=== PATIENT | female | born 1945 | race Caucasian/White ===

== ENCOUNTER 2017-07-30 17:11 | Inpatient (IN) | payer MEDICARE ==
[~2017-07-30 17:11] MED LIST: ISOVUE-370 76%-LOCM 1 ML ONE
[2017-07-30] MEDS ORDERED: Albuterol Sulfate 2.5 mg/3 ml Neb ONE (17:30)
[2017-07-30] MEDS ORDERED: Albuterol Sulfate 2.5 mg/0.5 ml Neb ONE ×5 (17:30→18:11)
[2017-07-30] MEDS ORDERED: methylPREDNISolone Sod Succ/PF 125 MG/2 ML VIAL ONE (17:44)
--- NOTE | 2017-07-30 18:05 | RAD ---
PORTABLE CHEST: 07/30/17 HISTORY: Dyspnea. COMPARISON: Comparison made to exam of 03/06/17. There is confluent infiltrate in the peripheral right mid lung and there is diffuse confluent infiltr ate in the peripheral left lung involving the left mid and lower lung. Findings are consistent with b ilateral consolidation. Heart and mediastinum unremarkable. IMPRESSION: Bilateral areas of lung consolidation consistent with bilateral pneumonia. Close followup recommended . POS: [facility]
[2017-07-30 18:16] LABS: Hemoglobin 13.5 g/dL (12.0-16.0); Mean Corpuscular HGB CONC 31.9 g/dL (32.0-36.0); Mean Corpuscular Hemoglobin 30.3 pg (27.0-31.0); Mean Platelet Volume 8.2 fL (7.4-10.4); Platelet Count 279 thou/uL (130-400); RBC Distribution Width 13.9 % (11.5-14.5); Red Blood Cell (RBC) Count 4.46 mill/uL (4.20-5.40); White Blood Cell (WBC) Count 34.8 thou/uL (4.8-10.8)
[2017-07-30 18:20] LABS: Band 31 % (5-11); Lymphocytes 3 % (21-51); MDiff Complete? YES; Metamyelocyte 8 % (0-0); Monocytes 3 % (0-10); Neutrophil 52 % (42-75); PLT Morphology Comment Appears Adequate; RBC Morphology Normal; Reactive Lymphocytes 2 % (0-10); Vacuoles SLIGHT
[2017-07-30 18:21] LABS: ALT (SGPT) 17 U/L (8-55); AST (SGOT) 19 U/L (5-34); Albumin 4.2 g/dL (3.4-4.8); Alkaline Phosphatase 88 U/L (40-150); Anion Gap 16 mmol/L (10-20); BUN (Urea Nitrogen) 24 mg/dL (9.8-20.1); Bilirubin, Total 1.1 mg/dL (0.2-1.2); Calc. Creatinine Clearance 0 mL/min (70-130); Calcium 9.7 mg/dL (7.8-10.44); Carbon Dioxide 31 mmol/L (23-31); Chloride 90 mmol/L (98-107); Estimated GFR-MDRD 48; Globulin 3.4 g/dL (2.4-3.5); Glucose 135 mg/dL (80-115); Potassium 3.1 mmol/L (3.5-5.1); Protein, Total 7.6 g/dL (6.0-8.3); Sodium 134 mmol/L (136-145)
[2017-07-30 18:24] LABS: Troponin I 0.034 ng/mL (< 0.028)
[2017-07-30 18:33] LABS: Lactic Acid 1.8 mmol/L (0.5-2.2)
[2017-07-30 19:34] LABS: Base Excess-Venous 4.5 mmol/L (-30.0-30.0); Bicarbonate (HCO3v) 34.3 mmol/L (1.0-85.0); CO2 Tension (PvCO2) 71.8 mmHg (41.0-51.0); Calcium, Ionized 1.06 mmol/L (1.12-1.32); Hemoglobin - Calc 16.7 g/dL (12.0-18.0); O2 Tension (PvO2) 64.3 mmHg (35.0-45.0); Potassium 2.7 mmol/L (3.4-4.7); T. Carbon Dioxide 36.5 mmol/L (1.0-85.0); pH (Venous) 7.287 (7.35-7.45); vO2 Saturation-calc 88.3 % (0.0-100.0)
--- NOTE | 2017-07-30 20:37 | CT ---
CT CHEST WITH IV CONTRAST 07/30/17 Multiple axial tomograms obtained through the chest with IV enhancement. HISTORY: Cough. Chest x-ray showed bilateral consolidation. CT confirms dense consolidation involving the right upper lobe peripherally extending to the pleural surface. There is also dense consolidation in the left mid lung extending from the hilum to the pleur al surface. There are air bronchograms bilaterally. The lungs show some hazy infiltrative changes in the posterior left lower lobe as well. There is mediastinal adenopathy. There is a carinal lymph node measuring up to 1.8 cm with numerous o ther paratracheal and carinal lymph nodes identified. No definite hilar mass lesion seen. Images thro ugh the upper abdomen unremarkable. IMPRESSION: There are focal areas of dense consolidation involving both mid lung arvizu extending from the amanda t o the peripheral pleural surface bilaterally. There is associated mediastinal adenopathy. POS: [facility]
[2017-07-30] MEDS ORDERED: Ondansetron ODT 4 MG TAB SL PRN (22:03)
[2017-07-30] MEDS ORDERED: Ondansetron HCl/PF 4 MG/2 ML Vial IVP PRN (22:03)
[2017-07-30] MEDS ORDERED: HYDROcodone/Acetaminophen 5/325 mg Tablet PO PRN ×2 (22:03)
[2017-07-30] MEDS ORDERED: Acetaminophen 325 MG TAB PO PRN (22:03)
[2017-07-30 22:53] VITALS: BMI 35.9
[2017-07-30] MEDS ORDERED: Cefepime 2 GM in Sodium Chloride 0.9% 100 ML IVPB SCH (23:15)
[2017-07-30] MEDS ORDERED: Magnesium Sulfate 2 GM in Sodium Chloride 0.9% 100 ML IVPB PRN (23:16)
[2017-07-30] MEDS ORDERED: Melatonin 3 MG TAB PO PRN (23:17)
[2017-07-30 23:19] LABS: Magnesium 1.5 mg/dL (1.6-2.6); Phosphorus 5.1 mg/dL (2.3-4.7)
[2017-07-30] MEDS ORDERED: Potassium Chloride 40 MEQ in Sodium Chloride 0.9% 500 ML IVPB SCH (23:30)
[2017-07-30] MEDS ORDERED: Potassium Chloride 20 MEQ TAB PO SCH (23:30)
[2017-07-30] MEDS ORDERED: Magnesium 2 GM/NS 0.9% 100 ML 2 GM in Premix Bag 1 BAG IVPB SCH (23:45)
[2017-07-31] MEDS: Cefepime 2 GM, Syringe 2.5 ML in Sterile Water 10 ML SLOW IVP SCH ×2 (00:21→13:18)
[2017-07-31] MEDS ORDERED: Dextrose 50% Abboject 50 ML SYRINGE SLOW IVP PRN (02:07)
[2017-07-31] MEDS ORDERED: Insulin Regular 300 UNITS/3 ML VIAL SC PRN (02:07)
[2017-07-31] MEDS ORDERED: Dextrose 5% in Water 1,000 ML IV PRN (02:07)
[2017-07-31] MEDS ORDERED: Calcium Carbonate 500 MG ChewTAB PO PRN (02:10)
[2017-07-31] MEDS ORDERED: Ondansetron HCl/PF 4 MG/2 ML Vial IVP PRN (02:10)
[2017-07-31] MEDS ORDERED: Ondansetron ODT 4 MG TAB PO PRN (02:10)
[2017-07-31] MEDS ORDERED: Senokot 8.6 MG TAB PO PRN (02:10)
[2017-07-31] MEDS ORDERED: Acetaminophen 325 MG TAB PO PRN (02:10)
[2017-07-31] MEDS ORDERED: Mag-Al 1200 mg/1200 mg/30 ML UDCUP PO PRN (02:10)
[2017-07-31] MEDS ORDERED: Nitroglycerin 0.4 MG TAB (25 Tab Bottle) PO PRN (02:10)
[2017-07-31] MEDS ORDERED: Eucerin (Mineral Oil/Petrolatum,White) 30 gm Jar TOP PRN (02:13)
[2017-07-31] MEDS ORDERED: hydrALAZINE 20 MG/ML VIAL SLOW IVP PRN (02:13)
--- NOTE | 2017-07-31 02:46 | HP ---
DATE OF ADMISSION: 07/30/2017 PRIMARY CARE PHYSICIAN: Dr. Marge Jackson. PRIMARY WARP BLEACHING VAT TENDER: Dr. Cordero. CHIEF COMPLAINT: Shortness of breath. HISTORY OF PRESENT ILLNESS: Patient is a 72-year-old female with COPD, chronic respiratory failure o n 2 liters home oxygen, coronary artery disease, hypertension, and dyslipidemia, presented to the [facility] room from Dr. Jackson's office with shortness of breath. Her O2 saturation at Dr. Jackson's o ffice was 86% on 2 liters. Influenza testing was negative at Dr. Jackson's office. Over the last two days, the patient developed gradual worsening shortness of breath along with chest tightness and wheezing. She also had cough that was productive of thick whitish phlegm. No fevers, chills, or sick contacts reported. Weather changes usually precipitates her COPD exacerbation. She denies any orthopnea, paroxysmal nocturnal dyspnea, leg swelling, chest pain, lightheadedness, or syn cope. In the emergency room, her initial vital signs showed temperature 99.2, respirations 28, pulse rate o f 106, blood pressure of 120/65 with O2 saturation 86% on 4 liter nasal cannula. EKG showed sinus ta chycardia. CT scan of the chest in the emergency room was consistent with bilateral pneumonia. She received ceftriaxone, Levaquin, steroids with nebulizer treatment and aspirin in the emergency room. PAST MEDICAL HISTORY: 1. Chronic respiratory failure on home oxygen. 2. COPD. 3. Hypertension. 4. Hyperlipidemia. 5. Diabetes mellitus type 2. 6. Gastroesophageal reflux disease. 7. Anxiety and depression. 8. Chronic insomnia. PAST SURGICAL HISTORY: 1. . 2. Bilateral cataract surgery. ALLERGIES: Patient denies any drug allergies. CURRENT HOME MEDICATIONS: Patient does not remember any of her home medications. Family to get accu rate list of medications. SOCIAL HISTORY: Patient is a former smoker, quit in 2006. Drinks alcohol socially. She is . She lives at home with her family. She is FULL CODE. She makes her own decisions with the help o f her family. FAMILY HISTORY: Father with heart disease. REVIEW OF SYSTEMS: The following complete review of systems was negative, unless otherwise mentioned in the HPI or below: Constitutional: Weight loss or gain, ability to conduct usual activities. Skin: Rash, itching. Eyes: Double vision, pain. ENT/Mouth: Nose bleeding, neck stiffness, pain, tenderness. Cardiovascular: Palpitations, dyspnea on exertion, orthopnea. Respiratory: Shortness of breath, wheezing, cough, hemoptysis, fever or night sweats. Gastrointestinal: Poor appetite, abdominal pain, heartburn, nausea, vomiting, constipation, or diarr hea. Genitourinary: Urgency, frequency, dysuria, nocturia. Musculoskeletal: Pain, swelling. Neurologic/Psychiatric: Anxiety, depression. Allergy/Immunologic: Skin rash, bleeding tendency. PHYSICAL EXAMINATION: VITAL SIGNS: As discussed above. GENERAL: A 72-year-old female in mild to moderate respiratory distress. Able to complete short phra ses. HEENT: Atraumatic, normocephalic. Sclerae are anicteric. Moist mucous membranes. No oral lesion. NECK: Supple, no JVD, no stridor. LUNGS: Show diffuse expiratory wheezing with scattered rhonchi and rales. There was mild accessory muscle use. HEART: S1, S2 present, regular, 2/6 systolic murmur over the mitral area. ABDOMEN: Soft, nontender, bowel sounds present. EXTREMITIES: No edema or calf tenderness. NEUROLOGIC: Grossly nonfocal, moves all four extremities. PSYCHIATRY: Alert, awake, oriented x3. SKIN: Warm and dry. LYMPH NODES: No palpable lymph nodes in the neck. PERIPHERAL VASCULAR: Radial pulses palpable bilaterally. MUSCULOSKELETAL: No joint swelling or tenderness. LABORATORY FINDINGS: WBC count was 34.8 with 31% bandemia. VBGs showed pH of 7.28 with pCO2 of 71.8 , pO2 of 64.3. Chemistries showed sodium 134, potassium 2.7, magnesium 1.5, troponin of 0.034. EKG and CT scan of the chest by my review as discussed above. IMPRESSION: 1. Acute on chronic hypoxic respiratory failure secondary to chronic obstructive pulmonary disease/b ilateral pneumonia, suspected pneumococcus. 2. Electrolyte abnormalities. Patient has hyponatremia, hypokalemia, and hypomagnesemia. 3. Elevated troponins, probably secondary to demand ischemia. 4. Chronic kidney disease stage 3. 5. Hypertension. 6. Coronary artery disease. 7. Dyslipidemia. 8. Diabetes mellitus type 2. 9. Obesity with a BMI 35.9. 10. Anxiety and depression. 11. Gastroesophageal reflux disease. 12. Sepsis with acute organ dysfunction secondary to pneumonia. 13. Leukocytosis of 34.8 with 31% bandemia. PLAN: Patient will be monitored in the intermediate care unit. Consult Pulmonary. Continue Levaqui n. We will add cefepime. IV steroids. Replace potassium and magnesium. Recheck labs in a.m. [facility] treatment every 4 hourly. Resume home medications once confirmed. Plan of care was discussed with the patient in detail. She stated understanding. Patient will require 3 to 4 days for stabilization. Patient was seen and examined on 07/30/2017.
[2017-07-31 04:46] LABS: Legionella Urinary Ag Negative (Negative); Strep pneumo Urine Ag NEGATIVE (NEGATIVE)
[2017-07-31 06:07] LABS: Hemoglobin 10.6 g/dL (12.0-16.0); Mean Corpuscular HGB CONC 31.5 g/dL (32.0-36.0); Mean Corpuscular Hemoglobin 30.4 pg (27.0-31.0); Mean Corpuscular Volume 96.5 fl (81.0-99.0); Mean Platelet Volume 8.4 fL (7.4-10.4); Platelet Count 205 thou/uL (130-400); RBC Distribution Width 13.6 % (11.5-14.5); White Blood Cell (WBC) Count 24.4 thou/uL (4.8-10.8)
[2017-07-31] MEDS: Insulin Regular 300 UNITS/3 ML VIAL SC PRN ×2 (06:07→13:25)
[2017-07-31 06:08] LABS: Band 41 % (5-11); Lymphocytes 4 % (21-51); MDiff Complete? YES; Monocytes 2 % (0-10); Neutrophil 53 % (42-75); PLT Morphology Comment Appears Adequate
[2017-07-31 06:09] LABS: Albumin 3.2 g/dL (3.4-4.8); Anion Gap 12 mmol/L (10-20); BUN (Urea Nitrogen) 25 mg/dL (9.8-20.1); BUN/Creatinine Ratio 24.04; Calc. Creatinine Clearance 71 mL/min (70-130); Calcium 8.1 mg/dL (7.8-10.44); Carbon Dioxide 26 mmol/L (23-31); Chloride 105 mmol/L (98-107); Estimated GFR-MDRD 52; Glucose 155 mg/dL (80-115); Phosphorus 2.7 mg/dL (2.3-4.7); Potassium 3.9 mmol/L (3.5-5.1); Sodium 139 mmol/L (136-145)
[2017-07-31] MEDS: Mometasone/Formoterol 120 PUFF INHALER INH SCH ×2 (07:13→18:46)
[2017-07-31] MEDS: Folic Acid 1 MG TAB PO SCH (08:44)
[2017-07-31] MEDS: Docusate 100 MG CAP PO SCH ×2 (08:45→20:52)
[2017-07-31] MEDS: Famotidine 20 MG TAB PO SCH ×2 (08:45→20:52)
[2017-07-31] MEDS: guaiFENesin ER 600 MG TAB PO SCH ×2 (08:45→20:52)
[2017-07-31] MEDS: Saccharomyces boulardii 250 MG CAP PO SCH (08:45)
[2017-07-31] MEDS: Lisinopril 10 MG TAB PO SCH ×2 (08:45→20:52)
[2017-07-31] MEDS: Carvedilol 25 MG TAB PO SCH ×2 (08:46→20:53)
[2017-07-31] MEDS: Potassium Chloride 20 MEQ TAB PO SCH (08:46)
[2017-07-31] MEDS: Calcium Carbonate + Vit D 1 TAB PO SCH ×2 (08:46→17:30)
[2017-07-31] MEDS: FLUoxetine HCl 20 MG CAP PO SCH (08:46)
[2017-07-31] MEDS ORDERED: Non-Formulary Item 1 EACH (Budesonide-Formoterol [Symbicort 160-4.5] 1 PUFF) INH SCH (09:00)
--- NOTE | 2017-07-31 12:19 | PDOC.PN ---
- Subjective Encounter Start Date: 07/31/17 Encounter Start Time: 10:30 -: old records requested/rev Pt seen and examined, chart reviewed in its entirety. This is my first visit with this patient breathing markedly callie,r no F/C, cough, but no phlegm, no n/V/D/c, no CP, + YUAN 10 point ROS performed and neg for all systems except as per HPI - Objective Resuscitation Status: Resuscitation Status FULL:Full Resuscitation MAR Reviewed: Yes Vital Signs & Weight: Vital Signs (12 hours) Temp Pulse Resp BP BP Pulse Ox 07/31/17 11:26 97.4 F L 89 18 108/49 L 98 07/31/17 11:19 82 22 H 99 07/31/17 08:45 119/56 L 07/31/17 07:53 97.2 F L 86 19 114/52 L 97 07/31/17 07:38 97.6 F 84 20 97 07/31/17 07:15 99 07/31/17 07:11 84 20 99 07/31/17 04:00 97.6 F 86 18 100/54 L 97 07/31/17 02:22 84 16 100 Weight Weight 196 lb 8 oz I&O: 07/30/17 07/31/17 08/01/17 06:59 06:59 06:59 Intake Total 1000 Balance 1000 Result Diagrams: 07/31/17 05:12 07/31/17 05:12 Additional Labs: Accuchecks 07/31/17 07/31/17 10:33 06:00 POC Glucose 178 H 238 H Radiology Reviewed by me: Yes EKG Reviewed by me: Yes Phys Exam - Physical Examination Constitutional: NAD HEENT: PERRLA, moist MMs, sclera anicteric, oral pharynx no lesions Neck: no nodes, no JVD, supple, full ROM prolonged expiration, low pitch exp wheezes. Cardiovascular: RRR, no significant murmur, no rub Gastrointestinal: soft, non-tender, no distention, positive bowel sounds Musculoskeletal: pulses present, edema present trace pedal Neurological: non-focal, normal sensation, moves all 4 limbs Lymphatic: no nodes Psychiatric: normal affect, A&O x 3 Skin: no rash, normal turgor, cap refill <2 seconds Dx/Plan (1) CAP (community acquired pneumonia) Code(s): J18.9 - PNEUMONIA, UNSPECIFIED ORGANISM Status: Acute Qualifiers: Lung location: middle lobe of lung Comment: CAP, bilateral middle lobes (2) COPD with exacerbation Code(s): J44.1 - CHRONIC OBSTRUCTIVE PULMONARY DISEASE W (ACUTE) EXACERBATION Status: Acute Comment: steroids, nebs, abx (3) CAD (coronary artery disease) Code(s): I25.10 - ATHSCL HEART DISEASE OF [place] CORONARY ARTERY W/O ANG PCTRS Status: Chronic Qualifiers: Coronary Disease-Associated Artery/Lesion type: [place] artery [place] vs. transplanted heart: [place] heart Associated angina: without angina Qualified Code(s): I25.10 - Atherosclerotic heart disease of [place] coronary artery without angina pectoris (4) CKD (chronic kidney disease) stage 2, GFR 60-89 ml/min Code(s): N18.2 - CHRONIC KIDNEY DISEASE, STAGE 2 (MILD) Status: Chronic (5) HLD (hyperlipidemia) Code(s): E78.5 - HYPERLIPIDEMIA, UNSPECIFIED Status: Chronic Qualifiers: Hyperlipidemia type: unspecified Qualified Code(s): E78.5 - Hyperlipidemia , unspecified (6) HTN (hypertension) Code(s): I10 - ESSENTIAL (PRIMARY) HYPERTENSION Status: Chronic Qualifiers: Hypertension type: essential hypertension Qualified Code(s): I10 - Essential (primary) hypertension (7) Obesity (BMI 30.0-34.9) Code(s): E66.9 - OBESITY, UNSPECIFIED Status: Chronic (8) Acute respiratory failure with hypoxemia Code(s): J96.01 - ACUTE RESPIRATORY FAILURE WITH HYPOXIA Status: Acute Comment: acute on chronic. on 2L at home, back to 2L now - Plan cont current plan of care, continue antibiotics, respiratory therapy, out of bed /ambulate, DVT proph w/lovenox * .
[2017-07-31] MEDS: Atorvastatin Calcium 20 MG TAB PO SCH (20:52)
[2017-08-01] MEDS: Cefepime 2 GM, Syringe 2.5 ML in Sterile Water 10 ML SLOW IVP SCH ×2 (00:37→12:22)
[2017-08-01 04:55] LABS: Troponin I Less than 0.010 ng/mL (< 0.028)
[2017-08-01 04:56] LABS: Albumin 3.1 g/dL (3.4-4.8); Anion Gap 12 mmol/L (10-20); BUN (Urea Nitrogen) 26 mg/dL (9.8-20.1); BUN/Creatinine Ratio 29.89; Calc. Creatinine Clearance 85 mL/min (70-130); Calcium 8.4 mg/dL (7.8-10.44); Carbon Dioxide 28 mmol/L (23-31); Chloride 103 mmol/L (98-107); Estimated GFR-MDRD 64; Glucose 142 mg/dL (80-115); Magnesium 2.4 mg/dL (1.6-2.6); Phosphorus 2.4 mg/dL (2.3-4.7); Potassium 4.2 mmol/L (3.5-5.1); Sodium 139 mmol/L (136-145)
[2017-08-01 05:05] LABS: Band 11 % (5-11); Hemoglobin 10.5 g/dL (12.0-16.0); Lymphocytes 2 % (21-51); MDiff Complete? YES; Mean Corpuscular HGB CONC 31.3 g/dL (32.0-36.0); Mean Corpuscular Hemoglobin 30.2 pg (27.0-31.0); Mean Corpuscular Volume 96.4 fl (81.0-99.0); Mean Platelet Volume 8.5 fL (7.4-10.4); Monocytes 5 % (0-10); Neutrophil 82 % (42-75); PLT Morphology Comment Appears Adequate; Platelet Count 214 thou/uL (130-400); RBC Distribution Width 13.4 % (11.5-14.5); RBC Morphology Normal; Red Blood Cell (RBC) Count 3.46 mill/uL (4.20-5.40); White Blood Cell (WBC) Count 19.3 thou/uL (4.8-10.8)
[2017-08-01] MEDS: Mometasone/Formoterol 120 PUFF INHALER INH SCH ×2 (08:23→18:21)
[2017-08-01] MEDS: Lisinopril 10 MG TAB PO SCH ×2 (08:56→20:23)
[2017-08-01] MEDS: Docusate 100 MG CAP PO SCH ×2 (08:56→20:23)
[2017-08-01] MEDS: Famotidine 20 MG TAB PO SCH ×2 (08:56→20:23)
[2017-08-01] MEDS: Saccharomyces boulardii 250 MG CAP PO SCH (08:56)
[2017-08-01] MEDS: Potassium Chloride 20 MEQ TAB PO SCH (08:58)
[2017-08-01] MEDS: Carvedilol 25 MG TAB PO SCH ×2 (08:58→20:23)
[2017-08-01] MEDS: FLUoxetine HCl 20 MG CAP PO SCH (08:58)
[2017-08-01] MEDS: Calcium Carbonate + Vit D 1 TAB PO SCH ×2 (08:58→17:02)
[2017-08-01] MEDS: Folic Acid 1 MG TAB PO SCH (08:58)
[2017-08-01] MEDS: guaiFENesin ER 600 MG TAB PO SCH ×2 (08:58→20:23)
[2017-08-01] MEDS: Insulin Regular 300 UNITS/3 ML VIAL SC PRN (12:23)
--- NOTE | 2017-08-01 14:13 | PDOC.PN ---
- Subjective Encounter Start Date: 08/01/17 Encounter Start Time: 09:[address] Cordero, he had seen her ealier this morning Pt feels and looks much better. minimal cough, small amount of dark blood in sputum last night, none today. No f/c, no n/V/d/c. walking in her room, some YUAN. Back to home O2 levels 10 point ROS performed adn neg for all systems except as per HPI - Objective Resuscitation Status: Resuscitation Status FULL:Full Resuscitation MAR Reviewed: Yes Vital Signs & Weight: Vital Signs (12 hours) Temp Pulse Resp BP BP BP Pulse Ox 08/01/17 11:28 98.0 F 84 21 H 141/81 H 93 L 08/01/17 10:36 83 20 08/01/17 08:56 119/56 L 08/01/17 08:25 97 08/01/17 08:23 95 20 97 08/01/17 07:49 97.0 F L 82 20 120/61 98 08/01/17 07:33 97.6 F 86 20 98 08/01/17 04:16 97.6 F 86 20 118/60 100 Weight Weight 196 lb 8 oz I&O: 07/31/17 08/01/17 08/02/17 06:59 06:59 06:59 Intake Total 1000 1470 Balance 1000 1470 Result Diagrams: 08/01/17 03:49 08/01/17 03:49 Additional Labs: Accuchecks 08/01/17 08/01/17 07/31/17 10:19 05:46 21:28 POC Glucose 197 H 153 H 179 H 07/31/17 16:28 POC Glucose 135 H Radiology Reviewed by me: Yes EKG Reviewed by me: Yes Phys Exam - Physical Examination Constitutional: NAD HEENT: PERRLA, moist MMs, sclera anicteric, oral pharynx no lesions Neck: no nodes, no JVD, supple, full ROM expiratory left sided wheezes, inspiration = expiration, mid-rales Cardiovascular: RRR, no significant murmur, no rub Gastrointestinal: soft, non-tender, no distention, positive bowel sounds Musculoskeletal: no edema, pulses present Neurological: non-focal, normal sensation, moves all 4 limbs Lymphatic: no nodes Psychiatric: normal affect, A&O x 3 Skin: no rash, normal turgor, cap refill <2 seconds Dx/Plan (1) CAP (community acquired pneumonia) Code(s): J18.9 - PNEUMONIA, UNSPECIFIED ORGANISM Status: Acute Qualifiers: Lung location: middle lobe of lung Comment: CAP, bilateral middle lobes. 100% on home 2L NC, WBC down, afebrile. CCM, stop Cefepime, levofoox alone (2) COPD with exacerbation Code(s): J44.1 - CHRONIC OBSTRUCTIVE PULMONARY DISEASE W (ACUTE) EXACERBATION Status: Acute Comment: steroids, nebs, abx. much better today (3) CAD (coronary artery disease) Code(s): I25.10 - ATHSCL HEART DISEASE OF [place] CORONARY ARTERY W/O ANG PCTRS Status: Chronic Qualifiers: Coronary Disease-Associated Artery/Lesion type: [place] artery [place] vs. transplanted heart: [place] heart Associated angina: without angina Qualified Code(s): I25.10 - Atherosclerotic heart disease of [place] coronary artery without angina pectoris (4) CKD (chronic kidney disease) stage 2, GFR 60-89 ml/min Code(s): N18.2 - CHRONIC KIDNEY DISEASE, STAGE 2 (MILD) Status: Chronic (5) HLD (hyperlipidemia) Code(s): E78.5 - HYPERLIPIDEMIA, UNSPECIFIED Status: Chronic Qualifiers: Hyperlipidemia type: unspecified Qualified Code(s): E78.5 - Hyperlipidemia , unspecified (6) HTN (hypertension) Code(s): I10 - ESSENTIAL (PRIMARY) HYPERTENSION Status: Chronic Qualifiers: Hypertension type: essential hypertension Qualified Code(s): I10 - Essential (primary) hypertension (7) Obesity (BMI 30.0-34.9) Code(s): E66.9 - OBESITY, UNSPECIFIED Status: Chronic (8) Acute respiratory failure with hypoxemia Code(s): J96.01 - ACUTE RESPIRATORY FAILURE WITH HYPOXIA Status: Acute Comment: acute on chronic. on 2L at home, back to 2L now - Plan * .
--- NOTE | 2017-08-01 14:28 | CON ---
DATE OF SERVICE: 08/01/2017 HISTORY OF PRESENT ILLNESS: Ms. Jensen is a very pleasant 72-year-old female. She apparently presented yesterday for admission. I discovered her on my rounding visit today, jovon maki received no call notifying me of her admission. I follow her for obstructive lung disease. She is chronically on oxygen. Chest radiograph and chest CT showed bilateral dense alveolar infiltrates. She subsequently has been admitted. I reviewed the CT and chest radiograph. PAST MEDICAL HISTORY: Remarkable for, 1. Chronic respiratory failure, on home oxygen. 2. COPD. 3. Hypertension. 4. Lipid disorder. 5. Diabetes. 6. Reflux disease. 7. Insomnia, anxiety and depression. 8. History of a . 9. History of cataract surgery. SOCIAL HISTORY: She is a nonsmoker, nondrinker. She has not smoked in over 10 years. MEDICATIONS: Medications have been reviewed. FAMILY HISTORY: Negative for lung disease at an early age. There is history of vascular disease. REVIEW OF SYSTEMS: 10-point review of systems otherwise negative. She says she feels much better than she felt on presentation. PHYSICAL EXAMINATION: VITAL SIGNS: She is afebrile, heart rate is 84, respiratory rate 21, oximetry is 93 on 2 liters, blo od pressure 141/81. HEENT: Pupils are equal, sclerae is anicteric. NECK: Supple. LUNGS: Remarkable for mild rhonchi, worse on the left. Anteriorly, her lungs are clear. HEART: Regular rhythm, no S3. ABDOMEN: Soft and nontender with no masses. EXTREMITIES: No asymmetry. LABORATORY: Chest radiograph and chest CT have both been reviewed by me, consistent with patchy alve olar infiltrates suggestive of bacterial pneumonia. White count 19.3, hemoglobin 10.5, platelets 214 ,000. Sodium 139, potassium 4.2, chloride 103, bicarb 28, BUN 26, creatinine 0.7. IMPRESSION: 1. Pneumonia. 2. Chronic respiratory failure. 3. Acute decompensation with chronic obstructive pulmonary disease exacerbation with her pneumonia. PLAN: Continue steroids, antimicrobial therapy, radiograph as an outpatient will be followed t o a point of complete clearing. She does have some mediastinal lymph nodes, but all are less than 2 cm. It is hard to interpret mediastinal lymph node enlargement in an acute setting. I doubt she mcmanus s bilateral endobronchial lesions leading to her radiographic findings. She can be taken out of the Intermediate Care Unit and transferred to a medical bed in my opinion. ADDENDUM: This is a 50 minute consult and greater than 50% of the time was spent coordinating care o n the unit.
[2017-08-01] MEDS: Atorvastatin Calcium 20 MG TAB PO SCH (20:23)
[2017-08-02 04:50] LABS: Anion Gap 12 mmol/L (10-20); BUN (Urea Nitrogen) 22 mg/dL (9.8-20.1); Calc. Creatinine Clearance 94 mL/min (70-130); Calcium 8.7 mg/dL (7.8-10.44); Carbon Dioxide 28 mmol/L (23-31); Chloride 103 mmol/L (98-107); Estimated GFR-MDRD 73; Glucose 145 mg/dL (80-115); Magnesium 2.4 mg/dL (1.6-2.6); Sodium 139 mmol/L (136-145)
[2017-08-02 05:11] LABS: Band 29 % (5-11); Hemoglobin 10.7 g/dL (12.0-16.0); Lymphocytes 6 % (21-51); MDiff Complete? YES; Mean Corpuscular HGB CONC 32.2 g/dL (32.0-36.0); Mean Corpuscular Hemoglobin 30.9 pg (27.0-31.0); Mean Platelet Volume 8.7 fL (7.4-10.4); Monocytes 4 % (0-10); Neutrophil 61 % (42-75); PLT Morphology Comment Appears Adequate; Platelet Count 231 thou/uL (130-400); RBC Distribution Width 13.4 % (11.5-14.5); RBC Morphology Normal; Red Blood Cell (RBC) Count 3.46 mill/uL (4.20-5.40); White Blood Cell (WBC) Count 15.8 thou/uL (4.8-10.8)
[2017-08-02] MEDS: Mometasone/Formoterol 120 PUFF INHALER INH SCH ×2 (07:06→18:26)
[2017-08-02] MEDS: Docusate 100 MG CAP PO SCH ×3 (09:06→20:46)
[2017-08-02] MEDS: Carvedilol 25 MG TAB PO SCH ×2 (09:07→20:44)
[2017-08-02] MEDS: Famotidine 20 MG TAB PO SCH ×2 (09:07→20:44)
[2017-08-02] MEDS: Saccharomyces boulardii 250 MG CAP PO SCH (09:07)
[2017-08-02] MEDS: Folic Acid 1 MG TAB PO SCH (09:07)
[2017-08-02] MEDS: Potassium Chloride 20 MEQ TAB PO SCH (09:07)
[2017-08-02] MEDS: Calcium Carbonate + Vit D 1 TAB PO SCH ×2 (09:07→17:36)
[2017-08-02] MEDS: Lisinopril 10 MG TAB PO SCH ×2 (09:08→20:44)
[2017-08-02] MEDS: guaiFENesin ER 600 MG TAB PO SCH ×2 (09:08→20:44)
[2017-08-02] MEDS: FLUoxetine HCl 20 MG CAP PO SCH (09:08)
--- NOTE | 2017-08-02 13:21 | PRG ---
DATE OF SERVICE: 08/02/2017 SUBJECTIVE: She is better. She is still short of breath and coughing. PHYSICAL EXAMINATION: VITAL SIGNS: Sats 100% on 2 liters, temperature is 97, blood pressure 157/79, respirations 18. CHEST: Decreased breath sounds, no wheezing. CARDIAC: Normal S1, S2. ABDOMEN: Soft. No masses. LABORATORY DATA: White count 15,000, hemoglobin and hematocrit 10 and 33, platelet count 231 with 29 segs. Creatinine is normal. IMPRESSION: Bilateral bronchopneumonia. PLAN: I am concerned about extensive pneumonia on the left shift. X-ray is being ordered. If it lo oks much improved, maybe she can be discharged in the next 24 to 48 hours. Switch to oral antibiotic s.
--- NOTE | 2017-08-02 15:13 | PDOC.PN ---
- Subjective Encounter Start Date: 08/02/17 Encounter Start Time: 08:55 Pt breathing about back to baseline. pulm note reviewed, follow up CXR ordered. No F/c, no n/V/d/c, walking n room without problems 10 point ROs performed and neg for all systems except as per HPI - Objective Resuscitation Status: Resuscitation Status FULL:Full Resuscitation Vital Signs & Weight: Vital Signs (12 hours) Temp Pulse Pulse Pulse Resp BP BP 08/02/17 14:34 80 16 08/02/17 11:15 70 106 H 149/79 H 0180/95 H 08/02/17 11:12 97.2 F L 67 17 08/02/17 10:47 85 16 08/02/17 08:00 97.9 F 84 21 H 08/02/17 07:19 97.9 F 84 21 H 08/02/17 07:03 83 16 08/02/17 04:00 98.0 F 91 20 BP BP Pulse Ox Pulse Ox Pulse Ox 08/02/17 14:34 98 08/02/17 11:15 95 88 L 08/02/17 11:12 149/79 H 08/02/17 10:47 99 08/02/17 08:00 100 08/02/17 07:19 155/79 H 100 08/02/17 07:03 100 08/02/17 04:00 143/74 H 97 Weight Weight 196 lb 8 oz I&O: 08/01/17 08/02/17 08/03/17 06:59 06:59 06:59 Intake Total 1470 1260 360 Output Total 350 Balance 1470 910 360 Result Diagrams: 08/02/17 03:38 08/02/17 03:38 Additional Labs: Accuchecks 08/02/17 08/02/17 08/01/17 10:44 06:03 20:41 POC Glucose 147 H 147 H 176 H 08/01/17 16:25 POC Glucose 147 H Radiology Reviewed by me: Yes EKG Reviewed by me: Yes Phys Exam - Physical Examination Constitutional: NAD HEENT: PERRLA, moist MMs, sclera anicteric, oral pharynx no lesions Neck: no nodes, no JVD, supple, full ROM Respiratory: no wheezing, no rhonchi, clear to auscultation bilateral rales stable Cardiovascular: RRR, no significant murmur, no rub Gastrointestinal: soft, non-tender, no distention, positive bowel sounds Musculoskeletal: no edema, pulses present Neurological: non-focal, normal sensation, moves all 4 limbs Lymphatic: no nodes Psychiatric: normal affect, A&O x 3 Skin: no rash, normal turgor, cap refill <2 seconds Dx/Plan (1) CAP (community acquired pneumonia) Code(s): J18.9 - PNEUMONIA, UNSPECIFIED ORGANISM Status: Acute Qualifiers: Lung location: middle lobe of lung Comment: CAP, bilateral middle lobes. 100% on home 2L NC, WBC down, afebrile. CCM, stop Cefepime, levoflox alone. to po 08/02 (2) COPD with exacerbation Code(s): J44.1 - CHRONIC OBSTRUCTIVE PULMONARY DISEASE W (ACUTE) EXACERBATION Status: Acute Comment: steroids, nebs, abx. much better today (3) CAD (coronary artery disease) Code(s): I25.10 - ATHSCL HEART DISEASE OF [place] CORONARY ARTERY W/O ANG PCTRS Status: Chronic Qualifiers: Coronary Disease-Associated Artery/Lesion type: [place] artery [place] vs. transplanted heart: [place] heart Associated angina: without angina Qualified Code(s): I25.10 - Atherosclerotic heart disease of [place] coronary artery without angina pectoris (4) CKD (chronic kidney disease) stage 2, GFR 60-89 ml/min Code(s): N18.2 - CHRONIC KIDNEY DISEASE, STAGE 2 (MILD) Status: Chronic (5) HLD (hyperlipidemia) Code(s): E78.5 - HYPERLIPIDEMIA, UNSPECIFIED Status: Chronic Qualifiers: Hyperlipidemia type: unspecified Qualified Code(s): E78.5 - Hyperlipidemia , unspecified (6) HTN (hypertension) Code(s): I10 - ESSENTIAL (PRIMARY) HYPERTENSION Status: Chronic Qualifiers: Hypertension type: essential hypertension Qualified Code(s): I10 - Essential (primary) hypertension (7) Obesity (BMI 30.0-34.9) Code(s): E66.9 - OBESITY, UNSPECIFIED Status: Chronic (8) Acute respiratory failure with hypoxemia Code(s): J96.01 - ACUTE RESPIRATORY FAILURE WITH HYPOXIA Status: Acute Comment: acute on chronic. on 2L at home, back to 2L now - Plan * .
[2017-08-02] MEDS: Atorvastatin Calcium 20 MG TAB PO SCH (20:44)
[2017-08-03 05:13] LABS: Anion Gap 10 mmol/L (10-20); BUN (Urea Nitrogen) 23 mg/dL (9.8-20.1); Calc. Creatinine Clearance 100 mL/min (70-130); Carbon Dioxide 32 mmol/L (23-31); Chloride 102 mmol/L (98-107); Estimated GFR-MDRD 78; Glucose 107 mg/dL (80-115); Magnesium 2.3 mg/dL (1.6-2.6); Potassium 4.3 mmol/L (3.5-5.1); Sodium 140 mmol/L (136-145)
[2017-08-03 05:52] LABS: Band 9 % (5-11); Eosinophils 1 % (0-10); Hemoglobin 11.3 g/dL (12.0-16.0); Hypochromia SLIGHT = 6-15 cells (100X) (0-5/hpf); Lymphocytes 12 % (21-51); MDiff Complete? YES; Mean Corpuscular HGB CONC 31.5 g/dL (32.0-36.0); Mean Corpuscular Hemoglobin 30.1 pg (27.0-31.0); Mean Corpuscular Volume 95.7 fl (81.0-99.0); Mean Platelet Volume 8.2 fL (7.4-10.4); Metamyelocyte 2 % (0-0); Monocytes 4 % (0-10); Neutrophil 72 % (42-75); Nucleated RBC 1 % (0); PLT Morphology Comment Appears Adequate; Platelet Count 232 thou/uL (130-400); RBC Distribution Width 13.5 % (11.5-14.5); Red Blood Cell (RBC) Count 3.75 mill/uL (4.20-5.40); White Blood Cell (WBC) Count 20.2 thou/uL (4.8-10.8)
[2017-08-03] MEDS: Mometasone/Formoterol 120 PUFF INHALER INH SCH ×2 (06:16→22:49)
[2017-08-03] MEDS: Carvedilol 25 MG TAB PO SCH ×2 (08:00→20:11)
[2017-08-03] MEDS: predniSONE 20 MG TAB PO SCH (08:00)
[2017-08-03] MEDS: Calcium Carbonate + Vit D 1 TAB PO SCH ×2 (08:00→16:12)
[2017-08-03] MEDS: Potassium Chloride 20 MEQ TAB PO SCH (08:00)
[2017-08-03] MEDS: Folic Acid 1 MG TAB PO SCH (08:01)
[2017-08-03] MEDS: guaiFENesin ER 600 MG TAB PO SCH ×2 (08:01→20:11)
[2017-08-03] MEDS: Docusate 100 MG CAP PO SCH ×2 (08:01→20:11)
[2017-08-03] MEDS: FLUoxetine HCl 20 MG CAP PO SCH (08:01)
[2017-08-03] MEDS: Saccharomyces boulardii 250 MG CAP PO SCH (08:01)
[2017-08-03] MEDS: Lisinopril 10 MG TAB PO SCH ×2 (08:02→20:10)
[2017-08-03] MEDS: Famotidine 20 MG TAB PO SCH ×2 (08:02→20:11)
--- NOTE | 2017-08-03 09:54 | RAD ---
2 VIEWS CHEST: Date: 08/03/17 HISTORY: Pneumonia. COMPARISON: 07/30/17. FINDINGS: The dense opacity within the left mid lung zone has improved, but does persist. The parenchymal opaci ty in the posterior aspect of the right upper lobe does persist, but may also be slightly improved fr om the prior exam. Cardiac silhouette and pulmonary vasculature are within normal limits. There is bl unting of the posterior costophrenic angle suggesting small pleural effusion. No other interval ruiz e. IMPRESSION: Mild improvement in bilateral pneumonia. Continued follow-up to complete resolution is recommended. POS: [facility]
--- NOTE | 2017-08-03 14:02 | PRG ---
DATE OF SERVICE: 08/03/2017 SUBJECTIVE: Backhus this morning awake and responsive. X-ray shows rather impressive bilateral pneu monia, left greater than right. OBJECTIVE: VITAL SIGNS: Sats are 95% on 2 liters, respirations 16, temperature 97, blood pressure 145/72. CHEST: Decreased breath sounds, bilateral wheezing. CARDIAC: Normal S1 and S2. IMPRESSION: Bilateral bronchopneumonia, chronic obstructive pulmonary disease exacerbation, bronchit is. PLAN: Continue prednisone, continue neb treatments and supportive care. Ambulate. Incidentally white count is 20,000, H&H 11 and 35 that is normal. So far cultures are negative. We will continue observation in the ICU. On broad spectrum antibiotic.
[2017-08-03] MEDS: Atorvastatin Calcium 20 MG TAB PO SCH (20:11)
--- NOTE | 2017-08-03 22:20 | PDOC.PN ---
- Subjective Encounter Start Date: 08/03/17 Encounter Start Time: 15:00 Patient seen and examined. Dry cough. SOB on exertion +. No overnight events - Objective Resuscitation Status: Resuscitation Status FULL:Full Resuscitation MAR Reviewed: Yes Vital Signs & Weight: Vital Signs (12 hours) Temp Pulse Resp BP BP Pulse Ox 08/03/17 20:00 98.3 F 84 18 169/86 H 97 08/03/17 16:00 164/86 H 08/03/17 15:45 97.9 F 79 16 94 L 08/03/17 15:15 97.9 F 79 16 181/100 H 94 L 08/03/17 11:18 97.8 F 71 18 155/70 H 96 Weight Weight 199 lb 9 oz I&O: 08/02/17 08/03/17 08/04/17 06:59 06:59 06:59 Intake Total 1260 1200 840 Output Total 350 Balance 910 1200 840 Result Diagrams: 08/03/17 04:42 08/03/17 04:42 Additional Labs: Accuchecks 08/03/17 08/03/17 08/03/17 20:10 16:45 10:56 POC Glucose 184 H 137 H 115 H 08/03/17 05:48 POC Glucose 100 Phys Exam - Physical Examination Constitutional: NAD Respiratory: no rhonchi Scat wheezing and rales at bases Cardiovascular: RRR, no rub Gastrointestinal: soft, non-tender, positive bowel sounds Musculoskeletal: no edema Neurological: moves all 4 limbs Dx/Plan - Plan DVT proph w/SCDs IMPRESSION: 1. Acute on chronic hypoxic respiratory failure secondary to chronic obstructive pulmonary disease/bilateral pneumonia, suspected pneumococcus. 2. Electrolyte abnormalities( hyponatremia, hypokalemia, and hypomagnesemia) 3. Elevated troponins, probably secondary to demand ischemia. 4. Chronic kidney disease stage 3. 5. Hypertension. 6. Coronary artery disease. 7. Dyslipidemia. 8. Diabetes mellitus type 2. on sliding scale 9. Obesity with a BMI 35.9. 10. Anxiety and depression. 11. Gastroesophageal reflux disease. 12. Sepsis with acute organ dysfunction secondary to pneumonia. 13. Leukocytosis of 34.8 with 31% bandemia. PLAN: * Pulm following * Cont Atbx/Steroids * Cont current meds as below * DC planning * Cont nebs Review of Systems - Review of Systems Cardiovascular: negative: chest pain, palpitations, orthopnea, paroxysmal nocturnal dyspnea, edema, light headedness Gastrointestinal: negative: Nausea, Vomiting, Abdominal Pain, Diarrhea, Constipation, Melena, Hematochezia - Medications/Allergies Allergies/Adverse Reactions: Allergies Allergy/AdvReac Type Severity Reaction Status Date / Time No Known Allergies Allergy Verified 10/27/16 22:38 Medications: Current Medications Acetaminophen (Tylenol) 650 mg PO Q4H PRN PRN Reason: Headache/Fever or Pain Al Hydroxide/Mg Hydroxide (Maalox) 30 ml PO Q6H PRN PRN Reason: Heartburn or Indigestion Albuterol/Ipratropium (Duoneb) 3 ml NEB [id number] [facility] Last Admin: 08/03/17 14:33 Dose: 3 ml Albuterol/Ipratropium (Duoneb) 3 ml NEB [id number] PRN PRN Reason: SOB &/or Wheezing Atorvastatin Calcium (Lipitor) 20 mg PO HS [facility] Last Admin: 08/03/17 20:11 Dose: 20 mg Calcium Carbonate (Tums) 1,000 mg PO Q4H PRN PRN Reason: Heartburn or Indigestion Calcium/Vitamin D (Caltrate 600 + Vit D) 1 tab PO BID-[facility] Last Admin: 08/03/17 16:12 Dose: 1 tab Carvedilol (Coreg) 25 mg PO BID [facility] Last Admin: 08/03/17 20:11 Dose: 25 mg Dextrose/Water (Dextrose 50%) 25 gm SLOW IVP PRN PRN PRN Reason: Hypoglycemia Docusate Sodium (Colace) 100 mg PO BID [facility] Last Admin: 08/03/17 20:11 Dose: Not Given Famotidine (Pepcid) 20 mg PO BID [facility] Last Admin: 08/03/17 20:11 Dose: 20 mg Fluoxetine HCl (Prozac) 20 mg PO DAILY [facility] Last Admin: 08/03/17 08:01 Dose: 20 mg Folic Acid (Folvite) 0.5 mg PO DAILY [facility] Last Admin: 08/03/17 08:01 Dose: 0.5 mg Glucagon (Glucagon) 1 mg IM PRN PRN PRN Reason: Hypoglycemia Guaifenesin (Mucinex) 600 mg PO Q12HR [facility] Last Admin: 08/03/17 20:11 Dose: 600 mg Hydralazine HCl (Apresoline) 10 mg SLOW IVP Q4H PRN PRN Reason: SBP Greater Than 180 Dextrose/Water (D5w) 1,000 mls @ 0 mls/hr IV .Q0M PRN; As Directed PRN Reason: Hypoglycemia Insulin Human Regular (Humulin R) 0 units SC .MILD SLIDING SCALE PRN PRN Reason: Mild Correctional Scale Last Admin: 08/01/17 12:23 Dose: 2 unit Insulin Human Regular (Humulin R) 0 units SC .BEDTIME SLIDING SC PRN PRN Reason: Bedtime Correctional Scale Levofloxacin (Levaquin) 750 mg PO 0600 [facility] Last Admin: 08/03/17 05:47 Dose: 750 mg Lisinopril (Zestril) 10 mg PO BID [facility] Last Admin: 08/03/17 20:10 Dose: 10 mg Mineral Oil/White Petrolatum (Eucerin Cream) 0 gm TOP BIDPRN PRN PRN Reason: Dry Skin Miscellaneous Medication (Pharmacy To Dose) 1 each IVPB PRN PRN PRN Reason: RENAL Pharmacy to dose Mometasone Furoate/Formoterol Fumar (Dulera 200 Mcg/5 Mcg Inhaler) 1 puff INH BID-RT [facility] Last Admin: 08/03/17 06:16 Dose: 1 puff Nitroglycerin (Nitrostat) 0.4 mg PO Q5MIN PRN PRN Reason: Chest Pain Ondansetron HCl (Zofran Odt) 4 mg PO Q6H PRN PRN Reason: Nausea/Vomiting Ondansetron HCl (Zofran) 4 mg IVP Q6H PRN PRN Reason: Nausea/Vomiting Potassium Chloride (K-Dur) 20 meq PO QAM-WM [facility] Last Admin: 08/03/17 08:00 Dose: 20 meq Prednisone (Prednisone) 40 mg PO QAM-WM [facility] Last Admin: 08/03/17 08:00 Dose: 40 mg Saccharomyces Boulardii (Florastor) 250 mg PO DAILY [facility] Last Admin: 08/03/17 08:01 Dose: 250 mg Senna (Senokot) 2 tab PO HSPRN PRN PRN Reason: Constipation Sodium Chloride (Flush - Normal Saline) 10 ml IVF Q12HR [facility] Last Admin: 08/03/17 20:12 Dose: 10 ml Sodium Chloride (Flush - Normal Saline) 10 ml IVF PRN PRN PRN Reason: Saline Flush
[2017-08-04] MEDS: Mometasone/Formoterol 120 PUFF INHALER INH SCH ×3 (08:17→19:45)
[2017-08-04] MEDS: predniSONE 20 MG TAB PO SCH (08:38)
[2017-08-04] MEDS: Saccharomyces boulardii 250 MG CAP PO SCH (08:38)
[2017-08-04] MEDS: Folic Acid 1 MG TAB PO SCH (08:38)
[2017-08-04] MEDS: Calcium Carbonate + Vit D 1 TAB PO SCH ×2 (08:38→17:43)
[2017-08-04] MEDS: Potassium Chloride 20 MEQ TAB PO SCH (08:39)
[2017-08-04] MEDS: guaiFENesin ER 600 MG TAB PO SCH ×2 (08:39→19:59)
[2017-08-04] MEDS: Famotidine 20 MG TAB PO SCH ×2 (08:39→19:59)
[2017-08-04] MEDS: FLUoxetine HCl 20 MG CAP PO SCH (08:39)
[2017-08-04] MEDS: Docusate 100 MG CAP PO SCH ×2 (08:40→19:59)
[2017-08-04] MEDS: Lisinopril 10 MG TAB PO SCH ×2 (08:40→19:59)
[2017-08-04] MEDS: Carvedilol 25 MG TAB PO SCH ×2 (08:40→19:59)
[2017-08-04] MEDS: Atorvastatin Calcium 20 MG TAB PO SCH (19:59)
--- NOTE | 2017-08-04 21:04 | PRG ---
DATE OF SERVICE: 08/04/2017 Zelda Jesnen has no complaints, says she is feeling better. OBJECTIVE: VITAL SIGNS: She is afebrile, heart rate 67, respiratory rate is 20, oximetry is 94 on 3 liters. Bl ood pressure 149/80. LUNGS: Clear. CARDIOVASCULAR: Regular rhythm. ABDOMEN: Soft. IMPRESSION: 1. Pneumonia. 2. Chronic obstructive pulmonary disease exacerbation. 3. Acute on chronic respiratory failure with chronic hypoxemia at home. PLAN: Hopefully discharge in the morning. If she is stable overnight, decrease frequency of her neb ulizer treatments. If she has a good night, she can go home.
--- NOTE | 2017-08-04 22:22 | PDOC.PN ---
- Subjective Encounter Start Date: 08/04/17 Encounter Start Time: 14:30 Patient seen and examined. No new complaints. No overnight events. Sitting on chair. Still has some SOB on exertion. Dry cough + - Objective Resuscitation Status: Resuscitation Status FULL:Full Resuscitation MAR Reviewed: Yes Vital Signs & Weight: Vital Signs (12 hours) Temp Pulse Resp BP Pulse Ox 08/04/17 20:38 97.9 F 82 18 98 08/04/17 20:00 97.9 F 82 18 154/76 H 98 08/04/17 19:25 67 16 95 08/04/17 16:00 98.3 F 67 20 149/80 H 94 L 08/04/17 15:31 85 16 96 08/04/17 12:00 97.9 F 67 20 156/83 H 94 L 08/04/17 10:36 92 16 93 L Weight Weight 199 lb 9 oz I&O: 08/03/17 08/04/17 08/05/17 06:59 06:59 06:59 Intake Total 1200 1580 425 Balance 1200 1580 425 Result Diagrams: 08/03/17 04:42 08/03/17 04:42 Additional Labs: Accuchecks 08/04/17 08/04/17 08/04/17 19:48 17:00 11:35 POC Glucose 236 H 149 H 116 H 08/04/17 05:19 POC Glucose 86 Phys Exam - Physical Examination Constitutional: NAD Respiratory: no wheezing Scat rales/rhonchi at bases Cardiovascular: RRR, no rub Gastrointestinal: soft, non-tender, positive bowel sounds Musculoskeletal: no edema Neurological: moves all 4 limbs Psychiatric: A&O x 3 Dx/Plan - Plan DVT proph w/SCDs IMPRESSION: 1. Acute on chronic hypoxic respiratory failure secondary to chronic obstructive pulmonary disease/bilateral pneumonia, suspected pneumococcus. Pulm following 2. Electrolyte abnormalities( hyponatremia, hypokalemia, and hypomagnesemia) 3. Elevated troponins, probably secondary to demand ischemia. 4. Chronic kidney disease stage 3. 5. Hypertension. 6. Coronary artery disease. 7. Dyslipidemia. 8. Diabetes mellitus type 2. on sliding scale 9. Obesity with a BMI 35.9. 10. Anxiety and depression. 11. Gastroesophageal reflux disease. 12. Sepsis with acute organ dysfunction secondary to pneumonia. 13. Leukocytosis of 34.8 with 31% bandemia. PLAN: * Cont Atbx/Steroids * Cont current meds as below * DC planning in AM if ok with Pulmonary * Cont nebs * Cont to monitor * Increase activity Review of Systems - Review of Systems Cardiovascular: negative: chest pain, palpitations, orthopnea, paroxysmal nocturnal dyspnea, edema, light headedness Gastrointestinal: negative: Nausea, Vomiting, Abdominal Pain, Diarrhea, Constipation, Melena, Hematochezia - Medications/Allergies Allergies/Adverse Reactions: Allergies Allergy/AdvReac Type Severity Reaction Status Date / Time No Known Allergies Allergy Verified 10/27/16 22:38 Medications: Current Medications Acetaminophen (Tylenol) 650 mg PO Q4H PRN PRN Reason: Headache/Fever or Pain Al Hydroxide/Mg Hydroxide (Maalox) 30 ml PO Q6H PRN PRN Reason: Heartburn or Indigestion Albuterol/Ipratropium (Duoneb) 3 ml NEB [id number] PRN PRN Reason: SOB &/or Wheezing Albuterol/Ipratropium (Duoneb) 3 ml NEB [id number] Last Admin: 08/04/17 19:25 Dose: 3 ml Atorvastatin Calcium (Lipitor) 20 mg PO HS [facility] Last Admin: 08/04/17 19:59 Dose: 20 mg Calcium Carbonate (Tums) 1,000 mg PO Q4H PRN PRN Reason: Heartburn or Indigestion Calcium/Vitamin D (Caltrate 600 + Vit D) 1 tab PO BID-[facility] Last Admin: 08/04/17 17:43 Dose: 1 tab Carvedilol (Coreg) 25 mg PO BID [facility] Last Admin: 08/04/17 19:59 Dose: 25 mg Dextrose/Water (Dextrose 50%) 25 gm SLOW IVP PRN PRN PRN Reason: Hypoglycemia Docusate Sodium (Colace) 100 mg PO BID [facility] Last Admin: 08/04/17 19:59 Dose: Not Given Famotidine (Pepcid) 20 mg PO BID [facility] Last Admin: 08/04/17 19:59 Dose: 20 mg Fluoxetine HCl (Prozac) 20 mg PO DAILY [facility] Last Admin: 08/04/17 08:39 Dose: 20 mg Folic Acid (Folvite) 0.5 mg PO DAILY [facility] Last Admin: 08/04/17 08:38 Dose: 0.5 mg Glucagon (Glucagon) 1 mg IM PRN PRN PRN Reason: Hypoglycemia Guaifenesin (Mucinex) 600 mg PO Q12HR [facility] Last Admin: 08/04/17 19:59 Dose: 600 mg Hydralazine HCl (Apresoline) 10 mg SLOW IVP Q4H PRN PRN Reason: SBP Greater Than 180 Dextrose/Water (D5w) 1,000 mls @ 0 mls/hr IV .Q0M PRN; As Directed PRN Reason: Hypoglycemia Insulin Human Regular (Humulin R) 0 units SC .MILD SLIDING SCALE PRN PRN Reason: Mild Correctional Scale Last Admin: 08/01/17 12:23 Dose: 2 unit Insulin Human Regular (Humulin R) 0 units SC .BEDTIME SLIDING SC PRN PRN Reason: Bedtime Correctional Scale Levofloxacin (Levaquin) 750 mg PO 0600 [facility] Last Admin: 08/04/17 05:19 Dose: 750 mg Lisinopril (Zestril) 10 mg PO BID [facility] Last Admin: 08/04/17 19:59 Dose: 10 mg Mineral Oil/White Petrolatum (Eucerin Cream) 0 gm TOP BIDPRN PRN PRN Reason: Dry Skin Miscellaneous Medication (Pharmacy To Dose) 1 each IVPB PRN PRN PRN Reason: RENAL Pharmacy to dose Mometasone Furoate/Formoterol Fumar (Dulera 200 Mcg/5 Mcg Inhaler) 1 puff INH BID-RT [facility] Last Admin: 08/04/17 19:45 Dose: 1 puff Nitroglycerin (Nitrostat) 0.4 mg PO Q5MIN PRN PRN Reason: Chest Pain Ondansetron HCl (Zofran Odt) 4 mg PO Q6H PRN PRN Reason: Nausea/Vomiting Ondansetron HCl (Zofran) 4 mg IVP Q6H PRN PRN Reason: Nausea/Vomiting Potassium Chloride (K-Dur) 20 meq PO QAM-[facility] Last Admin: 08/04/17 08:39 Dose: 20 meq Prednisone (Prednisone) 40 mg PO QAM-WM [facility] Last Admin: 08/04/17 08:38 Dose: 40 mg Saccharomyces Boulardii (Florastor) 250 mg PO DAILY [facility] Last Admin: 08/04/17 08:38 Dose: 250 mg Senna (Senokot) 2 tab PO HSPRN PRN PRN Reason: Constipation Sodium Chloride (Flush - Normal Saline) 10 ml IVF Q12HR [facility] Last Admin: 08/04/17 19:59 Dose: 10 ml Sodium Chloride (Flush - Normal Saline) 10 ml IVF PRN PRN PRN Reason: Saline Flush
[2017-08-05] MEDS: Saccharomyces boulardii 250 MG CAP PO SCH (07:18)
[2017-08-05] MEDS: Calcium Carbonate + Vit D 1 TAB PO SCH ×2 (07:19→16:26)
[2017-08-05] MEDS: guaiFENesin ER 600 MG TAB PO SCH (07:19)
[2017-08-05] MEDS: Docusate 100 MG CAP PO SCH (07:19)
[2017-08-05] MEDS: Potassium Chloride 20 MEQ TAB PO SCH (07:19)
[2017-08-05] MEDS: Folic Acid 1 MG TAB PO SCH (07:19)
[2017-08-05] MEDS: FLUoxetine HCl 20 MG CAP PO SCH (07:19)
[2017-08-05] MEDS: predniSONE 20 MG TAB PO SCH (07:19)
[2017-08-05] MEDS: Famotidine 20 MG TAB PO SCH (07:19)
[2017-08-05] MEDS: Lisinopril 10 MG TAB PO SCH (07:20)
[2017-08-05] MEDS: Carvedilol 25 MG TAB PO SCH (07:20)
[2017-08-05] MEDS: Mometasone/Formoterol 120 PUFF INHALER INH SCH (08:05)
[2017-08-05 16:21] VITALS: BP 155/80; TEMP 98.3
--- NOTE | 2017-08-05 19:19 | PRG ---
DATE OF SERVICE: 08/05/2017 SUBJECTIVE: Zelda Jensen is doing well overnight. She has no wheezes today. OBJECTIVE: HEART: Regular rhythm. ABDOMEN: Soft. ASSESSMENT AND PLAN: She is tentatively scheduled for discharge today. She will complete her course of antibiotics. She is also on steroid taper so using a nebulizer 4 times a day. She will have oxy gen at home. She will follow up with me in 2 to 3 weeks with a chest radiograph.
--- NOTE | 2017-08-05 19:23 | DIS ---
DATE OF ADMISSION: 07/30/2017 DATE OF DISCHARGE: 08/05/2017 DISCHARGE DISPOSITION: Home. FOLLOWUP: Follow up with primary care physician Dr. Jackson in 1 week. Follow up with Pulmonary Dr. Cordero as scheduled. ALLERGIES: No known drug allergies. DISCHARGE MEDICATIONS: Levaquin 750 mg daily for another 4 days, prednisone taper. Other home medic ations were resumed. The patient was seen and examined on the day of discharge. Denies any new complaints. The shortness of breath and wheezing have significantly improved. BRIEF HOSPITAL COURSE: The patient is a 72-year-old female with COPD, chronic respiratory failure on 2 liters home oxygen, coronary artery disease, hypertension, and dyslipidemia, who presented to the emergency room from Dr. Jackson's office for shortness of breath. Her O2 saturation at Dr. Jackson's office was 86% on 2 liters nasal cannula. Influenza testing was negative at Dr. Jackson's office. Please refer to the history and physical dated 07/30/2017 for further details. The patient was admitted to the hospital with the diagnosis of acute on chronic hypoxic respiratory f ailure secondary to COPD exacerbation along with bilateral pneumonia, suspected pneumococcus. She wa s placed on broad spectrum antibiotics along with nebulizer treatment and steroids. The WBC count on admission was 34.8. WBC count has improved to 20.2. She was seen by Pulmonary Dr. Cordero during thi s hospital stay. Her blood cultures have been negative. She will be discharged home with outpatient followup. FINAL DIAGNOSES: 1. Acute on chronic hypoxic respiratory failure secondary to chronic obstructive pulmonary disease e xacerbation/bilateral pneumonia, suspected pneumococcus. 2. Electrolyte abnormalities. The patient had hyponatremia, hypokalemia, and hypomagnesemia. 3. Elevated troponins probably secondary to demand ischemia. 4. Chronic kidney disease stage 3. 5. Hypertension. 6. Coronary artery disease. 7. Dyslipidemia. 8. Diabetes mellitus type 2. 9. Obesity with a BMI of 35.9. 10. Anxiety/depression. 11. Gout. 12. Sepsis with acute organ dysfunction secondary to pneumonia. 13. Leukocytosis of 34.8 with 31% bandemia on admission.
--- NOTE | 2017-08-30 19:27 | EKG ---
Test Reason : Blood Pressure : / mmHG Vent. Rate : 102 BPM Atrial Rate : 102 BPM P-R Int : 176 ms QRS Dur : 090 ms QT Int : 354 ms P-R-T Axes : 047 -48 066 degrees QTc Int : 461 ms Sinus tachycardia Left anterior fascicular block Septal infarct , age undetermined T wave abnormality, consider lateral ischemia Abnormal ECG Artifact Confirmed by BELEM SORIANO ([id number]), editorial specialist TANO SAPP ([id number] on 08/30/2017 7:27:01 PM Referred By: Confirmed By:BELEM SORIANO
== END 2017-08-05 16:30 | disposition home or self-care (01) | DRG 871 ==
LOC: ERS 17:11 → IMCU/EMU 18:25 → T4-B 08-03 15:36
PROVIDERS: ADMIT Internal Medicine; ATTEND Internal Medicine
DX: A40.3 Sepsis due to Streptococcus pneumoniae (principal); J96.21 Acute and chronic respiratory failure with hypoxia; R65.20 Severe sepsis without septic shock; J13 Pneumonia due to Streptococcus pneumoniae; I24.8 Other forms of acute ischemic heart disease; E11.22 Type 2 diabetes mellitus with diabetic chronic kidney disease; E83.42 Hypomagnesemia; N18.3 Chronic kidney disease, stage 3 (moderate); E87.1 Hypo-osmolality and hyponatremia; J44.0 Chronic obstructive pulmonary disease with (acute) lower respiratory infection; J44.1 Chronic obstructive pulmonary disease with (acute) exacerbation; Z99.81 Dependence on supplemental oxygen; I25.10 Atherosclerotic heart disease of native coronary artery without angina pectoris; E78.5 Hyperlipidemia, unspecified; K21.9 Gastro-esophageal reflux disease without esophagitis; F41.9 Anxiety disorder, unspecified; F32.9 Major depressive disorder, single episode, unspecified; G47.00 Insomnia, unspecified; Z87.891 Personal history of nicotine dependence; E87.6 Hypokalemia; I12.9 Hypertensive chronic kidney disease with stage 1 through stage 4 chronic kidney disease, or unspecified chronic kidney disease; E66.9 Obesity, unspecified; Z68.35 Body mass index [BMI] 35.0-35.9, adult; M10.9 Gout, unspecified
CPT/HCPCS: 36415; 36416; 71045; 71046; 71260; 80048; 80053; 80069; 82330; 82553; 82803; 83605; 83735; 84100; 84484; 85025; 87040; 87804; 87899; 93005; 94640; 94644; 94760; 96361; 96365; 96374; 96375; A4216; G8978-GP-CI; G8979-GP-CI; G8980-GP-CI; G8987-GO-CH; G8988-GO-CH; G8989-GO-CH; J0360; J0692; J0696; J1956; J2930; J3480; J7050; J7506; J7611; J7620

== ENCOUNTER 2017-10-08 09:31 | Outpatient (CLI) | payer MEDICARE ==
--- NOTE | 2017-10-08 11:42 | RAD ---
CHEST TWO VIEWS: History: Dyspnea. Comparison: 08-31-17 FINDINGS: Cardiac silhouette is unremarkable. Pulmonary vasculature remains upper limits of normal. Mediastinum is midline. Infiltrate within the right upper lobe on the previous study is no longer visible. No pl eural fluid or pneumothorax. IMPRESSION: Interval resolution of parenchymal infiltrate. No new abnormalities are demonstrated. POS: [facility]
== END 2017-10-08 09:32 | disposition home or self-care (01) ==
LOC: RAD 09:31
PROVIDERS: ATTEND Internal Medicine Critical Care Medicine
DX: R06.00 Dyspnea, unspecified (principal)
CPT/HCPCS: 71046

== ENCOUNTER 2017-12-03 12:38 | Outpatient (CLI) | payer MEDICARE ==
--- NOTE | 2017-12-03 16:23 | MMO ---
BILATERAL DIGITAL SCREENING MAMMOGRAMS WITH CAD: 12/03/17 HISTORY: Baseline exam. There are scattered fibroglandular densities with occasional midline calcifications. There is a well circumscribed nodule in the left lower inner breast with course calcifications consistent with fibroa denoma. Intramammary lymph nodes are present. No suspicious masses or calcifications are identified. IMPRESSION: BI-RADS 2: Benign Finding(s) Routine annual screening mammography (for women over age 40). POS: [facility]
== END 2017-12-03 12:39 | disposition home or self-care (01) ==
LOC: SCSMAMMO 12:38
PROVIDERS: ATTEND Family Medicine
DX: Z12.31 Encounter for screening mammogram for malignant neoplasm of breast (principal)
CPT/HCPCS: 77067

== ENCOUNTER 2018-01-02 06:01 | Day surgery (SDC) | payer MEDICARE ==
[2018-01-01 09:43] VITALS: BMI 34.2
--- NOTE | 2018-01-02 10:02 | OP ---
DATE OF PROCEDURE: 01/02/2018 SURGEON: Evaristo Bhatia M.D. PROCEDURES: Colonoscopy with polypectomy. PREPROCEDURE DIAGNOSIS: Screening. POSTOPERATIVE DIAGNOSES: Eighteen polyps found scattered throughout the colon, 2 in the cecum, 6 in the ascending, 7 in the transverse, 7 descending, 3 small in the rectum, 1 large in the rectum. The se were all removed by hot snare polypectomy and submitted to Pathology. RECOMMENDATIONS: 1. Await histopathology. 2. Followup in office in 2 weeks to review pathology. If these are adenomatous she will need repeat colonoscopy in 1 year and will offer testing for genetic polyposis syndromes. Also, recommend first degree relatives begin colorectal cancer screening at age 50. ANESTHESIA: TIVA. PROCEDURE IN DETAIL: After the patient was informed of the risks, benefits, possible complications o f endoscopy including perforation, bleeding, reactions to medication and aspiration, informed consent was obtained. The patient brought to endoscopy suite where she was sedated in gradual fashion. Onc e she was comfortable, a rectal exam was performed which was normal. Endoscope was advanced through the anal canal through the colon to the cecum which was identified by ileocecal valve and appendiceal orifice. Two flat polyps were seen in the cecum which were removed by snare polypectomy and submitt ed to Pathology, they were 3-7 mm in size. Then there were 6 polyps in the ascending colon. They we re all flat, removed by snare polypectomy, ranging in size from 3-10 mm. There were 7 transverse tiara yps about the same size, all removed and then there were 7 descending colon polyps ranging in size fr om 3-10 mm all flat and removed. There was 1 pedunculated polyp in the rectum, 1 cm in size, removed by snare polypectomy and there were 3 small diminutive rectal polyps removed by snare polypectomy. Retroflexed views were normal. The scope was removed. The patient tolerated the procedure well with no complications.
[2018-01-02] MEDS ORDERED: Lidocaine 1% PF 5 ML VIAL ONE (13:36)
[2018-01-02] MEDS ORDERED: PROPOFOL 200 MG/20 ML VIAL ONE (13:36)
== END 2018-01-02 10:07 | disposition home or self-care (01) ==
LOC: SDC 06:01
PROVIDERS: ATTEND Internal Medicine Gastroenterology
PROC: 0DBK8ZX Excision of Ascending Colon, Via Natural or Artificial Opening Endoscopic, Diagnostic (ICD-10-PCS; principal; 2018-01-02)
PROC: 0DBL8ZX Excision of Transverse Colon, Via Natural or Artificial Opening Endoscopic, Diagnostic (ICD-10-PCS; 2018-01-02)
PROC: 0DBP8ZX Excision of Rectum, Via Natural or Artificial Opening Endoscopic, Diagnostic (ICD-10-PCS; 2018-01-02)
PROC: 0DBM8ZX Excision of Descending Colon, Via Natural or Artificial Opening Endoscopic, Diagnostic (ICD-10-PCS; 2018-01-02)
PROC: 0DBH8ZX Excision of Cecum, Via Natural or Artificial Opening Endoscopic, Diagnostic (ICD-10-PCS; 2018-01-02)
DX: Z12.11 Encounter for screening for malignant neoplasm of colon (principal); D12.0 Benign neoplasm of cecum; D12.4 Benign neoplasm of descending colon; D12.3 Benign neoplasm of transverse colon; D12.8 Benign neoplasm of rectum; K63.5 Polyp of colon; I10 Essential (primary) hypertension; J44.9 Chronic obstructive pulmonary disease, unspecified; E11.9 Type 2 diabetes mellitus without complications; Z79.84 Long term (current) use of oral hypoglycemic drugs; Z79.899 Other long term (current) drug therapy
CPT/HCPCS: 88305; J2001; J2704

== ENCOUNTER 2018-02-01 14:21 | Inpatient (IN) | payer MEDICARE ==
[2018-02-01 15:49] LABS: Mean Corpuscular Hemoglobin 31.6 pg (27.0-31.0); Mean Corpuscular Volume 95.7 fL (78.0-98.0); Mean Platelet Volume 6.9 fL (7.4-10.4); Platelet Count 338 thou/uL (130-400); RBC Distribution Width 12.6 % (11.5-14.5); Red Blood Cell (RBC) Count 4.13 mill/uL (4.20-5.40); White Blood Cell (WBC) Count 16.6 thou/uL (4.8-10.8)
--- NOTE | 2018-02-01 15:49 | RAD ---
PORTABLE CHEST 1 VIEW: DATE: 06/11/18. TIME: 2:00 p.m. HISTORY: Respiratory distress, dyspnea. FINDINGS: Comparison is made with the exam of 10/08/17. The heart size is mildly enlarged. There are patchy infiltrates in the left mid and lower lung zones . The right lung is unremarkable. No pneumothoraces or large effusions are seen. POS: [facility]
[2018-02-01 15:55] LABS: INR-International Normal Ratio 1.1; PTT 29.7 SEC (22.9-36.1); Prothrombin Time 13.8 SEC (12.0-14.7)
[2018-02-01 16:04] LABS: Band 23 % (5-11); Lymphocytes 5 % (21-51); MDiff Complete? YES; Monocytes 7 % (0-10); Neutrophil 65 % (42-75); PLT Morphology Comment Appears Adequate; Polychromasia SLIGHT = 2-3 cells (100X) (0-2/hpf)
[2018-02-01 16:08] LABS: ALT (SGPT) 24 U/L (8-55); AST (SGOT) 20 U/L (5-34); Albumin 4.2 g/dL (3.4-4.8); Alkaline Phosphatase 129 U/L (40-150); BUN (Urea Nitrogen) 24 mg/dL (9.8-20.1); Bilirubin, Total 0.5 mg/dL (0.2-1.2); Calc. Creatinine Clearance 0 mL/min (70-130); Estimated GFR-MDRD 59; Globulin 3.6 g/dL (2.4-3.5); Glucose 134 mg/dL (83-110); Protein, Total 7.8 g/dL (6.0-8.3)
[2018-02-01 16:13] LABS: CKMB 4.9 ng/mL (0-6.6); Troponin I 0.043 ng/mL (< 0.028)
[2018-02-01 16:17] LABS: Anion Gap 20 mmol/L (10-20); Carbon Dioxide 35 mmol/L (23-31); Chloride 87 mmol/L (98-107); Potassium 3.9 mmol/L (3.5-5.1); Sodium 138 mmol/L (136-145)
--- NOTE | 2018-02-01 17:01 | PDOC.FPRHP ---
- History of Present Illness Chief Complaint: cough, low O2 History of Present Illness: 73 yo F with comes to ED by EMS for 70% O2 on CPAP. History of COPD and on home O2 @2L. For past week and a half has had increasingly worsening productive cough despite taking home meds. Endorses SOB. Denies fever, chills, loss of appetite, chest pain. ED Course: ED they placed her on BiPAP and achieved saturation of 98%. - Allergies/Adverse Reactions Allergies Allergy/AdvReac Type Severity Reaction Status Date / Time No Known Allergies Allergy Verified 01/01/18 09:43 - Home Medications Medication Instructions Recorded Confirmed Type Atorvastatin Calcium [Lipitor] 20 mg PO HS 04/01/15 01/01/18 History Budesonide-Formoterol [Symbicort 1 puff INH DAILY 04/01/15 01/01/18 History 160-4.5] Carvedilol [Coreg] 25 mg PO BID 04/01/15 01/01/18 History FLUoxetine HCl [Prozac] 20 mg PO DAILY 04/01/15 01/01/18 History Folic Acid 800 mcg PO DAILY 04/01/15 01/01/18 History Omeprazole 20 mg PO QAM 04/01/15 01/01/18 History Potassium Chloride [K-Dur] 10 meq PO DAILY 04/01/15 01/01/18 History metFORMIN HCl 500 mg PO HS 04/01/15 01/01/18 History Furosemide [Lasix] 40 mg PO DAILY 10/27/16 01/01/18 History Lisinopril/Hydrochlorothiazide 1 tablet PO BID 10/27/16 01/01/18 History [Lisinopril-Hctz 20-25 mg Tab] Magnesium Oxide 400 mg PO DAILY 10/27/16 01/01/18 History guaiFENesin/Dextromethorphan 1 tablet PO DAILY 10/27/16 01/01/18 History [Mucinex DM] Med Instructions Per 01/01/18 History Multivitamin [Multivitamins] 02/01/18 History Vitamin B Complex Vit C No.4 02/01/18 History [Super B Complex] diphenhydrAMINE [Benadryl] 02/01/18 History - History PMHx: PSHx: FHx: Social: - Review of Systems General: denies: fever/chills, weight/appetite/sleep changes Eyes: denies: eye pain, vision changes ENT: reports: nasal congestion Respiratory: reports: cough, shortness of breath Cardiovascular: denies: chest pain, palpitation, edema Gastrointestinal: denies: vomiting, diarrhea, constipation Genitourinary: denies: dysuria Skin: denies: rashes, lesions Musculoskeletal: denies: pain, tenderness Neurological: denies: numbness, syncope - Vital signs BP: 146/127 HR: 82 RR: 19 Tmax: 97 Pox: 96% on bipap Wt: [] - Physical Exam Constitutional: NAD, awake, alert and oriented HEENT: normocephalic and atraumatic, PERRLA, EOMI, conjunctiva clear, no scleral icterus Neck: supple Chest: no-tender to palpation Heart: RRR, normal S1/S2 -Lungs: diffuse right lung and left lower lobe expiratory wheezes, RLL rhonchi Abdomen: soft Musculoskeletal: normal structure Neurological: CN II-XII intact Skin: good turgor FMR H&P: Results - Labs Result Diagrams: 02/01/18 15:35 02/01/18 15:35 Lab results: WBC 16.6 thou/uL (4.8-10.8) H 02/01/18 15:35 Hgb 13.0 g/dL (12.0-16.0) 02/01/18 15:35 Hct 39.5 % (36.0-47.0) 02/01/18 15:35 MCV 95.7 fL (78.0-98.0) 02/01/18 15:35 Plt Count 338 thou/uL (130-400) 02/01/18 15:35 Band Neuts % (Manual) 23 % (5-11) H 02/01/18 15:35 Sodium 138 mmol/L (136-145) 02/01/18 15:35 Potassium 3.9 mmol/L (3.5-5.1) 02/01/18 15:35 Chloride 87 mmol/L (98-107) L 02/01/18 15:35 Carbon Dioxide 35 mmol/L (23-31) H 02/01/18 15:35 BUN 24 mg/dL (9.8-20.1) H 02/01/18 15:35 Creatinine 0.94 mg/dL (0.6-1.1) 02/01/18 15:35 Glucose 134 mg/dL (83-110) H 02/01/18 15:35 Calcium 10.0 mg/dL (7.8-10.44) 02/01/18 15:35 Total Bilirubin 0.5 mg/dL (0.2-1.2) 02/01/18 15:35 AST 20 U/L (5-34) 02/01/18 15:35 ALT 24 U/L (8-55) 02/01/18 15:35 Alkaline Phosphatase 129 U/L (40-150) 02/01/18 15:35 CK-MB (CK-2) 4.9 ng/mL (0-6.6) 02/01/18 15:35 B-Natriuretic Peptide 243.5 pg/mL (0-100) H 02/01/18 15:35 Serum Total Protein 7.8 g/dL (6.0-8.3) 02/01/18 15:35 Albumin 4.2 g/dL (3.4-4.8) 02/01/18 15:35 - Radiology Interpretation Chest x-ray Status: image reviewed by me, report reviewed by me Additional comment: left mid and lower lobe infiltrate FMR H&P: A/P - Problem List (1) Sepsis Current Visit: Yes Status: Acute Code(s): A41.9 - SEPSIS, UNSPECIFIED ORGANISM (2) CAP (community acquired pneumonia) Current Visit: No Status: Acute Code(s): J18.9 - PNEUMONIA, UNSPECIFIED ORGANISM Qualifiers: Lung location: middle lobe of lung Comment: CAP, bilateral middle lobes. 100% on home 2L NC, WBC down, afebrile. CCM, stop Cefepime, levoflox alone. to po 08/02 (3) COPD with exacerbation Current Visit: No Status: Acute Code(s): J44.1 - CHRONIC OBSTRUCTIVE PULMONARY DISEASE W (ACUTE) EXACERBATION Comment: steroids, nebs, abx. much better today (4) CAD (coronary artery disease) Current Visit: No Status: Chronic Code(s): I25.10 - ATHSCL HEART DISEASE OF [place] CORONARY ARTERY W/O ANG PCTRS Qualifiers: Coronary Disease-Associated Artery/Lesion type: [place] artery [place] vs. transplanted heart: [place] heart Associated angina: without angina Qualified Code(s): I25.10 - Atherosclerotic heart disease of [place] coronary artery without angina pectoris (5) CKD (chronic kidney disease) stage 2, GFR 60-89 ml/min Current Visit: No Status: Chronic Code(s): N18.2 - CHRONIC KIDNEY DISEASE, STAGE 2 (MILD) (6) HLD (hyperlipidemia) Current Visit: No Status: Chronic Code(s): E78.5 - HYPERLIPIDEMIA, UNSPECIFIED Qualifiers: Hyperlipidemia type: unspecified Qualified Code(s): E78.5 - Hyperlipidemia , unspecified (7) HTN (hypertension) Current Visit: No Status: Chronic Code(s): I10 - ESSENTIAL (PRIMARY) HYPERTENSION Qualifiers: Hypertension type: essential hypertension Qualified Code(s): I10 - Essential (primary) hypertension (8) Obesity (BMI 30.0-34.9) Current Visit: No Status: Chronic Code(s): E66.9 - OBESITY, UNSPECIFIED - Plan 73 yo F with acute respiratory failure secondary to COPD exacerbation and CAP pneumonia 1. Sepsis secondary to CAP pneumonia -Increased sputum production, mild leukocytosis and tachypnea -Start on levaquin -Follow blood cultures -AM labs 2. Acute on chronic COPD exacerbation -Tried to wean when transferred from ED to IMCU, but desatted to 70s. Continue BiPAP. Normally on home O2 at 2LPM -Levaquin -Po prednisone x 4 days -Duonebs h1qhrey, mucinex -ERRT RT -Continue home meds -Continue to monitor -Dr. Hamilton has been notified, since patient is vitally stable he said to consult Dr. Carolina in the morning 3. HTN -Continue home meds 4. Depression -Continue home meds 5. HLD -Continue home meds 6. DM -mild SS -Continue home meds Diet: Regular diet (once off bipap) DVT ppx: Lovenox, SCDs Discussed with Dr. Coronel FMR H&P: Upper Level - Pertinent history 73 yr old who presented with SOB and satting 70% with EMS. Started on BIPAP in ER. Reports 1.5 wks of worsening sputum production. no fever. Wears 2 lts O2 chronically at home. - Pertinent findings Gen: NAD heart: RRR Lungs: Diffuse wheezing worse in RLL, some RLL rhonchi EXT: No LE edema CXR- LLL infiltrates WBC- 16 - Plan Date/Time: 02/01/18 2817 I, [Pennie Riggs], have evaluated this patient and agree with findings/plan as outlined by research program intern resident. Pertinent changes/additions are listed here. 73 yr old female with PMH of COPD, CHF, DM 1. sepsis 2/2 PNA -on bipap, check for weaning off as tolerated -start levaquin -start prednisone for 5 days -duonebs 2. COPD exacerbation -prednisone x 5 days -levaquin -duonebs -mucinex -symbicort 3. DM -cont metformin -SSI -CC Diet 4. CHF - do not expect exacerbation -cont home meds PCP: Dr. Jackson DVT ppx: lovenox GI ppx: omeprazole Diet: CC Code: Full, as discussed with patient and family at bedside. Attending Addendum - Attending Addendum Date/Time: 02/01/18 0346 I personally evaluated the patient and discussed the management with Dr. Hayden and Oneil. I agree with and repeated the History, Examination, Assessment and Plan documented above with any addition or exceptions noted below. At the time of my evaluation satting in the 70's on 2 L NC and able to speak in a few word replies. States she had relatively quick onset shortness of breath, with purulent sputum and pronounced cough and chills, but no chest pain, PND. Was afraid to lay down last night because she was short of breath. Other systems reviewed and noncontributory. She is hungry. In distress, on side of bed. Diffuse wheezes. Inspiratory crackles and decreased BS LLL. +rtx and increased wob. Tachy, regular, no murmurs. No JVD , no edema. BS+, NTTP. No bruits. Labs reviewed Sepsis 2/2 CAP in setting of COPD exac -steroids, FQ, repeat labs in AM -continue Bipap Anticipate mild TnI 2/2 demand. No chest pain currently. Monitor. Elevated BNP raises possibility of CHF, but feel exam more c/w above. -would consider additional evaluation and tx pending overnight course Other comorbidities as listed. DVT/GI ppx.
[2018-02-01 17:08] LABS: Base Excess-Venous 13.6 mmol/L (0 (+/- 2.5)); CO2 Tension (PvCO2) 75.5 mmHg (41.0-51.0); Calcium, Ionized 0.98 mmol/L (1.12-1.32); Hemoglobin - Calc 14.8 g/dL (12.0-18.0); O2 Tension (PvO2) 74.5 mmHg (35.0-45.0); Potassium 3.8 mmol/L (3.4-4.7); T. Carbon Dioxide 45.3 mmol/L (1.0-85.0); pH (Venous) 7.363 (7.35-7.45); vO2 Saturation-calc 93.2 % (94-98)
[2018-02-01] MEDS ORDERED: Ondansetron HCl/PF 4 MG/2 ML Vial IVP PRN (18:37)
[2018-02-01] MEDS ORDERED: Acetaminophen 325 MG TAB PO PRN ×2 (18:37→18:53)
[2018-02-01] MEDS ORDERED: Ondansetron ODT 4 MG TAB SL PRN (18:37)
[2018-02-01] MEDS ORDERED: Ondansetron ODT 4 MG TAB PO PRN (18:53)
[2018-02-01] MEDS ORDERED: predniSONE 20 MG TAB PO SCH (19:15)
[2018-02-01] MEDS ORDERED: Dextrose 5% in Water 1,000 ML IV PRN (19:33)
[2018-02-01] MEDS ORDERED: Dextrose 50% Abboject 50 ML SYRINGE SLOW IVP PRN (19:33)
[2018-02-01] MEDS ORDERED: HumaLOG 300 UNITS/3 ML VIAL SC PRN (19:33)
[2018-02-01 20:39] VITALS: BMI 34.7
[2018-02-01] MEDS: Atorvastatin Calcium 20 MG TAB PO SCH (20:40)
[2018-02-01] MEDS: metFORMIN 500 MG TAB PO SCH (20:40)
[2018-02-01] MEDS: Lisinopril/Hydrochlorothiazide 20/25 mg Tablet PO SCH (20:41)
[2018-02-01] MEDS: Carvedilol 25 MG TAB PO SCH (20:41)
[2018-02-01] MEDS: guaiFENesin ER 600 MG TAB PO SCH (20:41)
--- NOTE | 2018-02-01 20:59 | PDOC.EVN ---
Event Note - Event Note Event Note: Residents examined patient at bedside @ approximately 20:45. Vitals: HR- 94-102, O2 sat 92% on 4L nasal canula, BP 147/100 Patient was sitting comfortably in bed satting between 92-94% on 4L nasal canula. Lung exam significant for rhonchi in JANAE and crackles in B/L bases. No significant wheezing appreciated. Started on Abx tonight as ED called to inform us that the patient never received any while down in the ED. Will continue Duonebs ITA Q4H & PRN. Will continue to monitor vitals and respiratory status throughout the night.
[2018-02-02 04:26] LABS: Band 48 % (5-11); Hemoglobin 11.4 g/dL (12.0-16.0); MDiff Complete? YES; Mean Corpuscular Hemoglobin 31.5 pg (27.0-31.0); Mean Corpuscular Volume 95.6 fL (78.0-98.0); Mean Platelet Volume 6.9 fL (7.4-10.4); Monocytes 2 % (0-10); Neutrophil 50 % (42-75); PLT Morphology Comment Appears Adequate; Platelet Count 316 thou/uL (130-400); RBC Distribution Width 12.5 % (11.5-14.5); White Blood Cell (WBC) Count 14.6 thou/uL (4.8-10.8)
[2018-02-02 04:35] LABS: ALT (SGPT) 22 U/L (8-55); AST (SGOT) 15 U/L (5-34); Albumin 3.7 g/dL (3.4-4.8); Alkaline Phosphatase 112 U/L (40-150); BUN (Urea Nitrogen) 29 mg/dL (9.8-20.1); Bilirubin, Total 0.4 mg/dL (0.2-1.2); Calc. Creatinine Clearance 83 mL/min (70-130); Calcium 9.8 mg/dL (7.8-10.44); Estimated GFR-MDRD 64; Globulin 3.1 g/dL (2.4-3.5); Glucose 150 mg/dL (83-110); Protein, Total 6.8 g/dL (6.0-8.3)
[2018-02-02 04:49] LABS: Anion Gap 18 mmol/L (10-20); Carbon Dioxide 40 mmol/L (23-31); Chloride 87 mmol/L (98-107); Potassium 3.6 mmol/L (3.5-5.1); Sodium 141 mmol/L (136-145)
[2018-02-02] MEDS: Mometasone/Formoterol 120 PUFF INHALER INH SCH ×2 (06:57→19:14)
[2018-02-02 07:41] LABS: Troponin I 0.036 ng/mL (< 0.028)
--- NOTE | 2018-02-02 08:28 | PDOC.PULCN ---
<LeesaKj mishra - Last Filed: 02/02/18 11:10> Pulmonology Consult: HPI - Date of Consult Date: 02/02/18 Time: 08:26 - Consult Details Reason for Consult: IMCU admit for sepsis secondary to CAP Requesting Physician: Toby Coronel MD - History of Present Illness HPI: DHEERAJ MAYBERRY is a 73 year-old F Who has been admitted for sepsis secondary to CAP. She complains of progressively worsening SOB for the past week with productive cough. She denies other symptoms to include fever/chills or chest pain. In the ED a CXR was concerning for LLL PNA. Additionally, she was hypoxic in the ER and required BiPAP. At home she typically requires 2L secondary to COPD. Over the course of the night she was able to be weaned from BiPAP and at the time of exam was satting in the mid 90s on 4L Pulmonology Consult: ROS - Review of Systems All systems: reviewed and no additional remarkable complaints except as stated Constitutional: negative: fever, chills Cardiovascular: negative: chest pain, palpitations, edema Respiratory: cough, short of breath, wheezing. negative: bloody sputum, congestion Pulmonology Consult: PMH Source: patient Past Medical History: COPD, HTN, CAD, anxiety, DM2 - Family History Family history: reviewed and not pertinent - Social History Smoking Status: Former smoker Pack Years: 30 Alcohol Use: occasional Drug Use History: none Living Situation: independent Pulmonology Consult: Meds - Medications MAR Reviewed: Yes Medications: Current Medications Acetaminophen (Tylenol) 650 mg PO Q4H PRN PRN Reason: Headache/Fever or Pain Albuterol/Ipratropium (Duoneb) 3 ml NEB [id number] [facility] Last Admin: 02/02/18 06:55 Dose: 3 ml Albuterol/Ipratropium (Duoneb) 3 ml NEB [id number] PRN PRN Reason: SOB &/or Wheezing Atorvastatin Calcium (Lipitor) 20 mg PO HS [facility] Last Admin: 02/01/18 20:40 Dose: 20 mg Carvedilol (Coreg) 25 mg PO BID [facility] Last Admin: 02/01/18 20:41 Dose: 25 mg Dextrose/Water (Dextrose 50%) 25 gm SLOW IVP PRN PRN PRN Reason: Hypoglycemia Enoxaparin Sodium (Lovenox) 40 mg SC 0900 [facility] Fluoxetine HCl (Prozac) 20 mg PO DAILY [facility] Folic Acid (Folvite) 1 mg PO DAILY [facility] Furosemide (Lasix) 40 mg PO DAILY [facility] Glucagon (Glucagon) 1 mg IM PRN PRN PRN Reason: Hypoglycemia Guaifenesin (Mucinex) 1,200 mg PO Q12HR [facility] Last Admin: 02/01/18 20:41 Dose: 1,200 mg Lisinopril/HCTZ (Prinizide 20-25) 1 tab PO BID [facility] Last Admin: 02/01/18 20:41 Dose: 1 tab Dextrose/Water (D5w) 1,000 mls @ 0 mls/hr IV .Q0M PRN PRN Reason: Hypoglycemia Insulin Human Lispro (Humalog) 0 units SC .MILD SLIDING SCALE PRN PRN Reason: Mild Correctional Scale Levofloxacin (Levaquin) 750 mg PO 1999 [facility] Last Admin: 02/01/18 20:41 Dose: 750 mg Magnesium Oxide (Magnesium Oxide) 400 mg PO DAILY [facility] Metformin HCl (Glucophage) 500 mg PO HS [facility] Last Admin: 02/01/18 20:40 Dose: 500 mg Mometasone Furoate/Formoterol Fumar (Dulera 200 Mcg/5 Mcg Inhaler) 2 puff INH BID-RT [facility] Last Admin: 02/02/18 06:57 Dose: 2 puff Multivitamins (Theragran) 1 tab PO DAILY [facility] Multivitamins/Zinc (Stress 600 With Zinc) 1 tab PO DAILY [facility] Ondansetron HCl (Zofran Odt) 4 mg PO Q6H PRN PRN Reason: Nausea/Vomiting Pantoprazole Sodium (Protonix) 40 mg PO QAM [facility] Pneumococcal 13-Valent Conj Vacc (Prevnar) 0.5 ml IM .ONCE ONE Stop: 02/02/18 09:01 Potassium Chloride (Klor-Con 10) 10 meq PO DAILY [facility] Prednisone (Prednisone) 40 mg PO QAM-[facility] Stop: 02/05/18 10:00 - Allergies Allergies/Adverse Reactions: Allergies Allergy/AdvReac Type Severity Reaction Status Date / Time No Known Allergies Allergy Verified 01/01/18 09:43 Pulmonology Consult: PE - Physical Exam Constitutional: NAD HEENT: PERRLA, moist MMs, sclera anicteric Neck: no JVD Cardiovascular: RRR, no significant murmur Respiratory: rales (L lower and middle), wheezes (upper and lower lobes, L > R) Gastrointestinal: soft, non-tender Musculoskeletal: no edema Neurological: non-focal Psychiatric: normal affect, A&O x 3 Skin: no rash Pulmonology Consult: Results - Labs Result Diagrams: 02/02/18 03:43 02/02/18 03:43 - ABG Interpretation ABG Results: POC Bicarbonate Calc 43.0 mmol/L (1.0-85.0) 02/01/18 17:04 - Radiology Interpretation Chest x-ray Status: image reviewed by me, report reviewed by me (Left lower and middle consolidation) Pulmonology Consult: A/P - Problem (1) CAP (community acquired pneumonia) Current Visit: No Code(s): J18.9 - PNEUMONIA, UNSPECIFIED ORGANISM Status: Acute Qualifiers: Lung location: middle lobe of lung Assessment and Plan: Pt currently on appropriate abx. Continue for 5-7 day course (2) Acute respiratory failure with hypoxemia Current Visit: No Code(s): J96.01 - ACUTE RESPIRATORY FAILURE WITH HYPOXIA Status: Resolved Assessment and Plan: Pt has been weaned off of BiPAP, however has continued increased O2. Continue to monitor O2 status and attempt to wean to home level of 2L today (3) COPD with exacerbation Current Visit: No Code(s): J44.1 - CHRONIC OBSTRUCTIVE PULMONARY DISEASE W ( ACUTE) EXACERBATION Status: Acute Assessment and Plan: Likely a result of PNA and contributing to increased O2 need. Continue PO steroids. Duenebs prn (4) Metabolic alkalosis Current Visit: No Code(s): E87.3 - [place] Status: Acute Assessment and Plan: Likely secondary to increased respiratory rate, continue to monitor with am labs (5) CAD (coronary artery disease) Current Visit: No Code(s): I25.10 - ATHSCL HEART DISEASE OF [place] CORONARY ARTERY W/O ANG PCTRS Status: Chronic Qualifiers: Coronary Disease-Associated Artery/Lesion type: [place] artery [place] vs. transplanted heart: [place] heart Associated angina: without angina Qualified Code(s): I25.10 - Atherosclerotic heart disease of [place] coronary artery without angina pectoris Assessment and Plan: Trops are down trending, though elevated. EKG is reassuring. Elevation likely dt demand, low concern for ACS (6) CKD (chronic kidney disease) stage 2, GFR 60-89 ml/min Current Visit: No Code(s): N18.2 - CHRONIC KIDNEY DISEASE, STAGE 2 (MILD) Status: Chronic (7) HTN (hypertension) Current Visit: No Code(s): I10 - ESSENTIAL (PRIMARY) HYPERTENSION Status: Chronic Qualifiers: Hypertension type: essential hypertension Qualified Code(s): I10 - Essential (primary) hypertension Assessment and Plan: Controlled, continue home meds - Time Time: 50% of the time was spent in coordination of care (as documented) at patient's floor/unit and/or counseling patient. Time with Patient: greater than 50 minutes <Italo Carolina - Last Filed: 02/02/18 12:25> Pulmonology Consult: HPI - History of Present Illness HPI: DONALDDHEERAJ Lucio is a 73 year-old F Pulmonology Consult: Meds - Medications Medications: Current Medications Acetaminophen (Tylenol) 650 mg PO Q4H PRN PRN Reason: Headache/Fever or Pain Albuterol/Ipratropium (Duoneb) 3 ml NEB [id number] PRN PRN Reason: SOB &/or Wheezing Albuterol/Ipratropium (Duoneb) 3 ml NEB [id number] [facility] Last Admin: 02/02/18 10:14 Dose: 3 ml Atorvastatin Calcium (Lipitor) 20 mg PO HS [facility] Last Admin: 02/01/18 20:40 Dose: 20 mg Carvedilol (Coreg) 25 mg PO BID [facility] Last Admin: 02/02/18 09:30 Dose: Not Given Dextrose/Water (Dextrose 50%) 25 gm SLOW IVP PRN PRN PRN Reason: Hypoglycemia Enoxaparin Sodium (Lovenox) 40 mg SC 0900 [facility] Last Admin: 02/02/18 09:31 Dose: 40 mg Fluoxetine HCl (Prozac) 20 mg PO DAILY [facility] Last Admin: 02/02/18 09:31 Dose: 20 mg Folic Acid (Folvite) 1 mg PO DAILY [facility] Last Admin: 02/02/18 09:31 Dose: 1 mg Furosemide (Lasix) 40 mg PO DAILY [facility] Last Admin: 02/02/18 09:31 Dose: 40 mg Glucagon (Glucagon) 1 mg IM PRN PRN PRN Reason: Hypoglycemia Guaifenesin/Dextromethorphan (Mucinex Dm) 1 tab PO DAILY [facility] Lisinopril/HCTZ (Prinizide 20-25) 1 tab PO BID [facility] Last Admin: 02/02/18 09:33 Dose: Not Given Dextrose/Water (D5w) 1,000 mls @ 0 mls/hr IV .Q0M PRN PRN Reason: Hypoglycemia Insulin Human Lispro (Humalog) 0 units SC .MILD SLIDING SCALE PRN PRN Reason: Mild [place]al Scale Levofloxacin (Levaquin) 750 mg PO 1999 [facility] Last Admin: 02/01/18 20:41 Dose: 750 mg Magnesium Oxide (Magnesium Oxide) 400 mg PO DAILY [facility] Last Admin: 02/02/18 09:31 Dose: 400 mg Metformin HCl (Glucophage) 500 mg PO HS [facility] Last Admin: 02/01/18 20:40 Dose: 500 mg Mometasone Furoate/Formoterol Fumar (Dulera 200 Mcg/5 Mcg Inhaler) 2 puff INH BID-RT [facility] Last Admin: 02/02/18 06:57 Dose: 2 puff Multivitamins (Theragran) 1 tab PO DAILY [facility] Last Admin: 02/02/18 09:31 Dose: 1 tab Multivitamins/Zinc (Stress 600 With Zinc) 1 tab PO DAILY [facility] Last Admin: 02/02/18 09:32 Dose: 1 tab Ondansetron HCl (Zofran Odt) 4 mg PO Q6H PRN PRN Reason: Nausea/Vomiting Pantoprazole Sodium (Protonix) 40 mg PO QAM [facility] Last Admin: 02/02/18 09:31 Dose: 40 mg Potassium Chloride (Klor-Con 10) 10 meq PO DAILY [facility] Last Admin: 02/02/18 09:31 Dose: 10 meq Prednisone (Prednisone) 40 mg PO QAM-WM [facility] Stop: 02/05/18 10:00 Last Admin: 02/02/18 09:30 Dose: 40 mg Pulmonology Consult: Results - Labs Result Diagrams: 02/02/18 03:43 02/02/18 03:43 - ABG Interpretation ABG Results: POC Bicarbonate Calc 43.0 mmol/L (1.0-85.0) 02/01/18 17:04 Pulmonology Consult: A/P - Time Time: 50% of the time was spent in coordination of care (as documented) at patient's floor/unit and/or counseling patient. Attending Addendum - Attending Addendum Date/Time: 02/02/18 9264 I personally evaluated the patient and discussed the management with Dr. Aly I agree with the History, Examination, Assessment and Plan documented above with any addition or exceptions noted below. 70 minutes have been devoted to this patient in various activities. I personally reviewed all imaging studies and laboratory data noted within this document. For fifty percent of this time, I was interacting with the patient at the bedside or coordinating care with the care team. For the remainder of the time I was immediately available to the patient in the hospital unit.
[2018-02-02] MEDS ORDERED: Furosemide 40 MG TAB PO SCH (09:00)
[2018-02-02] MEDS ORDERED: Prevnar 13-Val Conj/PF 0.5 ML SYRINGE IM ONE (09:00)
[2018-02-02] MEDS: guaiFENesin ER 600 MG TAB PO SCH (09:29)
[2018-02-02] MEDS: Carvedilol 25 MG TAB PO SCH ×3 (09:30→20:54)
[2018-02-02] MEDS: predniSONE 20 MG TAB PO SCH (09:30)
[2018-02-02] MEDS: FLUoxetine HCl 20 MG CAP PO SCH (09:31)
[2018-02-02] MEDS: Folic Acid 1 MG TAB PO SCH (09:31)
[2018-02-02] MEDS: Enoxaparin Sodium 40 MG/0.4 ML SYRINGE SC SCH (09:31)
[2018-02-02] MEDS: Multivit, Therapeutic 1 TAB PO SCH (09:31)
[2018-02-02] MEDS: Potassium Chloride 10 MEQ TAB PO SCH (09:31)
[2018-02-02] MEDS: Magnesium Oxide 400 MG TAB PO SCH (09:31)
[2018-02-02] MEDS: Stress 600 With Zinc 1 TAB PO SCH (09:32)
[2018-02-02] MEDS: Lisinopril/Hydrochlorothiazide 20/25 mg Tablet PO SCH ×3 (09:33→20:53)
[2018-02-02 09:45] LABS: Troponin I 0.027 ng/mL (< 0.028)
--- NOTE | 2018-02-02 11:34 | PDOC.FM ---
- Subjective Subjective: Denies shortness of breath this morning. States she feels better. No complaints - Objective MAR Reviewed: Yes Vital Signs & Weight: Vital Signs (12 hours) Temp Pulse Resp BP BP Pulse Ox 02/02/18 10:14 79 22 H 97 02/02/18 09:33 85 02/02/18 08:19 98.2 F 85 15 140/81 98 02/02/18 08:16 98.2 F 84 20 96 02/02/18 06:55 84 20 98 02/02/18 03:49 98 02/02/18 03:48 98 02/02/18 03:42 98.7 F 83 18 141/61 H 94 L 02/02/18 00:00 98.4 F 73 20 145/66 H 98 Weight Weight 88.949 kg I&O: 02/01/18 02/02/18 02/03/18 06:59 06:59 06:59 Intake Total 360 Output Total 650 Balance -290 Result Diagrams: 02/02/18 03:43 02/02/18 03:43 <Debi Marshall - Last Filed: 02/02/18 11:48> - Objective Vital Signs & Weight: Vital Signs (12 hours) Temp Pulse Resp BP BP Pulse Ox 02/02/18 14:05 92 24 H 96 02/02/18 11:53 97.0 F L 84 19 142/72 H 94 L 02/02/18 10:14 79 22 H 97 02/02/18 09:33 85 02/02/18 08:19 98.2 F 85 15 140/81 98 02/02/18 08:16 98.2 F 84 20 96 02/02/18 06:55 84 20 98 02/02/18 03:49 98 02/02/18 03:48 98 02/02/18 03:42 98.7 F 83 18 141/61 H 94 L Weight Weight 88.949 kg I&O: 02/01/18 02/02/18 02/03/18 06:59 06:59 06:59 Intake Total 360 Output Total 650 Balance -290 Result Diagrams: 02/02/18 03:43 02/02/18 03:43 <Davidson Duran - Last Filed: 02/02/18 14:15> Phys Exam - Physical Examination Constitutional: NAD HEENT: PERRLA, moist MMs Neck: no nodes, no JVD Respiratory: wheezing present decreased breath sounds bilaterally Cardiovascular: RRR, no significant murmur Gastrointestinal: soft, non-tender, no distention Musculoskeletal: no edema, pulses present Psychiatric: normal affect Skin: no rash <Debi Marshall - Last Filed: 02/02/18 11:48> Dx/Plan (1) Acute on chronic respiratory failure with hypoxia and hypercapnia Code(s): J96.21 - ACUTE AND CHRONIC RESPIRATORY FAILURE WITH HYPOXIA; J96.22 - ACUTE AND CHRONIC RESPIRATORY FAILURE WITH HYPERCAPNIA Status: Acute (2) Sepsis Code(s): A41.9 - SEPSIS, UNSPECIFIED ORGANISM Status: Acute (3) CAP (community acquired pneumonia) Code(s): J18.9 - PNEUMONIA, UNSPECIFIED ORGANISM Status: Acute Qualifiers: Lung location: middle lobe of lung (4) COPD with exacerbation Code(s): J44.1 - CHRONIC OBSTRUCTIVE PULMONARY DISEASE W (ACUTE) EXACERBATION Status: Acute (5) CKD (chronic kidney disease) stage 2, GFR 60-89 ml/min Code(s): N18.2 - CHRONIC KIDNEY DISEASE, STAGE 2 (MILD) Status: Chronic (6) HLD (hyperlipidemia) Code(s): E78.5 - HYPERLIPIDEMIA, UNSPECIFIED Status: Chronic Qualifiers: Hyperlipidemia type: unspecified Qualified Code(s): E78.5 - Hyperlipidemia , unspecified (7) HTN (hypertension) Code(s): I10 - ESSENTIAL (PRIMARY) HYPERTENSION Status: Chronic Qualifiers: Hypertension type: essential hypertension Qualified Code(s): I10 - Essential (primary) hypertension (8) Diabetes mellitus type 2 in obese Code(s): E11.69 - TYPE 2 DIABETES MELLITUS WITH OTHER SPECIFIED COMPLICATION; E66.9 - OBESITY, UNSPECIFIED Status: Acute (9) Obesity (BMI 30.0-34.9) Code(s): E66.9 - OBESITY, UNSPECIFIED Status: Chronic - Plan Plan: 73 yo F with shortness of breath, admitted for acute on chronic hypoxic hypercapneic respiratory failure and sepsis 2/2 COPD exacerbation with pneumonia. Acute on chronic hypoxic hypercapnic respiratory failure -2/2 COPD exacerbation with pneumonia -Requiring 3-4L O2 which is an increase from her baseline, will attempt to wean as tolerated today and transfer out of IMCU -Continue Levaquin -Continue prednisone for 5 days -Duonebs [id number] scheduled, mucinex prn -Dulera daily (we do not have symbicort) Sepsis 2/2 CAP and COPD exacerbation- -repeat cbc in am -If worsens will order abg -Continue Levaquin -Continue duonebs q4h casper and albuterol q2h prn HTN -Lisinopril/HCTZ -Carvedilol HLD -Continue atorvastatin DM -mild SS -Continue metformen CKD, stage 2 -monitor with cmp Diet: Regular diet (once off bipap) DVT ppx: Lovenox, SCDs Dispo: transfer to inpatient medical <Debi Marshall - Last Filed: 02/02/18 11:48> Attending Addendum - Attending Addendum Date/Time: 02/02/18 8648 I personally evaluated the patient and discussed the management with Dr. Teixeira. I agree with the History, Examination, Assessment and Plan documented above with any addition or exceptions noted below. <Davidson Duran - Last Filed: 02/02/18 14:15>
[2018-02-02] MEDS ORDERED: Albuterol Sulfate 2.5 mg/3 ml Neb NEB PRN (12:29)
[2018-02-02 15:34] LABS: Legionella Urinary Ag Negative (Negative)
[2018-02-02 15:35] LABS: Strep pneumo Urine Ag NEGATIVE (NEGATIVE)
[2018-02-02 17:37] LABS: Mean Corpuscular HGB CONC 33.2 g/dL (32.0-36.0); Mean Corpuscular Hemoglobin 31.4 pg (27.0-31.0); Mean Corpuscular Volume 94.7 fL (78.0-98.0); Mean Platelet Volume 6.6 fL (7.4-10.4); Platelet Count 357 thou/uL (130-400); RBC Distribution Width 12.5 % (11.5-14.5); Red Blood Cell (RBC) Count 3.82 mill/uL (4.20-5.40); White Blood Cell (WBC) Count 15.7 thou/uL (4.8-10.8)
[2018-02-02 17:57] LABS: Band 16 % (5-11); Eosinophils 1 % (0-10); Lymphocytes 5 % (21-51); MDiff Complete? YES; Monocytes 4 % (0-10); Neutrophil 74 % (42-75); PLT Morphology Comment Appears Adequate; RBC Morphology Normal; Vacuoles SLIGHT
[2018-02-02 18:07] LABS: ALT (SGPT) 23 U/L (8-55); AST (SGOT) 18 U/L (5-34); Albumin 3.9 g/dL (3.4-4.8); Alkaline Phosphatase 115 U/L (40-150); BUN (Urea Nitrogen) 34 mg/dL (9.8-20.1); Bilirubin, Total 0.4 mg/dL (0.2-1.2); Calc. Creatinine Clearance 69 mL/min (70-130); Calcium 9.7 mg/dL (7.8-10.44); Estimated GFR-MDRD 52; Globulin 3.2 g/dL (2.4-3.5); Protein, Total 7.1 g/dL (6.0-8.3)
[2018-02-02 18:16] LABS: Anion Gap 21 mmol/L (10-20); Carbon Dioxide 34 mmol/L (23-31); Chloride 86 mmol/L (98-107); Glucose 145 mg/dL (83-110); Potassium 3.3 mmol/L (3.5-5.1); Sodium 138 mmol/L (136-145)
[2018-02-02] MEDS: metFORMIN 500 MG TAB PO SCH ×2 (20:44→20:55)
[2018-02-02] MEDS: Atorvastatin Calcium 20 MG TAB PO SCH ×2 (20:44→20:55)
[2018-02-03 00:13] LABS: pH (venous) 7.439 (7.32-7.43)
[2018-02-03 00:14] LABS: Actual Bicarbonate (HCO3v) 38 mEq/L (22-28); Base Excess 11.7 mEq/L (-2.0 to +3.0); Hemoglobin (Hb) 13.2 g/dL (11.7-16.1)
[2018-02-03 00:15] LABS: Calcium, Ionized 1.07 mmol/L (1.16-1.32); Chloride (ABG LAB) 86 mmol/L (98-106); Potassium - ABG Lab 3.3 mmol/L (3.70-5.30); Sodium 136.3 mmol/L (133-146)
[2018-02-03] MEDS ORDERED: Haloperidol Lactate 5 MG/ML VIAL SLOW IVP SCH (03:45)
[2018-02-03 05:41] LABS: Actual Bicarbonate (HCO3a) 42.8 mEq/L (22-28); Base Excess (BEa) 16.3 mEq/L (-2.0 to +3.0); CO2 Tension 58.7 mmHg (35.0-45.0); Hemoglobin (Hb) 14.1 g/dL (12.0-16.0); O2 Tension (PaO2) 70.7 mmHg (> 70.0); pH, Arterial 7.48 (7.35-7.45)
[2018-02-03 05:42] LABS: Calcium, Ionized 1.1 mmol/L (1.12-1.30); Puncture Site LRA
[2018-02-03 05:43] LABS: ALV-art Gradient 112.605 (0-20)
[2018-02-03] MEDS ORDERED: Sterile Water 10 ML VIAL FS PRN (06:03)
[2018-02-03] MEDS: Ziprasidone 20 MG VIAL IM PRN (06:14)
--- NOTE | 2018-02-03 06:17 | PDOC.FM ---
- Subjective Subjective: 73 yo f with pmhx of COPD admitted for acute hypoxic hypercapnic respiratory failure 2/2 a copd exacerbation and pna. Hosp Day 2. O/n she became delirious. She wouldn't get into bed and was speaking sentences that did not make sense. This morning a&ox3. Couldn't remember what she had for breakfast this morning. Sitting in bed comfortably, not agitated. Received haldol 5mg X1 and geodon 10mg X1 this am @ 0614. - Objective MAR Reviewed: Yes Vital Signs & Weight: Vital Signs (12 hours) Temp Pulse Resp BP Pulse Ox 02/03/18 04:00 97.0 F L 84 18 189/74 H 90 L 02/03/18 00:40 79 20 96 02/03/18 00:00 97.4 F L 84 20 173/99 H 95 02/02/18 20:53 84 02/02/18 20:00 97.6 F 84 18 149/84 H 100 02/02/18 19:50 97.6 F 84 18 84 L 02/02/18 19:14 84 18 97 Weight Weight 88.949 kg I&O: 02/01/18 02/02/18 02/03/18 06:59 06:59 06:59 Intake Total 360 970 Output Total 650 550 Balance -290 420 Result Diagrams: 02/03/18 07:43 02/02/18 17:26 <Debi Marshall - Last Filed: 02/03/18 08:38> - Objective Vital Signs & Weight: Vital Signs (12 hours) Temp Pulse Resp BP BP BP Pulse Ox 02/03/18 11:36 97.8 F 89 21 H 141/79 H 98 02/03/18 10:08 156/63 H 02/03/18 08:00 97.1 F L 93 17 100 02/03/18 07:51 97.1 F L 93 17 169/95 H 100 02/03/18 07:15 74 24 H 95 02/03/18 04:00 97.0 F L 84 18 189/74 H 90 L 02/03/18 00:40 79 20 96 Weight Weight 88.949 kg I&O: 02/02/18 02/03/18 02/04/18 06:59 06:59 06:59 Intake Total 360 1280 Output Total 650 550 200 Balance -290 730 -200 Result Diagrams: 02/03/18 07:43 02/03/18 07:43 <Davidson Duran - Last Filed: 02/03/18 12:11> Phys Exam - Physical Examination Constitutional: NAD HEENT: PERRLA, moist MMs Neck: no JVD Respiratory: no wheezing crackles at the bases Cardiovascular: RRR, no significant murmur Gastrointestinal: soft, non-tender Musculoskeletal: no edema Neurological: non-focal Psychiatric: A&O x 3 Deviation from normal: could not remembe what she ate for breakfast, not agitated, comfortable Skin: no rash, normal turgor <Debi Marshall - Last Filed: 02/03/18 08:38> Dx/Plan (1) Acute on chronic respiratory failure with hypoxia and hypercapnia Code(s): J96.21 - ACUTE AND CHRONIC RESPIRATORY FAILURE WITH HYPOXIA; J96.22 - ACUTE AND CHRONIC RESPIRATORY FAILURE WITH HYPERCAPNIA Status: Acute (2) Sepsis Code(s): A41.9 - SEPSIS, UNSPECIFIED ORGANISM Status: Acute (3) CAP (community acquired pneumonia) Code(s): J18.9 - PNEUMONIA, UNSPECIFIED ORGANISM Status: Acute Qualifiers: Lung location: middle lobe of lung (4) COPD with exacerbation Code(s): J44.1 - CHRONIC OBSTRUCTIVE PULMONARY DISEASE W (ACUTE) EXACERBATION Status: Acute (5) CKD (chronic kidney disease) stage 2, GFR 60-89 ml/min Code(s): N18.2 - CHRONIC KIDNEY DISEASE, STAGE 2 (MILD) Status: Chronic (6) HLD (hyperlipidemia) Code(s): E78.5 - HYPERLIPIDEMIA, UNSPECIFIED Status: Chronic Qualifiers: Hyperlipidemia type: unspecified Qualified Code(s): E78.5 - Hyperlipidemia , unspecified (7) HTN (hypertension) Code(s): I10 - ESSENTIAL (PRIMARY) HYPERTENSION Status: Chronic Qualifiers: Hypertension type: essential hypertension Qualified Code(s): I10 - Essential (primary) hypertension (8) Diabetes mellitus type 2 in obese Code(s): E11.69 - TYPE 2 DIABETES MELLITUS WITH OTHER SPECIFIED COMPLICATION; E66.9 - OBESITY, UNSPECIFIED Status: Acute (9) Obesity (BMI 30.0-34.9) Code(s): E66.9 - OBESITY, UNSPECIFIED Status: Chronic (10) Metabolic alkalosis Code(s): E87.3 - ALKALOSIS Status: Acute (11) Delirium Code(s): R41.0 - DISORIENTATION, UNSPECIFIED Status: Acute (12) Hypokalemia Code(s): E87.6 - HYPOKALEMIA Status: Acute - Plan Plan: 73 yo f with pmhx of COPD admitted for acute hypoxic hypercapnic respiratory failure 2/2 a copd exacerbation and pna. Hosp Day 2. Delerium- -onset last night -Will continue to orient patient -did require Haldol 5mg X1 and Geodon 10mg X1 this am -a&ox3 this am; improving -abg showed metabolic alkalosis; held loop/hctz, although thinking this is metabolic compensation for chronic respiratory hypercapnia from pt's COPD. Acute on chronic hypoxic hypercapnic respiratory failure -2/2 COPD exacerbation with pneumonia -became acutely delirious last night -ABG, CBC, CMP--> Metabolic Alkalosis, leukocytosis, and hypokalemia -Replaced potassium -Requiring 3-4L O2 which is an increase from her baseline, will attempt to wean as tolerated today -Continue Levaquin -Continue prednisone for 5 days -Duonebs [id number] scheduled, mucinex prn -Dulera daily (we do not have symbicort) Sepsis 2/2 CAP and COPD exacerbation- -repeat cbc in am -repeat CXR since persistent crackles, increasing leukocytosis. -ABG showed metabolic alkalosis -Continue Levaquin -Continue duonebs q4h casper and albuterol q2h prn Hypokalemia- -3.3; gave 40 potassium chloride PO X1 -CMP pending this am HTN -Continue Lisinopril -Held HCTZ and loop -ContinueCarvedilol HLD -Continue atorvastatin DM -mild SS -Continue metformen CKD, stage 2 -monitor with cmp Diet: Regular diet (once off bipap) DVT ppx: Lovenox, SCDs <Debi Marshall - Last Filed: 02/03/18 08:38> Attending Addendum - Attending Addendum Date/Time: 02/03/18 1208 I personally evaluated the patient and discussed the management with Dr. Teixeira. I agree with the History, Examination, Assessment and Plan documented above with any addition or exceptions noted below. Possible causes of delirium are dementia, hypoxia, infection, and prednisone. She is not agitated, but remains confused today. Family is present. We are appropriately treating pneumonia, and COPD and cautiously giving therapeutic oxygen. History suggests the possibility of dementia but this has no been diagnosed before. We appreciate Dr. Carolina's care as well. <Davidson Duran - Last Filed: 02/03/18 12:11>
[2018-02-03] MEDS ORDERED: Potassium Chloride 20 MEQ TAB PO SCH (06:30)
[2018-02-03] MEDS ORDERED: hydrALAZINE 20 MG/ML VIAL SLOW IVP PRN (06:40)
[2018-02-03] MEDS: Mometasone/Formoterol 120 PUFF INHALER INH SCH ×2 (07:16→18:26)
[2018-02-03 08:14] LABS: Hemoglobin 13.6 g/dL (12.0-16.0); Mean Corpuscular HGB CONC 33.1 g/dL (32.0-36.0); Mean Corpuscular Hemoglobin 31.4 pg (27.0-31.0); Mean Corpuscular Volume 94.7 fL (78.0-98.0); Mean Platelet Volume 6.7 fL (7.4-10.4); Platelet Count 396 thou/uL (130-400); RBC Distribution Width 12.7 % (11.5-14.5); Red Blood Cell (RBC) Count 4.35 mill/uL (4.20-5.40); White Blood Cell (WBC) Count 19.9 thou/uL (4.8-10.8)
[2018-02-03 08:40] LABS: ALT (SGPT) 25 U/L (8-55); AST (SGOT) 22 U/L (5-34); Albumin 4.1 g/dL (3.4-4.8); Alkaline Phosphatase 124 U/L (40-150); BUN (Urea Nitrogen) 35 mg/dL (9.8-20.1); Bilirubin, Total 0.5 mg/dL (0.2-1.2); Calc. Creatinine Clearance 69 mL/min (70-130); Calcium 10.3 mg/dL (7.8-10.44); Estimated GFR-MDRD 52; Globulin 3.5 g/dL (2.4-3.5); Glucose 145 mg/dL (83-110); Protein, Total 7.6 g/dL (6.0-8.3)
[2018-02-03 08:43] LABS: Band 21 % (5-11); Eosinophils 1 % (0-10); Lymphocytes 6 % (21-51); MDiff Complete? YES; Monocytes 9 % (0-10); Neutrophil 63 % (42-75); PLT Morphology Comment Appears Adequate; Vacuoles SLIGHT
[2018-02-03 08:49] LABS: Anion Gap 17 mmol/L (10-20); Chloride 85 mmol/L (98-107); Potassium 3.1 mmol/L (3.5-5.1); Sodium 140 mmol/L (136-145)
[2018-02-03] MEDS ORDERED: DEXTROMETHORPHAN PO SCH (09:00)
[2018-02-03] MEDS ORDERED: Lisinopril 20 MG TAB PO SCH (09:00)
[2018-02-03] MEDS ORDERED: GUAIFENESIN PO SCH (09:00)
[2018-02-03] MEDS ORDERED: Hydrochlorothiazide 25 MG TAB PO SCH ×2 (09:00)
[2018-02-03 09:07] LABS: Carbon Dioxide 41 mmol/L (23-31)
[2018-02-03] MEDS: Folic Acid 1 MG TAB PO SCH (10:07)
[2018-02-03] MEDS: Lisinopril 20 MG TAB PO SCH ×2 (10:08→20:54)
[2018-02-03] MEDS: Magnesium Oxide 400 MG TAB PO SCH (10:08)
[2018-02-03] MEDS: Carvedilol 25 MG TAB PO SCH ×2 (10:09→20:54)
[2018-02-03] MEDS: Stress 600 With Zinc 1 TAB PO SCH (10:09)
[2018-02-03] MEDS: Potassium Chloride 10 MEQ TAB PO SCH (10:09)
[2018-02-03] MEDS: Multivit, Therapeutic 1 TAB PO SCH (10:09)
[2018-02-03] MEDS: guaiFENesin/DM ER PO SCH (10:09)
[2018-02-03] MEDS: FLUoxetine HCl 20 MG CAP PO SCH (10:09)
[2018-02-03] MEDS: Enoxaparin Sodium 40 MG/0.4 ML SYRINGE SC SCH (10:10)
[2018-02-03] MEDS: predniSONE 20 MG TAB PO SCH (10:14)
--- NOTE | 2018-02-03 10:44 | RAD ---
CHEST TWO VIEWS: History: Crackles lung bases. Dyspnea. Comparison: 02-01-18 FINDINGS: Cardiac silhouette is magnified by projection. Pulmonary vasculature upper limits of normal. Patchy i nfiltrate at the left lung base involves the lateral and inferior basilar segments of the left lower lobe. Less pronounced than on the prior study. No pleural fluid or pneumothorax. Mediastinum is midli ne. [employer] nutritional monitor leads overlie the chest. IMPRESSION: Slight interval improvement of left basilar infiltrate. No new abnormalities are demonstrated. POS: BRIAN
--- NOTE | 2018-02-03 13:53 | PRG ---
DATE OF SERVICE: 02/03/2018 SERVICE: Pulmonary Medicine. INTERVAL HISTORY: The patient is doing fine from a respiratory standpoint. She continues to cough u p a little bit of sputum, but it seems to be clearing out a little bit. Overnight, she got agitated and confused. This morning, she is not really quite certain what the situation is. She does not hav e any specific complaints of shortness of breath, fevers, chills, nausea or vomiting. That being sathish d, she is speaking and behaving like somebody who has an acute delirium. Otherwise, there have been no events overnight. PHYSICAL EXAMINATION: VITAL SIGNS: Afebrile, pulse 89, blood pressure 141/79, respirations 20, saturation 98% on 4 liters nasal cannula. GENERAL: Patient is awake, alert, no apparent distress. LUNGS: Excellent air entry. There is rhonchi present. There is a prolonged expiratory phase, but n o wheezing or crackles are appreciated. HEART: Normal rate, regular. ABDOMEN: Soft, nontender, nondistended. Bowel sounds are positive. MUSCULOSKELETAL: No cyanosis or clubbing. There is no pitting in the bilateral lower extremities. NEUROLOGIC: Grossly nonfocal. LABORATORY DATA AND IMAGING DATA: WBC 19.9 and up trending, hemoglobin 13.6, platelets 396,000. Steffen trophil count is 63%, band count is 21%, but the lymphocyte and monocytes are starting to pick back u p. INR 1.1. PH 7.48, pCO2 58, pO2 70. This corresponds with saturation of 94%. Bicarb is increasi ng to 34, chloride 85, potassium 3.1. Liver function studies are essentially unremarkable. Her prev ious ionized calcium was 1.07. Creatinine 1.05 and gently trending upward. Strep and legionella uri ne antigens are unremarkable. Blood cultures x2 remain negative. Chest x-ray demonstrates an interv al improvement in the left lower lobe infiltrate. ASSESSMENT: 1. Acute on chronic respiratory failure. 2. Chronic hypercapnic respiratory failure. 3. Chronic obstructive pulmonary disease with acute exacerbation. 4. Community-acquired pneumonia. 5. Delirium. DISCUSSION AND PLAN: I will replace potassium. I will give small dose of Haldol at night to see if that we can decrease her nocturnal agitation. We will try to get her out of the ICU to the telemetry unit. We will mobilize her and have her work with physical therapy. She has a very severe contract ion alkalosis and may have. At least part of that may be chronic. That being said, she also appears to be slightly volume down. I am going to discontinue the Lasix and introduce a small dose of intra venous fluids at 50 mL per hour which we will continue on for the next 24 hours. She can be transiti oned to the medical unit as I would like to minimize interventions in lines that are attached to her moving forward.
[2018-02-03] MEDS: 1/2 NS w/KCL 20 mEq 1,000 ML IV SCH (14:19)
[2018-02-03] MEDS: Haloperidol 1 MG TAB PO SCH (20:54)
[2018-02-03] MEDS: Hydrochlorothiazide 25 MG TAB PO SCH (20:54)
[2018-02-03] MEDS: Atorvastatin Calcium 20 MG TAB PO SCH (20:54)
[2018-02-03] MEDS: metFORMIN 500 MG TAB PO SCH (20:54)
[2018-02-04] MEDS: Ziprasidone 20 MG VIAL IM PRN (01:42)
[2018-02-04 05:56] LABS: ALT (SGPT) 24 U/L (8-55); AST (SGOT) 22 U/L (5-34); Albumin 3.6 g/dL (3.4-4.8); Alkaline Phosphatase 104 U/L (40-150); BUN (Urea Nitrogen) 26 mg/dL (9.8-20.1); Bilirubin, Total 0.4 mg/dL (0.2-1.2); Calc. Creatinine Clearance 86 mL/min (70-130); Calcium 9.5 mg/dL (7.8-10.44); Estimated GFR-MDRD 67; Globulin 2.8 g/dL (2.4-3.5); Glucose 103 mg/dL (83-110); Protein, Total 6.4 g/dL (6.0-8.3)
[2018-02-04 06:05] LABS: Anion Gap 16 mmol/L (10-20); Carbon Dioxide 36 mmol/L (23-31); Chloride 93 mmol/L (98-107); Potassium 3.5 mmol/L (3.5-5.1); Sodium 141 mmol/L (136-145)
--- NOTE | 2018-02-04 06:15 | PDOC.FM ---
- Subjective Subjective: No acute complaints this morning. Still agitated overnight. A&Ox2 this am. Requiring 3L O2. Daughter would like to talk with CM about possible SNF vs rehab for short-term setting. Pt recommends rehab placement. - Objective MAR Reviewed: Yes Vital Signs & Weight: Vital Signs (12 hours) Temp Pulse Resp BP BP Pulse Ox 02/04/18 04:00 98.2 F 78 20 153/82 H 92 L 02/04/18 00:11 75 16 97 02/03/18 22:30 98.1 F 77 20 96 02/03/18 22:20 98.1 F 77 20 151/53 H 96 02/03/18 21:05 97 02/03/18 19:37 97.0 F L 81 19 165/96 H 91 L 02/03/18 19:35 97.0 F L 81 19 97 02/03/18 18:21 76 16 99 Weight Weight 88.949 kg I&O: 02/02/18 02/03/18 02/04/18 06:59 06:59 06:59 Intake Total 360 1280 840 Output Total 573 201 1468 Balance -290 730 -585 Result Diagrams: 02/04/18 04:46 02/04/18 04:46 <Debi Marshall - Last Filed: 02/04/18 17:25> - Objective Vital Signs & Weight: Weight Admit Weight 88.949 kg Weight 88.949 kg I&O: 02/05/18 02/06/18 02/07/18 06:59 06:59 06:59 Intake Total 950 360 Balance 950 360 Result Diagrams: 02/05/18 03:54 02/05/18 03:54 <Davidson Duran - Last Filed: 02/06/18 10:11> Phys Exam - Physical Examination Constitutional: NAD HEENT: PERRLA, moist MMs wheezing b/l lung arvizu Cardiovascular: RRR, no significant murmur Gastrointestinal: soft, non-tender Musculoskeletal: no edema, pulses present Psychiatric: normal affect Deviation from normal: a&ox2 <Debi Marshall - Last Filed: 02/04/18 17:25> Dx/Plan (1) Delirium Code(s): R41.0 - DISORIENTATION, UNSPECIFIED Status: Acute (2) Acute on chronic respiratory failure with hypoxia and hypercapnia Code(s): J96.21 - ACUTE AND CHRONIC RESPIRATORY FAILURE WITH HYPOXIA; J96.22 - ACUTE AND CHRONIC RESPIRATORY FAILURE WITH HYPERCAPNIA Status: Acute (3) Sepsis Code(s): A41.9 - SEPSIS, UNSPECIFIED ORGANISM Status: Acute (4) CAP (community acquired pneumonia) Code(s): J18.9 - PNEUMONIA, UNSPECIFIED ORGANISM Status: Acute Qualifiers: Lung location: middle lobe of lung (5) COPD with exacerbation Code(s): J44.1 - CHRONIC OBSTRUCTIVE PULMONARY DISEASE W (ACUTE) EXACERBATION Status: Acute (6) CKD (chronic kidney disease) stage 2, GFR 60-89 ml/min Code(s): N18.2 - CHRONIC KIDNEY DISEASE, STAGE 2 (MILD) Status: Chronic (7) HLD (hyperlipidemia) Code(s): E78.5 - HYPERLIPIDEMIA, UNSPECIFIED Status: Chronic Qualifiers: Hyperlipidemia type: unspecified Qualified Code(s): E78.5 - Hyperlipidemia , unspecified (8) HTN (hypertension) Code(s): I10 - ESSENTIAL (PRIMARY) HYPERTENSION Status: Chronic Qualifiers: Hypertension type: essential hypertension Qualified Code(s): I10 - Essential (primary) hypertension (9) Diabetes mellitus type 2 in obese Code(s): E11.69 - TYPE 2 DIABETES MELLITUS WITH OTHER SPECIFIED COMPLICATION; E66.9 - OBESITY, UNSPECIFIED Status: Acute (10) Obesity (BMI 30.0-34.9) Code(s): E66.9 - OBESITY, UNSPECIFIED Status: Chronic (11) Metabolic alkalosis Code(s): E87.3 - ALKALOSIS Status: Acute (12) Hypokalemia Code(s): E87.6 - HYPOKALEMIA Status: Acute - Plan Plan: 73 yo f with pmhx of COPD admitted for acute hypoxic hypercapnic respiratory failure 2/2 a copd exacerbation and pna. Hosp Day 2. Delerium- -onset last night -Will continue to orient patient -did require Haldol 5mg X1 and Geodon 10mg X1 this am -a&ox3 this am; improving -abg showed metabolic alkalosis; held loop/hctz, although thinking this is metabolic compensation for chronic respiratory hypercapnia from pt's COPD. Acute on chronic hypoxic hypercapnic respiratory failure -2/2 COPD exacerbation with pneumonia -acutely delerious, improved; required geodon o/n -Metabolic Alkalosis, leukocytosis, and hypokalemia -Replaced potassium -Requiring 3-4L O2 which is an increase from her baseline, will attempt to wean as tolerated today -Continue Levaquin -Continue prednisone for 5 days -Duonebs [id number] scheduled, mucinex prn -Dulera daily (we do not have symbicort) -will consult CM and rehab for placemnt (PT recommends and daughter would like to discuss options with CM) -Pul[facility] consulted, appreciate recommendations Sepsis 2/2 CAP and COPD exacerbation- -repeat cbc in am -ABG showed metabolic alkalosis -Continue Levaquin -Continue duonebs q4h casper and albuterol q2h prn Hypokalemia- -3.3; gave 40 potassium chloride PO X1 -CMP pending this am HTN -Continue Lisinopril -Held HCTZ and loop -ContinueCarvedilol HLD -Continue atorvastatin DM -mild SS -Continue metformen CKD, stage 2 -monitor with cmp Diet: Regular diet (once off bipap) DVT ppx: Lovenox, SCDs <Debi Marshall - Last Filed: 02/04/18 17:25> Attending Addendum - Attending Addendum Date/Time: 02/06/18 1011 I personally evaluated the patient and discussed the management with Dr. Dr. Keita on 02/04/2018. I agree with the History, Examination, Assessment and Plan documented above with any addition or exceptions noted below. <Davidson Duran - Last Filed: 02/06/18 10:11>
[2018-02-04 06:33] LABS: Band 10 % (5-11); Hemoglobin 12.7 g/dL (12.0-16.0); Lymphocytes 9 % (21-51); MDiff Complete? YES; Mean Corpuscular HGB CONC 32.5 g/dL (32.0-36.0); Mean Corpuscular Hemoglobin 31.1 pg (27.0-31.0); Mean Corpuscular Volume 95.7 fL (78.0-98.0); Mean Platelet Volume 6.7 fL (7.4-10.4); Metamyelocyte 1 % (0-0); Monocytes 7 % (0-10); Neutrophil 73 % (42-75); PLT Morphology Comment Appears Adequate; Platelet Count 329 thou/uL (130-400); RBC Distribution Width 12.8 % (11.5-14.5); Red Blood Cell (RBC) Count 4.09 mill/uL (4.20-5.40)
[2018-02-04] MEDS: Mometasone/Formoterol 120 PUFF INHALER INH SCH ×2 (06:34→18:39)
[2018-02-04] MEDS: Hydrochlorothiazide 25 MG TAB PO SCH ×2 (09:20→20:04)
[2018-02-04] MEDS: Magnesium Oxide 400 MG TAB PO SCH (09:21)
[2018-02-04] MEDS: guaiFENesin/DM ER PO SCH (09:21)
[2018-02-04] MEDS: Potassium Chloride 10 MEQ TAB PO SCH (09:21)
[2018-02-04] MEDS: Stress 600 With Zinc 1 TAB PO SCH (09:21)
[2018-02-04] MEDS: FLUoxetine HCl 20 MG CAP PO SCH (09:21)
[2018-02-04] MEDS: Folic Acid 1 MG TAB PO SCH (09:21)
[2018-02-04] MEDS: Enoxaparin Sodium 40 MG/0.4 ML SYRINGE SC SCH (09:21)
[2018-02-04] MEDS: Lisinopril 20 MG TAB PO SCH ×2 (09:21→20:04)
[2018-02-04] MEDS: predniSONE 20 MG TAB PO SCH (09:21)
[2018-02-04] MEDS: Carvedilol 25 MG TAB PO SCH ×2 (09:21→20:04)
[2018-02-04] MEDS: Multivit, Therapeutic 1 TAB PO SCH (09:21)
[2018-02-04] MEDS: 1/2 NS w/KCL 20 mEq 1,000 ML IV SCH (12:00)
[2018-02-04] MEDS ORDERED: Potassium Chloride 20 MEQ TAB PO SCH (16:30)
--- NOTE | 2018-02-04 16:38 | PRG ---
DATE OF SERVICE: 02/04/2018 SERVICE: Pulmonary Medicine. INTERVAL HISTORY: The patient is doing fine from a breathing standpoint. Mentation baltazar, things are better. She got a little agitated overnight and got a p.r.n. dose of antipsychotic. Since then, antonio warner has actually been doing fairly well. She got much improved sleep yesterday evening. PHYSICAL EXAMINATION: VITAL SIGNS: Afebrile, pulse 75, blood pressure 117/74, respirations 20, saturation 97% on 3 liters nasal cannula. GENERAL: The patient is awake and alert, in no apparent distress. LUNGS: Decent air entry. There is some prolonged expiratory phase with a little bit of wheezing. I do not hear any crackles or rhonchi today. HEART: Normal rate and regular. ABDOMEN: Soft, nontender, nondistended. Bowel sounds are positive. MUSCULOSKELETAL: No cyanosis or clubbing. There is no pitting in the bilateral lower extremities. NEUROLOGIC: Grossly nonfocal. LABORATORY DATA: WBC down trending to 16.0 and the band count is also improving at 10%. Hemoglobin is stable and platelets are 329,000. Creatinine 0.84 and down trending once again, sodium [address] able, potassium 3.5. Bicarbonate has improved to 36. Chloride 93. Blood cultures x2 remain unremar kable. ASSESSMENT: 1. Acute on chronic hypoxic respiratory failure. 2. Chronic hypercapnic respiratory failure. 3. Chronic obstructive pulmonary disease with acute exacerbation. 4. Community-acquired pneumonia. 5. Delirium. DISCUSSION AND PLAN: I will give another dose of potassium. The patient will continue her at [facility] for now. From my perspective, she is stable for transition out of the hospital today or [facility]. Her IV fluids can be interrupted tomorrow morning. I once again replaced the potassium. Leesa vasquez will continue to follow. She will require repeat chest x-ray in the outpatient setting in 4-6 weeks to verify resolution of the infiltrate. We will have her follow up with Dr. Cordero at that [facility]
[2018-02-04] MEDS: Atorvastatin Calcium 20 MG TAB PO SCH (20:04)
[2018-02-04] MEDS: Haloperidol 1 MG TAB PO SCH (20:05)
[2018-02-04] MEDS: metFORMIN 500 MG TAB PO SCH (20:05)
[2018-02-05] MEDS: 1/2 NS w/KCL 20 mEq 1,000 ML IV SCH (05:02)
[2018-02-05 05:32] LABS: BUN (Urea Nitrogen) 25 mg/dL (9.8-20.1); Calc. Creatinine Clearance 91 mL/min (70-130); Calcium 9.1 mg/dL (7.8-10.44); Estimated GFR-MDRD 71; Glucose 97 mg/dL (83-110)
[2018-02-05 05:42] LABS: Anion Gap 14 mmol/L (10-20); Carbon Dioxide 37 mmol/L (23-31); Chloride 93 mmol/L (98-107); Potassium 4.2 mmol/L (3.5-5.1); Sodium 140 mmol/L (136-145)
[2018-02-05 06:08] LABS: Band 17 % (5-11); Hemoglobin 11.1 g/dL (12.0-16.0); Lymphocytes 7 % (21-51); MDiff Complete? YES; Mean Corpuscular HGB CONC 32.3 g/dL (32.0-36.0); Mean Corpuscular Hemoglobin 31.1 pg (27.0-31.0); Mean Corpuscular Volume 96.2 fL (78.0-98.0); Mean Platelet Volume 6.5 fL (7.4-10.4); Monocytes 10 % (0-10); Myelocyte 4 % (0-0); Neutrophil 62 % (42-75); Platelet Count 317 thou/uL (130-400); RBC Distribution Width 12.7 % (11.5-14.5); Red Blood Cell (RBC) Count 3.56 mill/uL (4.20-5.40); White Blood Cell (WBC) Count 13.6 thou/uL (4.8-10.8)
[2018-02-05] MEDS: Mometasone/Formoterol 120 PUFF INHALER INH SCH (07:17)
--- NOTE | 2018-02-05 08:16 | PDOC.FM ---
- Subjective Subjective: A&0 x3 but confused when having a conversation. She will formulate sentences that are out of context to conversation. Spoke with daughter who really would like for her Mom to find placement at inpatient rehab vs SNF. Pt was living alone. - Objective MAR Reviewed: Yes Vital Signs & Weight: Vital Signs (12 hours) Pulse Resp Pulse Ox 02/05/18 07:11 78 16 95 02/05/18 01:02 74 16 95 Weight Admit Weight 88.949 kg Weight 88.949 kg I&O: 02/04/18 02/05/18 02/06/18 06:59 06:59 06:59 Intake Total 1440 950 Output Total 1425 Balance 15 950 Result Diagrams: 02/05/18 03:54 02/05/18 03:54 <Debi Marshall - Last Filed: 02/05/18 13:09> - Objective Vital Signs & Weight: Weight Admit Weight 88.949 kg Weight 88.949 kg I&O: 02/05/18 02/06/18 02/07/18 06:59 06:59 06:59 Intake Total 950 360 Balance 950 360 Result Diagrams: 02/05/18 03:54 02/05/18 03:54 <Davidson Duran - Last Filed: 02/06/18 10:36> Phys Exam - Physical Examination Constitutional: NAD HEENT: PERRLA, moist MMs Respiratory: no rhonchi rales bilateral bases Cardiovascular: RRR, no significant murmur Gastrointestinal: soft, non-tender Musculoskeletal: no edema, pulses present Neurological: non-focal Psychiatric: normal affect, A&O x 3 <Debi Marshall - Last Filed: 02/05/18 13:09> Dx/Plan (1) Delirium Code(s): R41.0 - DISORIENTATION, UNSPECIFIED Status: Acute (2) Acute on chronic respiratory failure with hypoxia and hypercapnia Code(s): J96.21 - ACUTE AND CHRONIC RESPIRATORY FAILURE WITH HYPOXIA; J96.22 - ACUTE AND CHRONIC RESPIRATORY FAILURE WITH HYPERCAPNIA Status: Acute (3) Sepsis Code(s): A41.9 - SEPSIS, UNSPECIFIED ORGANISM Status: Acute (4) CAP (community acquired pneumonia) Code(s): J18.9 - PNEUMONIA, UNSPECIFIED ORGANISM Status: Acute Qualifiers: Lung location: middle lobe of lung (5) COPD with exacerbation Code(s): J44.1 - CHRONIC OBSTRUCTIVE PULMONARY DISEASE W (ACUTE) EXACERBATION Status: Acute (6) CKD (chronic kidney disease) stage 2, GFR 60-89 ml/min Code(s): N18.2 - CHRONIC KIDNEY DISEASE, STAGE 2 (MILD) Status: Chronic (7) HLD (hyperlipidemia) Code(s): E78.5 - HYPERLIPIDEMIA, UNSPECIFIED Status: Chronic Qualifiers: Hyperlipidemia type: unspecified Qualified Code(s): E78.5 - Hyperlipidemia , unspecified (8) HTN (hypertension) Code(s): I10 - ESSENTIAL (PRIMARY) HYPERTENSION Status: Chronic Qualifiers: Hypertension type: essential hypertension Qualified Code(s): I10 - Essential (primary) hypertension (9) Diabetes mellitus type 2 in obese Code(s): E11.69 - TYPE 2 DIABETES MELLITUS WITH OTHER SPECIFIED COMPLICATION; E66.9 - OBESITY, UNSPECIFIED Status: Acute (10) Obesity (BMI 30.0-34.9) Code(s): E66.9 - OBESITY, UNSPECIFIED Status: Chronic (11) Metabolic alkalosis Code(s): E87.3 - ALKALOSIS Status: Acute (12) Hypokalemia Code(s): E87.6 - HYPOKALEMIA Status: Acute - Plan Plan: 73 yo f with pmhx of COPD admitted for acute hypoxic hypercapnic respiratory failure 2/2 a copd exacerbation and pna. Delerium- -Geodon 10mg X1 this am and haldol 5mg X1 last night -a&ox3 this am but continued waxing and waning of sx -pt lives alone and daughter is MPOA -pt does not seem to have capacity to make decisions on her own and daughter is requesting placement at inpatient rehab or SNF Acute on chronic hypoxic hypercapnic respiratory failure -2/2 COPD exacerbation with pneumonia -acutely delerious, improved; required geodon o/n -Requiring 3 L 02 -Continue Levaquin x 5 days -Continue prednisone for 5 days -Duonebs p7evsec scheduled, mucinex prn -Dulera daily (we do not have symbicort) -pending rehab consult for placement (PT recommends and daughter would like to discuss options with CM) -Pulm CC consulted, appreciate recommendations Sepsis 2/2 CAP and COPD exacerbation- -repeat cbc in am -Continue Levaquin x 5 days -Continue duonebs q6h casper -Continue duonebs q4h casper and albuterol q2h prn Hypokalemia- -resolved HTN -Continue Lisinopril -Continue HCTZ and Lasix -Continue Carvedilol HLD -Continue atorvastatin DM -mild SS -Continue metformen CKD, stage 2 -monitor with cmp Diet: Regular diet (once off bipap) DVT ppx: Lovenox, SCDs <Debi Marshall - Last Filed: 02/05/18 13:09> Attending Addendum - Attending Addendum Date/Time: 02/06/18 1036 I personally evaluated the patient and discussed the management with Dr. Keita on 02/05/18. I agree with the History, Examination, Assessment and Plan documented above with any addition or exceptions noted below. <Davidson Duran - Last Filed: 02/06/18 10:36>
[2018-02-05] MEDS: Magnesium Oxide 400 MG TAB PO SCH (08:23)
[2018-02-05] MEDS: Lisinopril 20 MG TAB PO SCH ×2 (08:24→08:46)
[2018-02-05] MEDS: Folic Acid 1 MG TAB PO SCH (08:24)
[2018-02-05] MEDS: Hydrochlorothiazide 25 MG TAB PO SCH (08:24)
[2018-02-05] MEDS: Potassium Chloride 10 MEQ TAB PO SCH (08:24)
[2018-02-05] MEDS: predniSONE 20 MG TAB PO SCH (08:24)
[2018-02-05] MEDS: Carvedilol 25 MG TAB PO SCH (08:24)
[2018-02-05] MEDS: guaiFENesin/DM ER PO SCH (08:24)
[2018-02-05] MEDS: FLUoxetine HCl 20 MG CAP PO SCH (08:24)
[2018-02-05] MEDS: Multivit, Therapeutic 1 TAB PO SCH (08:24)
[2018-02-05] MEDS: Enoxaparin Sodium 40 MG/0.4 ML SYRINGE SC SCH (08:25)
[2018-02-05] MEDS: Stress 600 With Zinc 1 TAB PO SCH (08:31)
--- NOTE | 2018-02-05 13:54 | PRG ---
DATE OF SERVICE: 02/05/2018 SERVICE: Pulmonary Medicine INTERVAL HISTORY: The patient is doing fine from a respiratory standpoint. She denies any chest yomaira n, nausea, vomiting, fevers or chills. Mentation baltazar, she continues to wax and wane. There has bee n no interval change to her condition, however. PHYSICAL EXAMINATION: VITAL SIGNS: Afebrile, pulse 73, blood pressure 119/77, respirations 16, saturation 91% on 3 liters nasal cannula. GENERAL: The patient is awake, alert, in no apparent distress. LUNGS: There is decreased air entry throughout bilateral lung arvizu. There is a prolonged expirato ry phase, but today I do not appreciate any wheezing, rhonchi, or crackles. HEART: Normal rate, regular. ABDOMEN: Soft, nontender, nondistended. Bowel sounds are positive. MUSCULOSKELETAL: No cyanosis or clubbing. No pitting in the bilateral lower extremities. NEUROLOGIC: Grossly nonfocal. LABORATORY DATA: WBC 13.6, hemoglobin 11.1, platelets 317,000. Band count is 17%. INR 1.1. Basic metabolic profile is essentially unremarkable. Bicarbonate is at her baseline. Strep and legionella urinary antigens are unremarkable. Blood cultures x2 are negative. ASSESSMENT: 1. Acute on chronic hypoxic respiratory failure. 2. Chronic hypercapnic respiratory failure. 3. Chronic obstructive pulmonary disease with acute exacerbation. 4. Community-acquired pneumonia. 5. Delirium. DISCUSSION AND PLAN: I will interrupt her laboratories for the time being. From my perspective, she is stable for transition out of the hospital. IV fluids will be discontinued. She will need a repe at chest x-ray in 4-6 weeks with follow up with Dr. Cordero in clinic at that time. I will continue to follow while she remains in the hospital.
[2018-02-05 18:12] VITALS: BP 152/73; TEMP 97.9
--- NOTE | 2018-02-07 13:23 | EKG ---
Test Reason : Blood Pressure : / mmHG Vent. Rate : 087 BPM Atrial Rate : 087 BPM P-R Int : 154 ms QRS Dur : 086 ms QT Int : 390 ms P-R-T Axes : 047 -36 049 degrees QTc Int : 469 ms Normal sinus rhythm Left axis deviation Abnormal ECG Confirmed by MACIE DUARTE M.D. ([id number]), manager editorial LYNN WILLS ([id number]) on 02/07/2018 1:23:27 PM Referred By: Confirmed By:MACIE DUARTE M.D.
== END 2018-02-05 18:57 | DRG 871 ==
LOC: ERS 14:21 → IMCU/EMU 15:24 → T4-B 02-03 22:46 → T4-A 02-04 04:59
PROVIDERS: ADMIT Family Medicine; ATTEND Family Medicine
DX: A41.9 Sepsis, unspecified organism (principal); J96.21 Acute and chronic respiratory failure with hypoxia; J18.9 Pneumonia, unspecified organism; J96.22 Acute and chronic respiratory failure with hypercapnia; J44.0 Chronic obstructive pulmonary disease with (acute) lower respiratory infection; J44.1 Chronic obstructive pulmonary disease with (acute) exacerbation; E87.3 Alkalosis; I13.10 Hypertensive heart and chronic kidney disease without heart failure, with stage 1 through stage 4 chronic kidney disease, or unspecified chronic kidney disease; Z99.81 Dependence on supplemental oxygen; N18.2 Chronic kidney disease, stage 2 (mild); E66.9 Obesity, unspecified; Z68.30 Body mass index [BMI] 30.0-30.9, adult; E78.5 Hyperlipidemia, unspecified; E11.22 Type 2 diabetes mellitus with diabetic chronic kidney disease; I25.10 Atherosclerotic heart disease of native coronary artery without angina pectoris; R41.0 Disorientation, unspecified; E87.6 Hypokalemia
CPT/HCPCS: 36415; 36416; 71045; 71046; 80048; 80053; 82330; 82553; 82803; 82805; 83880; 84484; 85025; 85610; 85730; 87040; 87899; 93005; 94640; 94660; A4216; G8978-GP-CL; G8979-GP-CJ; G8987-GO-CK; G8988-GO-CI; J1630; J1650; J3486; J7506; J7620

== ENCOUNTER 2018-02-16 12:08 | Inpatient (IN) | payer MEDICARE ==
[2018-02-16] MEDS ORDERED: Prevnar 13-Val Conj/PF 0.5 ML SYRINGE IM ONE (13:00)
[2018-02-16] MEDS ORDERED: Ondansetron ODT 4 MG TAB PO PRN (14:10)
[2018-02-16 14:57] LABS: #Eosinphils 0.1 thou/uL (0.0-0.7); #Lymphocytes 1.5 thou/uL (1.20-3.40); #Monocytes 1.1 thou/uL (0.11-0.59); %Basophils 0.2 % (0.0-1.0); %Eosinophils 0.4 % (0.0-10.0); %Lymphocytes 8.9 % (21.0-51.0); %Monocytes 6.4 % (0.0-10.0); %Neutrophils 84.1 % (42.0-75.0); Hemoglobin 13.6 g/dL (12.0-16.0); Mean Corpuscular HGB CONC 32.2 g/dL (32.0-36.0); Mean Corpuscular Hemoglobin 30.9 pg (27.0-31.0); Mean Platelet Volume 7.3 fL (7.4-10.4); Platelet Count 283 thou/uL (130-400); RBC Distribution Width 13.5 % (11.5-14.5); White Blood Cell (WBC) Count 16.6 thou/uL (4.8-10.8)
[2018-02-16 15:20] LABS: ALT (SGPT) 18 U/L (8-55); AST (SGOT) 15 U/L (5-34); Albumin 3.8 g/dL (3.4-4.8); Alkaline Phosphatase 63 U/L (40-150); Anion Gap 19 mmol/L (10-20); BUN (Urea Nitrogen) 73 mg/dL (9.8-20.1); Bilirubin, Total 1.1 mg/dL (0.2-1.2); Calc. Creatinine Clearance 0 mL/min (70-130); Calcium 9.6 mg/dL (7.8-10.44); Carbon Dioxide 34 mmol/L (23-31); Chloride 108 mmol/L (98-107); Estimated GFR-MDRD 24; Globulin 2.9 g/dL (2.4-3.5); Glucose 116 mg/dL (83-110); Protein, Total 6.7 g/dL (6.0-8.3); Sodium 158 mmol/L (136-145)
[2018-02-16] MEDS ORDERED: Sodium Chloride 0.9% 1,000 ML IV SCH (15:30)
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
[2018-02-16] MEDS: Ziprasidone 20 MG VIAL IM PRN ×2 (16:24→19:49)
[2018-02-16 16:28] LABS: CO2 Tension 54.7 mmHg (35.0-45.0); pH, Arterial 7.49 (7.35-7.45)
[2018-02-16 16:29] LABS: Actual Bicarbonate (HCO3a) 40.3 mEq/L (22-28); Base Excess (BEa) 14.4 mEq/L (-2.0 to +3.0); Hemoglobin (Hb) 13.7 g/dL (12.0-16.0); O2 Tension (PaO2) 52.3 mmHg (> 70.0)
[2018-02-16 16:30] LABS: Calcium, Ionized 1.2 mmol/L (1.12-1.30); Puncture Site LB
[2018-02-16] MEDS ORDERED: Dextrose 50% Abboject 50 ML SYRINGE SLOW IVP PRN (16:32)
[2018-02-16] MEDS ORDERED: HumaLOG 300 UNITS/3 ML VIAL SC PRN ×2 (16:32)
[2018-02-16] MEDS ORDERED: Dextrose 5% in Water 1,000 ML IV PRN (16:32)
[2018-02-16] MEDS ORDERED: Albuterol Sulfate 2.5 mg/3 ml Neb NEB PRN (16:33)
[2018-02-16] MEDS ORDERED: hydrALAZINE 20 MG/ML VIAL SLOW IVP PRN (16:40)
[2018-02-16] MEDS ORDERED: Labetalol HCl 100 MG/20 ML VIAL SLOW IVP PRN (16:43)
[2018-02-16 16:55] LABS: CKMB 0.8 ng/mL (0-6.6); Troponin I 0.042 ng/mL (< 0.028)
[2018-02-16] MEDS ORDERED: Dextrose 5% w/ 20 mEq KCl 1,000 ML IV SCH ×2 (17:00→17:24)
[2018-02-16] MEDS ORDERED: Vancomycin HCl 1.25 GM in Sodium Chloride 0.9% 250 ML 250 ML IVPB SCH (17:15)
[2018-02-16 17:36] LABS: Bilirubin Negative (Negative); Blood, Urine Negative (Negative); Clarity CLEAR (Clear); Glucose, Urine (Dipstick) Negative (Negative); Leukocyte Negative (Negative); Nitrite Negative (Negative); Protein, Urine (Dipstick) Negative (Neg-Trace); Specific Gravity, Urine 1.015 (1.002-1.036); Urobilinogen 0.2 mg/dL (0.2-1.0)
--- NOTE | 2018-02-16 17:37 | RAD ---
CHEST ONE VIEW: HISTORY: Altered mental status. COMPARISON: 02/03/2018 FINDINGS: The cardiac silhouette is magnified by projection. The pulmonary vasculature is at the upper limits of normal. The lungs remain hyperinflated. Very mild patchy bibasilar infiltrates are now apparent. The mediastinum is midline. No lobar consolidation or evidence of pneumothorax. IMPRESSION: Mild bibasilar symmetric infiltrates, possibly related to borderline pulmonary vascular congestion. Clinical correlation regarding other signs and symptoms of superimposed bibasilar pneumonitis is requ ired. No lobar consolidation is apparent. POS: [facility]
[2018-02-16 17:38] LABS: Bacteria/HPF None Seen HPF (None Seen); Hyaline Casts/LPF 0-3 HYALINE CAST LPF (0-3 Hyaline); Pathc Cast-AUWi Flag 0.14 (0-2.49); RBC/HPF 0-3 HPF (0-3); Squamous Epithelial 0-3 HPF (0-3); WBC/HPF 0-3 HPF (0-3)
[2018-02-16 17:46] LABS: Amphetamine Not Detected (NotDetected); Barbiturates Screen Not Detected (NotDetected); Benzodiazepine Screen Not Detected (NotDetected); Cocaine Metabolite Screen Not Detected (NotDetected); Medtox Control Line Valid? VALID (VALID); Medtox Reader # READER 4; Methadone Not Detected (NotDetected); Methamphetamine Not Detected (NotDetected); Opiate Screen Not Detected (NotDetected); Oxycodone Screen Not Detected (NotDetected); Phencyclidine (PCP) Not Detected (NotDetected); THC/Cannabinoid Screen Not Detected (NotDetected); Tricyclic Screen Not Detected (NotDetected)
[2018-02-16 18:21] VITALS: BMI 32.8
[2018-02-16] MEDS: Sterile Water 10 ML VIAL FS PRN (20:06)
[2018-02-16] MEDS: Piperacillin/Tazobactam 2.25 GM in Sodium Chloride 0.9% 100 ML IVPB SCH (20:06)
[2018-02-16 20:08] LABS: BUN (Urea Nitrogen) 73 mg/dL (9.8-20.1); Calc. Creatinine Clearance 31 mL/min (70-130); Calcium 9.6 mg/dL (7.8-10.44); Estimated GFR-MDRD 23; Glucose 100 mg/dL (83-110)
[2018-02-16 20:14] LABS: Troponin I 0.033 ng/mL (< 0.028)
[2018-02-16 20:18] LABS: Anion Gap 17 mmol/L (10-20); Carbon Dioxide 36 mmol/L (23-31); Chloride 109 mmol/L (98-107); Sodium 159 mmol/L (136-145)
[2018-02-16 20:24] LABS: Potassium 2.7 mmol/L (3.5-5.1)
[2018-02-16 21:33] LABS: Anion Gap 14 mmol/L (10-20); BUN (Urea Nitrogen) 72 mg/dL (9.8-20.1); Calc. Creatinine Clearance 33 mL/min (70-130); Calcium 9.2 mg/dL (7.8-10.44); Carbon Dioxide 37 mmol/L (23-31); Chloride 111 mmol/L (98-107); Estimated GFR-MDRD 24; Glucose 110 mg/dL (83-110); Sodium 159 mmol/L (136-145)
[2018-02-16 21:40] LABS: Potassium 2.7 mmol/L (3.5-5.1)
[2018-02-16] MEDS ORDERED: Potassium Chloride 40 MEQ in Sodium Chloride 0.9% 250 ML 250 ML IVPB SCH (22:00)
[2018-02-16 23:49] LABS: BUN (Urea Nitrogen) 71 mg/dL (9.8-20.1); Calc. Creatinine Clearance 32 mL/min (70-130); Calcium 9.3 mg/dL (7.8-10.44); Estimated GFR-MDRD 24; Glucose 104 mg/dL (83-110)
[2018-02-16 23:58] LABS: Anion Gap 17 mmol/L (10-20); Carbon Dioxide 34 mmol/L (23-31); Chloride 113 mmol/L (98-107)
[2018-02-17 00:02] LABS: Sodium 161 mmol/L (136-145)
[2018-02-17] MEDS: Piperacillin/Tazobactam 2.25 GM in Sodium Chloride 0.9% 100 ML IVPB SCH ×5 (00:33→23:32)
[2018-02-17 00:44] LABS: Anion Gap 18 mmol/L (10-20); BUN (Urea Nitrogen) 71 mg/dL (9.8-20.1); Calc. Creatinine Clearance 33 mL/min (70-130); Calcium 9.2 mg/dL (7.8-10.44); Carbon Dioxide 35 mmol/L (23-31); Chloride 113 mmol/L (98-107); Estimated GFR-MDRD 25; Glucose 104 mg/dL (83-110); Potassium 3.1 mmol/L (3.5-5.1)
[2018-02-17 00:52] LABS: Sodium 163 mmol/L (136-145)
[2018-02-17] MEDS: Dextrose 5% in Water 1,000 ML IV SCH ×5 (02:04→23:37)
[2018-02-17] MEDS ORDERED: Potassium Chloride 40 MEQ in Sodium Chloride 0.9% 250 ML 250 ML IVPB SCH ×4 (03:00→20:00)
[2018-02-17] MEDS: Ziprasidone 20 MG VIAL IM PRN ×2 (05:18→11:09)
[2018-02-17 05:29] LABS: Anion Gap 15 mmol/L (10-20); BUN (Urea Nitrogen) 66 mg/dL (9.8-20.1); Calc. Creatinine Clearance 32 mL/min (70-130); Calcium 9.1 mg/dL (7.8-10.44); Carbon Dioxide 34 mmol/L (23-31); Chloride 113 mmol/L (98-107); Estimated GFR-MDRD 24; Glucose 117 mg/dL (83-110); Sodium 158 mmol/L (136-145)
[2018-02-17] MEDS ORDERED: Mometasone/Formoterol 120 PUFF INHALER INH SCH (06:30)
[2018-02-17] MEDS: Mometasone/Formoterol 120 PUFF INHALER INH SCH (06:43)
[2018-02-17] MEDS ORDERED: Fluticasone/Vilanterol [Breo Ellipta 200-25 Mcg Inh] INH SCH (07:00)
[2018-02-17] MEDS: Pantoprazole 40 MG VIAL IVP SCH (07:56)
--- NOTE | 2018-02-17 08:14 | PDOC.FM ---
- Subjective Subjective: Patient finally sleeping soundly. Family reports that she remained agitated all day yesterday. She got very minimal sleep. At some points she seemed coherent per the family. - Objective MAR Reviewed: Yes Vital Signs & Weight: Vital Signs (12 hours) Temp Pulse Resp BP Pulse Ox 02/17/18 06:43 78 16 91 L 02/17/18 06:40 79 16 91 L 02/17/18 04:00 97.9 F 78 18 110/68 94 L 02/17/18 00:00 97.6 F 74 18 117/67 93 L Weight Weight 81.391 kg I&O: 02/16/18 02/17/18 02/18/18 06:59 06:59 06:59 Intake Total 600 Balance 600 Result Diagrams: 02/17/18 04:35 02/17/18 04:54 EKG Reviewed by me: Yes Radiology Reviewed by me: Yes <Lida Patten - Last Filed: 02/17/18 10:27> - Objective Vital Signs & Weight: Vital Signs (12 hours) Temp Pulse Resp BP Pulse Ox 02/17/18 06:43 78 16 91 L 02/17/18 06:40 79 16 91 L 02/17/18 04:00 97.9 F 78 18 110/68 94 L 02/17/18 00:00 97.6 F 74 18 117/67 93 L Weight Weight 81.391 kg I&O: 02/16/18 02/17/18 02/18/18 06:59 06:59 06:59 Intake Total 600 Balance 600 Result Diagrams: 02/17/18 04:35 02/17/18 10:03 <Paula Lynn - Last Filed: 02/17/18 10:45> Phys Exam - Physical Examination Sleeping on exam HEENT: sclera anicteric Dry MMs Neck: supple Decreased breath sounds throughout Cardiovascular: RRR, no significant murmur Gastrointestinal: soft, no distention, positive bowel sounds Musculoskeletal: no edema, pulses present Neurological: non-focal Psychiatric: A&O x 3 Skin: no rash Deviation from normal: Poor turgor <Lida Patten - Last Filed: 02/17/18 10:27> Dx/Plan (1) Encephalopathy Code(s): G93.40 - ENCEPHALOPATHY, UNSPECIFIED Status: Acute (2) Hypernatremia Code(s): E87.0 - HYPEROSMOLALITY AND HYPERNATREMIA Status: Acute (3) Diabetes mellitus type 2 in obese Code(s): E11.69 - TYPE 2 DIABETES MELLITUS WITH OTHER SPECIFIED COMPLICATION; E66.9 - OBESITY, UNSPECIFIED Status: Acute (4) HTN (hypertension) Code(s): I10 - ESSENTIAL (PRIMARY) HYPERTENSION Status: Chronic Qualifiers: Hypertension type: essential hypertension Qualified Code(s): I10 - Essential (primary) hypertension (5) Obesity (BMI 30.0-34.9) Code(s): E66.9 - OBESITY, UNSPECIFIED Status: Chronic - Plan Plan: 73 year old with PMH COPD, HTN, DM2 that presents with AMS 1. Encephalopathy likely 2/2 infection vs. delerium - WBC uptrended to 16.6; ;epeat CBC this AM pending - LA and procalcitonin wnl - CXR showed mild basilar symmteric infiltrates suggestive of pulmonary vascular congestion vs. pneumonitis. - Duonebs CASPER - Blood cultures and urine cultures pending; NGTD - UA negative - Zosyn and Vanc emperic antibiotics until blood cultures result (02/16) - Will order vanc trough today for 1 hr before 4th dose - Reculture if patient fevers after being started on antibiotics - Considered meningitis in differential. Seems less likely without fever at this time. - Currently using D5W 125 mL/hr due to hypernatremia likely 2/2 poor PO intake - Hypernatremia may be contributing to altered mental status - Encouraged family to help keep patient oriented to assist with delirium - Troponin mildly elevated x1 (0.042), repeat downtrended - TSH wnl - NPO until evaluated by speech therapy - Passed bedside swallow 2. Hypernatremia likely 2/2 poor PO intake - Uncertain if within last 24 hours as patient has not had labs since 02/13; Na normal at that time - D5W at 125 mL/hr with q2h BMP until Na <145, then decrease D5W by 1/2 until < 140 with q4h BMP - Do not decrease by more than 10 meq in 24h - BG q2h, mild SSI - Na 158 --> 163 --> 159; continue to work toward normal sodium level 3. SHIRA - Volume repletion with D5W as pt is currently hypernatremic - Monitor BMP 4. Hypokalemia - Resolved - Replete as needed 5. Leukocytosis - Possibly 2/2 infection vs. leukemoid reaction - CXR shows pulmonary vascular congestion vs. pneumonitis. pt with recent history of CAP and COPD exacerbation on levoquin - Procal and lactic acid wnl - Blood and urine cultures pending; NGTD - UA nml 6. COPD - On 2L of O2 chronically - On 3L currently; continue with goal of 88-90% O2 saturation - ABG showed pH 7.49, CO 54, O2 52 - Continue home COPD medications - Continue duonebs 7. HTN - IV labetolol and hydralazine PRN for SBP >180 - Hold home medications as patient NPO - Patient has not required IV medications 8. HLD - Hold home medication 9. DM type 2 - Mild SSI; patient has not required insulin - q2h accuchecks while on D5W 10. Acute on chronic hypoxic respiratory failure - Consider D-dimer as patient has low Well's score for PE and gradually increasing O2 requirement to maintain sats at 88-90% - Upon going back into room, patient satting 90% on 2.5L and she was resting - Monitor O2 sats - Duonebs casper; does not appear to be 2/2 to COPD exacerbation or PNA currently - Will order VQ scan due to poor kidney function; if patient cannot tolerate will consider b/l LE dopplers 11. Possible adrenal insufficiency - Baseline high BP on several BP medications; not requiring any PRN medications since hospitalization and BP in low 100's SBP - Glucose low (low 100) despite being on D5W; not requiring any SSI and has history of DM DVT PPX: SCDs GI PPX: Pantoprazole Code Status: Full Code Dispo: Stable. Continue current workup and management. Lida Patten, PGY-2 <Lida Patten - Last Filed: 02/17/18 10:27> Attending Addendum - Attending Addendum Date/Time: 02/17/18 1039 I personally evaluated the patient and discussed the management with Dr. Patten I agree with the History, Examination, Assessment and Plan documented above with any addition or exceptions noted below- Patient awakened by lab began singing nursery rhymes and repeating phrases said to her or heard in the room. Afebrile VSS. A/P: 1) Encephalopathy- continue to redirect and monitor. Awaiting CT brain- unable to be done yesterday due to agitation 2) Hypernatremia - improving slowly; continue D5W; continue BMP q4 hours. 3) Elevated D-dimer- Will plan for VQ scan due to patient's SHIRA; if unable to obtain will check b/l lower extremity dopplers. 4) Hypoxia- with increased O2 requirements, continue to monitor and wean O2 as tolerated; consider repeat CXR once patient hydrated. 5) SHIRA- continue IVF <Paula Lynn - Last Filed: 02/17/18 10:45>
[2018-02-17 08:28] LABS: Mean Corpuscular HGB CONC 32.4 g/dL (32.0-36.0); Mean Corpuscular Hemoglobin 31.4 pg (27.0-31.0); Mean Platelet Volume 8.4 fL (7.4-10.4); Platelet Count 256 thou/uL (130-400); RBC Distribution Width 13.4 % (11.5-14.5); Red Blood Cell (RBC) Count 4.13 mill/uL (4.20-5.40)
[2018-02-17] MEDS ORDERED: Furosemide 20 MG/2 ML VIAL SLOW IVP SCH (09:00)
[2018-02-17 09:25] LABS: Band 5 % (5-11); Eosinophils 1 % (0-10); Lymphocytes 17 % (21-51); MDiff Complete? YES; Monocytes 4 % (0-10); Neutrophil 73 % (42-75); RBC Morphology Normal
--- NOTE | 2018-02-17 10:24 | HP ---
I have reviewed the history and physical of Dr. Rupert Gonzalez and agree with his assessment and plan . Briefly, Ms. Jensen is a 73-year-old white female who had been hospitalized a week or two ago with raven roberto and has been in recovery and rehabilitation. Over the last week according to her family, antonio warner has become progressively more agitated, confused, and combative. When I examined her yesterday on 02/16/2018, she was talking nearly nonstop and repeating anything that any speaker said to her. She was obviously very confused and agitated. She had to be restrained. She was noted to have a serum s odium of 158. PHYSICAL EXAMINATION: VITAL SIGNS: Her blood pressure is 110/68. She is afebrile, pulse is 78, respirations 18, O2 sat is 94% on 2-1/2 to 3 liters nasal cannula. She does have a history of COPD. ENT: No obvious signs of infection. Very dry mucous membranes. NECK: Supple. CARDIAC: Heart sounds are distant. No gallop or murmur. LUNGS: Breath sounds are very diminished, but no respiratory distress. No evidence of consolidation wheezing. ABDOMEN: Flat, soft. No guarding, rebound or rigidity. NEUROLOGICAL: Other than the obvious delirium, there are no obvious focal deficits. LABORATORY DATA: CBC: White count is 16,600, hemoglobin 13.6, hematocrit 42.3. Chemistries her ini tial sodium was 158, potassium 3.0, chloride 108, bicarbonate 34, BUN was 73 with a creatinine at 2.0 2, glucose is 116. Troponin was 0.042 and TSH is 0.9792. ABG on 2-3 liters pO2 was 52.3, pCO2 is 54.7, pH 7.49 with a bicarbonate of 40, consistent with chron ic respiratory acidosis, compensated. Toxicology screens were negative. ASSESSMENT: Acute delirium likely related to hypernatremia, but further etiologies need to be consid ered. PLAN: We will begin a slow infusion of D5W, checking her serum sodium every 2 to 4 hours and proceed according to results.
[2018-02-17 10:33] LABS: Anion Gap 14 mmol/L (10-20); BUN (Urea Nitrogen) 61 mg/dL (9.8-20.1); Calc. Creatinine Clearance 34 mL/min (70-130); Calcium 8.9 mg/dL (7.8-10.44); Carbon Dioxide 34 mmol/L (23-31); Chloride 112 mmol/L (98-107); Estimated GFR-MDRD 25; Glucose 165 mg/dL (83-110); Potassium 3.1 mmol/L (3.5-5.1); Sodium 157 mmol/L (136-145)
[2018-02-17] MEDS: Sterile Water 10 ML VIAL FS PRN (11:09)
[2018-02-17 13:32] LABS: Anion Gap 15 mmol/L (10-20); BUN (Urea Nitrogen) 59 mg/dL (9.8-20.1); Calc. Creatinine Clearance 33 mL/min (70-130); Carbon Dioxide 37 mmol/L (23-31); Chloride 110 mmol/L (98-107); Estimated GFR-MDRD 24; Glucose 110 mg/dL (83-110); Sodium 159 mmol/L (136-145)
[2018-02-17] MEDS ORDERED: Haloperidol Lactate 5 MG/ML VIAL IM SCH ×2 (13:45→15:30)
[2018-02-17 13:58] LABS: Potassium 2.9 mmol/L (3.5-5.1)
[2018-02-17] MEDS ORDERED: Potassium Chloride 40 MEQ in Premix Bag 1 BAG IVPB SCH (14:15)
[2018-02-17 15:47] LABS: Anion Gap 15 mmol/L (10-20); BUN (Urea Nitrogen) 57 mg/dL (9.8-20.1); Calc. Creatinine Clearance 33 mL/min (70-130); Carbon Dioxide 34 mmol/L (23-31); Chloride 112 mmol/L (98-107); Estimated GFR-MDRD 25; Glucose 135 mg/dL (83-110); Potassium 3.2 mmol/L (3.5-5.1); Sodium 158 mmol/L (136-145)
[2018-02-17 17:42] LABS: Anion Gap 12 mmol/L (10-20); BUN (Urea Nitrogen) 56 mg/dL (9.8-20.1); Calc. Creatinine Clearance 34 mL/min (70-130); Calcium 8.9 mg/dL (7.8-10.44); Carbon Dioxide 36 mmol/L (23-31); Chloride 112 mmol/L (98-107); Estimated GFR-MDRD 25; Glucose 113 mg/dL (83-110); Osmolality, Serum 340 mOsm/kg (280-295); Potassium 3.2 mmol/L (3.5-5.1); Sodium 157 mmol/L (136-145)
--- NOTE | 2018-02-17 18:17 | ULT ---
VENOUS DUPLEX SONOGRAM BILATERAL LOWER EXTREMITY 02/17/18 HISTORY: Bilateral leg pain and edema. FINDINGS: Each common femoral vein and greater saphenous injunction were evaluated along with each femoral, isaias p femoral, popliteal, and posterior tibial vein. There is good color and spectral doppler flow, compr ession and augmentation. IMPRESSION: No sonographic evidence of DVT within either lower extremity. POS: [facility]
[2018-02-17] MEDS: Vancomycin HCl 1.25 GM in Sodium Chloride 0.9% 250 ML 250 ML IVPB SCH (18:28)
[2018-02-17 19:33] LABS: Anion Gap 13 mmol/L (10-20); BUN (Urea Nitrogen) 54 mg/dL (9.8-20.1); Calc. Creatinine Clearance 35 mL/min (70-130); Calcium 8.9 mg/dL (7.8-10.44); Carbon Dioxide 35 mmol/L (23-31); Chloride 113 mmol/L (98-107); Estimated GFR-MDRD 26; Glucose 101 mg/dL (83-110); Potassium 3.2 mmol/L (3.5-5.1); Sodium 158 mmol/L (136-145)
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
[2018-02-17 22:00] LABS: Anion Gap 15 mmol/L (10-20); BUN (Urea Nitrogen) 53 mg/dL (9.8-20.1); Calc. Creatinine Clearance 34 mL/min (70-130); Calcium 8.9 mg/dL (7.8-10.44); Carbon Dioxide 37 mmol/L (23-31); Chloride 113 mmol/L (98-107); Estimated GFR-MDRD 26; Glucose 123 mg/dL (83-110); Potassium 3.1 mmol/L (3.5-5.1)
[2018-02-17 22:01] LABS: Sodium 162 mmol/L (136-145)
[2018-02-17 23:06] LABS: CO2 Tension 51.4 mmHg (35.0-45.0); O2 Tension (PaO2) 59.2 mmHg (> 70.0); pH, Arterial 7.46 (7.35-7.45)
[2018-02-17 23:07] LABS: Actual Bicarbonate (HCO3a) 35.9 mEq/L (22-28); Base Excess (BEa) 10.5 mEq/L (-2.0 to +3.0); Calcium, Ionized 1.2 mmol/L (1.12-1.30); Carboxyhemoglobin (COHb) 0.7 gm% (0.0-3.0); Hemoglobin (Hb) 12.5 g/dL (12.0-16.0); Potassium - ABG Lab 3.1 mmol/L (3.70-5.30); Puncture Site LRA
[2018-02-17 23:10] LABS: Anion Gap 15 mmol/L (10-20); BUN (Urea Nitrogen) 50 mg/dL (9.8-20.1); Calc. Creatinine Clearance 35 mL/min (70-130); Calcium 8.7 mg/dL (7.8-10.44); Carbon Dioxide 36 mmol/L (23-31); Chloride 113 mmol/L (98-107); Estimated GFR-MDRD 26; Glucose 140 mg/dL (83-110); Potassium 3.2 mmol/L (3.5-5.1)
[2018-02-17 23:18] LABS: Sodium 161 mmol/L (136-145)
--- NOTE | 2018-02-17 23:54 | PDOC.EVN ---
Event Note - Event Note Event Note: Residents called to the bedside for patient agitation and difficulty to re- direct. At time of exam, patient was in soft restraint and speaking in partially comprehensible sentences. She would inconsistently answer yes/no questions and would repeat sentences you would say. She did not appear to be in any respiratory or distress otherwise VSS, SPo2 95% on 5L NC Gen: awake, alert, not oriented HEENT: atraumatic CV: RRR, distant heart sounds RESP: CTAB Abd: soft, nontender, nondistended Ext: trace edema to mid-del valle BL A/P: 73 yo F here with hypernatremia of unknown origin. Appreciate Dr Villafana's assistance. Will continue fluids and monitor for signs/sx fluid overload. For agitation, at this time sitter in room and patient is not thrashing or at risk to herself. In soft restraints as she was pulling at IVs. Will continue to monitor and consider Geodon if indicated. QTc 440ms. Minimal UOP per nursing. Will bladder scan and place infante if not voiding. May be having overflow incontinence.
[2018-02-18] MEDS ORDERED: Potassium Chloride 40 MEQ in Sodium Chloride 0.9% 500 ML IVPB SCH (00:30)
[2018-02-18 01:20] LABS: Anion Gap 11 mmol/L (10-20); BUN (Urea Nitrogen) 48 mg/dL (9.8-20.1); Calc. Creatinine Clearance 38 mL/min (70-130); Calcium 8.4 mg/dL (7.8-10.44); Carbon Dioxide 37 mmol/L (23-31); Chloride 114 mmol/L (98-107); Estimated GFR-MDRD 29; Glucose 123 mg/dL (83-110); Potassium 3.1 mmol/L (3.5-5.1); Sodium 159 mmol/L (136-145)
[2018-02-18] MEDS ORDERED: Ziprasidone 20 MG VIAL IM SCH (01:30)
[2018-02-18] MEDS ORDERED: Sterile Water 10 ML VIAL FS SCH (01:45)
[2018-02-18 02:23] LABS: Anion Gap 11 mmol/L (10-20); BUN (Urea Nitrogen) 49 mg/dL (9.8-20.1); Calc. Creatinine Clearance 37 mL/min (70-130); Calcium 8.5 mg/dL (7.8-10.44); Carbon Dioxide 35 mmol/L (23-31); Chloride 114 mmol/L (98-107); Estimated GFR-MDRD 28; Glucose 150 mg/dL (83-110); Potassium 3.2 mmol/L (3.5-5.1); Sodium 157 mmol/L (136-145)
[2018-02-18] MEDS: Piperacillin/Tazobactam 2.25 GM in Sodium Chloride 0.9% 100 ML IVPB SCH ×4 (05:44→23:57)
[2018-02-18] MEDS: Dextrose 5% in Water 1,000 ML IV SCH ×5 (05:44→20:40)
[2018-02-18 06:06] LABS: Anion Gap 9 mmol/L (10-20); BUN (Urea Nitrogen) 46 mg/dL (9.8-20.1); Calc. Creatinine Clearance 39 mL/min (70-130); Calcium 8.2 mg/dL (7.8-10.44); Carbon Dioxide 36 mmol/L (23-31); Chloride 113 mmol/L (98-107); Estimated GFR-MDRD 30; Glucose 185 mg/dL (83-110); Potassium 3.1 mmol/L (3.5-5.1); Sodium 155 mmol/L (136-145)
[2018-02-18 06:42] LABS: Anion Gap 10 mmol/L (10-20); BUN (Urea Nitrogen) 44 mg/dL (9.8-20.1); Calc. Creatinine Clearance 38 mL/min (70-130); Calcium 8.4 mg/dL (7.8-10.44); Carbon Dioxide 36 mmol/L (23-31); Chloride 111 mmol/L (98-107); Estimated GFR-MDRD 29; Glucose 193 mg/dL (83-110); Potassium 3.2 mmol/L (3.5-5.1); Sodium 154 mmol/L (136-145)
[2018-02-18] MEDS: Mometasone/Formoterol 120 PUFF INHALER INH SCH (07:16)
--- NOTE | 2018-02-18 08:19 | PDOC.FM ---
- Subjective Subjective: Patient doing well this AM. She is currently sleeping. Overnight, she was agitated and did have to be placed in soft restraints. Family said this morning when she woke up she asked what day it was and said hello. She then fell back asleep. They have not attempted to wake her as she has gotten very minimal sleep over the last several days. - Objective MAR Reviewed: Yes Vital Signs & Weight: Vital Signs (12 hours) Temp Pulse Resp BP Pulse Ox 02/18/18 07:20 97.3 F L 69 16 126/62 100 02/18/18 07:16 100 02/18/18 07:12 69 20 100 02/18/18 05:26 97.8 F 62 02/18/18 04:00 97.8 F 62 18 104/66 99 02/18/18 00:56 80 18 94 L 02/18/18 00:00 98.4 F 79 16 94/52 L 97 Weight Admit Weight 81.391 kg Weight 81.391 kg I&O: 02/17/18 02/18/18 02/19/18 06:59 06:59 06:59 Intake Total 600 2400 Output Total 250 Balance 600 2150 Result Diagrams: 02/18/18 09:58 02/18/18 09:58 EKG Reviewed by me: Yes Radiology Reviewed by me: Yes <Lida Patten - Last Filed: 02/18/18 10:39> - Objective Vital Signs & Weight: Vital Signs (12 hours) Temp Pulse Resp BP Pulse Ox 02/18/18 07:20 97.3 F L 69 16 126/62 100 02/18/18 07:16 100 02/18/18 07:12 69 20 100 02/18/18 05:26 97.8 F 62 02/18/18 04:00 97.8 F 62 18 104/66 99 02/18/18 00:56 80 18 94 L 02/18/18 00:00 98.4 F 79 16 94/52 L 97 Weight Admit Weight 81.391 kg Weight 81.391 kg I&O: 02/17/18 02/18/18 02/19/18 06:59 06:59 06:59 Intake Total 600 2400 Output Total 250 Balance 600 2150 Result Diagrams: 02/18/18 09:58 02/18/18 09:58 <Paula Lynn - Last Filed: 02/18/18 11:05> Phys Exam - Physical Examination Constitutional: NAD HEENT: sclera anicteric Neck: supple Respiratory: clear to auscultation bilateral Cardiovascular: RRR Gastrointestinal: soft, no distention Musculoskeletal: no edema, pulses present Neurological: non-focal Skin: no rash, cap refill <2 seconds <Lida Patten - Last Filed: 02/18/18 10:39> Dx/Plan (1) Acute and chronic respiratory failure with hypoxia Code(s): J96.21 - ACUTE AND CHRONIC RESPIRATORY FAILURE WITH HYPOXIA Status: Acute (2) Encephalopathy Code(s): G93.40 - ENCEPHALOPATHY, UNSPECIFIED Status: Acute (3) Hypernatremia Code(s): E87.0 - HYPEROSMOLALITY AND HYPERNATREMIA Status: Acute (4) Diabetes mellitus type 2 in obese Code(s): E11.69 - TYPE 2 DIABETES MELLITUS WITH OTHER SPECIFIED COMPLICATION; E66.9 - OBESITY, UNSPECIFIED Status: Acute (5) HTN (hypertension) Code(s): I10 - ESSENTIAL (PRIMARY) HYPERTENSION Status: Chronic Qualifiers: Hypertension type: essential hypertension Qualified Code(s): I10 - Essential (primary) hypertension (6) Obesity (BMI 30.0-34.9) Code(s): E66.9 - OBESITY, UNSPECIFIED Status: Chronic - Plan Plan: 73 year old with PMH COPD, HTN, DM2 that presents with AMS 1. Metabolic encephalopathy - WBC uptrended to 16.6 --> 18; repeat this AM pending - LA and procalcitonin wnl - CXR showed mild basilar symmteric infiltrates suggestive of pulmonary vascular congestion vs. pneumonitis. - Duonebs CASPER - Blood cultures and urine cultures pending; NGTD - UA negative - Zosyn and Vanc emperic antibiotics until blood cultures result (02/16) - Reculture if patient fevers after being started on antibiotics - Considered meningitis in differential. Seems less likely without fever at this time. - Currently using D5W 200 mL/hr due to hypernatremia likely 2/2 poor PO intake; have needed to increase fluids due to minimal/no drop in Na over last day. - Hypernatremia may be contributing to altered mental status - Encouraged family to help keep patient oriented to assist with delirium - Troponin mildly elevated x1 (0.042), repeat downtrended - TSH wnl - Patient evaluated by speech therapy. NPO due to poor effort in swallowing. They will reevalaute once patient more alert - Attempt CT of brain this AM. Tried last two days and unable to do so due to agitation. Geodon and Haldol did not help. 2. Hypernatremia likely 2/2 poor PO intake - Considered chronic (uncertain if happened in 48 hour period) - D5W at 200 mL/hr with q2h BMP until Na <145, then decrease D5W by 1/2 until < 140 with q4h BMP - Do not decrease by more than 10 meq in 24h - BG q2h, mild SSI - Na 154 this AM; continue to work toward normal sodium level 3. SHIRA - Volume repletion with D5W as pt is currently hypernatremic - Monitor BMP; BUN 44, Cr 1.73 this IA 4. Hypokalemia - Replete as needed 5. Leukocytosis - Possibly 2/2 infection vs. leukemoid reaction - CXR shows pulmonary vascular congestion vs. pneumonitis. pt with recent history of CAP and COPD exacerbation on levoquin - Procal and lactic acid wnl - Blood and urine cultures pending; NGTD - UA nml 6. COPD - On 2L of O2 chronically - Due to low O2 on ABG, will increase O2 and monitor for somnolence; patient has been on 4L overnight with sats in the 100's and O2 is 60 with CO2 of 51. Will repeat ABG this afternoon to ensure patient is not retaining CO2 and becoming hypercapneic. - ABG showed pH 7.49, CO 54, O2 52; repeat last night showed pH 7.46, CO2 51.4, pO2 59.2 - Continue home COPD medications - Continue duonebs 7. HTN - IV labetolol and hydralazine PRN for SBP >180 - Hold home medications as patient NPO - Patient has not required IV medications 8. HLD - Hold home medication 9. DM type 2 - Mild SSI; patient has not required insulin - q2h accuchecks while on D5W - BG this AM 193; advise nurse to give SSI 10. Acute on chronic hypoxic respiratory failure - D-dimer mildly elevated at 2.72; bilateral LE dopplers negative for DVT. Unable to get VQ scan as patient was agitated and not able to be redirected long enough to get scan done - Monitor O2 sats - Duonebs casper; does not appear to be 2/2 to COPD exacerbation or PNA currently - Will order BNP and echo to evaluate further causes 11. Possible adrenal insufficiency - Baseline high BP on several BP medications; not requiring any PRN medications since hospitalization and BP has been in low 100's - Glucose low (low 100) despite being on D5W initially; this AM 193 - Cortisol 13.3 this AM DVT PPX: SCDs GI PPX: Pantoprazole Code Status: Full Code Dispo: Stable. Continue current workup and management. Attempt CT scan of brain again this AM. Lida Patten, PGY-2 <Lida Patten - Last Filed: 02/18/18 10:39> Attending Addendum - Attending Addendum Date/Time: 02/18/18 1008 I personally evaluated the patient and discussed the management with Dr. Patten I agree with the History, Examination, Assessment and Plan documented above with any addition or exceptions noted below- Patient still repeating senteces/ phrases but at times able to speak with family; less agitated than during the night. Afebrile VSS. A/P: 1) Hypernatremia- improving; appreciate nephrology recommendations; continue D5W. 2) AMS- improving slowly; continue to monitor. CT brain negative 3) Hypoxia- uncertain etiology; will check echo to evaluate for pulmonary hypertension. <Paula Lynn - Last Filed: 02/18/18 11:05>
[2018-02-18] MEDS: Pantoprazole 40 MG VIAL IVP SCH (09:06)
--- NOTE | 2018-02-18 09:50 | CT ---
CT OF BRAIN PERFORMED WITHOUT CONTRAST ENHANCEMENT: History: Altered mental status. FINDINGS: The ventricular and cisternal system is within normal limits. There are no signs of intracerebral hem orrhage or extraaxial fluid collections. Mastoid air cells show mucosal change in the left mastoid ai r cells. There is also some minimal maxillary sinus mucosal disease. IMPRESSION: No acute intracranial abnormalities. POS: [facility]
[2018-02-18 10:21] LABS: #Basophils 0.1 thou/uL (0.0-0.2); #Eosinphils 0.5 thou/uL (0.0-0.7); #Lymphocytes 1.3 thou/uL (1.20-3.40); #Monocytes 0.8 thou/uL (0.11-0.59); #Neutrophils 8.5 thou/uL (1.40-6.50); %Basophils 0.6 % (0.0-1.0); %Eosinophils 4.3 % (0.0-10.0); %Lymphocytes 11.4 % (21.0-51.0); %Monocytes 7.2 % (0.0-10.0); %Neutrophils 76.5 % (42.0-75.0); Hemoglobin 11.3 g/dL (12.0-16.0); Mean Corpuscular HGB CONC 31.8 g/dL (32.0-36.0); Mean Corpuscular Hemoglobin 30.8 pg (27.0-31.0); Mean Corpuscular Volume 96.8 fL (78.0-98.0); Mean Platelet Volume 7.6 fL (7.4-10.4); Platelet Count 188 thou/uL (130-400); RBC Distribution Width 13.3 % (11.5-14.5); Red Blood Cell (RBC) Count 3.65 mill/uL (4.20-5.40); White Blood Cell (WBC) Count 11.1 thou/uL (4.8-10.8)
[2018-02-18 10:31] LABS: Anion Gap 12 mmol/L (10-20); BUN (Urea Nitrogen) 40 mg/dL (9.8-20.1); Calc. Creatinine Clearance 42 mL/min (70-130); Calcium 8.3 mg/dL (7.8-10.44); Carbon Dioxide 32 mmol/L (23-31); Chloride 111 mmol/L (98-107); Estimated GFR-MDRD 32; Glucose 167 mg/dL (83-110); Potassium 3.3 mmol/L (3.5-5.1); Sodium 152 mmol/L (136-145)
[2018-02-18] MEDS ORDERED: Enoxaparin Sodium 30 MG/0.3 ML SYRINGE SC SCH (11:15)
--- NOTE | 2018-02-18 14:11 | PRG ---
DATE OF SERVICE: 02/18/2018 SUBJECTIVE: A 73-year-old female being seen for hyponatremia. The patient cannot have any meaningfu l conversation. PHYSICAL EXAMINATION: GENERAL: Patient is awake, alert, and agitated. VITAL SIGNS: Afebrile, pulse 62, breathing 16, blood pressure 104/66. OBJECTIVE: See above. Awake, alert, in no acute distress. GENERAL APPEARANCE AND MENTAL STATUS: Fair. HEAD/NECK: Normocephalic. Atraumatic. EYES: EOMI. No deformity. EARS: Clear. No ulcers. NOSE: Intact. No lesions. MOUTH: Clear. No discharge. THROAT: Clear. No exudate. LUNGS: Clear. No crackles. CARDIAC: S1, S2. No rub. ABDOMEN: Benign. BS+. GENITALIA/RECTUM: Montiel absent. BACK/EXTREMITIES: Edema 0+ Ulcer- NEUROLOGICAL: The patient had altered mentation. SKIN: Rash- Bruise- LYMPHATICS: Edema- Ulcer- LABORATORY: Sodium 154, potassium 3.2, creatinine 1.7. ASSESSMENT AND RECOMMENDATIONS: 1. Hyponatremia, improving. Continue D5 water at current rate. 2. Acute kidney injury, improving. No indication for dialysis. 3. Hypertension, stable. 4. Anemia, stable. 5. Medication based on GFR are appropriate. No indication for dialysis at this time.
[2018-02-18 15:52] LABS: Anion Gap 10 mmol/L (10-20); BUN (Urea Nitrogen) 35 mg/dL (9.8-20.1); Calc. Creatinine Clearance 46 mL/min (70-130); Carbon Dioxide 33 mmol/L (23-31); Chloride 108 mmol/L (98-107); Estimated GFR-MDRD 36; Glucose 166 mg/dL (83-110); Sodium 148 mmol/L (136-145)
[2018-02-18 15:54] LABS: Potassium 2.9 mmol/L (3.5-5.1)
[2018-02-18 16:44] LABS: Vancomycin, Trough 20.9 ug/mL
[2018-02-18 17:50] LABS: Actual Bicarbonate (HCO3a) 34.5 mEq/L (22-28); Base Excess (BEa) 8.7 mEq/L (-2.0 to +3.0); CO2 Tension 53.6 mmHg (35.0-45.0); Hemoglobin (Hb) 11.5 g/dL (12.0-16.0); O2 Tension (PaO2) 68.2 mmHg (> 70.0); pH, Arterial 7.43 (7.35-7.45)
[2018-02-18 17:51] LABS: Calcium, Ionized 1.1 mmol/L (1.12-1.30); Potassium - ABG Lab 2.9 mmol/L (3.70-5.30); Puncture Site LRA
[2018-02-18] MEDS: Vancomycin HCl 1.25 GM in Sodium Chloride 0.9% 250 ML 250 ML IVPB SCH (18:01)
[2018-02-18] MEDS: Potassium Chloride 20 MEQ in Premix Bag 1 BAG IVPB SCH ×2 (18:08→20:39)
[2018-02-18 19:25] LABS: Anion Gap 8 mmol/L (10-20); BUN (Urea Nitrogen) 31 mg/dL (9.8-20.1); Calc. Creatinine Clearance 52 mL/min (70-130); Calcium 8.1 mg/dL (7.8-10.44); Carbon Dioxide 34 mmol/L (23-31); Chloride 108 mmol/L (98-107); Estimated GFR-MDRD 41; Glucose 95 mg/dL (83-110); Potassium 3.2 mmol/L (3.5-5.1); Sodium 147 mmol/L (136-145)
[2018-02-18 23:28] LABS: Anion Gap 8 mmol/L (10-20); BUN (Urea Nitrogen) 27 mg/dL (9.8-20.1); Calc. Creatinine Clearance 53 mL/min (70-130); Carbon Dioxide 34 mmol/L (23-31); Chloride 109 mmol/L (98-107); Estimated GFR-MDRD 43; Glucose 111 mg/dL (83-110); Potassium 3.3 mmol/L (3.5-5.1); Sodium 148 mmol/L (136-145)
[2018-02-19] MEDS: Piperacillin/Tazobactam 2.25 GM in Sodium Chloride 0.9% 100 ML IVPB SCH ×2 (06:07→11:41)
[2018-02-19] MEDS: Dextrose 5% in Water 1,000 ML IV SCH ×3 (06:08→21:06)
[2018-02-19] MEDS: Mometasone/Formoterol 120 PUFF INHALER INH SCH (06:28)
--- NOTE | 2018-02-19 06:58 | PDOC.FM ---
- Subjective Subjective: Patient doing well. No significant overnight events. Patient still altered but able to be somewhat redirected. She is taking minimal amount of PO. Speech goes by each day to evaluate her and she has yet to pass swallow test. - Objective MAR Reviewed: Yes Vital Signs & Weight: Vital Signs (12 hours) Temp Pulse Resp BP Pulse Ox 02/19/18 06:31 95 02/19/18 06:28 71 20 95 02/19/18 00:58 76 18 94 L 02/18/18 20:00 98.2 F 80 24 H 141/65 H 93 L Weight Admit Weight 81.391 kg Weight 81.391 kg I&O: 02/17/18 02/18/18 02/19/18 06:59 06:59 06:59 Intake Total 600 6400 Output Total 600 Balance 600 5800 Result Diagrams: 02/18/18 09:58 02/19/18 08:03 EKG Reviewed by me: Yes Radiology Reviewed by me: Yes <Lida Patten - Last Filed: 02/19/18 11:25> - Objective Vital Signs & Weight: Vital Signs (12 hours) Temp Pulse Resp BP Pulse Ox 02/19/18 21:00 98.1 F 71 17 139/76 97 02/19/18 19:38 96 02/19/18 12:30 71 20 97 Weight Admit Weight 81.391 kg Weight 81.391 kg I&O: 02/18/18 02/19/18 02/20/18 06:59 06:59 06:59 Intake Total 6400 1700 Output Total 600 850 Balance 5800 850 Result Diagrams: 02/18/18 09:58 02/19/18 19:02 <Paula Lynn - Last Filed: 02/19/18 22:58> Phys Exam - Physical Examination Constitutional: NAD Babblilng and repeating words HEENT: moist MMs, sclera anicteric Neck: supple Respiratory: clear to auscultation bilateral Cardiovascular: RRR, no significant murmur Gastrointestinal: soft, non-tender, no distention, positive bowel sounds Musculoskeletal: no edema Neurological: non-focal Cannot adequately assess neuro status due to mentation Deviation from normal: A&Ox0 Skin: no rash, cap refill <2 seconds <Lida Patten - Last Filed: 02/19/18 11:25> Dx/Plan (1) Acute and chronic respiratory failure with hypoxia Code(s): J96.21 - ACUTE AND CHRONIC RESPIRATORY FAILURE WITH HYPOXIA Status: Acute (2) Encephalopathy Code(s): G93.40 - ENCEPHALOPATHY, UNSPECIFIED Status: Acute (3) Hypernatremia Code(s): E87.0 - HYPEROSMOLALITY AND HYPERNATREMIA Status: Acute (4) Diabetes mellitus type 2 in obese Code(s): E11.69 - TYPE 2 DIABETES MELLITUS WITH OTHER SPECIFIED COMPLICATION; E66.9 - OBESITY, UNSPECIFIED Status: Acute (5) HTN (hypertension) Code(s): I10 - ESSENTIAL (PRIMARY) HYPERTENSION Status: Chronic Qualifiers: Hypertension type: essential hypertension Qualified Code(s): I10 - Essential (primary) hypertension (6) Obesity (BMI 30.0-34.9) Code(s): E66.9 - OBESITY, UNSPECIFIED Status: Chronic - Plan Plan: 73 year old with PMH COPD, HTN, DM2 that presents with AMS 1. Metabolic encephalopathy - WBC downtrended - LA and procalcitonin wnl - CXR showed mild basilar symmteric infiltrates suggestive of pulmonary vascular congestion vs. pneumonitis. - Duonebs CASPER - Blood cultures and urine cultures pending; NGTD - UA negative - Zosyn and Vanc emperic antibiotics until blood cultures result (02/16) - Reculture if patient fevers after being started on antibiotics - Currently using D5W 125 mL/hr due to hypernatremia likely 2/2 poor PO intake; Sodium this AM 145 - Encouraged family to help keep patient oriented to assist with delirium - Troponin mildly elevated x1 (0.042), repeat downtrended - TSH wnl - Patient evaluated by speech therapy. NPO due to poor effort in swallowing. They will reevalaute once patient more alert - CT brain negative for acute intracranial abnormalities - Mental status not improving despite normalization of sodium; will consult neurology for further recommendations - Discussed potential for PEG tube should patient continue to tolerate PO feeds 2. Hypernatremia likely 2/2 poor PO intake - Considered chronic (uncertain if happened in 48 hour period) - D5W at 125 mL/hr with q2h BMP until Na <145 - Q6h BMP - BG ACHS, mild SSI - Na 145 this AM, continue to monitor 3. SHIRA - Volume repletion with D5W as pt is currently hypernatremic - Monitor BMP; SHIRA continues to improve 4. Hypokalemia - Replete as needed 5. Leukocytosis - Possibly 2/2 infection vs. leukemoid reaction - CXR shows pulmonary vascular congestion vs. pneumonitis. pt with recent history of CAP and COPD exacerbation on levoquin - Procal and lactic acid wnl - Blood and urine cultures pending; NGTD - UA nml 6. COPD - On 2L of O2 chronically - Due to low O2 on ABG, will increase O2 and monitor for somnolence; patient has been on 4L overnight with sats in the 100's and O2 is 60 with CO2 of 51. Repeat ABG showed improved pO2. - Continue home COPD medications - Continue duonebs - Will try some humidified air 7. HTN - IV labetolol and hydralazine PRN for SBP >180 - Hold home medications as patient NPO - Patient has not required IV medications 8. HLD - Hold home medication 9. DM type 2 - Mild SSI; patient has not required insulin - q2h accuchecks while on D5W 10. Acute on chronic hypoxic respiratory failure - D-dimer mildly elevated at 2.72; bilateral LE dopplers negative for DVT. Unable to get VQ scan as patient was agitated and not able to be redirected long enough to get scan done - Monitor O2 sats - Duonebs casper; does not appear to be 2/2 to COPD exacerbation or PNA currently - BNP wnl; Echo read pending at this time. 11. Possible adrenal insufficiency - Baseline high BP on several BP medications; not requiring any PRN medications since hospitalization and BP has been in low 100's - Glucose low (low 100) despite being on D5W initially; this AM 193 - Cortisol 13.3 in AM - Patient seems to be improving. Likely related to poor PO intake. No need for steroids at this time. DVT PPX: SCDs GI PPX: Pantoprazole Code Status: Full Code Dispo: Stable. Continue current workup and management. Consult neurology for further recommendations. Lida Patten, DO PGY-2 <Lida Patten - Last Filed: 02/19/18 11:25> Attending Addendum - Attending Addendum Date/Time: 02/19/18 9081 I personally evaluated the patient and discussed the management with Dr. Patten I agree with the History, Examination, Assessment and Plan documented above with any addition or exceptions noted below- Pateint less agitated by still babbling with rhymes and reoeating what other people say. Refusing to eat or drink. Afebrile VSS. A/P: 1) AMS - Sodium now within normal but patient not improved with mentation. Will consult neurology for assistance. 2) Hypernatremia - improved. Decrease IVF. 3) Nutrition- pt refusing po intake. Speech able to get her to take couple of ice chips with no apparent aspiration. Will need to assess familys wishes for nutritions if patient does not begin to eat on her own. <Paula Lynn - Last Filed: 02/19/18 22:58>
[2018-02-19] MEDS: Enoxaparin Sodium 40 MG/0.4 ML SYRINGE SC SCH (07:56)
[2018-02-19] MEDS: Pantoprazole 40 MG VIAL IVP SCH (07:56)
[2018-02-19 08:43] LABS: Anion Gap 7 mmol/L (10-20); BUN (Urea Nitrogen) 21 mg/dL (9.8-20.1); Calc. Creatinine Clearance 59 mL/min (70-130); Calcium 7.9 mg/dL (7.8-10.44); Carbon Dioxide 34 mmol/L (23-31); Chloride 107 mmol/L (98-107); Estimated GFR-MDRD 47; Glucose 114 mg/dL (83-110); Potassium 3.3 mmol/L (3.5-5.1); Sodium 145 mmol/L (136-145)
[2018-02-19] MEDS ORDERED: Potassium Chloride 40 MEQ in Premix Bag 1 BAG IVPB SCH (09:45)
[2018-02-19] MEDS: Potassium Chloride 20 MEQ in Premix Bag 1 BAG IVPB SCH ×2 (11:41→13:25)
[2018-02-19 13:31] LABS: Anion Gap 12 mmol/L (10-20); BUN (Urea Nitrogen) 19 mg/dL (9.8-20.1); Calc. Creatinine Clearance 63 mL/min (70-130); Calcium 8.1 mg/dL (7.8-10.44); Carbon Dioxide 29 mmol/L (23-31); Chloride 108 mmol/L (98-107); Estimated GFR-MDRD 51; Glucose 99 mg/dL (83-110); Potassium 3.6 mmol/L (3.5-5.1); Sodium 145 mmol/L (136-145)
[2018-02-19 14:00] LABS: Syphilis Antibody Nonreactive (Nonreactive); Syphilis Antibody Index 0.06 S/CO (<1.00 Non-Reactive)
--- NOTE | 2018-02-19 16:30 | EKG ---
Test Reason : Blood Pressure : / mmHG Vent. Rate : 094 BPM Atrial Rate : 094 BPM P-R Int : 138 ms QRS Dur : 090 ms QT Int : 352 ms P-R-T Axes : 082 -52 074 degrees QTc Int : 440 ms Normal sinus rhythm Left axis deviation Abnormal ECG Confirmed by ILDA VALLADARES ([id number]) on 02/19/2018 4:30:24 PM Referred By: Confirmed By:ILDA VALLADARES
[2018-02-19 19:30] LABS: Anion Gap 9 mmol/L (10-20); BUN (Urea Nitrogen) 16 mg/dL (9.8-20.1); Calc. Creatinine Clearance 63 mL/min (70-130); Calcium 7.9 mg/dL (7.8-10.44); Carbon Dioxide 29 mmol/L (23-31); Chloride 106 mmol/L (98-107); Estimated GFR-MDRD 52; Glucose 110 mg/dL (83-110); Potassium 3.4 mmol/L (3.5-5.1); Sodium 141 mmol/L (136-145)
--- NOTE | 2018-02-19 20:30 | CON ---
DATE OF CONSULTATION: 02/19/2018 CONSULTING PHYSICIAN: [facility]. IMPRESSION: 1. Atypical encephalopathy with incessant babbling and jovial personality. 2. Severe chronic obstructive pulmonary disease with hypoxia and hypercapnia. 3. Hypertension. 4. Diabetes. PLAN: 1. MRI of the brain. 2. Monitor clinical course. HISTORY OF PRESENT ILLNESS: Ms. Jensen is a 73-year-old white female who was recently admitted for pneumonia. After infection was brought into control, she was transferred over to rehabilitation. Un fortunately, her daughters report that she went from having some delirium with hallucinations to a bi zarre cantankerous behavior. She seemed to recognize her daughter immediately and new specific facts about things that had gone on with her as well. She has remained quite alert and observant of what is going on around her. She frequently repeats anything that she hears around her. She had a CT sca n of the brain, which was normal. Her ABG showed a pH of 7.49, pCO2 of 54, and pO2 of 50. Her base met panel was unremarkable. Her tox screen was negative. Urinalysis was clear. Vital signs have be en stable and she is afebrile. PAST MEDICAL HISTORY: As listed above. ALLERGIES: None reported. SOCIAL HISTORY: Unremarkable. FAMILY HISTORY: Not obtainable. REVIEW OF SYSTEMS: Not obtainable. PHYSICAL EXAMINATION: GENERAL: She is a well-nourished elderly lady lying in bed in restraints. VITAL SIGNS: Stable. She is afebrile. HEENT: Pupils are equal and reactive. Conjunctivae clear. Oropharynx clear. NEUROLOGIC: She is alert and conversant. She actually addressed me in a jovial manner when I walked in the room. Her speech was fluent without any evidence of dysarthria. Cranial nerves were symmetr ic as far as I could test her. Motor strength is equal. Sensation is intact. No abnormal movements were seen. Gait was not testable. SUMMARY: Elderly woman with very atypical encephalopathy. I am uncertain as to whether this directl y tied to her hypoxia and hypercapnia, which would appear to be the leading possibility at this point . There is no structural or other metabolic cause. There does not appear to be any toxic issues liza t we can identify at this point. I would suspect things will improve with her respiratory issues as they improve.
[2018-02-19 23:21] LABS: Anion Gap 8 mmol/L (10-20); BUN (Urea Nitrogen) 14 mg/dL (9.8-20.1); Calc. Creatinine Clearance 71 mL/min (70-130); Calcium 7.7 mg/dL (7.8-10.44); Carbon Dioxide 29 mmol/L (23-31); Chloride 107 mmol/L (98-107); Estimated GFR-MDRD 59; Glucose 110 mg/dL (83-110); Potassium 3.2 mmol/L (3.5-5.1); Sodium 141 mmol/L (136-145)
--- NOTE | 2018-02-19 23:53 | PRG ---
DATE OF SERVICE: 02/19/2018 SUBJECTIVE: A 73-year-old female being seen for acute kidney injury. Patient remains nonverbal. PHYSICAL EXAMINATION: GENERAL: On examination, patient is awake, alert. VITAL SIGNS: Pulse respirations 16, blood pressure 136/64. GENERAL APPEARANCE AND MENTAL STATUS: Fair. HEAD/NECK: Normocephalic. Atraumatic. EYES: EOMI. No deformity. EARS: Clear. No ulcers. NOSE: Intact. No lesions. MOUTH: Clear. No discharge. THROAT: Clear. No exudate. LUNGS: Clear. No crackles. CARDIAC: S1, S2. No rub. ABDOMEN: Benign. BS+. GENITALIA/RECTUM: Montiel absent. BACK/EXTREMITIES: Edema 0+ Ulcer- NEUROLOGIC: Patient is confused. SKIN: Rash- Bruise- LYMPHATICS: Edema- Ulcer- LABORATORY DATA: Potassium 3.4, sodium 141, creatinine 1.05. ASSESSMENT AND RECOMMENDATIONS: 1. Acute kidney injury, resolved. 2. Hyponatremia, resolved. 3. Hypokalemic, recommend potassium. consulted.
[2018-02-20 05:27] LABS: Anion Gap 7 mmol/L (10-20); BUN (Urea Nitrogen) 12 mg/dL (9.8-20.1); Calc. Creatinine Clearance 69 mL/min (70-130); Calcium 7.6 mg/dL (7.8-10.44); Carbon Dioxide 31 mmol/L (23-31); Chloride 105 mmol/L (98-107); Estimated GFR-MDRD 57; Glucose 111 mg/dL (83-110); Potassium 3.1 mmol/L (3.5-5.1); Sodium 140 mmol/L (136-145)
[2018-02-20] MEDS: Mometasone/Formoterol 120 PUFF INHALER INH SCH (05:50)
[2018-02-20] MEDS: Dextrose 5% in Water 1,000 ML IV SCH ×3 (05:58→20:47)
[2018-02-20] MEDS: Pantoprazole 40 MG VIAL IVP SCH (08:53)
[2018-02-20] MEDS: Enoxaparin Sodium 40 MG/0.4 ML SYRINGE SC SCH (08:53)
[2018-02-20 09:18] LABS: Anion Gap 13 mmol/L (10-20); BUN (Urea Nitrogen) 11 mg/dL (9.8-20.1); Calc. Creatinine Clearance 77 mL/min (70-130); Calcium 7.8 mg/dL (7.8-10.44); Carbon Dioxide 24 mmol/L (23-31); Chloride 107 mmol/L (98-107); Estimated GFR-MDRD 65; Glucose 118 mg/dL (83-110); Potassium 4.3 mmol/L (3.5-5.1); Sodium 140 mmol/L (136-145)
--- NOTE | 2018-02-20 09:21 | PDOC.FM ---
- Subjective Subjective: Patient doing well this AM. She is alert and cooperative. Mentation is much improved. She is answering questions appropriately. Still some repetition, but making sense of words and phrases. She recognizes people and her surroundings. - Objective MAR Reviewed: Yes Vital Signs & Weight: Vital Signs (12 hours) Temp Pulse Resp BP Pulse Ox 02/20/18 08:56 97.7 F 60 18 99 02/20/18 07:15 97.7 F 60 18 111/53 L 99 02/20/18 05:50 71 18 97 02/20/18 05:49 71 18 97 02/20/18 05:30 98.5 F 61 19 134/70 99 02/20/18 00:32 96 02/20/18 00:30 19 95 Weight Admit Weight 81.391 kg Weight 81.391 kg I&O: 02/19/18 02/20/18 02/21/18 06:59 06:59 06:59 Intake Total 6400 3100 Output Total 600 2350 Balance 5800 750 Result Diagrams: 02/18/18 09:58 02/20/18 08:44 EKG Reviewed by me: Yes Radiology Reviewed by me: Yes <Lida Patten - Last Filed: 02/20/18 09:28> - Objective Vital Signs & Weight: Vital Signs (12 hours) Temp Pulse Resp BP Pulse Ox 02/20/18 08:56 97.7 F 60 18 99 02/20/18 07:15 97.7 F 60 18 111/53 L 99 02/20/18 05:50 71 18 97 02/20/18 05:49 71 18 97 02/20/18 05:30 98.5 F 61 19 134/70 99 02/20/18 00:32 96 02/20/18 00:30 19 95 Weight Admit Weight 81.391 kg Weight 81.391 kg I&O: 02/19/18 02/20/18 02/21/18 06:59 06:59 06:59 Intake Total 6400 3100 Output Total 600 2350 Balance 5800 750 Result Diagrams: 02/18/18 09:58 02/20/18 08:44 <Paual Lynn - Last Filed: 02/20/18 10:39> Phys Exam - Physical Examination Constitutional: NAD Alert, Awake, and happy this AM. Answering questions and conversing. HEENT: moist MMs Neck: supple Respiratory: no wheezing, clear to auscultation bilateral Cardiovascular: RRR, no significant murmur Gastrointestinal: soft, non-tender, no distention, positive bowel sounds Musculoskeletal: no edema, pulses present Neurological: non-focal Deviation from normal: Alert and oriented x2 Skin: no rash, cap refill <2 seconds <Lida Patten - Last Filed: 02/20/18 09:28> Dx/Plan (1) Acute and chronic respiratory failure with hypoxia Code(s): J96.21 - ACUTE AND CHRONIC RESPIRATORY FAILURE WITH HYPOXIA Status: Acute (2) Encephalopathy Code(s): G93.40 - ENCEPHALOPATHY, UNSPECIFIED Status: Acute (3) Hypernatremia Code(s): E87.0 - HYPEROSMOLALITY AND HYPERNATREMIA Status: Acute (4) Diabetes mellitus type 2 in obese Code(s): E11.69 - TYPE 2 DIABETES MELLITUS WITH OTHER SPECIFIED COMPLICATION; E66.9 - OBESITY, UNSPECIFIED Status: Acute (5) HTN (hypertension) Code(s): I10 - ESSENTIAL (PRIMARY) HYPERTENSION Status: Chronic (6) Obesity (BMI 30.0-34.9) Code(s): E66.9 - OBESITY, UNSPECIFIED Status: Chronic - Plan Plan: 73 year old with PMH COPD, HTN, DM2 that presents with AMS 1. Atypical encephalopathy likely 2/2 metabolic cause or hypoxemia - Mentation much improved this AM; answering questions and conversing - WBC downtrended - LA and procalcitonin wnl - CXR showed mild basilar symmteric infiltrates suggestive of pulmonary vascular congestion vs. pneumonitis. - Duonebs CASPER - Blood cultures and urine cultures pending; NGTD - UA negative - Zosyn and Vanc emperic antibiotics until blood cultures result (02/16) - Reculture if patient fevers after being started on antibiotics - Currently using D5W 100 mL/hr due to hypernatremia likely 2/2 poor PO intake; Sodium this AM 140 - Encouraged family to help keep patient oriented to assist with delirium - Troponin mildly elevated x1 (0.042), repeat downtrended - TSH wnl - Patient evaluated by speech therapy. NPO due to poor effort in swallowing. They will reevalaute once patient more alert. Will request they see patient today. - CT brain negative for acute intracranial abnormalities - MRI brain pending with sedation; may consider d/c'ing if ok with neurology as patient is improved. As of now patient scheduled for MRI with anesthesia at 15: 00 - Suspect mental status is improved with improvement in sodium and hypoxemia. Additionally, suspect large component of delirium. - Neurology consulted; appreciate recs 2. Hypernatremia likely 2/2 poor PO intake - Considered chronic (uncertain if happened in 48 hour period) - D5W at 100 mL/hr - Q6h BMP - BG ACHS, mild SSI - Na 140 this AM, continue to monitor 3. SHIRA - Volume repletion with D5W as pt is currently hypernatremic - Monitor BMP; SHIRA continues to improve 4. Hypokalemia - Replete as needed 5. Leukocytosis - Possibly 2/2 infection vs. leukemoid reaction - CXR shows pulmonary vascular congestion vs. pneumonitis. pt with recent history of CAP and COPD exacerbation on levoquin - Procal and lactic acid wnl - Blood and urine cultures pending; NGTD - UA nml 6. COPD - On 2L of O2 chronically - Due to low O2 on ABG, will increase O2 and monitor for somnolence; patient has been on 4L overnight with sats in the 100's and O2 is 60 with CO2 of 51. Repeat ABG showed improved pO2 >60 - Continue home COPD medications - Continue duonebs - Will try some humidified air 7. HTN - IV labetolol and hydralazine PRN for SBP >180 - Hold home medications as patient NPO - Patient has not required IV medications 8. HLD - Hold home medication 9. DM type 2 - Mild SSI; patient has not required insulin - ACHS accuchecks 10. Acute on chronic hypoxic respiratory failure - D-dimer mildly elevated at 2.72; bilateral LE dopplers negative for DVT. Unable to get VQ scan as patient was agitated and not able to be redirected long enough to get scan done - Monitor O2 sats - Duonebs casper; does not appear to be 2/2 to COPD exacerbation or PNA currently - BNP wnl; Echo read pending at this time. 11. Possible adrenal insufficiency - Baseline high BP on several BP medications; not requiring any PRN medications since hospitalization and BP has been in low 100's - Glucose low (low 100) despite being on D5W initially; this AM 193 - Cortisol 13.3 in AM - Patient seems to be improving. Likely related to poor PO intake. No need for steroids at this time. DVT PPX: Lovenox GI PPX: Pantoprazole Code Status: Full Code Dispo: Stable. Continue current workup and management. Possible MRI today. Lida Patten, PGY-2 <Lida Patten - Last Filed: 02/20/18 09:28> Attending Addendum - Attending Addendum Date/Time: 02/20/18 1036 I personally evaluated the patient and discussed the management with Dr. Patten I agree with the History, Examination, Assessment and Plan documented above with any addition or exceptions noted below- Patient less clear currently; back to repeating phrases but does answer some questions. Has been drinking some water with straw. Afebrile VSS. A/P: 1) Delirium- continuing to wax and wane; plan for MRI today with sedation. Continue to reorient. 2) Hypernatremia- resolved; IVF decreased and may need to change to isotonic fluids later. 3) COPD - stable; continue O2 and nebs. <Paula Lynn - Last Filed: 02/20/18 10:39>
[2018-02-20 16:07] LABS: Anion Gap 12 mmol/L (10-20); BUN (Urea Nitrogen) 10 mg/dL (9.8-20.1); Calc. Creatinine Clearance 76 mL/min (70-130); Calcium 8.3 mg/dL (7.8-10.44); Carbon Dioxide 28 mmol/L (23-31); Chloride 105 mmol/L (98-107); Estimated GFR-MDRD 64; Glucose 93 mg/dL (83-110); Potassium 3.1 mmol/L (3.5-5.1); Sodium 142 mmol/L (136-145)
[2018-02-20 20:04] LABS: Anion Gap 13 mmol/L (10-20); BUN (Urea Nitrogen) 8 mg/dL (9.8-20.1); Calc. Creatinine Clearance 75 mL/min (70-130); Calcium 8.6 mg/dL (7.8-10.44); Carbon Dioxide 27 mmol/L (23-31); Chloride 105 mmol/L (98-107); Estimated GFR-MDRD 63; Glucose 132 mg/dL (83-110); Potassium 3.1 mmol/L (3.5-5.1); Sodium 142 mmol/L (136-145)
[2018-02-21 00:48] LABS: Anion Gap 10 mmol/L (10-20); BUN (Urea Nitrogen) 8 mg/dL (9.8-20.1); Calc. Creatinine Clearance 76 mL/min (70-130); Calcium 8.6 mg/dL (7.8-10.44); Carbon Dioxide 30 mmol/L (23-31); Chloride 107 mmol/L (98-107); Estimated GFR-MDRD 64; Glucose 108 mg/dL (83-110); Sodium 144 mmol/L (136-145)
[2018-02-21 01:05] LABS: Potassium 2.9 mmol/L (3.5-5.1)
[2018-02-21] MEDS ORDERED: Ondansetron HCl/PF 4 MG/2 ML Vial IVP PRN (01:33)
[2018-02-21] MEDS ORDERED: Potassium Chloride 40 MEQ in Premix Bag 1 BAG IVPB SCH (01:45)
[2018-02-21] MEDS: Potassium Chloride 20 MEQ in Premix Bag 1 BAG IVPB SCH ×2 (01:52→04:53)
[2018-02-21] MEDS: Dextrose 5% in Water 1,000 ML IV SCH ×3 (05:26→18:49)
[2018-02-21] MEDS: Mometasone/Formoterol 120 PUFF INHALER INH SCH (06:23)
[2018-02-21] MEDS: Enoxaparin Sodium 40 MG/0.4 ML SYRINGE SC SCH (09:00)
[2018-02-21] MEDS: Pantoprazole 40 MG VIAL IVP SCH (09:00)
--- NOTE | 2018-02-21 10:38 | PDOC.FM ---
- Subjective Subjective: Patient doing well this AM. No significant overnight events. She is completely with it this morning. She is answering all questions appropriately. She is recalling events from just a few days ago. She is drastically improved from just 2 days ago. She is feeling hungry this AM and wanting to eat which is a big change from admission where she was not wanting to take anything PO. - Objective MAR Reviewed: Yes Vital Signs & Weight: Vital Signs (12 hours) Temp Pulse Resp BP BP Pulse Ox 02/21/18 08:00 98.4 F 74 18 96 02/21/18 07:55 98.4 F 74 18 128/93 H 96 02/21/18 06:23 74 16 98 02/21/18 06:21 74 16 98 02/21/18 05:00 97.4 F L 74 16 130/79 98 02/21/18 00:27 92 20 95 02/21/18 00:03 97.4 F L 85 18 179/90 H 92 L Weight Admit Weight 81.391 kg Weight 81.391 kg I&O: 02/20/18 02/21/18 02/22/18 06:59 06:59 06:59 Intake Total 3100 2530 Output Total 2350 3225 Balance 750 -695 Result Diagrams: 02/18/18 09:58 02/21/18 00:12 EKG Reviewed by me: Yes Radiology Reviewed by me: Yes <Lida Patten - Last Filed: 02/21/18 10:35> - Objective Vital Signs & Weight: Vital Signs (12 hours) Temp Pulse Resp BP Pulse Ox 02/21/18 19:00 97.7 F 83 18 124/84 97 02/21/18 18:30 91 16 95 02/21/18 12:26 79 16 97 Weight Admit Weight 81.391 kg Weight 81.391 kg I&O: 02/20/18 02/21/18 02/22/18 06:59 06:59 06:59 Intake Total 3100 2530 Output Total 2350 3225 1000 Balance 750 -695 -1000 Result Diagrams: 02/18/18 09:58 02/21/18 11:37 <June Garcia - Last Filed: 02/21/18 21:40> Phys Exam - Physical Examination Constitutional: NAD HEENT: moist MMs, sclera anicteric Neck: supple Respiratory: no wheezing, clear to auscultation bilateral Cardiovascular: RRR, no significant murmur Gastrointestinal: soft, non-tender, no distention, positive bowel sounds Musculoskeletal: no edema, pulses present Neurological: non-focal Psychiatric: normal affect, A&O x 3 Skin: no rash, cap refill <2 seconds <Alcon Pattenistyn - Last Filed: 02/21/18 10:35> Dx/Plan (1) Acute and chronic respiratory failure with hypoxia Code(s): J96.21 - ACUTE AND CHRONIC RESPIRATORY FAILURE WITH HYPOXIA Status: Acute (2) Encephalopathy Code(s): G93.40 - ENCEPHALOPATHY, UNSPECIFIED Status: Acute (3) Hypernatremia Code(s): E87.0 - HYPEROSMOLALITY AND HYPERNATREMIA Status: Acute (4) Diabetes mellitus type 2 in obese Code(s): E11.69 - TYPE 2 DIABETES MELLITUS WITH OTHER SPECIFIED COMPLICATION; E66.9 - OBESITY, UNSPECIFIED Status: Acute (5) HTN (hypertension) Code(s): I10 - ESSENTIAL (PRIMARY) HYPERTENSION Status: Chronic Qualifiers: Hypertension type: essential hypertension Qualified Code(s): I10 - Essential (primary) hypertension (6) Obesity (BMI 30.0-34.9) Code(s): E66.9 - OBESITY, UNSPECIFIED Status: Chronic - Plan Plan: 73 year old with PMH COPD, HTN, DM2 that presents with AMS 1. Atypical encephalopathy likely 2/2 metabolic cause or hypoxemia - Alert and oriented x3 this AM. Mentation better than it was prior to leaving the hospital at last discharge - WBC downtrended - LA and procalcitonin wnl - CXR showed mild basilar symmteric infiltrates suggestive of pulmonary vascular congestion vs. pneumonitis. - Duonebs CASPER - Blood cultures and urine cultures NGTD; antibiotics d/c'd 2 days ago - UA negative - Reculture if patient fevers after being started on antibiotics - Currently using D5W 125 mL/hr due to hypernatremia likely 2/2 poor PO intake; recommendations of nephrology - Encouraged family to help keep patient oriented to assist with delirium - Troponin mildly elevated x1 (0.042), repeat downtrended - TSH wnl - Patient evaluated by speech therapy. NPO due to poor effort in swallowing. They will reevalaute once patient more alert. Will request they see patient today. - CT brain negative for acute intracranial abnormalities - MRI brain pending with sedation; may consider d/c'ing as patient is improved. - Suspect mental status is improved with improvement in sodium and hypoxemia. Additionally, suspect large component of delirium. - Neurology consulted; appreciate recs - Nephrology consulted; appreciate recs 2. Hypernatremia likely 2/2 poor PO intake - Considered chronic (uncertain if happened in 48 hour period) - D5W at 125 mL/hr; decrease fluids once tolerating PO - Q6h BMP - BG ACHS, mild SSI 3. SHIRA, resolved - Volume repletion with D5W as pt is currently hypernatremic - Monitor BMP; SHIRA improved 4. Hypokalemia - Replete as needed - Add daily potassium 5. Leukocytosis - Possibly 2/2 infection vs. leukemoid reaction - CXR shows pulmonary vascular congestion vs. pneumonitis. pt with recent history of CAP and COPD exacerbation on levoquin - Procal and lactic acid wnl - Blood NGTD; urine cx negative - UA nml 6. COPD - On 2L of O2 chronically - Due to low O2 on ABG, will increase O2 and monitor for somnolence; patient has been on 4L overnight with sats in the 100's and O2 is 60 with CO2 of 51. Repeat ABG showed improved pO2 >60 - Continue home COPD medications - Continue duonebs - Will try some humidified air 7. HTN - IV labetolol and hydralazine PRN for SBP >180 - Hold home medications as patient NPO - Patient has not required IV medications 8. HLD - Hold home medication 9. DM type 2 - Mild SSI; patient has not required insulin - ACHS accuchecks 10. Acute on chronic hypoxic respiratory failure - D-dimer mildly elevated at 2.72; bilateral LE dopplers negative for DVT. Unable to get VQ scan as patient was agitated and not able to be redirected long enough to get scan done - Monitor O2 sats - Duonebs casper; does not appear to be 2/2 to COPD exacerbation or PNA currently - BNP wnl; Echo showed EF 50-55% with grade 1/3 diastolic dysfunction 11. Possible adrenal insufficiency, ruled out - Baseline high BP on several BP medications; not requiring any PRN medications since hospitalization and BP has been in low 100's - Glucose low (low 100) despite being on D5W initially; this AM 193 - Cortisol 13.3 in AM - Patient seems to be improving. Likely related to poor PO intake. No need for steroids at this time. DVT PPX: Lovenox GI PPX: Pantoprazole Code Status: Full Code Dispo: Stable. Initiate diet. Cancel MRI as patient is clinically improved. Continue to monitor and decrease IV fluids once tolerating PO. <Lida Patten - Last Filed: 02/21/18 10:35> Attending Addendum - Attending Addendum Date/Time: 02/21/186 I personally evaluated the patient at 0955 and discussed the management with Dr. Patten I agree with the History, Examination, Assessment and Plan documented above with any addition or exceptions noted below. AMS/Encephalopathy- resolved. back at baseline per family Hypernatremia- resolved. if tolerating po today will d/c ivf hypokalemia- replace. deconditioning- will need SNF on discharge. <June Garcia - Last Filed: 02/21/18 21:40>
[2018-02-21 12:09] LABS: Anion Gap 13 mmol/L (10-20); BUN (Urea Nitrogen) 7 mg/dL (9.8-20.1); Calc. Creatinine Clearance 77 mL/min (70-130); Calcium 8.2 mg/dL (7.8-10.44); Carbon Dioxide 22 mmol/L (23-31); Chloride 114 mmol/L (98-107); Estimated GFR-MDRD 65; Glucose 110 mg/dL (83-110); Potassium 5.1 mmol/L (3.5-5.1); Sodium 144 mmol/L (136-145)
[2018-02-22 05:43] LABS: Anion Gap 10 mmol/L (10-20); BUN (Urea Nitrogen) 7 mg/dL (9.8-20.1); Calc. Creatinine Clearance 72 mL/min (70-130); Calcium 8.1 mg/dL (7.8-10.44); Carbon Dioxide 29 mmol/L (23-31); Chloride 106 mmol/L (98-107); Estimated GFR-MDRD 60; Glucose 116 mg/dL (83-110); Potassium 3.4 mmol/L (3.5-5.1); Sodium 142 mmol/L (136-145)
[2018-02-22] MEDS: Mometasone/Formoterol 120 PUFF INHALER INH SCH (06:25)
[2018-02-22] MEDS: Dextrose 5% in Water 1,000 ML IV SCH ×3 (06:30→21:22)
--- NOTE | 2018-02-22 07:20 | PDOC.FM ---
- Subjective Subjective: Patient alert this AM, however she is only oriented to place and person. She was not oriented to time. She is able to be redirected, but is repetitive and tangential in her speech. She was trying to pull off oxygen. She appears to wax and wane and had a really good day yesterday. She was lucid and did not have any difficulty communicating yesterday. - Objective MAR Reviewed: Yes Vital Signs & Weight: Vital Signs (12 hours) Temp Pulse Resp Pulse Ox 02/22/18 06:25 81 16 96 02/22/18 06:23 81 16 96 02/21/18 23:39 86 16 96 02/21/18 20:00 97.7 F 83 18 97 Weight Admit Weight 81.391 kg Weight 81.391 kg I&O: 02/21/18 02/22/18 02/23/18 06:59 06:59 06:59 Intake Total 2530 1360 Output Total 3225 2200 Balance -695 840 Result Diagrams: 02/18/18 09:58 02/22/18 04:40 EKG Reviewed by me: Yes Radiology Reviewed by me: Yes <Lida Patten - Last Filed: 02/22/18 11:57> - Objective Vital Signs & Weight: Vital Signs (12 hours) Temp Pulse Resp BP BP Pulse Ox 02/22/18 12:00 101 H 20 96 02/22/18 11:35 97.3 F L 66 16 142/84 H 92 L 02/22/18 08:00 97.6 F 84 18 99 02/22/18 07:25 97.6 F 84 18 157/91 H 99 02/22/18 06:25 81 16 96 02/22/18 06:23 81 16 96 Weight Admit Weight 81.391 kg Weight 81.391 kg I&O: 02/21/18 02/22/18 02/23/18 06:59 06:59 06:59 Intake Total 2530 1360 Output Total 3225 2200 Balance -695 840 Result Diagrams: 02/18/18 09:58 02/22/18 04:40 <June Garcia - Last Filed: 02/22/18 12:20> Phys Exam - Physical Examination Constitutional: NAD HEENT: moist MMs, sclera anicteric Neck: supple Expiratory wheeze on right. Rhonchi anteriorly throughout on right Right basilar crackle Cardiovascular: RRR, no significant murmur Gastrointestinal: soft, non-tender, no distention, positive bowel sounds Musculoskeletal: no edema, pulses present Neurological: non-focal, moves all 4 limbs Deviation from normal: A&O x2 Skin: no rash, cap refill <2 seconds <Lida Patten - Last Filed: 02/22/18 11:57> Dx/Plan (1) Acute and chronic respiratory failure with hypoxia Code(s): J96.21 - ACUTE AND CHRONIC RESPIRATORY FAILURE WITH HYPOXIA Status: Acute (2) Encephalopathy Code(s): G93.40 - ENCEPHALOPATHY, UNSPECIFIED Status: Acute (3) Hypernatremia Code(s): E87.0 - HYPEROSMOLALITY AND HYPERNATREMIA Status: Acute (4) Diabetes mellitus type 2 in obese Code(s): E11.69 - TYPE 2 DIABETES MELLITUS WITH OTHER SPECIFIED COMPLICATION; E66.9 - OBESITY, UNSPECIFIED Status: Acute (5) HTN (hypertension) Code(s): I10 - ESSENTIAL (PRIMARY) HYPERTENSION Status: Chronic Qualifiers: Hypertension type: essential hypertension Qualified Code(s): I10 - Essential (primary) hypertension (6) Obesity (BMI 30.0-34.9) Code(s): E66.9 - OBESITY, UNSPECIFIED Status: Chronic - Plan Plan: 73 year old with PMH COPD, HTN, DM2 that presents with AMS 1. Atypical encephalopathy likely 2/2 metabolic cause or hypoxemia - Alert and oriented x1 this AM. Likely component of delirium. - Blood cultures and urine cultures negative. Does not appear to be infectious cause based on labs and studies - Currently using D5W 100 mL/hr due to hypernatremia likely 2/2 poor PO intake; recommendations of nephrology - Encouraged family to help keep patient oriented to assist with delirium - TSH wnl - Patient evaluated by speech therapy. Recommended puree diet due to concerns for dysphagia. - CT brain negative for acute intracranial abnormalities - MRI brain cancelled as pt was initially going to require sedation and she was A&O x3 yesterday. Will reconsider if necessary. - Neurology consulted; appreciate recs - Nephrology consulted; appreciate recs - Remove infante catheter 2. Hypernatremia likely 2/2 poor PO intake - Considered chronic (uncertain if happened in 48 hour period) - D5W at 100 mL/hr; decrease fluids once tolerating PO - Na this AM 142; QAM BMP - BG ACHS, mild SSI 3. SHIRA, resolved - Volume repletion with D5W - Monitor BMP; SHIRA resolved 4. Hypokalemia - Replete as needed 5. Leukocytosis - Possibly 2/2 infection vs. leukemoid reaction - CXR shows pulmonary vascular congestion vs. pneumonitis. pt with recent history of CAP and COPD exacerbation on levoquin - Procal and lactic acid wnl - Blood negative; urine cx negative - UA nml 6. COPD - On 2L O2 chronically - pO2 improved with increase in O2; patient now requiring 3L to maintain sats in upper 90's. No retaining too much CO2 despite COPD. This may be patient's new baseline. - Continue home COPD medications - Continue duonebs 7. HTN - IV labetolol and hydralazine PRN for SBP >180; not requiring - Restart home medications - Patient has not required IV medications 8. HLD - Hold home medication 9. DM type 2 - Mild SSI; patient has not required insulin - ACHS accuchecks 10. Acute on chronic hypoxic respiratory failure - D-dimer mildly elevated at 2.72; bilateral LE dopplers negative for DVT. Unable to get VQ scan as patient was agitated and not able to be redirected long enough to get scan done - Monitor O2 sats; maintaining sats in upper 90's on 3L O2 - Duonebs [place]; does not appear to be 2/2 to COPD exacerbation or PNA currently - BNP wnl; Echo showed EF 50-55% with grade 1/3 diastolic dysfunction - CXR this AM pending 11. Possible adrenal insufficiency, ruled out - Baseline high BP on several BP medications; not requiring any PRN medications since hospitalization - Glucose low (low 100) despite being on D5W initially; this AM 116 - Cortisol 13.3 in AM - Patient seems to be improving. Likely related to poor PO intake. No need for steroids at this time. DVT PPX: Lovenox GI PPX: Pantoprazole Code Status: Full Code Dispo: Stable. Appears to still wax and wane in regards to mental status. Continue to re-orient. Will re-evaluate this afternoon. <Lida Patten - Last Filed: 02/22/18 11:57> Attending Addendum - Attending Addendum Date/Time: 02/22/18 1219 I personally evaluated the patient at 0930 am and discussed the management with Dr. Patten I agree with the History, Examination, Assessment and Plan documented above with any addition or exceptions noted below. Encephalopathy vs delirium- yesterday was completely appropriate and now this am waxing and waning with many repetative thoughts with lucid intervals. Labs stable and no obvious source at this time. Family encouraged to frequently reorient. Consider johan jarquin. CXR repeated to ensure no PNA and read as normal. Will encourage IS. <June Garcia - Last Filed: 02/22/18 12:20>
[2018-02-22] MEDS: Enoxaparin Sodium 40 MG/0.4 ML SYRINGE SC SCH (07:59)
[2018-02-22] MEDS: Pantoprazole 40 MG VIAL IVP SCH (07:59)
--- NOTE | 2018-02-22 11:39 | RAD ---
PORTABLE CHEST: Date: 02/22/18 HISTORY: Shortness of breath. FINDINGS: Heart size is upper limits of normal. Mediastinal structures are unremarkable. Lungs are clear of inf iltrates. IMPRESSION: No active intrathoracic disease. POS: [facility]
[2018-02-22] MEDS ORDERED: Melatonin 3 MG TAB PO PRN (15:24)
[2018-02-22 15:52] LABS: Actual Bicarbonate (HCO3a) 28.7 mEq/L (22-28); Base Excess (BEa) 4.3 mEq/L (-2.0 to +3.0); CO2 Tension 42.4 mmHg (35.0-45.0); O2 Tension (PaO2) 76.6 mmHg (> 70.0); pH, Arterial 7.45 (7.35-7.45)
[2018-02-22 15:53] LABS: Carboxyhemoglobin (COHb) 0.2 gm% (0.0-3.0); Hemoglobin (Hb) 11.4 g/dL (12.0-16.0)
[2018-02-22 15:54] LABS: Potassium - ABG Lab 3.2 mmol/L (3.70-5.30); Puncture Site RRA
[2018-02-22] MEDS: Melatonin 3 MG TAB PO PRN (21:35)
[2018-02-23 05:02] LABS: #Eosinphils 0.4 thou/uL (0.0-0.7); #Monocytes 0.6 thou/uL (0.11-0.59); #Neutrophils 5.1 thou/uL (1.40-6.50); %Basophils 0.4 % (0.0-1.0); %Eosinophils 5.8 % (0.0-10.0); %Lymphocytes 14.4 % (21.0-51.0); %Monocytes 8.6 % (0.0-10.0); %Neutrophils 70.8 % (42.0-75.0); Hemoglobin 10.4 g/dL (12.0-16.0); Mean Corpuscular HGB CONC 33.9 g/dL (32.0-36.0); Mean Corpuscular Hemoglobin 31.4 pg (27.0-31.0); Mean Corpuscular Volume 92.6 fL (78.0-98.0); Mean Platelet Volume 8.2 fL (7.4-10.4); Platelet Count 141 thou/uL (130-400); RBC Distribution Width 13.2 % (11.5-14.5); Red Blood Cell (RBC) Count 3.32 mill/uL (4.20-5.40); White Blood Cell (WBC) Count 7.2 thou/uL (4.8-10.8)
[2018-02-23 05:21] LABS: Anion Gap 7 mmol/L (10-20); BUN (Urea Nitrogen) Less than 4 mg/dL (9.8-20.1); Calc. Creatinine Clearance 82 mL/min (70-130); Calcium 8.4 mg/dL (7.8-10.44); Carbon Dioxide 32 mmol/L (23-31); Chloride 107 mmol/L (98-107); Estimated GFR-MDRD 70; Glucose 102 mg/dL (83-110); Potassium 3.3 mmol/L (3.5-5.1); Sodium 143 mmol/L (136-145)
[2018-02-23] MEDS: Dextrose 5% in Water 1,000 ML IV SCH (05:31)
[2018-02-23] MEDS: Mometasone/Formoterol 120 PUFF INHALER INH SCH (06:37)
--- NOTE | 2018-02-23 09:12 | PDOC.FM ---
- Subjective Subjective: Patient doing well this AM. No significant overnight events. She got melatonin last night and slept well. Daughter in room this morning conversating with her mother. She is carrying on full conversations and making sense of words. She is oriented to person and place. Patient denies any shortness of breath or chest pain. She ate most of her breakfast this AM. - Objective MAR Reviewed: Yes Vital Signs & Weight: Vital Signs (12 hours) Temp Pulse Resp BP BP Pulse Ox 02/23/18 07:56 98.6 F 83 16 142/73 H 98 02/23/18 06:41 88 18 90 L 02/23/18 06:37 84 18 90 L 02/23/18 00:20 92 16 96 02/22/18 21:36 98.8 F 96 156/70 H 93 L Weight Admit Weight 81.391 kg Weight 81.391 kg I&O: 02/22/18 02/23/18 02/24/18 06:59 06:59 06:59 Intake Total 1360 1080 Output Total 2200 1100 Balance -840 -20 Result Diagrams: 02/23/18 04:25 02/23/18 04:25 EKG Reviewed by me: Yes Radiology Reviewed by me: Yes <Lida Patten - Last Filed: 02/23/18 12:26> - Objective Vital Signs & Weight: Vital Signs (12 hours) Temp Pulse Resp BP Pulse Ox 02/23/18 08:00 98.6 F 83 16 98 02/23/18 07:56 98.6 F 83 16 142/73 H 98 02/23/18 06:41 88 18 90 L 02/23/18 06:37 84 18 90 L Weight Admit Weight 81.391 kg Weight 81.391 kg I&O: 02/22/18 02/23/18 02/24/18 06:59 06:59 06:59 Intake Total 1360 1080 Output Total 2200 1100 Balance -840 -20 Result Diagrams: 02/23/18 04:25 02/23/18 04:25 <Toby Coronel - Last Filed: 02/23/18 12:33> Phys Exam - Physical Examination Constitutional: NAD HEENT: moist MMs Neck: supple Rhonchi L>R with some wheezing Cardiovascular: RRR, no significant murmur Gastrointestinal: soft, non-tender, no distention, positive bowel sounds Musculoskeletal: no edema, pulses present Neurological: non-focal Psychiatric: normal affect Deviation from normal: A&Ox2 Skin: no rash, cap refill <2 seconds <Lida Patten - Last Filed: 02/23/18 12:26> Dx/Plan (1) Acute and chronic respiratory failure with hypoxia Code(s): J96.21 - ACUTE AND CHRONIC RESPIRATORY FAILURE WITH HYPOXIA Status: Acute (2) Encephalopathy Code(s): G93.40 - ENCEPHALOPATHY, UNSPECIFIED Status: Acute (3) Hypernatremia Code(s): E87.0 - HYPEROSMOLALITY AND HYPERNATREMIA Status: Acute (4) Diabetes mellitus type 2 in obese Code(s): E11.69 - TYPE 2 DIABETES MELLITUS WITH OTHER SPECIFIED COMPLICATION; E66.9 - OBESITY, UNSPECIFIED Status: Acute (5) HTN (hypertension) Code(s): I10 - ESSENTIAL (PRIMARY) HYPERTENSION Status: Chronic Qualifiers: Hypertension type: essential hypertension Qualified Code(s): I10 - Essential (primary) hypertension (6) Obesity (BMI 30.0-34.9) Code(s): E66.9 - OBESITY, UNSPECIFIED Status: Chronic - Plan Plan: 73 year old with PMH COPD, HTN, DM2 that presents with AMS 1. Atypical encephalopathy likely 2/2 metabolic cause or hypoxemia - Alert and oriented x2 this AM. Likely patient is waxing and waning d/t delirium. She is able to carry on full conversations without difficulty. She slept well last night. - Blood cultures and urine cultures negative. Does not appear to be infectious cause based on labs and studies - D/c fluids today - Encouraged family to help keep patient oriented to assist with delirium - TSH wnl - Patient evaluated by speech therapy. Recommended puree diet due to concerns for dysphagia. - CT brain negative for acute intracranial abnormalities - MRI brain cancelled as pt was initially going to require sedation. She was unable to get it done. Will re-try today. - Neurology consulted; appreciate recs - Nephrology consulted; appreciate recs - Removed infante catheter yesterday - Will check folic acid, B12, and B1 2. Hypernatremia likely 2/2 poor PO intake - Considered chronic (uncertain if happened in 48 hour period) - d/c fluids today - Na this AM 143; QAM BMP - BG ACHS, mild SSI ; not requiring insulin 3. SHIRA, resolved - Monitor BMP; SHIRA resolved 4. Hypokalemia - Replete as needed - Mg level slightly elevated 5. Leukocytosis - Possibly 2/2 infection vs. leukemoid reaction - CXR shows pulmonary vascular congestion vs. pneumonitis. pt with recent history of CAP and COPD exacerbation on levoquin; repeat cxr did not show any acute findings - Procal and lactic acid wnl - Blood negative; urine cx negative - UA nml 6. COPD - On 2L O2 chronically - pO2 improved with increase in O2; patient now requiring 3L to maintain sats in upper 90's. No retaining too much CO2 despite COPD. This may be patient's new baseline. - Continue home COPD medications - Continue duonebs - Recent ABG pH 7.45, pCO2 42.4, pO2 76.6 7. HTN - IV labetolol and hydralazine PRN for SBP >180; not requiring - Restart home medications once able to tolerate PO and if BP tolerates - Patient has not required IV medications 8. HLD - Hold home medication 9. DM type 2 - Mild SSI; patient has not required insulin - ACHS accuchecks 10. Acute on chronic hypoxic respiratory failure - D-dimer mildly elevated at 2.72; bilateral LE dopplers negative for DVT. Unable to get VQ scan as patient was agitated and not able to be redirected long enough to get scan done - Monitor O2 sats; maintaining sats in upper 90's on 3L O2 - Duonebs [place]; does not appear to be 2/2 to COPD exacerbation or PNA currently - BNP wnl; Echo showed EF 50-55% with grade 1/3 diastolic dysfunction - CXR did not show any infiltrates 11. Possible adrenal insufficiency, ruled out - Baseline high BP on several BP medications; not requiring any PRN medications since hospitalization - Glucose low (low 100) despite being on D5W initially; this AM 116 - Cortisol 13.3 in AM - Patient seems to be improving. Likely related to poor PO intake. No need for steroids at this time. DVT PPX: Lovenox GI PPX: Pantoprazole Code Status: Full Code Dispo: Stable. Appears to still wax and wane in regards to mental status, but is able to carry on conversation today and appears lucid. Continue to re- orient. Will re-evaluate this afternoon. Begin process for rehab. Attempt MRI today per neurology as patient now able to tolerate MRI. Fluids d/c'd. Patient tolerating PO. Will monitor Na in AM <Lida Patten - Last Filed: 02/23/18 12:26> Attending Addendum - Attending Addendum Date/Time: 02/23/18 1231 I personally evaluated the patient and discussed the management with Dr. Patten. I agree with and repeated the History, Examination, Assessment and Plan documented above with any addition or exceptions noted below. Pt doing well this AM. Very conversant and jovial. AOx3. Nonfocal exam. For her encephalopathy I feel this is almost certainly delirium that is no resolved but I would expect recrudescence to be the rule. Low suspicion for Wernicke's, but will check vitamin levels. Attempt MRI now that she is lucid and cooperative. Anticipate discharge in 1-2 days <Toby Coronel - Last Filed: 02/23/18 12:33>
[2018-02-23] MEDS: Enoxaparin Sodium 40 MG/0.4 ML SYRINGE SC SCH (09:26)
[2018-02-23] MEDS: Pantoprazole 40 MG VIAL IVP SCH (09:26)
--- NOTE | 2018-02-23 17:49 | MRI ---
MRI BRAIN NONCONTRAST: DATE: 02/23/2018 HISTORY: A 73-year-old female with encephalopathy. COMPARISON: No prior MRIs. FINDINGS: All the images are significantly degraded by patient motion, with the relative exception of the diffu marianna weighted images. There is no restricted diffusion to indicate any acute infarction. The T2 kwadwo ghted and FLAIR images are almost nondiagnostic because of the severe motion. The interpretation is based primarily on the echo planar images. There is a broad region of T2 prolongation throughout the sy. There are numerous patchy small focal regions of T2 prolongation in the bilateral mathis radi sarah and centrum semiovale. The ventricles are normal in size and configuration. No mass effect, mid line shift, acute intraaxial hemorrhage, or extraaxial fluid collection. IMPRESSION: 1. Large region of signal abnormality throughout the sy. 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 Recommend clinical correlation . 2. No mass effect and no hemorrhage. 3. At least moderate chronic ischemic white matter changes. CODE Dwight Funes POS: [facility]
--- NOTE | 2018-02-23 18:59 | RAD ---
RADIOGRAPH RIGHT FEMUR TWO VIEWS: HISTORY: A 73-year-old female with right thigh pain. FINDINGS: There is no evidence of fracture, periostitis, or destructive osseous lesion. No soft tissue calcifi cations. IMPRESSION: Negative. POS: [facility]
[2018-02-24] MEDS: Melatonin 3 MG TAB PO PRN (00:20)
[2018-02-24] MEDS: Mometasone/Formoterol 120 PUFF INHALER INH SCH (06:50)
[2018-02-24] MEDS: Enoxaparin Sodium 40 MG/0.4 ML SYRINGE SC SCH (07:48)
[2018-02-24] MEDS: Pantoprazole 40 MG VIAL IVP SCH (07:48)
--- NOTE | 2018-02-24 09:36 | PDOC.FM ---
- Subjective Subjective: Patient appeared to be doing well this AM. She was alert and oriented x3 when I initially went in to evaluate. She was drinking water without difficulty. However, upon re-evaluation an hour or two later with the Medicine team, patient appeared to be pleasantly delirious. No family was in the room at that time. She followed commands, but was easily distracted and was not oriented to person or time. She was able to tell us she was at a hospital in [place]. - Objective MAR Reviewed: Yes Vital Signs & Weight: Vital Signs (12 hours) Pulse Resp Pulse Ox 02/24/18 06:57 96 02/24/18 06:50 81 20 96 02/24/18 00:09 100 20 96 Weight Admit Weight 81.391 kg Weight 81.391 kg I&O: 02/23/18 02/24/18 02/25/18 06:59 06:59 06:59 Intake Total 1080 720 Output Total 1100 Balance -20 720 Result Diagrams: 02/23/18 04:25 02/23/18 04:25 EKG Reviewed by me: Yes Radiology Reviewed by me: Yes <Lida Patten - Last Filed: 02/24/18 10:47> - Objective Vital Signs & Weight: Vital Signs (12 hours) Temp Pulse Resp BP Pulse Ox 02/24/18 11:00 98.4 F 96 18 117/78 97 02/24/18 08:00 97.8 F 92 18 118/70 97 02/24/18 06:57 96 02/24/18 06:50 81 20 96 02/24/18 00:09 100 20 96 Weight Admit Weight 81.391 kg Weight 81.391 kg I&O: 02/23/18 02/24/18 02/25/18 06:59 06:59 06:59 Intake Total 1080 720 Output Total 1100 Balance -20 720 Result Diagrams: 02/23/18 04:25 02/23/18 04:25 <Toby Coronel - Last Filed: 02/24/18 11:35> Phys Exam - Physical Examination pleasantly delirious HEENT: moist MMs, sclera anicteric Neck: supple Respiratory: wheezing present Cardiovascular: RRR, no significant murmur Gastrointestinal: soft, no distention, positive bowel sounds Musculoskeletal: no edema, pulses present Neurological: non-focal Able to do heel to [place] with no difficulty Deviation from normal: Alert and oriented x1 Skin: no rash, cap refill <2 seconds <Lida Patten - Last Filed: 02/24/18 10:47> Dx/Plan (1) Acute and chronic respiratory failure with hypoxia Code(s): J96.21 - ACUTE AND CHRONIC RESPIRATORY FAILURE WITH HYPOXIA Status: Acute (2) Encephalopathy Code(s): G93.40 - ENCEPHALOPATHY, UNSPECIFIED Status: Acute (3) Hypernatremia Code(s): E87.0 - HYPEROSMOLALITY AND HYPERNATREMIA Status: Acute (4) Diabetes mellitus type 2 in obese Code(s): E11.69 - TYPE 2 DIABETES MELLITUS WITH OTHER SPECIFIED COMPLICATION; E66.9 - OBESITY, UNSPECIFIED Status: Acute (5) HTN (hypertension) Code(s): I10 - ESSENTIAL (PRIMARY) HYPERTENSION Status: Chronic Qualifiers: Hypertension type: essential hypertension Qualified Code(s): I10 - Essential (primary) hypertension (6) Obesity (BMI 30.0-34.9) Code(s): E66.9 - OBESITY, UNSPECIFIED Status: Chronic - Plan Plan: 73 year old with PMH COPD, HTN, DM2 that presents with AMS 1. Atypical encephalopathy likely 2/2 metabolic cause or hypoxemia - Alert and oriented x3 this AM. Likely patient is waxing and waning d/t delirium. She was able to conversate and make sense of her words today. - Blood cultures and urine cultures negative. Does not appear to be infectious cause based on labs and studies - BMP this AM pending - Encouraged family to help keep patient oriented to assist with delirium - TSH wnl - Patient evaluated by speech therapy. Recommended puree diet due to concerns for dysphagia. - CT brain negative for acute intracranial abnormalities - MRI brain suggested possible central pontine myelinolysis, but this does not correlate with patient's clinical picture - Neurology consulted; appreciate recs - Nephrology consulted; appreciate recs - Removed infante catheter yesterday - Folic acid and B1 pending - Vit B12 high 2. Hypernatremia likely 2/2 poor PO intake - Considered chronic (uncertain if happened in 48 hour period) - Na this AM pending - BG ACHS, mild SSI ; not requiring insulin 3. SHIRA, resolved - Monitor BMP; SHIRA resolved 4. Hypokalemia - Replete as needed - Mg level slightly elevated 5. Leukocytosis - Possibly 2/2 infection vs. leukemoid reaction - CXR shows pulmonary vascular congestion vs. pneumonitis. pt with recent history of CAP and COPD exacerbation on levoquin; repeat cxr did not show any acute findings - Procal and lactic acid wnl - Blood negative; urine cx negative - UA nml 6. COPD - On 2L O2 chronically - pO2 improved with increase in O2; patient now requiring 3L to maintain sats in upper 90's. No retaining too much CO2 despite COPD. This may be patient's new baseline. - Continue home COPD medications - Continue duonebs - Recent ABG pH 7.45, pCO2 42.4, pO2 76.6 - Lungs appear much improved this AM 7. HTN - IV labetolol and hydralazine PRN for SBP >180; not requiring - Restart home medications once able to tolerate PO and if BP tolerates - Patient has not required IV medications 8. HLD - Hold home medication 9. DM type 2 - Mild SSI; patient has not required insulin - ACHS accuchecks 10. Acute on chronic hypoxic respiratory failure - D-dimer mildly elevated at 2.72; bilateral LE dopplers negative for DVT. Unable to get VQ scan as patient was agitated and not able to be redirected long enough to get scan done - Monitor O2 sats; maintaining sats in upper 90's on 3L O2 - Duonebs [place]; does not appear to be 2/2 to COPD exacerbation or PNA currently - BNP wnl; Echo showed EF 50-55% with grade 1/3 diastolic dysfunction - CXR did not show any infiltrates 11. Possible adrenal insufficiency, ruled out - Baseline high BP on several BP medications; not requiring any PRN medications since hospitalization - Glucose low (low 100) despite being on D5W initially; this AM 116 - Cortisol 13.3 in AM - Patient seems to be improving. Likely related to poor PO intake. No need for steroids at this time. 12. Right upper leg pain - Doppler negative - xray negative DVT PPX: Lovenox GI PPX: Pantoprazole Code Status: Full Code Dispo: Stable. Appears to still wax and wane in regards to mental status, but is able to carry on conversation today and appears lucid. Continue to re- orient. Will re-evaluate this afternoon. Process for rehab started. Will touch base with neurology regarding results of MRI. <Lida Patten - Last Filed: 02/24/18 10:47> Attending Addendum - Attending Addendum Date/Time: 02/24/18 5626 I personally evaluated the patient and discussed the management with Dr. Patten. I agree with and repeated the History, Examination, Assessment and Plan documented above with any addition or exceptions noted below. Pt AOx1 this AM, is pleasant but inappropriate and asking to touch all of the residents in the room. Motor 5/5, heel to [place]/FTN reassuring and normal. SILT throughout. Her exam and clinical course are not consistent with osmotic demyelination. She has no history of overly corrected hypoNa and her picture fits more with delirium in light of its waxing and waning nature. Will discuss with neurology. <Toby Coronel - Last Filed: 02/24/18 11:35>
[2018-02-24 11:55] LABS: Anion Gap 12 mmol/L (10-20); BUN (Urea Nitrogen) 5 mg/dL (9.8-20.1); Calc. Creatinine Clearance 82 mL/min (70-130); Calcium 8.7 mg/dL (7.8-10.44); Carbon Dioxide 28 mmol/L (23-31); Chloride 104 mmol/L (98-107); Estimated GFR-MDRD 70; Glucose 101 mg/dL (83-110); Potassium 3.6 mmol/L (3.5-5.1); Sodium 140 mmol/L (136-145)
[2018-02-24 15:21] LABS: Folate,Hemolysate >620.0 ng/mL (Not Estab.); Hematocrit 30.1 % (34.0-46.6); RBC Folate Test Component Greater than 2060 ng/mL (>498)
[2018-02-25 05:10] LABS: Anion Gap 10 mmol/L (10-20); BUN (Urea Nitrogen) 5 mg/dL (9.8-20.1); Calc. Creatinine Clearance 83 mL/min (70-130); Calcium 8.6 mg/dL (7.8-10.44); Carbon Dioxide 32 mmol/L (23-31); Chloride 104 mmol/L (98-107); Estimated GFR-MDRD 71; Glucose 96 mg/dL (83-110); Potassium 3.3 mmol/L (3.5-5.1); Sodium 143 mmol/L (136-145)
[2018-02-25] MEDS: Mometasone/Formoterol 120 PUFF INHALER INH SCH (06:08)
--- NOTE | 2018-02-25 08:37 | PDOC.FM ---
- Subjective Subjective: Patient doing fairly well this AM. No significant overnight events. Patient alert this AM. She was answering questions appropriately but still repeating fairly often. She was oriented to place and time. She drank a whole bottle of water this AM without taking a breath. Son was in the room and states she is not as good as she has been previously, but better than some days. He understands that her mentation will wax and wane. - Objective MAR Reviewed: Yes Vital Signs & Weight: Vital Signs (12 hours) Temp Pulse Resp BP Pulse Ox 02/25/18 07:23 98.3 F 98 20 123/84 97 02/25/18 06:08 91 16 93 L 02/25/18 06:06 91 16 93 L 02/25/18 00:20 92 16 96 Weight Admit Weight 81.391 kg Weight 81.391 kg I&O: 02/24/18 02/25/18 02/26/18 06:59 06:59 06:59 Intake Total 720 880 Balance 720 880 Result Diagrams: 02/23/18 04:25 02/25/18 04:15 EKG Reviewed by me: Yes Radiology Reviewed by me: Yes <Lida Patten - Last Filed: 02/25/18 08:43> - Objective Vital Signs & Weight: Vital Signs (12 hours) Temp Pulse Resp BP Pulse Ox 02/25/18 11:30 98 18 97 02/25/18 08:00 98.3 F 98 20 97 02/25/18 07:23 98.3 F 98 20 123/84 97 02/25/18 06:08 91 16 93 L 02/25/18 06:06 91 16 93 L 02/25/18 00:20 92 16 96 Weight Admit Weight 81.391 kg Weight 81.391 kg I&O: 02/24/18 02/25/18 02/26/18 06:59 06:59 06:59 Intake Total 720 880 Balance 720 880 Result Diagrams: 02/23/18 04:25 02/25/18 04:15 <Toby Coronel - Last Filed: 02/25/18 12:17> Phys Exam - Physical Examination Constitutional: NAD HEENT: moist MMs, sclera anicteric Neck: supple Respiratory: no wheezing, clear to auscultation bilateral Cardiovascular: RRR, no significant murmur Gastrointestinal: soft, no distention, positive bowel sounds Musculoskeletal: no edema, pulses present Neurological: non-focal Deviation from normal: Repetitive. Oriented to time and place Skin: no rash, cap refill <2 seconds <Lida Patten - Last Filed: 02/25/18 08:43> Dx/Plan (1) Acute and chronic respiratory failure with hypoxia Code(s): J96.21 - ACUTE AND CHRONIC RESPIRATORY FAILURE WITH HYPOXIA Status: Acute (2) Encephalopathy Code(s): G93.40 - ENCEPHALOPATHY, UNSPECIFIED Status: Acute (3) Hypernatremia Code(s): E87.0 - HYPEROSMOLALITY AND HYPERNATREMIA Status: Acute (4) Diabetes mellitus type 2 in obese Code(s): E11.69 - TYPE 2 DIABETES MELLITUS WITH OTHER SPECIFIED COMPLICATION; E66.9 - OBESITY, UNSPECIFIED Status: Acute (5) HTN (hypertension) Code(s): I10 - ESSENTIAL (PRIMARY) HYPERTENSION Status: Chronic Qualifiers: Hypertension type: essential hypertension Qualified Code(s): I10 - Essential (primary) hypertension (6) Obesity (BMI 30.0-34.9) Code(s): E66.9 - OBESITY, UNSPECIFIED Status: Chronic - Plan Plan: 73 year old with PMH COPD, HTN, DM2 that presents with AMS 1. Atypical encephalopathy likely 2/2 metabolic cause or hypoxemia - Alert and oriented x2 this AM. Likely patient is waxing and waning d/t delirium. She was able to conversate and make sense of her words today but was still repeating words and phrases as she has done previously - Blood cultures and urine cultures negative. Does not appear to be infectious cause based on labs and studies - Na 143 this AM. Day #2 off of fluids - Encouraged family to help keep patient oriented to assist with delirium - TSH wnl - Patient evaluated by speech therapy. Recommended puree diet due to concerns for dysphagia. - CT brain negative for acute intracranial abnormalities - MRI brain suggested possible central pontine myelinolysis, but this does not correlate with patient's clinical picture; will touch base with neurology - Neurology consulted; appreciate recs - Nephrology consulted; appreciate recs - Folic acid and B1 pending - Vit B12 high 2. Hypernatremia likely 2/2 poor PO intake - Considered chronic (uncertain if happened in 48 hour period) - Na this AM 143 - BG ACHS, mild SSI ; not requiring insulin 3. SHIRA, resolved 4. Hypokalemia - Replete as needed - Mg level slightly elevated 5. Leukocytosis - Possibly 2/2 infection vs. leukemoid reaction - CXR shows pulmonary vascular congestion vs. pneumonitis. pt with recent history of CAP and COPD exacerbation on levoquin; repeat cxr did not show any acute findings - Procal and lactic acid wnl - Blood negative; urine cx negative - UA nml 6. COPD - On 2L O2 chronically - pO2 improved with increase in O2; patient now requiring 3L to maintain sats in upper 90's. No retaining too much CO2 despite COPD. This may be patient's new baseline. - Continue home COPD medications - Continue duonebs - Recent ABG pH 7.45, pCO2 42.4, pO2 76.6 - Lungs appear much improved this AM 7. HTN - IV labetolol and hydralazine PRN for SBP >180; not requiring - Restart home medications once able to tolerate PO and if BP tolerates - Patient has not required IV medications 8. HLD - Hold home medication 9. DM type 2 - Mild SSI; patient has not required insulin - ACHS accuchecks 10. Acute on chronic hypoxic respiratory failure - D-dimer mildly elevated at 2.72; bilateral LE dopplers negative for DVT. Unable to get VQ scan as patient was agitated and not able to be redirected long enough to get scan done - Monitor O2 sats; maintaining sats in upper 90's on 3L O2 - Duonebs casper; does not appear to be 2/2 to COPD exacerbation or PNA currently - BNP wnl; Echo showed EF 50-55% with grade 1/3 diastolic dysfunction - CXR did not show any infiltrates 11. Possible adrenal insufficiency, ruled out - Baseline high BP on several BP medications; not requiring any PRN medications since hospitalization - Glucose low (low 100) despite being on D5W initially; this AM 116 - Cortisol 13.3 in AM - Patient seems to be improving. Likely related to poor PO intake. No need for steroids at this time. 12. Right upper leg pain - Doppler negative - xray negative DVT PPX: Lovenox GI PPX: Pantoprazole Code Status: Full Code Dispo: Stable. Appears to still wax and wane in regards to mental status, but is able to carry on conversation today and appears lucid. Continue to re- orient. Will re-evaluate this afternoon. Process for rehab started. Will touch base with neurology regarding results of MRI as I was unable to do so yesterday. Discuss with family expectations and next steps. Goal of rehab given patient's clinical condition is improving. <Lida Patten - Last Filed: 02/25/18 08:43> Attending Addendum - Attending Addendum Date/Time: 02/25/18 1216 I personally evaluated the patient and discussed the management with Dr. Patten. I agree with and repeated the History, Examination, Assessment and Plan documented above with any addition or exceptions noted below. Essentially unchanged from yesterday. Denies any f/c/n/v/cp/sob. Just had EEG done. Very talkative and pleasant. Poor recall and somewhat [id number] and suggestible. Await EEG results and labs. Hopeful d/c tomorrow. <Toby Coronel - Last Filed: 02/25/18 12:17>
[2018-02-25] MEDS: Melatonin 3 MG TAB PO PRN ×2 (08:49→20:57)
[2018-02-25] MEDS: Enoxaparin Sodium 40 MG/0.4 ML SYRINGE SC SCH (08:50)
--- NOTE | 2018-02-25 14:36 | EEG ---
Referring Physician: Bright ROMAN EEG # [id number] TEST TYPE: ROUTINE PORTABLE INPATIENT REPORT: AN EEG USING THE INTERNATIONAL TEN-TWENTY SYSTEM OF ELECTRODE PLACEMENT WAS PERFORMED. The waking background is a medium amplitude 9 hertz Alpha frequency. The patient appeared a little drowsy during a small portion of the study, but otherwise no sleep was seen Photic stimulation was unremarkable. No epileptiform features were noted. IMPRESSION: THIS IS A NORMAL AWAKE AND DROWSY EEG. Buttonhole Maker Hand: VINCENT Tune Up Mechanic: EEG.SUNITHA MARRUFO
[2018-02-26 04:33] LABS: Anion Gap 10 mmol/L (10-20); BUN (Urea Nitrogen) 6 mg/dL (9.8-20.1); Calc. Creatinine Clearance 78 mL/min (70-130); Calcium 8.6 mg/dL (7.8-10.44); Carbon Dioxide 30 mmol/L (23-31); Chloride 106 mmol/L (98-107); Estimated GFR-MDRD 66; Glucose 99 mg/dL (83-110); Potassium 3.8 mmol/L (3.5-5.1); Sodium 142 mmol/L (136-145)
[2018-02-26] MEDS: Mometasone/Formoterol 120 PUFF INHALER INH SCH (07:58)
[2018-02-26] MEDS: Enoxaparin Sodium 40 MG/0.4 ML SYRINGE SC SCH (08:22)
--- NOTE | 2018-02-26 12:14 | PDOC.FM ---
- Subjective Subjective: Patient doing well this AM. No significant overnight events. Patient is conversating. She still has moments when she is confused, but in general she is doing much better. She is happy and joyful. She jokes around. She denies being short of breath or having chest pain. She does not have any complaint at this time. - Objective MAR Reviewed: Yes Vital Signs & Weight: Vital Signs (12 hours) Temp Pulse Resp BP Pulse Ox 02/26/18 11:00 98.4 F 88 18 115/74 97 02/26/18 08:39 98.3 F 106/69 02/26/18 08:00 98.3 F 88 16 94 L 02/26/18 07:59 96 02/26/18 07:52 88 16 98 02/26/18 00:14 98 02/26/18 00:11 88 16 98 Weight Admit Weight 81.391 kg Weight 81.391 kg I&O: 02/25/18 02/26/18 02/27/18 06:59 06:59 06:59 Intake Total 880 1120 Balance 880 1120 Result Diagrams: 02/23/18 04:25 02/26/18 03:40 EKG Reviewed by me: Yes Radiology Reviewed by me: Yes <Lida Patten - Last Filed: 02/26/18 12:04> - Objective Vital Signs & Weight: Vital Signs (12 hours) Temp Pulse Resp BP Pulse Ox Pulse Ox Pulse Ox 02/26/18 12:47 88 16 97 02/26/18 11:00 98.4 F 88 18 115/74 97 02/26/18 10:05 87 L 94 L 02/26/18 08:39 98.3 F 106/69 02/26/18 08:00 98.3 F 88 16 94 L 02/26/18 07:59 96 02/26/18 07:52 88 16 98 Weight Admit Weight 81.391 kg Weight 81.391 kg I&O: 02/25/18 02/26/18 02/27/18 06:59 06:59 06:59 Intake Total 880 1120 Balance 880 1120 Result Diagrams: 02/23/18 04:25 02/26/18 03:40 <Toby Coronel - Last Filed: 02/26/18 15:46> Phys Exam - Physical Examination Constitutional: NAD HEENT: moist MMs, sclera anicteric Respiratory: no wheezing Cardiovascular: RRR, no significant murmur Gastrointestinal: soft, non-tender, positive bowel sounds Musculoskeletal: no edema, pulses present Neurological: non-focal Psychiatric: normal affect Deviation from normal: Oriented to person and place Skin: normal turgor, cap refill <2 seconds <Lida Patten - Last Filed: 02/26/18 12:04> Dx/Plan (1) Acute and chronic respiratory failure with hypoxia Code(s): J96.21 - ACUTE AND CHRONIC RESPIRATORY FAILURE WITH HYPOXIA Status: Acute (2) Encephalopathy Code(s): G93.40 - ENCEPHALOPATHY, UNSPECIFIED Status: Acute (3) Hypernatremia Code(s): E87.0 - HYPEROSMOLALITY AND HYPERNATREMIA Status: Acute (4) Diabetes mellitus type 2 in obese Code(s): E11.69 - TYPE 2 DIABETES MELLITUS WITH OTHER SPECIFIED COMPLICATION; E66.9 - OBESITY, UNSPECIFIED Status: Acute (5) HTN (hypertension) Code(s): I10 - ESSENTIAL (PRIMARY) HYPERTENSION Status: Chronic Qualifiers: Hypertension type: essential hypertension Qualified Code(s): I10 - Essential (primary) hypertension (6) Obesity (BMI 30.0-34.9) Code(s): E66.9 - OBESITY, UNSPECIFIED Status: Chronic - Plan Plan: 73 year old with PMH COPD, HTN, DM2 that presents with AMS 1. Atypical encephalopathy likely 2/2 metabolic cause or hypoxemia - Alert and oriented x2 this AM. Likely patient is waxing and waning d/t delirium. She was able to conversate and make sense of her words - Blood cultures and urine cultures negative. Does not appear to be infectious cause based on labs and studies - Na stable off of fluids - Encouraged family to help keep patient oriented to assist with delirium - TSH wnl - Patient evaluated by speech therapy. Recommended puree diet due to concerns for dysphagia. - CT brain negative for acute intracranial abnormalities - MRI brain showed some white matter changes; results discussed with neurology - Neurology consulted; appreciate recs - Nephrology consulted; appreciate recs - Folic acid elevated, B1 nml - Vit B12 high - EEG normal 2. Hypernatremia likely 2/2 poor PO intake, resolved - Considered chronic (uncertain if happened in 48 hour period) - BG ACHS, mild SSI ; not requiring insulin - Resolved 3. SHIRA, resolved 4. Hypokalemia, resolved 5. Leukocytosis - Possibly 2/2 leukemoid reaction - CXR shows pulmonary vascular congestion vs. pneumonitis. pt with recent history of CAP and COPD exacerbation on levoquin; repeat cxr did not show any acute findings - Procal and lactic acid wnl - Blood negative; urine cx negative - UA nml 6. COPD - On 2L O2 chronically - pO2 improved with increase in O2; patient now requiring 3L to maintain sats in upper 90's. No retaining too much CO2 despite COPD. This may be patient's new baseline. - Continue home COPD medications - Send out on 3L O2 7. HTN - IV labetolol and hydralazine PRN for SBP >180; not requiring - May not need to go home on medications; was not requiring during hospitalization - Patient has not required IV medications 8. HLD - Restart upon d/c 9. DM type 2 - Mild SSI; patient has not required insulin - ACHS accuchecks 10. Acute on chronic hypoxic respiratory failure - D-dimer mildly elevated at 2.72; bilateral LE dopplers negative for DVT. Unable to get VQ scan as patient was agitated and not able to be redirected long enough to get scan done - Monitor O2 sats; maintaining sats in upper 90's on 3L O2 - BNP wnl; Echo showed EF 50-55% with grade 1/3 diastolic dysfunction - CXR did not show any infiltrates 11. Possible adrenal insufficiency, ruled out - Baseline high BP on several BP medications; not requiring any PRN medications since hospitalization - Glucose low (low 100) despite being on D5W initially - Cortisol 13.3 in AM - Patient seems to be improving. Likely related to poor PO intake. No need for steroids at this time. 12. Right upper leg pain - Doppler negative - xray negative DVT PPX: Lovenox GI PPX: Pantoprazole Code Status: Full Code Dispo: Stable. Plan for d/c to inpatient rehab. <Lida Patten - Last Filed: 02/26/18 12:04> Attending Addendum - Attending Addendum Date/Time: 02/26/18 [id number] I personally evaluated the patient and discussed the management with Dr. Patten. I agree with and repeated the History, Examination, Assessment and Plan documented above with any addition or exceptions noted below. <Toby Coronel - Last Filed: 02/26/18 15:46>
[2018-02-26 16:18] VITALS: BP 107/68; TEMP 98.3
== END 2018-02-26 16:44 | DRG 189 ==
LOC: T4-A 12:08 → OBSVTOIN 14:10
PROVIDERS: ADMIT Family Medicine; ATTEND Family Medicine
DX: J96.21 Acute and chronic respiratory failure with hypoxia (principal); G93.40 Encephalopathy, unspecified; N17.9 Acute kidney failure, unspecified; E87.0 Hyperosmolality and hypernatremia; I13.0 Hypertensive heart and chronic kidney disease with heart failure and stage 1 through stage 4 chronic kidney disease, or unspecified chronic kidney disease; I50.32 Chronic diastolic (congestive) heart failure; R41.0 Disorientation, unspecified; E87.6 Hypokalemia; D64.9 Anemia, unspecified; J44.9 Chronic obstructive pulmonary disease, unspecified; K21.9 Gastro-esophageal reflux disease without esophagitis; E86.0 Dehydration; E66.9 Obesity, unspecified; Z68.32 Body mass index [BMI] 32.0-32.9, adult; D72.829 Elevated white blood cell count, unspecified; E11.22 Type 2 diabetes mellitus with diabetic chronic kidney disease; N18.9 Chronic kidney disease, unspecified
CPT/HCPCS: 36415; 36416; 70450; 70551; 71045; 80048; 80202; 80306; 81001; 82533; 82550; 82553; 82607; 82747; 82805; 83605; 83735; 83880; 83930; 83935; 84145; 84425; 84443; 84484; 85025; 85379; 86780; 87040; 87086; 93005; 93010; 93306; 93970; 94640; 95816; 95819; A4216; C9113; G8978-GP-CK; G8978-GP-CM; G8979-GP-CI; G8979-GP-CM; G8980-GP-CM; G8987-GO-CK; G8987-GO-CN; G8988-GO-CI; G8988-GO-CN; G8989-GO-CN; G8996-GN-CK; G8996-GN-CN; G8997-GN-CJ; J1630; J1650; J1940; J2543; J3370; J3480; J3486; J7050; J7620

== ENCOUNTER 2018-10-20 13:13 | Outpatient (CLI) | payer MEDICARE ==
--- NOTE | 2018-10-20 14:39 | CT ---
CT SCAN OF THE CHEST WITHOUT CONTRAST FOR LUNG CANCER SCREENING: HISTORY: Personal history of tobacco use. Forty-year history of smoking and the patient quit smoking 10-12 ye ars ago. Shortness of breath and COPD. COMPARISON: CT chest dated 07/30/2017. FINDINGS: There has been interval resolution of focal lobe consolidative changes since the last exam. There ar e bibasilar radicular nodular infiltrates, left greater than right also seen on the previous exam. T here is a focal density in the left lung base which was not seen on the previous study. This measure s 2.8 cm in largest dimension (cc). A similar small density is seen in the medial aspect of the left lower lobe. No pleural or pericardial effusions are seen. There are vascular calcifications without evidence of aneurysmal dilatation of the abdominal aorta. There is a 1 mm precarinal lymph node. There are dege nerative changes in the spine. A small hiatal hernia is present. IMPRESSION: Basilar lung changes may either be due to acute or chronic process. Recommend repeating the exam in 3 months after a course of antibiotics. CODE T POS: TPC
== END 2018-10-20 13:14 | disposition home or self-care (01) ==
LOC: CT 13:13
PROVIDERS: ATTEND Family Medicine
DX: Z87.891 Personal history of nicotine dependence (principal)
CPT/HCPCS: G0297

== ENCOUNTER 2020-01-14 12:23 | Outpatient (CLI) | payer MEDICARE ==
--- NOTE | 2020-01-14 13:35 | MRI ---
MRI Lumbar Spine Noncontrast: HISTORY: Lumbar radicular pain. Right hip pain and right leg pain. COMPARISON: None FINDINGS: Tiny less than 4 mm signal hyperintensities are seen in the posterior aspect of midportion of each ki dney which are too small to characterize. There is a larger 8 mm exophytic signal hyperintensity at the inferior pole right kidney statistically likely representing a cyst. Remainder of the retroperito radha structures demonstrate a normal nonenhanced MRI appearance. Conus medullaris is normal in morphology and terminates at the L1-2 level. Mild endplate degenerative changes are seen at the L4-5 and L5-S1 levels. Prominent Schmorl's nodes a re seen in the endplates at the T11-12 level. T12-L1: There is a mild broad-based disc osteophyte complex with a central disc protrusion/extrusion measuring approximately 7 mm AP x14 mm craniocaudal. This results in mass effect on the central aspect of the ventral subarachnoid space with slight effacement of the distal spinal cord. Neural for jimmie are patent at this level. L1-2: No disc bulge or disc herniation. Central spinal canal and neural foramina are patent. Mild fac et degenerative changes are present. L2-3: There is no disc bulge or disc herniation. Central spinal canal and neural foramina are patent. Mild facet degenerative changes are seen. L3-4: Mild loss of intervertebral disc height. Broad-based disc osteophyte complex is present. Facet hypertrophic changes and mild ligamentous thickening are noted. Findings result in mild narrowing of the central spinal canal with mild to moderate bilateral neural foraminal narrowing greater on the left. L4-5: Loss of intervertebral disc height. Broad-based disc osteophyte complex is present. There are f acet hypertrophic changes and ligamentous thickening. There is a right paracentral disc protrusion with AP dimensions of approximately 8 mm. Findings result in moderate central canal narrowing with gr eater mass effect on the right anterolateral aspect of the thecal sac. There is narrowing of the subarticular zones bilaterally at the level of disc protrusion. Severe bilateral neural foraminal mona rowing is present. L5-S1: Loss of intervertebral disc height with broad-based disc osteophyte complex. Facet hypertrophi c changes and ligamentous thickening are present. There is mild mass effect on the right lateral aspect of thecal sac due to ligamentous thickening and facet degenerative changes. However there is n o significant central canal narrowing. Moderate bilateral neural foraminal narrowing is present. IMPRESSION: 1. Multilevel degenerative changes lumbar spine greater in the lower lumbar spine. There is a disc os teophyte complex with central and right paracentral disc protrusion at the L4-5 level resulting in moderate central canal narrowing as well as narrowing of the subarticular zones bilaterally with resu ltant severe bilateral neural foraminal narrowing. 2. Focal disc protrusion/extrusion centrally at the T12-L1 which results in mass effect on the centra l canal. 3.
== END 2020-01-14 12:24 | disposition home or self-care (01) ==
LOC: BICMRI 12:23
PROVIDERS: ATTEND Family Medicine
DX: M51.16 Intervertebral disc disorders with radiculopathy, lumbar region (principal); G89.4 Chronic pain syndrome; M47.26 Other spondylosis with radiculopathy, lumbar region; M25.78 Osteophyte, vertebrae; M48.061 Spinal stenosis, lumbar region without neurogenic claudication; M51.24 Other intervertebral disc displacement, thoracic region; M48.9 Spondylopathy, unspecified
CPT/HCPCS: 72148

== ENCOUNTER 2020-06-13 14:44 | Inpatient (IN) | payer MEDICARE ==
--- NOTE | 2020-06-13 15:34 | RAD ---
EXAM: CHEST ONE VIEW HISTORY: Dyspnea. History of COPD. Difficulty breathing for last several days. COMPARISON: 08/24/2019 FINDINGS: Cardiac silhouette is magnified by projection but does appear mildly enlarged. The pulmonary vasculat ure is within normal limits. Patchy density is seen in the retrocardiac region left lung base which may be related to atelectasis versus pneumonitis. Slight blunting of the right lateral costophrenic a ngle is present which may represent tiny pleural effusion versus minimal pleural parenchymal scarring..Degenerative changes are again seen in the spine. No other interval change. IMPRESSION: Patchy parenchymal density retrocardiac region left lung base. This could be related to atelectasis, but pneumonitis left lung base is a possibility. Follow-up to resolution is recommended.
[2020-06-13 16:01] LABS: #Lymphocytes 0.6 thou/uL (1.20-3.40); #Monocytes 0.3 thou/uL (0.11-0.59); #Neutrophils 12.2 thou/uL (1.40-6.50); %Basophils 0.1 % (0.0-1.0); %Eosinophils 0.2 % (0.0-10.0); %Lymphocytes 4.4 % (21.0-51.0); %Monocytes 2.6 % (0.0-10.0); %Neutrophils 92.7 % (42.0-75.0); Hemoglobin 10.8 g/dL (12.0-16.0); Mean Corpuscular HGB CONC 31.4 g/dL (32.0-36.0); Mean Corpuscular Hemoglobin 29.6 pg (27.0-31.0); Mean Corpuscular Volume 94.4 fL (78.0-98.0); Mean Platelet Volume 6.8 fL (7.4-10.4); Platelet Count 335 thou/uL (130-400); RBC Distribution Width 12.5 % (11.5-14.5); Red Blood Cell (RBC) Count 3.65 mill/uL (4.20-5.40); White Blood Cell (WBC) Count 13.1 thou/uL (4.8-10.8)
[2020-06-13] MEDS ORDERED: Albuterol 200 PUFF (6.7GM INHALER) ONE ×2 (16:13→16:19)
[2020-06-13] MEDS ORDERED: cefTRIAXone\\ROCEPHIN 1 GM VIAL ONE (16:13)
[2020-06-13] MEDS ORDERED: Albuterol Sulfate 2.5 mg/0.5 ml Neb ONE (16:19)
[2020-06-13 16:23] LABS: ALT (SGPT) 18 U/L (8-55); AST (SGOT) 17 U/L (5-34); Albumin 3.8 g/dL (3.4-4.8); Alkaline Phosphatase 87 U/L (40-110); BUN (Urea Nitrogen) 12 mg/dL (9.8-20.1); Bilirubin, Total 0.5 mg/dL (0.2-1.2); Calc. Creatinine Clearance 0 mL/min (70-130); Calcium 8.9 mg/dL (7.8-10.44); Globulin 2.6 g/dL (2.4-3.5); Glucose 131 mg/dL (83-110); Protein, Total 6.4 g/dL (6.0-8.3)
[2020-06-13 16:32] LABS: Anion Gap 21 mmol/L (10-20); Carbon Dioxide 39 mmol/L (23-31); Chloride 85 mmol/L (98-107); Potassium 3.5 mmol/L (3.5-5.1); Sodium 141 mmol/L (136-145)
[2020-06-13] MEDS ORDERED: Magnesium 2 GM/50 ML BAG (IN WATER) ONE (16:35)
[2020-06-13] MEDS ORDERED: Azithromycin 250 MG TAB ONE (16:35)
[2020-06-13 17:04] LABS: SARS-CoV-2 NAA Rapid Test DETECTED (NotDetected)
--- NOTE | 2020-06-13 18:00 | PDOC.FPRHP ---
- History of Present Illness Chief Complaint: SOB History of Present Illness: 75yo F with h/o COPD presents for worsening shortness of breath. States onset about 2-3 days ago. Worsening SOB, productive cough, generalized fatigue. Uses 2-3L NC O2 at home. Denies known sick contacts. No fever/chills. No CP. No n/v. Tolerating PO. Diarrhea, nonbloody, few. Never been intubated for COPD. Patient states she does not know much of her medical history or illness course. ED Course: 2g Mag Proventil 1g Rocephin 500mg Azithro 4L NC - Allergies/Adverse Reactions Allergies Allergy/AdvReac Type Severity Reaction Status Date / Time No Known Allergies Allergy Verified 06/13/20 22:21 - Home Medications Medication Instructions Recorded Confirmed Type Atorvastatin Calcium [Lipitor] 20 mg PO HS 04/01/15 06/14/20 History FLUoxetine HCl [Prozac] 20 mg PO DAILY 04/01/15 06/14/20 History metFORMIN HCl 500 mg PO HS 04/01/15 06/14/20 History Carvedilol 25 mg PO BID 08/24/19 06/14/20 History Lisinopril/Hydrochlorothiazide 1 tablet PO DAILY 08/24/19 06/14/20 History [Lisinopril-Hctz 20-25 mg Tab] Amlodipine [Norvasc] 5 mg PO QPM #30 tab 08/26/19 06/14/20 Rx Ipratropium/Albuterol Sulfate 3 ml NEB [id number] neb 08/26/19 06/14/20 Rx [DuoNeb] Potassium Chloride [Klor-Con 10] 10 meq PO DAILY tab 08/26/19 06/14/20 Rx - History PMHx: COPD, h/o PNA last in August 2019, HTN, DM, HLD, GERD PSHx: Cataract sx, FHx: Unknown Social: Former tobacco user, quit >10 years ago. Drinks socially. Denies Illicit drug use. - Review of Systems General: reports: fatigue. denies: fever/chills, weight/appetite/sleep changes Eyes: denies: vision changes ENT: denies: nasal congestion, rhinorrhea Respiratory: reports: cough, congestion, shortness of breath Cardiovascular: denies: chest pain, palpitation, edema Gastrointestinal: reports: diarrhea. denies: nausea, vomiting, constipation, abdominal pain Genitourinary: denies: incontinence, dysuria, polyuria Skin: denies: rashes Neurological: denies: syncope - Vital signs BP: 145/87 HR: 89 RR: 18 Tmax: 98.4 Pox: 93% on 4L Wt: 72kg - Physical Exam Constitutional: NAD, awake, alert and oriented, well developed HEENT: PERRLA, EOMI, MMM -HEENT: NC in place Neck: supple, trachea midline Heart: RRR, normal S1/S2, no murmurs/rubs/gallops Lungs: other (wheezing inspiratory and expiratory) Abdomen: soft, non-tender, bowel sounds present, no masses/distention Skin: good turgor Psychiatric: normal mood and affect, good judgment and insight, intact recent and remote memory FMR H&P: Results - Labs Result Diagrams: 06/13/20 15:48 06/13/20 15:48 Lab results: WBC 13.1 thou/uL (4.8-10.8) H 06/13/20 15:48 Hgb 10.8 g/dL (12.0-16.0) L 06/13/20 15:48 Hct 34.5 % (36.0-47.0) L 06/13/20 15:48 MCV 94.4 fL (78.0-98.0) 06/13/20 15:48 Plt Count 335 thou/uL (130-400) 06/13/20 15:48 Neutrophils % 92.7 % (42.0-75.0) H 06/13/20 15:48 Sodium 141 mmol/L (136-145) 06/13/20 15:48 Potassium 3.5 mmol/L (3.5-5.1) 06/13/20 15:48 Chloride 85 mmol/L (98-107) L 06/13/20 15:48 Carbon Dioxide 39 mmol/L (23-31) H 06/13/20 15:48 BUN 12 mg/dL (9.8-20.1) 06/13/20 15:48 Creatinine 0.67 mg/dL (0.6-1.1) 06/13/20 15:48 Glucose 131 mg/dL (83-110) H 06/13/20 15:48 Calcium 8.9 mg/dL (7.8-10.44) 06/13/20 15:48 Total Bilirubin 0.5 mg/dL (0.2-1.2) 06/13/20 15:48 AST 17 U/L (5-34) 06/13/20 15:48 ALT 18 U/L (8-55) 06/13/20 15:48 Alkaline Phosphatase 87 U/L (40-110) 06/13/20 15:48 B-Natriuretic Peptide 47.0 pg/mL (0-100) 06/13/20 15:48 Serum Total Protein 6.4 g/dL (6.0-8.3) 06/13/20 15:48 Albumin 3.8 g/dL (3.4-4.8) 06/13/20 15:48 - Radiology Interpretation Chest x-ray Status: report reviewed by me (L left base atlestasis/peumonitis) FMR H&P: A/P - Problem List (1) Pneumonia due to COVID-19 virus Current Visit: Yes Status: Acute Code(s): U07.1 - COVID-19; J12.89 - OTHER VIRAL PNEUMONIA (2) COPD exacerbation Current Visit: Yes Status: Acute Code(s): J44.1 - CHRONIC OBSTRUCTIVE PULMONARY DISEASE W (ACUTE) EXACERBATION - Plan #Acute hypoxic respiratory failure 2/2 COPD exacerbation 2/2 COVID PNA - s/p steroids and antibiotics in ED - COVID positive at admission on 06/13 - Dexadron 6mg daily - Convalescent plasma and Remdesivir ordered - On 4L NC (2L NC at baseline) and satting mid-90s. - COVID inflammatory labs ordered, will trend ##COPD exacerbation -do not believe this to be CAP so will d/c rocephin -will continue azithromycin for pt's COPD exacerbation -treatment as above #HTN - Home meds #Diabetes - Hyperglycemic protocol, home meds, monitor BG #HLD - home meds PCP: Toño VTE: Lovenox CODE: FULL Dispo: Admitted to medical. Will continue to monitor respiratory status. FMR H&P: Upper Level - Plan Date/Time: 06/13/20 0364 ITyrone MD, have evaluated this patient and agree with findings/plan as outlined by campus interviews intern resident. Pertinent changes/additions are listed here. I was present for and assisted in documentation of the forementioned history, physical, ROS, and exam. A/P: 75yo F with h/o COPD presents for worsening shortness of breath. #Acute hypoxic respiratory failure 2/2 COPD exacerbation 2/2 COVID PNA - Onset of sxs ~06/11 - COVID positive at admission on 06/13 - Dexadron 6mg qdaily - Dulera HFA - Convalescent plasma - Remdesivir - On 4L NC (2L NC at baseline) and satting mid-90s. Monitor resp status - COVID inflammatory labs ordered #HTN - Home meds #Diabetes - Hyperglycemic protocol, home meds, monitor BG #HLD - home meds PCP: Toño Code: Full VTE: Lovenox Diet: Diabetic IVF: SL Dispo: Admit to medical for acute hypoxic respiratory failure 2/2 COVID PNA and COPD exacerbation. Covid Labs. Covid treatment. Monitor resp status. Addendum - Attending - Attending Attestation Date/Time: 06/14/20 2375 I personally evaluated the patient and discussed the management with the team. I agree with the History, Examination, Assessment and Plan documented above with any addition or exceptions noted below.
--- NOTE | 2020-06-13 18:15 | PDOC.FPRHP ---
- History of Present Illness Chief Complaint: SOB - Allergies/Adverse Reactions Allergies Allergy/AdvReac Type Severity Reaction Status Date / Time No Known Allergies Allergy Verified 09/10/19 13:50 - Home Medications Medication Instructions Recorded Confirmed Type Atorvastatin Calcium [Lipitor] 20 mg PO HS 04/01/15 08/24/19 History FLUoxetine HCl [Prozac] 20 mg PO DAILY 04/01/15 08/24/19 History metFORMIN HCl 500 mg PO HS 04/01/15 08/24/19 History Carvedilol 25 mg PO BID 08/24/19 08/24/19 History Lisinopril/Hydrochlorothiazide 1 tablet PO DAILY 08/24/19 08/24/19 History [Lisinopril-Hctz 20-25 mg Tab] Melatonin 10 mg PO HS PRN 08/24/19 08/24/19 History Omeprazole 40 mg PO DAILY 08/24/19 08/24/19 History Amlodipine [Norvasc] 5 mg PO QPM #30 tab 08/26/19 Rx Arformoterol [Brovana] 15 mcg NEB BID-RT neb 08/26/19 Rx Ipratropium/Albuterol Sulfate 3 ml NEB [id number] neb 08/26/19 Rx [DuoNeb] Loperamide HCl [Imodium] 2 mg PO PRN PRN cap 08/26/19 Rx Potassium Chloride [Klor-Con 10] 10 meq PO DAILY tab 08/26/19 Rx predniSONE 40 mg PO QAM-WM #7 tab 08/26/19 Rx - History PMHx: PSHx: FHx: Social: - Vital signs BP: [] HR: [] RR: [] Tmax: [] Pox: []% on [] Wt: [] FMR H&P: Results - Labs Result Diagrams: 06/13/20 15:48 06/13/20 15:48 Lab results: WBC 13.1 thou/uL (4.8-10.8) H 06/13/20 15:48 Hgb 10.8 g/dL (12.0-16.0) L 06/13/20 15:48 Hct 34.5 % (36.0-47.0) L 06/13/20 15:48 MCV 94.4 fL (78.0-98.0) 06/13/20 15:48 Plt Count 335 thou/uL (130-400) 06/13/20 15:48 Neutrophils % 92.7 % (42.0-75.0) H 06/13/20 15:48 Sodium 141 mmol/L (136-145) 06/13/20 15:48 Potassium 3.5 mmol/L (3.5-5.1) 06/13/20 15:48 Chloride 85 mmol/L (98-107) L 06/13/20 15:48 Carbon Dioxide 39 mmol/L (23-31) H 06/13/20 15:48 BUN 12 mg/dL (9.8-20.1) 06/13/20 15:48 Creatinine 0.67 mg/dL (0.6-1.1) 06/13/20 15:48 Glucose 131 mg/dL (83-110) H 06/13/20 15:48 Calcium 8.9 mg/dL (7.8-10.44) 06/13/20 15:48 Total Bilirubin 0.5 mg/dL (0.2-1.2) 06/13/20 15:48 AST 17 U/L (5-34) 06/13/20 15:48 ALT 18 U/L (8-55) 06/13/20 15:48 Alkaline Phosphatase 87 U/L (40-110) 06/13/20 15:48 B-Natriuretic Peptide 47.0 pg/mL (0-100) 06/13/20 15:48 Serum Total Protein 6.4 g/dL (6.0-8.3) 06/13/20 15:48 Albumin 3.8 g/dL (3.4-4.8) 06/13/20 15:48 FMR H&P: Upper Level - Plan Date/Time: 06/13/20 8165 I, [], have evaluated this patient and agree with findings/plan as outlined by administration intern resident. Pertinent changes/additions are listed here.
[2020-06-13] MEDS ORDERED: Pharmacy to Dose REMDESIVIR IVPB PRN (18:20)
[2020-06-13] MEDS ORDERED: Dextrose 5% in Water 1,000 ML IV PRN ×2 (18:24→19:00)
[2020-06-13] MEDS ORDERED: Dextrose 50% Abboject 50 ML SYRINGE SLOW IVP PRN (18:24)
[2020-06-13] MEDS ORDERED: Dexamethasone 4 MG TAB PO SCH (18:30)
[2020-06-13] MEDS ORDERED: Dextrose 50% Abboject 50 ML SYRINGE IVP PRN (19:00)
[2020-06-13] MEDS ORDERED: Enoxaparin Sodium 40 MG/0.4 ML SYRINGE SC SCH (21:00)
[2020-06-13] MEDS: Acetaminophen 325 MG TAB PO PRN (22:28)
[2020-06-13] MEDS: Benzonatate 100 MG CAP PO PRN (22:29)
[2020-06-13] MEDS ORDERED: REMDESIVIR (EUA) 200 MG in Sodium Chloride 0.9% 250 ML 210 ML IV SCH (23:59)
[2020-06-14] MEDS: Albuterol 200 PUFF (6.7GM INHALER) INH PRN (03:00)
[2020-06-14] MEDS: Benzonatate 100 MG CAP PO PRN (05:22)
[2020-06-14] MEDS: Mometasone 200 MCG/Formoterol 5 MCG 120 PUFF INHALER INH SCH ×2 (05:35→17:21)
[2020-06-14 06:34] LABS: #Lymphocytes 0.6 thou/uL (1.20-3.40); #Monocytes 0.2 thou/uL (0.11-0.59); #Neutrophils 6.6 thou/uL (1.40-6.50); %Eosinophils 0.2 % (0.0-10.0); %Lymphocytes 7.8 % (21.0-51.0); %Monocytes 2.6 % (0.0-10.0); %Neutrophils 89.4 % (42.0-75.0); Mean Corpuscular HGB CONC 30.8 g/dL (32.0-36.0); Mean Corpuscular Hemoglobin 29.7 pg (27.0-31.0); Mean Corpuscular Volume 96.5 fL (78.0-98.0); Mean Platelet Volume 6.9 fL (7.4-10.4); Platelet Count 306 thou/uL (130-400); RBC Distribution Width 12.4 % (11.5-14.5); Red Blood Cell (RBC) Count 3.35 mill/uL (4.20-5.40); White Blood Cell (WBC) Count 7.4 thou/uL (4.8-10.8)
--- NOTE | 2020-06-14 07:05 | PDOC.FM ---
- Subjective Subjective: Mrs. Jensen is very anxious this morning. She is sitting on EOB and breathing heavily but denies feeling SOB or having CP. She "del angel snot even remember" if she has used her inhalers this morning as "everything has been a blur". She is unable to answer many questions due to being "not even able to think right now". She is concerned about her dx, about being in the hospital alone, and about "doing something I'm not supposed to do". She denies chills, N/V/D. - Objective Vital Signs & Weight: Vital Signs (12 hours) Temp Pulse Resp BP BP BP Pulse Ox 06/14/20 05:05 98.7 F 24 H 119/81 92 L 06/14/20 04:32 98.3 F 99 20 127/79 95 06/14/20 03:20 98.9 F 25 H 120/72 95 06/14/20 03:05 98.3 F 25 H 135/78 97 06/13/20 21:50 98 F 99 30 H 128/76 94 L 06/13/20 21:45 94 L Weight Weight 83.007 kg Most Recent Monitor Data Heart Rate from ECG 98 I&O: 06/12/20 06/13/20 06/14/20 06:59 06:59 06:59 Intake Total 890 Balance 890 Result Diagrams: 06/14/20 06:03 06/14/20 06:02 Phys Exam - Physical Examination Neck: supple, full ROM Expiratory wheezing on L Poor resp effort Cardiovascular: RRR, no significant murmur Musculoskeletal: no edema Neurological: non-focal, moves all 4 limbs Psychiatric: A&O x 3 Deviation from normal: Worried affect Skin: no rash Dx/Plan - Plan Plan: This is a 75F who presented with SOB and was found to have COVID PNA. Acute hypoxic respiratory failure 2/2 COPD exacerbation 2/2 COVID PNA - Sxs started 3 days ago. COVID positive at admission on 06/13. - Precautions ordered. - Decadron 6mg daily, Convalescent plasma, Remdesivir, Azithromycin, Lovenox - On 4L NC (2-3L NC at baseline) and satting mid-90s. * SpO2 goal is to stay between 88-92% - Monitor O2 status and consider ABG if condition deteriorates - Ferritin 134.8, LDH 283, CRP 11.68, D-dimer 1.36 - am CBC, CMP, daily D-dimer - Procal ordered COPD exacerbation -do not believe this to be CAP so d/c rocephin -will continue azithromycin for pt's COPD exacerbation -treatment as above Anxiety - Home Fluoxetine - Hydroxyzine prn HTN - Home meds. Will discuss hold precautions with nurse - Monitor vitals Diabetes - Hypoglycemic protocol - ACHS checks - Home meds HLD - home meds PCP: To[facility] VTE: Lovenox CODE: FULL Dispo: Admitted to medical. Will continue to monitor respiratory status. eLOS >48hrs
[2020-06-14 07:07] LABS: ALT (SGPT) 16 U/L (8-55); AST (SGOT) 15 U/L (5-34); Albumin 3.6 g/dL (3.4-4.8); Alkaline Phosphatase 76 U/L (40-110); BUN (Urea Nitrogen) 10 mg/dL (9.8-20.1); Bilirubin, Total 0.3 mg/dL (0.2-1.2); Calc. Creatinine Clearance 103 mL/min (70-130); Calcium 8.8 mg/dL (7.8-10.44); Globulin 3.2 g/dL (2.4-3.5); Glucose 153 mg/dL (83-110); Protein, Total 6.8 g/dL (6.0-8.3)
[2020-06-14 07:16] LABS: Anion Gap 22 mmol/L (10-20); Carbon Dioxide 38 mmol/L (23-31); Chloride 85 mmol/L (98-107); Potassium 3.5 mmol/L (3.5-5.1); Sodium 141 mmol/L (136-145)
[2020-06-14] MEDS: Azithromycin 250 MG TAB PO SCH (09:42)
[2020-06-14] MEDS: Dexamethasone 4 MG TAB PO SCH (09:42)
[2020-06-14] MEDS: Enoxaparin Sodium 40 MG/0.4 ML SYRINGE SC SCH (09:42)
[2020-06-14] MEDS ORDERED: FLUoxetine HCl 20 MG CAP PO SCH (12:30)
[2020-06-14] MEDS: Albuterol 200 PUFF (6.7GM INHALER) INH SCH ×2 (13:20→21:01)
[2020-06-14] MEDS: hydrOXYzine 25 MG TAB PO PRN (13:43)
[2020-06-14] MEDS ORDERED: cefTRIAXone\\ROCEPHIN 1 GM in Sodium Chloride 0.9% 100 ML IVPB SCH (16:00)
[2020-06-14] MEDS: cefTRIAXone\\ROCEPHIN 1 GM in Sodium Chloride 0.9% 100 ML IVPB SCH (17:22)
[2020-06-14] MEDS: Amlodipine 5 MG TAB PO SCH (21:01)
[2020-06-14] MEDS: Atorvastatin Calcium 20 MG TAB PO SCH (21:02)
[2020-06-14] MEDS: metFORMIN 500 MG TAB PO SCH (21:02)
[2020-06-14] MEDS: Carvedilol 25 MG TAB PO SCH (21:02)
[2020-06-14] MEDS: REMDESIVIR (EUA) 100 MG in Sodium Chloride 0.9% 250 ML 230 ML IV SCH (23:02)
[2020-06-15] MEDS: Albuterol 200 PUFF (6.7GM INHALER) INH SCH ×4 (03:33→18:54)
[2020-06-15] MEDS: Albuterol 200 PUFF (6.7GM INHALER) INH PRN (04:40)
[2020-06-15] MEDS: Mometasone 200 MCG/Formoterol 5 MCG 120 PUFF INHALER INH SCH ×2 (05:26→17:48)
--- NOTE | 2020-06-15 06:24 | PDOC.FM ---
- Subjective Subjective: Mrs. Jensen is feeling well this morning and had a good night. She had one episode where she was moving around in bed and felt like she couldn't breathe so she called her nurse who found her SpO2 to be in the 70s and turned up her O2 to 4L. When I saw her, she was at 100% and I was able to turn her O2 down to 2.5L with her SpO2 at 90%. She is eager to get out of bed and sit in the chair. She is very anxious and states her breathing looks heavy because of that but denies feeling SOB/dyspneic/painful on inspiration or in her chest. She denies N/V/D. - Objective Vital Signs & Weight: Vital Signs (12 hours) Temp Pulse Resp BP Pulse Ox 06/15/20 04:40 88 22 H 146/75 H 96 06/15/20 00:00 84 93 L 06/14/20 20:00 98.5 F 97 20 149/72 H 95 Weight Weight 83.007 kg Most Recent Monitor Data Heart Rate from ECG 98 I&O: 06/13/20 06/14/20 06/15/20 06:59 06:59 06:59 Intake Total 890 250 Output Total 700 Balance 890 -450 Result Diagrams: 06/15/20 06:18 06/15/20 06:18 Phys Exam - Physical Examination Constitutional: NAD Neck: supple Expiratory wheezing b/l. Poor effort Cardiovascular: RRR, no significant murmur Neurological: non-focal, moves all 4 limbs Psychiatric: A&O x 3 Anxious affect Skin: no rash Dx/Plan - Plan Plan: This is a 75F who presented with SOB and was found to have COVID PNA. Acute hypoxic respiratory failure 2/2 COPD exacerbation 2/2 COVID PNA - Sxs started 3 days prior to arrival. COVID positive on admission on 06/13. - Precautions ordered. - Decadron, Convalescent plasma, Remdesivir, Azithromycin, Lovenox - Baseline 2-3L NC. SpO2 goal is to stay between 88-92% * Monitor O2 status and consider ABG if condition deteriorates - Procal 0.04 - Ferritin 134.8, LDH 283, CRP 11.68 - am CBC, CMP, D-dimer * D-dimer 1.36 -> 1.61 -> 1.48 - will call daughter to update today COPD exacerbation -continue home meds -treatment as above Anxiety - Home Fluoxetine - Hydroxyzine prn HTN - Home meds - Monitor vitals Diabetes - Hypoglycemic protocol - ACHS checks - Home meds HLD - home meds PCP: To[facility] VTE: Lovenox CODE: FULL Dispo: Admitted to medical. Will continue to monitor respiratory status. eLOS >48hrs
[2020-06-15 07:10] LABS: ALT (SGPT) 17 U/L (8-55); AST (SGOT) 14 U/L (5-34); Albumin 3.5 g/dL (3.4-4.8); Alkaline Phosphatase 71 U/L (40-110); BUN (Urea Nitrogen) 14 mg/dL (9.8-20.1); Bilirubin, Total 0.3 mg/dL (0.2-1.2); Calc. Creatinine Clearance 108 mL/min (70-130); Calcium 8.7 mg/dL (7.8-10.44); Chloride 87 mmol/L (98-107); Globulin 3.1 g/dL (2.4-3.5); Glucose 133 mg/dL (83-110); Potassium 3.6 mmol/L (3.5-5.1); Protein, Total 6.6 g/dL (6.0-8.3); Sodium 142 mmol/L (136-145)
[2020-06-15 07:26] LABS: Carbon Dioxide 40 mmol/L (23-31)
[2020-06-15 07:27] LABS: #Monocytes 0.8 thou/uL (0.11-0.59); #Neutrophils 12.2 thou/uL (1.40-6.50); %Basophils 0.1 % (0.0-1.0); %Eosinophils 0.2 % (0.0-10.0); %Lymphocytes 6.9 % (21.0-51.0); Hemoglobin 10.6 g/dL (12.0-16.0); Mean Corpuscular Hemoglobin 29.4 pg (27.0-31.0); Mean Platelet Volume 6.6 fL (7.4-10.4); Platelet Count 393 thou/uL (130-400); RBC Distribution Width 12.5 % (11.5-14.5); Red Blood Cell (RBC) Count 3.61 mill/uL (4.20-5.40)
[2020-06-15 08:12] LABS: Anion Gap 19 mmol/L (10-20)
[2020-06-15] MEDS: Benzonatate 100 MG CAP PO PRN (10:47)
[2020-06-15] MEDS: Carvedilol 25 MG TAB PO SCH ×2 (10:48→21:33)
[2020-06-15] MEDS: Potassium Chloride 10 MEQ TAB PO SCH (10:48)
[2020-06-15] MEDS: hydrOXYzine 25 MG TAB PO PRN ×2 (10:48→21:33)
[2020-06-15] MEDS: Dexamethasone 4 MG TAB PO SCH (10:48)
[2020-06-15] MEDS: FLUoxetine HCl 20 MG CAP PO SCH (10:49)
[2020-06-15] MEDS: Azithromycin 250 MG TAB PO SCH (10:49)
[2020-06-15] MEDS: Enoxaparin Sodium 40 MG/0.4 ML SYRINGE SC SCH (10:49)
[2020-06-15] MEDS: Lisinopril/Hydrochlorothiazide 20/25 mg Tablet PO SCH (10:50)
[2020-06-15] MEDS: cefTRIAXone\\ROCEPHIN 1 GM in Sodium Chloride 0.9% 100 ML IVPB SCH (16:38)
[2020-06-15] MEDS: metFORMIN 500 MG TAB PO SCH (21:33)
[2020-06-15] MEDS: Amlodipine 5 MG TAB PO SCH (21:33)
[2020-06-15] MEDS: Atorvastatin Calcium 20 MG TAB PO SCH (21:33)
[2020-06-16] MEDS: REMDESIVIR (EUA) 100 MG in Sodium Chloride 0.9% 250 ML 230 ML IV SCH (00:49)
[2020-06-16] MEDS: Albuterol 200 PUFF (6.7GM INHALER) INH SCH ×4 (01:46→17:58)
[2020-06-16] MEDS: Mometasone 200 MCG/Formoterol 5 MCG 120 PUFF INHALER INH SCH ×2 (05:59→17:58)
[2020-06-16 06:01] LABS: #Lymphocytes 0.9 thou/uL (1.20-3.40); #Monocytes 0.6 thou/uL (0.11-0.59); #Neutrophils 10.1 thou/uL (1.40-6.50); %Basophils 0.1 % (0.0-1.0); %Eosinophils 0.1 % (0.0-10.0); %Lymphocytes 7.9 % (21.0-51.0); %Monocytes 4.8 % (0.0-10.0); %Neutrophils 87.1 % (42.0-75.0); Hemoglobin 10.8 g/dL (12.0-16.0); Mean Corpuscular HGB CONC 30.1 g/dL (32.0-36.0); Mean Corpuscular Hemoglobin 29.1 pg (27.0-31.0); Mean Corpuscular Volume 96.9 fL (78.0-98.0); Mean Platelet Volume 6.7 fL (7.4-10.4); Platelet Count 419 thou/uL (130-400); RBC Distribution Width 12.5 % (11.5-14.5); Red Blood Cell (RBC) Count 3.72 mill/uL (4.20-5.40); White Blood Cell (WBC) Count 11.6 thou/uL (4.8-10.8)
[2020-06-16 06:22] LABS: ALT (SGPT) 16 U/L (8-55); AST (SGOT) 12 U/L (5-34); Albumin 3.3 g/dL (3.4-4.8); Alkaline Phosphatase 71 U/L (40-110); BUN (Urea Nitrogen) 19 mg/dL (9.8-20.1); Bilirubin, Direct 0.2 mg/dL (0.1-0.3); Bilirubin, Total 0.3 mg/dL (0.2-1.2); Calc. Creatinine Clearance 103 mL/min (70-130); Calcium 8.8 mg/dL (7.8-10.44); Globulin 2.9 g/dL (2.4-3.5); Glucose 127 mg/dL (83-110); Protein, Total 6.2 g/dL (6.0-8.3)
--- NOTE | 2020-06-16 06:29 | PDOC.FM ---
- Subjective Subjective: Mrs. Jensen was resting comfortably this morning and feeling well when she woke up. She quickly becomes very anxious and appeared to be having some difficulty breathing but denied dyspnea, SOB, CP, N/V/D. Her daughter says she has a tendency to get very flustered when the physician comes in. She was satting in the low 90s at 1.5L NC at rest which is below her baseline. - Objective Vital Signs & Weight: Vital Signs (12 hours) Temp Pulse Resp BP BP Pulse Ox 06/16/20 03:43 98.7 F 71 22 H 149/84 H 97 06/16/20 00:20 97.9 F 79 18 130/79 95 06/15/20 20:02 97.7 F 84 20 143/83 H 91 L 06/15/20 19:47 97.5 F L 82 20 148/95 H 95 06/15/20 19:44 91 L Weight Weight 83.007 kg Most Recent Monitor Data Heart Rate from ECG 98 I&O: 06/14/20 06/15/20 06/16/20 06:59 06:59 06:59 Intake Total 890 250 750 Output Total 700 1000 Balance 890 -450 -250 Result Diagrams: 06/16/20 05:38 06/16/20 05:38 Phys Exam - Physical Examination Constitutional: NAD Neck: supple Mild wheezing, poor air movement Cardiovascular: RRR, no significant murmur Neurological: non-focal, moves all 4 limbs Psychiatric: A&O x 3 Deviation from normal: Anxious affect Skin: no rash Dx/Plan - Plan Plan: This is a 75F who presented with SOB and was found to have COVID PNA. Acute hypoxic respiratory failure 2/2 COPD exacerbation 2/2 COVID PNA - Sxs started 3 days prior to arrival. COVID positive on admission on 06/13. - Precautions ordered. - Decadron, Convalescent plasma, Remdesivir, Azithromycin, Lovenox - Baseline 2-3L NC. SpO2 goal is to stay between 88-92% * Monitor O2 status and consider ABG if condition deteriorates - am CBC, CMP, D-dimer * D-dimer 1.36 -> 1.61 -> 1.48 -> 1.23 - PT/OT consulted. CM consulted to help pt obtain inhalers after d/c - Very anxious. Will place a spiritual consult. COPD exacerbation -continue home meds -treatment as above Anxiety - Home Fluoxetine - Hydroxyzine prn - Daughter says pt has a tendency to get anxious in the hospital and flustered around physicians HTN - Home meds - Monitor vitals Diabetes - Hypoglycemic protocol - ACHS checks - Home meds HLD - home meds PCP: [facility] VTE: Lovenox CODE: FULL Dispo: Admitted to medical. Will continue to monitor respiratory status. eLOS >48hrs
[2020-06-16 06:34] LABS: Anion Gap 18 mmol/L (10-20); Chloride 85 mmol/L (98-107); Potassium 3.9 mmol/L (3.5-5.1); Sodium 140 mmol/L (136-145)
[2020-06-16 06:36] LABS: Carbon Dioxide 41 mmol/L (23-31)
[2020-06-16] MEDS: Azithromycin 250 MG TAB PO SCH (08:45)
[2020-06-16] MEDS: Carvedilol 25 MG TAB PO SCH ×2 (08:45→21:55)
[2020-06-16] MEDS: Potassium Chloride 10 MEQ TAB PO SCH (08:45)
[2020-06-16] MEDS: Dexamethasone 4 MG TAB PO SCH (08:45)
[2020-06-16] MEDS: FLUoxetine HCl 20 MG CAP PO SCH (08:45)
[2020-06-16] MEDS: AcetaZOLAMIDE 250 MG TAB PO SCH ×3 (08:45→21:55)
[2020-06-16] MEDS: Lisinopril/Hydrochlorothiazide 20/25 mg Tablet PO SCH (08:45)
[2020-06-16] MEDS: hydrOXYzine 25 MG TAB PO PRN ×2 (08:45→21:55)
[2020-06-16] MEDS: Enoxaparin Sodium 40 MG/0.4 ML SYRINGE SC SCH (08:46)
[2020-06-16] MEDS ORDERED: AcetaZOLAMIDE 250 MG TAB PO SCH (09:00)
[2020-06-16] MEDS: Albuterol 200 PUFF (6.7GM INHALER) INH PRN (11:02)
[2020-06-16] MEDS: Acetaminophen 325 MG TAB PO PRN (11:12)
[2020-06-16] MEDS: cefTRIAXone\\ROCEPHIN 1 GM in Sodium Chloride 0.9% 100 ML IVPB SCH (15:13)
[2020-06-16] MEDS: Atorvastatin Calcium 20 MG TAB PO SCH (21:55)
[2020-06-16] MEDS: metFORMIN 500 MG TAB PO SCH (21:55)
[2020-06-16] MEDS: Amlodipine 5 MG TAB PO SCH (21:56)
[2020-06-17] MEDS: REMDESIVIR (EUA) 100 MG in Sodium Chloride 0.9% 250 ML 230 ML IV SCH (00:25)
[2020-06-17] MEDS: Albuterol 200 PUFF (6.7GM INHALER) INH SCH ×5 (01:30→21:38)
--- NOTE | 2020-06-17 05:26 | PDOC.FM ---
- Subjective Subjective: Mrs. Jensen is doing well this morning and appears much less anxious than she has the previous mornings. She continues to deny dyspnea/SOB/CP and appears to be breathing easier. Her SpO2 was 91-93% on 2L NC throughout my visit with her this morning. - Objective Vital Signs & Weight: Vital Signs (12 hours) Temp Pulse Resp BP BP Pulse Ox 06/17/20 01:47 94 L 06/17/20 00:20 97.8 F 78 20 131/83 94 L 06/16/20 20:00 97.9 F 73 18 135/80 94 L 06/16/20 19:44 94 L Weight Weight 83.007 kg Most Recent Monitor Data Heart Rate from ECG 98 I&O: 06/15/20 06/16/20 06/17/20 06:59 06:59 06:59 Intake Total 250 750 Output Total 700 1000 Balance -450 -250 Result Diagrams: 06/17/20 06:05 06/17/20 06:05 Phys Exam - Physical Examination Constitutional: NAD Neck: supple Wheezing and coarse breath sounds b/l Cardiovascular: RRR, no significant murmur Neurological: non-focal, moves all 4 limbs Psychiatric: normal affect Dx/Plan - Plan Plan: This is a 75F who presented with SOB and was found to have COVID PNA. Acute hypoxic respiratory failure 2/2 COPD exacerbation 2/2 COVID PNA - Sxs started approx 06/11; today is day 7 of illness. - COVID positive on admission on 06/13. - Precautions ordered. - Decadron, Remdesivir, Lovenox - Baseline 2-3L NC. SpO2 goal is to stay between 88-92% * Monitor O2 status and consider ABG if condition deteriorates - am CBC, CMP, D-dimer * D-dimer 1.36 >> 1.48 >> 1.06 - Bicarb on CMP: * 06/16: HCO3 41. Acetazolamide was administered * 06/17: HCO3 >74. Acetazolamide will be administered again. Will obtain ABG. Will start NS at 100mL/h for acidifying properties. - PT/OT consulted. * PT recommends rehab. Will call daughter today - CM consulted for d/c planning and to help pt obtain inhalers after d/c - Spiritual consult. SHIRA - 06/17: BUN bumped to 25 and Cr bumped to 0.73 with low intake recorded and in the setting of home Lisinopril/HCTZ, is concerning for dehydration. - Will start NS, as described above, and monitor with am CMPs COPD exacerbation -continue home meds -Azithromycin -treatment as above Anxiety - Home Fluoxetine - Hydroxyzine prn - Daughter says pt has a tendency to get anxious in the hospital and flustered around physicians HTN - Home meds - Monitor vitals Diabetes - Hypoglycemic protocol - ACHS checks - Home meds HLD - home meds PCP: To[facility] VTE: Lovenox CODE: FULL Dispo: Admitted to medical. Will continue to monitor respiratory status and keep until day 8-10 of illness to ensure she doesn't decompensate. Addendum - Attending - Attending Attestation Date/Time: 06/17/20 3395 I personally evaluated the patient and discussed the management with Dr. Abraham Knight. I agree with the History, Examination, Assessment and Plan documented above with any addition or exceptions noted below. The patient's respiratory status is stable this morning. bicarb elevated, giving acetazolamide and checking abg. Continue supportive medications.
[2020-06-17] MEDS: Mometasone 200 MCG/Formoterol 5 MCG 120 PUFF INHALER INH SCH ×2 (06:00→17:38)
[2020-06-17 07:34] LABS: ALT (SGPT) 19 U/L (8-55); AST (SGOT) 14 U/L (5-34); Albumin 3.7 g/dL (3.4-4.8); Alkaline Phosphatase 74 U/L (40-110); BUN (Urea Nitrogen) 25 mg/dL (9.8-20.1); Bilirubin, Total 0.4 mg/dL (0.2-1.2); Calc. Creatinine Clearance 90 mL/min (70-130); Calcium 9.3 mg/dL (7.8-10.44); Globulin 3.2 g/dL (2.4-3.5); Glucose 110 mg/dL (83-110); Protein, Total 6.9 g/dL (6.0-8.3)
[2020-06-17 07:48] LABS: Chloride 90 mmol/L (98-107); Potassium 3.8 mmol/L (3.5-5.1); Sodium 140 mmol/L (136-145)
[2020-06-17 07:54] LABS: Carbon Dioxide Greater than 74 mmol/L (23-31)
[2020-06-17 08:08] LABS: White Blood Cell (WBC) Count 14.2 thou/uL (4.8-10.8)
[2020-06-17] MEDS ORDERED: Lactated Ringer's 1,000 ML IV SCH (08:30)
[2020-06-17] MEDS ORDERED: acetaZOLAMIDE Sodium 500 mg Vial IVP SCH (09:00)
[2020-06-17 09:31] LABS: Actual Bicarbonate (HCO3a) 40.8 mEq/L (22-28); Base Excess (BEa) 11.6 mEq/L (-2.0 to +3.0); Calcium, Ionized (arterial) 1.22 mmol/L (1.12-1.30); Carboxyhemoglobin (COHb) 1.5 gm% (0.0-3.0); Hemoglobin (Hb) 12.9 g/dL (12.0-16.0); O2 Tension (PaO2), arterial 64.1 mmHg (> 70.0); Potassium - ABG Lab 3.43 mmol/L (3.70-5.30); pH, Arterial 7.33 (7.35-7.45)
[2020-06-17 09:33] LABS: CO2 Tension 78.9 mmHg (35.0-45.0)
[2020-06-17 09:34] LABS: ALV-art Gradient 36.915 mmHg (0-20); Puncture Site RRA
[2020-06-17] MEDS: Azithromycin 250 MG TAB PO SCH (09:47)
[2020-06-17] MEDS: Lisinopril/Hydrochlorothiazide 20/25 mg Tablet PO SCH (09:47)
[2020-06-17] MEDS: Potassium Chloride 10 MEQ TAB PO SCH (09:47)
[2020-06-17] MEDS: Carvedilol 25 MG TAB PO SCH ×3 (09:47→22:42)
[2020-06-17] MEDS: FLUoxetine HCl 20 MG CAP PO SCH (09:47)
[2020-06-17] MEDS: Dexamethasone 4 MG TAB PO SCH (09:47)
[2020-06-17] MEDS: Enoxaparin Sodium 40 MG/0.4 ML SYRINGE SC SCH (09:47)
[2020-06-17] MEDS: Sodium Chloride 0.9% 1,000 ML IV SCH ×2 (09:51→17:34)
[2020-06-17 10:09] LABS: #Lymphocytes 1.3 thou/uL (1.20-3.40); #Monocytes 0.9 thou/uL (0.11-0.59); %Basophils 0.1 % (0.0-1.0); %Eosinophils 0.1 % (0.0-10.0); %Lymphocytes 9.4 % (21.0-51.0); %Neutrophils 84.4 % (42.0-75.0); Hemoglobin 12.2 g/dL (12.0-16.0); Hypochromia SLIGHT = 6-15 cells (100X) (0-5/hpf); MDiff Complete? YES; Mean Corpuscular HGB CONC 29.7 g/dL (32.0-36.0); Mean Corpuscular Hemoglobin 28.4 pg (27.0-31.0); Mean Corpuscular Volume 95.4 fL (78.0-98.0); Mean Platelet Volume 7.3 fL (7.4-10.4); Platelet Count 470 thou/uL (130-400); Platelet Morphology Comment Appears Increased; Polychromasia SLIGHT = 2-3 cells (100X) (0-2/hpf); RBC Distribution Width 12.6 % (11.5-14.5); Target Cells SLIGHT = 2-5 cells (100X) (0-1/hpf)
[2020-06-17] MEDS ORDERED: AcetaZOLAMIDE 250 MG TAB PO SCH (10:30)
[2020-06-17] MEDS: AcetaZOLAMIDE 250 MG TAB PO SCH ×2 (15:15→21:37)
[2020-06-17] MEDS: cefTRIAXone\\ROCEPHIN 1 GM in Sodium Chloride 0.9% 100 ML IVPB SCH (15:16)
[2020-06-17] MEDS: Atorvastatin Calcium 20 MG TAB PO SCH (21:36)
[2020-06-17] MEDS: metFORMIN 500 MG TAB PO SCH (21:37)
[2020-06-17] MEDS: Amlodipine 5 MG TAB PO SCH (21:37)
[2020-06-18] MEDS: REMDESIVIR (EUA) 100 MG in Sodium Chloride 0.9% 250 ML 230 ML IV SCH (00:24)
[2020-06-18] MEDS: Albuterol 200 PUFF (6.7GM INHALER) INH SCH ×6 (03:01→23:09)
[2020-06-18] MEDS: Sodium Chloride 0.9% 1,000 ML IV SCH ×3 (04:59→21:24)
[2020-06-18 05:51] LABS: #Lymphocytes 0.7 thou/uL (1.20-3.40); #Monocytes 0.6 thou/uL (0.11-0.59); #Neutrophils 10.9 thou/uL (1.40-6.50); %Eosinophils 0.2 % (0.0-10.0); %Lymphocytes 5.4 % (21.0-51.0); %Monocytes 5.1 % (0.0-10.0); %Neutrophils 89.4 % (42.0-75.0); Hemoglobin 12.6 g/dL (12.0-16.0); Mean Corpuscular HGB CONC 30.9 g/dL (32.0-36.0); Mean Corpuscular Hemoglobin 29.9 pg (27.0-31.0); Mean Corpuscular Volume 96.8 fL (78.0-98.0); Mean Platelet Volume 6.8 fL (7.4-10.4); Platelet Count 439 thou/uL (130-400); RBC Distribution Width 12.6 % (11.5-14.5); Red Blood Cell (RBC) Count 4.22 mill/uL (4.20-5.40); White Blood Cell (WBC) Count 12.2 thou/uL (4.8-10.8)
[2020-06-18 06:06] LABS: ALT (SGPT) 16 U/L (8-55); AST (SGOT) 12 U/L (5-34); Albumin 3.4 g/dL (3.4-4.8); Alkaline Phosphatase 69 U/L (40-110); Anion Gap 13 mmol/L (10-20); BUN (Urea Nitrogen) 26 mg/dL (9.8-20.1); Bilirubin, Total 0.3 mg/dL (0.2-1.2); Calc. Creatinine Clearance 89 mL/min (70-130); Calcium 8.3 mg/dL (7.8-10.44); Carbon Dioxide 33 mmol/L (23-31); Chloride 95 mmol/L (98-107); Globulin 2.9 g/dL (2.4-3.5); Glucose 119 mg/dL (83-110); Potassium 3.8 mmol/L (3.5-5.1); Protein, Total 6.3 g/dL (6.0-8.3); Sodium 137 mmol/L (136-145)
[2020-06-18] MEDS: Mometasone 200 MCG/Formoterol 5 MCG 120 PUFF INHALER INH SCH ×2 (06:09→18:36)
--- NOTE | 2020-06-18 06:29 | PDOC.FM ---
- Subjective Subjective: Mrs. Jensen is doing well this morning. She is sitting in the chair by her bed although she does not remember how she got there. Her daughter says she began having some altered mentation on a previous hospital stay. She denies SOB, dyspnea, CP, and appears to be breathing comfortably on 2L NC. - Objective Vital Signs & Weight: Vital Signs (12 hours) Temp Pulse Resp BP Pulse Ox 06/18/20 00:00 97.9 F 80 20 116/75 92 L 06/17/20 21:37 74 06/17/20 20:00 97.8 F 72 22 H 111/76 90 L Weight Weight 83.007 kg Most Recent Monitor Data Heart Rate from ECG 98 I&O: 06/16/20 06/17/20 06/18/20 06:59 06:59 06:59 Intake Total 452 234 1454 Output Total 1000 1200 800 Balance -250 -470 890 Result Diagrams: 06/18/20 05:40 06/18/20 05:40 Phys Exam - Physical Examination Constitutional: NAD Neck: supple Mild wheezing Neurological: non-focal, moves all 4 limbs Psychiatric: normal affect Skin: no rash Dx/Plan - Plan Plan: This is a 75F who presented with SOB and was found to have COVID PNA. Acute hypoxic respiratory failure 2/2 COPD exacerbation 2/2 COVID PNA - Sxs started approx 06/11; today is day 8 of illness. - COVID positive on admission on 06/13. - Precautions ordered. Decadron, Lovenox, Rocephin. - Remdesivir tx completed. - Has been at baseline 2-3L NC. SpO2 goal is to stay between 88-92% * Monitor O2 status and consider ABG if condition deteriorates - am CBC to monitor WBC, mildly elevated likely 2/2 steroid - Bicarb on CMP: * 06/16: HCO3 41. Acetazolamide administered * 06/17: HCO3 >74. Acetazolamide administered again. NS at 100mL/h for acidifying properties. * 06/18: HCO3 33. Asx, chronic COPD. Will monitor - ABG on 06/18: pH 7.33, pCO2 78.9, pO2 65 indicating compensated respiratory acidosis - PT/OT consulted. * PT recommends rehab. - CM consulted for d/c planning and to help pt obtain inhalers after d/c * Given Covid +, no rehab. Referral to [facility] - Spiritual consult SHIRA - BUN bumped to 25 and Cr bumped to 0.73 with low intake recorded and in the setting of home Lisinopril/HCTZ, is concerning for dehydration. - NS, as above, and monitor with am BMPs COPD exacerbation -continue home meds -Azithromycin tx completed -treatment as above Anxiety - Home Fluoxetine - Hydroxyzine prn - Daughter says pt has a tendency to get anxious in the hospital and flustered around physicians HTN - Home meds - Monitor vitals Diabetes - Hypoglycemic protocol - ACHS checks - Home meds HLD - home meds PCP: To[facility] VTE: Lovenox CODE: FULL Dispo: Admitted to medical. Will continue to monitor respiratory status and keep until day 8-10 of illness to ensure she doesn't decompensate. Placement to SNF pending. Addendum - Attending - Attending Attestation Date/Time: 06/18/20 3769 I personally evaluated the patient and discussed the management with Dr. Abraham Knight. I agree with the History, Examination, Assessment and Plan documented above with any addition or exceptions noted below. The patient was sleeping this morning and would open her eyes when I called her name, answer a question and then fell back asleep. She is stable. Will wean O2 as able. Try to improve strength. If she continues to do well, anticipate discharge in next 1-2 days to [facility] if approved.
[2020-06-18] MEDS: Lisinopril/Hydrochlorothiazide 20/25 mg Tablet PO SCH (10:00)
[2020-06-18] MEDS: Enoxaparin Sodium 40 MG/0.4 ML SYRINGE SC SCH (10:00)
[2020-06-18] MEDS: Carvedilol 25 MG TAB PO SCH ×2 (10:00→20:54)
[2020-06-18] MEDS: FLUoxetine HCl 20 MG CAP PO SCH (10:00)
[2020-06-18] MEDS: Potassium Chloride 10 MEQ TAB PO SCH (10:00)
[2020-06-18] MEDS: Dexamethasone 4 MG TAB PO SCH (10:01)
[2020-06-18] MEDS: cefTRIAXone\\ROCEPHIN 1 GM in Sodium Chloride 0.9% 100 ML IVPB SCH (15:40)
[2020-06-18] MEDS: Amlodipine 5 MG TAB PO SCH ×2 (20:54→21:25)
[2020-06-18] MEDS: Atorvastatin Calcium 20 MG TAB PO SCH (20:54)
[2020-06-18] MEDS: metFORMIN 500 MG TAB PO SCH (20:54)
[2020-06-19] MEDS: Sodium Chloride 0.9% 1,000 ML IV SCH ×4 (00:30→18:07)
[2020-06-19] MEDS: Albuterol 200 PUFF (6.7GM INHALER) INH SCH ×6 (03:00→21:57)
[2020-06-19] MEDS: Mometasone 200 MCG/Formoterol 5 MCG 120 PUFF INHALER INH SCH ×2 (06:17→18:06)
--- NOTE | 2020-06-19 06:17 | PDOC.FM ---
- Subjective Subjective: Mrs. Jensen is very sedated this morning. She is sleeping comfortably and arouses briefly but goes right back to sleep. This is similar to what was described by my attending yesterday morning although when I saw her later in the morning she was awake and alert. Her SpO2 this am was 98% so my suspicion is that she became hypercapnic overnight. I turned down her O2 until she was satting in the low 90s. I will check in on her later this morning to see if her status has improved. If not, we will get an ABG. - Objective Vital Signs & Weight: Vital Signs (12 hours) Temp Pulse Resp BP Pulse Ox 06/19/20 04:35 98/64 06/19/20 04:20 98.9 F 68 18 80/50 L 95 06/18/20 21:25 72 06/18/20 20:00 97.6 F 72 16 106/62 92 L Weight Weight 83.007 kg Most Recent Monitor Data Heart Rate from ECG 98 I&O: 06/17/20 06/18/20 06/19/20 06:59 06:59 06:59 Intake Total 730 3250 1800 Output Total 1200 1400 Balance -470 1850 1800 Result Diagrams: 06/19/20 06:37 06/19/20 06:37 Phys Exam - Physical Examination Constitutional: NAD Neck: supple Respiratory: clear to auscultation bilateral Cardiovascular: RRR, no significant murmur Sedated, could not assess Dx/Plan - Plan Plan: This is a 75F who presented with SOB and was found to have COVID PNA. Acute hypoxic respiratory failure 2/2 COPD exacerbation 2/2 COVID PNA - Sxs started approx 06/11; today is day 9 of illness. - COVID positive on admission on 06/13. - Precautions ordered. Decadron, Lovenox, Rocephin. - Has been requiring less than baseline 2-3L NC. SpO2 goal is to stay between 88-92% * Monitor O2 status and consider ABG if condition deteriorates - am CBC to monitor WBC, mildly elevated likely 2/2 steroid - Has required Acetazolamide for asx elevated bicarb during stay. am BMP to monitor * ABG 06/17 indicated compensated respiratory acidosis likely 2/2 chronic COPD - PT/OT consulted. Both recommend rehab. - CM consulted for d/c planning and to help pt obtain inhalers after d/c * Given Covid +, no rehab. Referral to [facility] - Spiritual consult - Delirium precautions d/t extended hospital stay and hx of altered mentation in previous admissions - Sedated this morning likely 2/2 hypercapnia. Will order ABG if does not improve with decreased O2 and SpO2 SHIRA - BUN and Cr have continued to rise despite mIVF - NS at 100mL/h - Monitor with am BMPs COPD exacerbation - treatment as above Anxiety - Home Fluoxetine - Hydroxyzine prn - Daughter says pt has a tendency to get anxious in the hospital and flustered around physicians HTN - Home meds - Monitor vitals Diabetes - Hypoglycemic protocol - ACHS checks - Home meds HLD - home meds PCP: Toño VTE: Lovenox CODE: FULL Dispo: Admitted to medical. Will continue to monitor respiratory status and level of sedation. Placement to SNF pending. Addendum - Attending - Attending Attestation Date/Time: 06/19/20 1235 I personally evaluated the patient and discussed the management with Dr. Abraham Knight. I agree with the History, Examination, Assessment and Plan documented above with any addition or exceptions noted below.
[2020-06-19 07:12] LABS: Anion Gap 12 mmol/L (10-20); BUN (Urea Nitrogen) 42 mg/dL (9.8-20.1); Calc. Creatinine Clearance 80 mL/min (70-130); Carbon Dioxide 32 mmol/L (23-31); Chloride 97 mmol/L (98-107); Glucose 126 mg/dL (83-110); Hemoglobin 11.2 g/dL (12.0-16.0); Mean Corpuscular HGB CONC 30.2 g/dL (32.0-36.0); Mean Corpuscular Hemoglobin 29.4 pg (27.0-31.0); Mean Corpuscular Volume 97.2 fL (78.0-98.0); Mean Platelet Volume 7.1 fL (7.4-10.4); Platelet Count 397 thou/uL (130-400); Potassium 4.1 mmol/L (3.5-5.1); RBC Distribution Width 12.8 % (11.5-14.5); Red Blood Cell (RBC) Count 3.81 mill/uL (4.20-5.40); Sodium 137 mmol/L (136-145); White Blood Cell (WBC) Count 12.8 thou/uL (4.8-10.8)
[2020-06-19] MEDS: Potassium Chloride 10 MEQ TAB PO SCH (08:01)
[2020-06-19] MEDS: FLUoxetine HCl 20 MG CAP PO SCH (08:02)
[2020-06-19] MEDS: Lisinopril/Hydrochlorothiazide 20/25 mg Tablet PO SCH (08:02)
[2020-06-19] MEDS: Carvedilol 25 MG TAB PO SCH ×2 (08:02→21:17)
[2020-06-19] MEDS: Enoxaparin Sodium 40 MG/0.4 ML SYRINGE SC SCH (08:02)
[2020-06-19 08:28] LABS: Band 8 % (5-11); Lymphocytes 6 % (21-51); MDiff Complete? YES; Monocytes 2 % (0-10); Myelocyte 1 % (0-0); Neutrophil 82 % (42-75); Platelet Morphology Comment Appears Adequate; Polychromasia SLIGHT = 2-3 cells (100X) (0-2/hpf); Reactive Lymphocytes 1 % (0-10)
[2020-06-19] MEDS: Dexamethasone 4 MG TAB PO SCH (09:47)
[2020-06-19] MEDS ORDERED: guaiFENesin ER 600 MG TAB PO PRN (15:52)
[2020-06-19 16:30] LABS: Actual Bicarbonate (HCO3a) 34.5 mEq/L (22-28); Calcium, Ionized (arterial) 1.18 mmol/L (1.12-1.30); Carboxyhemoglobin (COHb) 1.1 gm% (0.0-3.0); Potassium - ABG Lab 3.94 mmol/L (3.70-5.30)
[2020-06-19 16:33] LABS: CO2 Tension 89.2 mmHg (35.0-45.0); O2 Tension (PaO2), arterial 58.1 mmHg (> 70.0); Puncture Site RRA; pH, Arterial 7.21 (7.35-7.45)
[2020-06-19] MEDS: Atorvastatin Calcium 20 MG TAB PO SCH (21:17)
[2020-06-19] MEDS: metFORMIN 500 MG TAB PO SCH (21:17)
[2020-06-19] MEDS: Amlodipine 5 MG TAB PO SCH (21:17)
[2020-06-19] MEDS: Lactated Ringer's 1,000 ML IV SCH (21:40)
[2020-06-20] MEDS: Albuterol 200 PUFF (6.7GM INHALER) INH SCH ×5 (02:52→22:15)
[2020-06-20 04:13] LABS: #Eosinphils 0.1 thou/uL (0.0-0.7); #Lymphocytes 0.9 thou/uL (1.20-3.40); #Monocytes 0.9 thou/uL (0.11-0.59); #Neutrophils 13.2 thou/uL (1.40-6.50); %Basophils 0.2 % (0.0-1.0); %Eosinophils 0.4 % (0.0-10.0); %Lymphocytes 5.8 % (21.0-51.0); %Monocytes 5.9 % (0.0-10.0); %Neutrophils 87.7 % (42.0-75.0); Hemoglobin 11.2 g/dL (12.0-16.0); Mean Corpuscular HGB CONC 31.2 g/dL (32.0-36.0); Mean Corpuscular Hemoglobin 30.1 pg (27.0-31.0); Mean Corpuscular Volume 96.4 fL (78.0-98.0); Mean Platelet Volume 7.3 fL (7.4-10.4); Platelet Count 370 thou/uL (130-400); RBC Distribution Width 13.1 % (11.5-14.5); Red Blood Cell (RBC) Count 3.71 mill/uL (4.20-5.40); White Blood Cell (WBC) Count 15.1 thou/uL (4.8-10.8)
[2020-06-20 04:28] LABS: Anion Gap 12 mmol/L (10-20); BUN (Urea Nitrogen) 45 mg/dL (9.8-20.1); Calc. Creatinine Clearance 88 mL/min (70-130); Calcium 8.2 mg/dL (7.8-10.44); Carbon Dioxide 34 mmol/L (23-31); Chloride 100 mmol/L (98-107); Glucose 99 mg/dL (83-110); Potassium 4.6 mmol/L (3.5-5.1); Sodium 141 mmol/L (136-145)
[2020-06-20] MEDS: Lactated Ringer's 1,000 ML IV SCH ×3 (05:51→20:11)
--- NOTE | 2020-06-20 06:24 | PDOC.FM ---
- Subjective Subjective: Transferred to [facility] yesterday afternoon due to need for BiPAP for hypercapnea with decreased alertness. This morning, she remains confused but is much more alert, asking when she is going to go to the hospital. She reports feeling cold. Otherwise without new complaint this morning. - Objective Vital Signs & Weight: Vital Signs (12 hours) Temp Pulse Resp Pulse Ox 06/20/20 02:53 69 20 92 L 06/20/20 00:00 98.9 F 06/19/20 21:58 72 18 95 06/19/20 21:17 85 06/19/20 19:14 85 18 100 Weight Weight 83.007 kg Most Recent Monitor Data Heart Rate from ECG 73 NIBP 112/69 NIBP BP-Mean 83 Respiration from ECG 16 SpO2 88 I&O: 06/18/20 06/19/20 06/20/20 06:59 06:59 06:59 Intake Total 3250 1800 160 Output Total 1400 Balance 1850 1800 160 Result Diagrams: 06/20/20 03:45 06/20/20 03:45 Phys Exam - Physical Examination Constitutional: NAD HEENT: moist MMs Respiratory: no wheezing coarse breath sounds bilaterally Cardiovascular: RRR, no significant murmur Gastrointestinal: soft, non-tender Musculoskeletal: no edema, pulses present Neurological: moves all 4 limbs Deviation from normal: oriented to self, not oriented to location Skin: no rash, normal turgor Dx/Plan - Plan Plan: This is a 75F who presented with SOB and was found to have COVID PNA. Acute hypoxic respiratory failure 2/2 COPD exacerbation 2/2 COVID PNA Initial sx 06/11, positive COVID screen 06/13 on admission. Initially admitted to medical, transferred to [facility] on 06/19 to receive BiPAP for decreased alertness and ABG with pH 7.2, pO2 58, pCO2 89. - continue decadron, lovenox - monitor respiratory status closely. Goal SpO2 88-92% in setting of COPD. - will repeat ABG this AM to assess continued need for BiPAP vs alternative O2 therapy - monitor AM BMP, has required acetazolamide this admission for asx elevated bicarb - PT/OT consulted - recommend rehab placement upon discharge - CM consulted - approved for [facility] prior to transfer to [facility] - Spiritual care consulted - Delirium precautions given extended hospital stay SHIRA - Cr improving - NS at 100mL/h - Monitor with am BMPs COPD exacerbation - treatment as above Anxiety - Home Fluoxetine - Hydroxyzine prn - Daughter says pt has a tendency to get anxious in the hospital and flustered around physicians HTN - Home meds - Monitor vitals Diabetes - Hypoglycemic protocol - ACHS checks - Home meds HLD - home meds PCP: Toño VTE: Lovenox CODE: FULL Dispo: Transferred to [facility] for BiPAP. Will continue to monitor respiratory status and level of sedation. Will eventually need SNF placement. Addendum - Attending - Attending Attestation Date/Time: 06/20/20 2718 I personally evaluated the patient and discussed the management with Dr. Shearer. I agree with the History, Examination, Assessment and Plan documented above with any addition or exceptions noted below. Patient's waxing mentation discovered yesterday 2/2 hypercapnia. She has been on Bipap overnight, somewhat improved but continues to be confused. Continue usual COVID care, Pulm on board. Redirect as tolerated to eliminate delirium. Swing bed once stable for discharge.
[2020-06-20] MEDS: Sodium Chloride 0.9% 1,000 ML IV SCH (07:22)
[2020-06-20] MEDS ORDERED: Dexamethasone 4 mg/ml Vial SLOW IVP SCH (09:30)
[2020-06-20] MEDS: Enoxaparin Sodium 40 MG/0.4 ML SYRINGE SC SCH (10:09)
[2020-06-20] MEDS: Carvedilol 25 MG TAB PO SCH ×2 (10:22→20:11)
[2020-06-20] MEDS: FLUoxetine HCl 20 MG CAP PO SCH (10:23)
[2020-06-20] MEDS: Lisinopril/Hydrochlorothiazide 20/25 mg Tablet PO SCH (10:23)
[2020-06-20] MEDS: Potassium Chloride 10 MEQ TAB PO SCH (10:23)
[2020-06-20] MEDS: Dexamethasone 4 MG TAB PO SCH (10:34)
[2020-06-20 10:59] LABS: Actual Bicarbonate (HCO3a) 34.6 mEq/L (22-28); Base Excess (BEa) 7.3 mEq/L (-2.0 to +3.0); Calcium, Ionized (arterial) 1.17 mmol/L (1.12-1.30); Hemoglobin (Hb) 11.5 g/dL (12.0-16.0); Potassium - ABG Lab 3.32 mmol/L (3.70-5.30); pH, Arterial 7.35 (7.35-7.45)
[2020-06-20 11:13] LABS: CO2 Tension 63.9 mmHg (35.0-45.0); O2 Tension (PaO2), arterial 59.1 mmHg (> 70.0); Puncture Site RBA
[2020-06-20 11:14] LABS: ALV-art Gradient 288.825 mmHg (0-20)
[2020-06-20] MEDS: Mometasone 200 MCG/Formoterol 5 MCG 120 PUFF INHALER INH SCH ×2 (13:48→19:08)
--- NOTE | 2020-06-20 17:48 | CON ---
DATE OF CONSULTATION: 06/20/2020 HISTORY OF PRESENT ILLNESS: Ms. Jensen is a 75-year-old female who was admitted on the . She has chronic obstructive pulmonary disease. She has had several days of shortness of breath prior to admission. She tested positive for COVID on 06/13. She was transferred to intensive care unit for BiPAP. Blood gas yesterday showed a CO2 of 89. Today, her CO2 is down to 63, her pH is up to 7.35, which is probably closer to her baseline. PAST MEDICAL HISTORY: Remarkable for: 1. COPD. 2. History of cardiomyopathy. 3. History of chronic hypoxemic respiratory failure, on oxygen at home. 4. History of depression. FAMILY HISTORY: Negative for lung disease in early age. REVIEW OF SYSTEMS: Ten-point is otherwise negative. PHYSICAL EXAMINATION: VITAL SIGNS: She is on BiPAP when I saw her, FiO2 is at 50%, heart rate is 80, blood pressure 139/80, respiratory rate is in the 20s. LUNGS: Breath sounds are distant. HEART: Regular rhythm. ABDOMEN: Soft. EXTREMITIES: Without asymmetry. LABORATORY DATA: White count 15.1, hemoglobin 11.2, and platelets 370. Electrolytes are unremarkable. BUN 45 and creatinine 0.7. IMPRESSION: COVID positive with minimal chest x-ray findings on presentation. Chest x-ray had been repeated, so I will repeat an x-ray in the morning. Certainly, chronic obstructive pulmonary disease could be the majority of her respiratory problems. Follow the other physicians caring for. TIME SPENT: 70-minute consult, 50% of the time was spent on the unit coordinating care. Job ID: [id number] MTDD
[2020-06-20] MEDS: Atorvastatin Calcium 20 MG TAB PO SCH (20:11)
[2020-06-20] MEDS: metFORMIN 500 MG TAB PO SCH (20:11)
[2020-06-20] MEDS: Amlodipine 5 MG TAB PO SCH (20:11)
[2020-06-21] MEDS: hydrOXYzine 25 MG TAB PO PRN (01:15)
[2020-06-21] MEDS: Albuterol 200 PUFF (6.7GM INHALER) INH SCH ×4 (02:00→16:10)
[2020-06-21 05:16] LABS: #Lymphocytes 0.8 thou/uL (1.20-3.40); #Monocytes 0.7 thou/uL (0.11-0.59); #Neutrophils 10.8 thou/uL (1.40-6.50); %Basophils 0.2 % (0.0-1.0); %Eosinophils 0.2 % (0.0-10.0); %Lymphocytes 6.2 % (21.0-51.0); %Monocytes 5.8 % (0.0-10.0); %Neutrophils 87.7 % (42.0-75.0); Hemoglobin 10.7 g/dL (12.0-16.0); Mean Corpuscular HGB CONC 30.9 g/dL (32.0-36.0); Mean Corpuscular Hemoglobin 28.8 pg (27.0-31.0); Mean Corpuscular Volume 93.4 fL (78.0-98.0); Mean Platelet Volume 7.7 fL (7.4-10.4); Platelet Count 382 thou/uL (130-400); RBC Distribution Width 13.3 % (11.5-14.5); Red Blood Cell (RBC) Count 3.71 mill/uL (4.20-5.40); White Blood Cell (WBC) Count 12.4 thou/uL (4.8-10.8)
[2020-06-21 05:24] LABS: Anion Gap 11 mmol/L (10-20); BUN (Urea Nitrogen) 28 mg/dL (9.8-20.1); Calc. Creatinine Clearance 103 mL/min (70-130); Calcium 8.1 mg/dL (7.8-10.44); Carbon Dioxide 35 mmol/L (23-31); Chloride 100 mmol/L (98-107); Glucose 128 mg/dL (83-110); Potassium 3.4 mmol/L (3.5-5.1); Sodium 143 mmol/L (136-145)
[2020-06-21] MEDS: Lactated Ringer's 1,000 ML IV SCH (06:02)
[2020-06-21] MEDS: Mometasone 200 MCG/Formoterol 5 MCG 120 PUFF INHALER INH SCH ×2 (06:20→18:31)
--- NOTE | 2020-06-21 06:26 | PDOC.FM ---
- Subjective Subjective: Routine chest XR performed overnight, team paged due to obvious L lung opacification. Vitals have remained stable including O2 saturation. She was transitioned from BiPAP to HFNC yesterday afternoon after improvement in her ABG yesterday. This morning, she is feeling SOB with exertion, and generally weak. She has a difficult time sitting up in the bed on her own, and is winded after rolling over to one side. Per nursing, she has been quite delirious overnight, asking whose house she is in. Has not slept overnight, awake since around 0100 per night nurse. - Objective Vital Signs & Weight: Vital Signs (12 hours) Temp Pulse Pulse Ox 06/21/20 03:59 97.4 F L 06/21/20 00:01 97.7 F 06/20/20 20:15 92 L 06/20/20 20:12 97.0 F L 06/20/20 20:11 69 Weight Weight 83.007 kg Most Recent Monitor Data Heart Rate from ECG 90 NIBP 154/70 NIBP BP-Mean 98 Respiration from ECG 17 SpO2 93 I&O: 06/19/20 06/20/20 06/21/20 06:59 06:59 06:59 Intake Total 1800 1317 Output Total 900 550 Balance 1800 417 -550 Result Diagrams: 06/21/20 04:39 06/21/20 04:39 Phys Exam - Physical Examination Constitutional: NAD Neck: supple bilaterally decreased breath sounds Cardiovascular: RRR, no significant murmur Musculoskeletal: no edema, pulses present Neurological: moves all 4 limbs BLE/BUE strength equal, CN 2-12 grossly intact, R pupil > L, poorly reactiv Deviation from normal: not oriented to location, situation Skin: normal turgor Dx/Plan - Plan Plan: This is a 75F who presented with SOB and was found to have COVID PNA. Acute hypoxic respiratory failure 2/2 COPD exacerbation 2/2 COVID PNA Initial sx 06/11, positive COVID screen 06/13 on admission. Initially admitted to medical, transferred to [facility] on 06/19 to receive BiPAP for decreased alertness and ABG with pH 7.2, pO2 58, pCO2 89. Now with improved alertness, transitioned to HFNC. - continue decadron, lovenox - monitor respiratory status closely. Goal SpO2 88-92% in setting of COPD. - PT/OT consulted - recommend rehab placement upon discharge - CM consulted - approved for [facility] prior to transfer to [facility] - Spiritual care consulted - Pulm consulted 06/20, appreciate recommendations L lung collapse, suspected CXR 06/21 with complete opacification of the L lung and tracheal deviation towards opacification. Possibly due to mucus plugging. Vital signs remain stable on HFNC. Official CXR read pending. - reviewed nursing notes, Dr. Cordero has been contacted, appreciate pulm recommendations. Delirium Waxing and waning orientation, altered sleep/wake cycle. Likely due to prolonged hospitalization, infection. Monitor for changes in respiratory status as mental status changes may also be related to hypercapnea in setting of COPD. - reorientation measures SHIRA - Cr improving - Monitor with am BMPs - Discontinued IVF due to likely pleural effusion COPD exacerbation - treatment as above Anxiety - Home Fluoxetine - Hydroxyzine prn - Daughter says pt has a tendency to get anxious in the hospital and flustered around physicians HTN - Home meds - Monitor vitals Diabetes - Hypoglycemic protocol - ACHS checks - Home meds HLD - home meds PCP: Toño VTE: Lovenox CODE: FULL Dispo: Remains in IMCU, transitioned from BiPAP to HFNC. Will continue to tadeo tor respiratory status and level of sedation. Will eventually need SNF placement. Addendum - Attending - Attending Attestation Date/Time: 06/21/20 9759 I personally evaluated the patient and discussed the management with Dr. Shearer. I agree with the History, Examination, Assessment and Plan documented above with any addition or exceptions noted below.
[2020-06-21] MEDS: Lisinopril/Hydrochlorothiazide 20/25 mg Tablet PO SCH (08:30)
[2020-06-21] MEDS: FLUoxetine HCl 20 MG CAP PO SCH (08:30)
[2020-06-21] MEDS: Carvedilol 25 MG TAB PO SCH ×2 (08:30→20:11)
[2020-06-21] MEDS: Potassium Chloride 10 MEQ TAB PO SCH (08:30)
[2020-06-21] MEDS: Enoxaparin Sodium 40 MG/0.4 ML SYRINGE SC SCH (08:31)
[2020-06-21] MEDS ORDERED: Dexamethasone 4 mg/ml Vial SLOW IVP SCH (09:00)
--- NOTE | 2020-06-21 09:57 | RAD ---
PORTABLE CHEST: HISTORY: COVID pneumonia. CCU followup. COMPARISON: 06/13/2020. FINDINGS: There is now complete opacification of the left hemithorax. Deviation of the trachea to the left sug gests diffuse volume loss in the left lung. The right lung is expanded and shows no focal consolidation, although there is mild interstitial prom inence which appears stable. IMPRESSION: Now new complete opacification of the left lung since the prior exam with shift of the mediastinum to the left indicating complete volume loss in the left lung which has occurred since the prior exam. Findings were related to MIKEY Bennett, at [facility] at time of dictation. He will notify Dr. Cordero of these f indings. CODE CR POS: PATRICK
--- NOTE | 2020-06-21 14:52 | PRG ---
DATE OF SERVICE: 06/21/2020 SUBJECTIVE: Zelda Jensen continues to be encephalopathic. OBJECTIVE: VITAL SIGNS: Have been stable. She is on high-flow alternating with BiPAP. Sats are in the low to mid 90s. A goal set is 88 to 92, no higher. order for another blood gas for today, to see where she is. LUNGS: Otherwise unchanged. HEART: Otherwise unchanged. ABDOMEN: Otherwise unchanged. Chest radiograph shows finding suggestive of a mucus plug in her left mainstem bronchus. We will add albuterol nebulizer treatments with Mucomyst. Hopefully, this lead to improvement. This can be done while she is on BiPAP. I have discussed this with Respiratory Therapy. We will continue to follow. Job ID: [id number]
[2020-06-21 15:46] LABS: Actual Bicarbonate (HCO3a) 37.2 mEq/L (22-28); Base Excess (BEa) 9.8 mEq/L (-2.0 to +3.0); Carboxyhemoglobin (COHb) 1.1 gm% (0.0-3.0); Hemoglobin (Hb) 12.3 g/dL (12.0-16.0); Potassium - ABG Lab 3.46 mmol/L (3.70-5.30); pH, Arterial 7.37 (7.35-7.45)
[2020-06-21 15:51] LABS: CO2 Tension 65.3 mmHg (35.0-45.0); Puncture Site LRA
[2020-06-21 15:52] LABS: ALV-art Gradient 192.225 mmHg (0-20)
[2020-06-21] MEDS: Albuterol Sulfate 2.5 mg/3 ml Neb IPPB SCH ×3 (16:23→23:01)
[2020-06-21] MEDS ORDERED: Lactated Ringer's 1,000 ML IV SCH (18:15)
[2020-06-21] MEDS: Amlodipine 5 MG TAB PO SCH (20:11)
[2020-06-21] MEDS: metFORMIN 500 MG TAB PO SCH (20:11)
[2020-06-21] MEDS: Atorvastatin Calcium 20 MG TAB PO SCH (20:11)
[2020-06-21] MEDS: Acetylcysteine 10% 100 MG/ML 30 ml Vial NEB SCH ×2 (20:43→23:02)
[2020-06-21] MEDS: Melatonin 3 MG TAB PO PRN (22:47)
[2020-06-22] MEDS: Albuterol Sulfate 2.5 mg/3 ml Neb IPPB SCH ×5 (02:59→20:42)
[2020-06-22] MEDS: Acetylcysteine 10% 100 MG/ML 30 ml Vial NEB SCH ×5 (03:48→20:43)
[2020-06-22 06:08] LABS: #Lymphocytes 0.7 thou/uL (1.20-3.40); #Monocytes 0.8 thou/uL (0.11-0.59); #Neutrophils 8.5 thou/uL (1.40-6.50); %Basophils 0.5 % (0.0-1.0); %Eosinophils 0.1 % (0.0-10.0); %Lymphocytes 7.1 % (21.0-51.0); %Neutrophils 84.4 % (42.0-75.0); Hemoglobin 10.4 g/dL (12.0-16.0); Mean Corpuscular HGB CONC 31.1 g/dL (32.0-36.0); Mean Corpuscular Hemoglobin 29.3 pg (27.0-31.0); Mean Corpuscular Volume 94.1 fL (78.0-98.0); Mean Platelet Volume 7.7 fL (7.4-10.4); Platelet Count 317 thou/uL (130-400); RBC Distribution Width 13.1 % (11.5-14.5); Red Blood Cell (RBC) Count 3.55 mill/uL (4.20-5.40)
[2020-06-22 06:30] LABS: Anion Gap 13 mmol/L (10-20); BUN (Urea Nitrogen) 21 mg/dL (9.8-20.1); Calc. Creatinine Clearance 109 mL/min (70-130); Calcium 8.1 mg/dL (7.8-10.44); Carbon Dioxide 36 mmol/L (23-31); Chloride 96 mmol/L (98-107); Glucose 118 mg/dL (83-110); Potassium 3.4 mmol/L (3.5-5.1); Sodium 142 mmol/L (136-145)
--- NOTE | 2020-06-22 08:04 | PDOC.FM ---
- Subjective Subjective: No acute overnight events. Requested melatonin which helped her to sleep better. She appears alert & oriented x 4, answering all questions appropriately. This morning, she is comfortable breathing on the bipap, feeling thirsty. She c/o low back pain due to her positioning in the bed which improved with repositioning. She has been getting breaks from bipap for PO intake and has had appropriate intake. - Objective Vital Signs & Weight: Vital Signs (12 hours) Temp Pulse Resp Pulse Ox 06/22/20 03:31 98.4 F 06/22/20 03:00 20 94 L 06/22/20 02:59 94 L 06/22/20 00:00 98.4 F 06/21/20 23:45 92 L 06/21/20 23:01 91 L 06/21/20 20:48 97 06/21/20 20:42 96 06/21/20 20:11 69 06/21/20 20:00 95 06/21/20 19:36 97.7 F Weight Weight 83.007 kg Most Recent Monitor Data Heart Rate from ECG 69 NIBP 128/59 NIBP BP-Mean 82 Respiration from ECG 20 SpO2 96 I&O: 06/20/20 06/21/20 06/22/20 06:59 06:59 06:59 Intake Total 1317 1271 Output Total 900 1075 1450 Balance 417 196 -1450 Result Diagrams: 06/22/20 06:00 06/22/20 06:00 Phys Exam - Physical Examination Constitutional: NAD appears mildly uncomfortable due to pain HEENT: sclera anicteric mildly dry mucous membranes Neck: supple Respiratory: no wheezing, no rales decreased breath sounds bilaterally worse on L Cardiovascular: RRR, no significant murmur Gastrointestinal: soft Musculoskeletal: no edema, pulses present Neurological: moves all 4 limbs Psychiatric: A&O x 3 Deviation from normal: mildly anxious affect Skin: normal turgor Dx/Plan - Plan Plan: This is a 75F who presented with SOB and was found to have COVID PNA. Acute hypoxic respiratory failure 2/2 COPD exacerbation 2/2 COVID PNA Initial sx 06/11, positive COVID screen 06/13 on admission. Initially admitted to medical where she was improving and preparing for discharge before being transferred to [facility] on 06/19 to receive BiPAP for decreased alertness and ABG with pH 7.2, pO2 58, pCO2 89. On 06/21 CXR with L sided opacification of entire lung with mediastinal deviation - suspected mucus plug. - bipap with albuterol, mucomyst for mucus plugging causing lung collapse - continue decadron, lovenox - monitor respiratory status closely. Goal SpO2 88-92% in setting of COPD. - Pulm consulted 06/20, appreciate recommendations Delirium Waxing and waning orientation, altered sleep/wake cycle. Likely due to prolonged hospitalization, infection. Monitor for changes in respiratory status as mental status changes may also be related to hypercapnea in setting of COPD. - reorientation measures SHIRA, resolved - monitor Cr COPD exacerbation - treatment as above Anxiety - Home Fluoxetine - Hydroxyzine prn HTN - Home meds - Monitor vitals Diabetes - Hypoglycemic protocol - ACHS checks - Home meds HLD - home meds PCP: Toño VTE: Lovenox CODE: FULL PT/OT, CM, Spiritual care consulted Dispo: Remains in IMCU Will continue to monitor respiratory status and level of sedation. Will eventually need SNF placement. Addendum - Attending - Attending Attestation Date/Time: 06/22/20 9098 I personally evaluated the patient and discussed the management with Dr. Shearer. I agree with the History, Examination, Assessment and Plan documented above with any addition or exceptions noted below. Patient overall stable from respiratory status despite her continued L lung volume loss. This has not responded to mucolytic therapy. Pulm on board and awaiting their recs. The patient is significantly more comfortable today.
[2020-06-22] MEDS: Lisinopril/Hydrochlorothiazide 20/25 mg Tablet PO SCH (08:42)
[2020-06-22] MEDS: Dexamethasone 4 MG TAB PO SCH (08:42)
[2020-06-22] MEDS: Mometasone 200 MCG/Formoterol 5 MCG 120 PUFF INHALER INH SCH ×2 (08:43→18:05)
[2020-06-22] MEDS: Enoxaparin Sodium 40 MG/0.4 ML SYRINGE SC SCH (08:43)
[2020-06-22] MEDS: Carvedilol 25 MG TAB PO SCH ×2 (08:43→20:25)
[2020-06-22] MEDS: FLUoxetine HCl 20 MG CAP PO SCH (08:43)
[2020-06-22] MEDS: Potassium Chloride 10 MEQ TAB PO SCH (08:43)
[2020-06-22] MEDS ORDERED: Potassium Chloride 20 MEQ TAB PO SCH (09:30)
--- NOTE | 2020-06-22 09:54 | RAD ---
PORTABLE CHEST: COMPARISON: Prior day's exam. HISTORY: Followup of left lung opacification. FINDINGS: Complete opacification of left chest with a suggestion there may be some associated volume loss. Antonina nge is again demonstrated. It is a stable finding as compared to the prior exam. IMPRESSION: Completely opacified left lung. The rapidity of this in the absence of any evidence of a pleural eff usion on older exams would suggest that this may just represent markedly atelectatic lung. POS: AH
[2020-06-22] MEDS ORDERED: Pepto Bismol Chew TAB PO PRN (10:23)
--- NOTE | 2020-06-22 17:27 | PRG ---
DATE OF SERVICE: 06/22/2020 SUBJECTIVE: Zelda Jensen is clinically unchanged. She is on high-flow oxygen. OBJECTIVE: VITAL SIGNS: Heart rates in the 60s, respiratory rates in the teens, oximetry is in the 90 plus percent range, blood pressure 153/82. LUNGS: Unchanged. HEART: Unchanged. ABDOMEN: Unchanged. DIAGNOSTIC STUDIES: Chest radiograph still shows finding suggesting a mucus plug in the left mainstem bronchus. IMPRESSION: Atelectasis secondary to retained secretions. She is on nebulized albuterol, Mucomyst now. Hopefully, this will lead to eventual improvement. We will not perform bronchoscopy at this time. We will continue supportive care. Job ID: [id number]
[2020-06-22] MEDS: Melatonin 3 MG TAB PO PRN (20:25)
[2020-06-22] MEDS: metFORMIN 500 MG TAB PO SCH (20:25)
[2020-06-22] MEDS: Acetaminophen 325 MG TAB PO PRN (20:25)
[2020-06-22] MEDS: Atorvastatin Calcium 20 MG TAB PO SCH (20:25)
[2020-06-22] MEDS: Amlodipine 5 MG TAB PO SCH (20:25)
[2020-06-23] MEDS: Albuterol Sulfate 2.5 mg/3 ml Neb IPPB SCH ×7 (00:09→22:05)
[2020-06-23] MEDS: Acetylcysteine 10% 100 MG/ML 30 ml Vial NEB SCH ×7 (00:10→22:05)
[2020-06-23 04:16] LABS: #Lymphocytes 0.8 thou/uL (1.20-3.40); #Monocytes 0.9 thou/uL (0.11-0.59); #Neutrophils 9.9 thou/uL (1.40-6.50); %Eosinophils 0.4 % (0.0-10.0); %Lymphocytes 7.1 % (21.0-51.0); %Monocytes 7.5 % (0.0-10.0); Hemoglobin 11.9 g/dL (12.0-16.0); Mean Corpuscular HGB CONC 31.4 g/dL (32.0-36.0); Mean Corpuscular Hemoglobin 29.5 pg (27.0-31.0); Mean Corpuscular Volume 93.8 fL (78.0-98.0); Mean Platelet Volume 7.9 fL (7.4-10.4); Platelet Count 327 thou/uL (130-400); RBC Distribution Width 13.1 % (11.5-14.5); Red Blood Cell (RBC) Count 4.05 mill/uL (4.20-5.40); White Blood Cell (WBC) Count 11.6 thou/uL (4.8-10.8)
--- NOTE | 2020-06-23 06:29 | PDOC.FM ---
- Subjective Subjective: Overnight had an episode of desaturation to mid 70s while getting up to the commode while on HFNC, took quite some time to recover per nursing, was placed back on bipap which helped her to recover. She became frustrated with wearing the bipap overnight and removed it. Per report from nursing, she has not been struggling with delirium overnight, only frustration with wearing the bipap. This morning, she reports she is feeling similar to yesterday. She gets winded when she tries to move around in the bed or get up to use the commode. She feels somewhat better when she is sitting up. Has been tolerating PO intake well. Had episode of nausea/indigestion yesterday improved with pepto bismol and abdominal discomfort last night resolved after having a BM. - Objective Vital Signs & Weight: Vital Signs (12 hours) Temp Pulse Resp Pulse Ox 06/23/20 03:18 96.4 F L 06/23/20 03:00 71 21 H 96 06/23/20 02:54 72 21 H 96 06/23/20 00:30 96.9 F L 06/22/20 20:45 81 23 H 93 L 06/22/20 20:42 83 18 94 L 06/22/20 20:25 65 06/22/20 20:00 96.7 F L 94 L Weight Admit Weight 83.007 kg Weight 83.007 kg Most Recent Monitor Data Heart Rate from ECG 63 NIBP 131/62 NIBP BP-Mean 85 Respiration from ECG 17 SpO2 94 I&O: 06/21/20 06/22/20 06/23/20 06:59 06:59 06:59 Intake Total 1271 492 Output Total 1075 1450 1325 Balance 196 -1450 -833 Result Diagrams: 06/23/20 03:43 06/22/20 06:00 Phys Exam - Physical Examination Constitutional: NAD HEENT: moist MMs Neck: supple decreased breath sounds bilaterally, worse on L Cardiovascular: RRR, no significant murmur Gastrointestinal: soft, non-tender, no distention, positive bowel sounds Musculoskeletal: no edema, pulses present Neurological: moves all 4 limbs Psychiatric: A&O x 3 Skin: no rash Dx/Plan - Plan Plan: This is a 75F who presented with SOB and was found to have COVID PNA. Acute hypoxic respiratory failure 2/2 COPD exacerbation 2/2 COVID PNA Initial sx 06/11, positive COVID screen 06/13 on admission. Initially admitted to medical where she was improving and preparing for discharge before being transferred to IMCU on 06/19 to receive BiPAP for decreased alertness and ABG with pH 7.2, pO2 58, pCO2 89. On 06/21 CXR with L sided opacification of entire lung with mediastinal deviation - suspected mucus plug. Follow up CXR on 06/22, 06/23 have been relatively unchanged. - bipap with albuterol, mucomyst for mucus plugging causing lung collapse, alternating with HFNC - continue decadron, lovenox - monitor respiratory status closely. Goal SpO2 88-92% in setting of COPD. - Pulm consulted 06/20, appreciate recommendations - continuing albut brandie/mucomyst at this time, no plan for bronchoscopy Delirium, improving Waxing and waning orientation, altered sleep/wake cycle. Likely due to prolonged hospitalization, infection. Monitor for changes in respiratory status as mental status changes may also be related to hypercapnea in setting of COPD. - reorientation measures SHIRA, resolved - monitor Cr COPD exacerbation - treatment as above Anxiety - Home Fluoxetine - Hydroxyzine prn HTN - Home meds - Monitor vitals Diabetes - Hypoglycemic protocol - ACHS checks - Home meds HLD - home meds PCP: Toño VTE: Lovenox CODE: FULL PT/OT, CM, Spiritual care consulted Dispo: Remains in IMCU Will continue to monitor respiratory status and level of sedation. Will eventually need SNF placement. Addendum - Attending - Attending Attestation Date/Time: 06/23/20 1127 I personally evaluated the patient and discussed the management with Dr. Shearer. I agree with the History, Examination, Assessment and Plan documented above with any addition or exceptions noted below. Patient stable. No improvement in L lung aeration. Continues on HFNC. Pulm on board.
[2020-06-23] MEDS ORDERED: Polyethylene Glycol 3350 17 GM Packet PO PRN (08:31)
[2020-06-23] MEDS: FLUoxetine HCl 20 MG CAP PO SCH (08:51)
[2020-06-23] MEDS: Potassium Chloride 10 MEQ TAB PO SCH (08:51)
[2020-06-23] MEDS: Lisinopril/Hydrochlorothiazide 20/25 mg Tablet PO SCH (08:51)
[2020-06-23] MEDS: Enoxaparin Sodium 40 MG/0.4 ML SYRINGE SC SCH (08:51)
[2020-06-23] MEDS: Carvedilol 25 MG TAB PO SCH ×2 (08:51→21:16)
[2020-06-23] MEDS: Dexamethasone 4 MG TAB PO SCH ×2 (08:52→21:16)
[2020-06-23] MEDS: Mometasone 200 MCG/Formoterol 5 MCG 120 PUFF INHALER INH SCH ×2 (08:52→18:51)
--- NOTE | 2020-06-23 09:08 | RAD ---
EXAM: Chest one view: HISTORY: Atelectasis COMPARISON: 06/22/2020 FINDINGS: Heart size: Difficult to assess. Lungs: Stable complete opacification left hemithorax with some volume loss Stable right lung. IMPRESSION: Stable total opacification left hemithorax with what appears to be some volume loss. No significant n ew process.
--- NOTE | 2020-06-23 13:12 | PRG ---
DATE OF SERVICE: 06/23/2020 SUBJECTIVE: Zelda Jensen remains in the MICU. OBJECTIVE: VITAL SIGNS: Pulse 71, temperature 98, on BiPAP, sats are 99%, blood pressure 140/89. CHEST: Decreased breath sounds in left lung. CARDIAC: Normal S1 and S2. No gallops. ABDOMEN: No masses. LABORATORY DATA: White count 11,000. Renal function normal. ASSESSMENT AND PLAN: [place] positive pneumonia, left lung atelectasis. Continue Decadron. Continue Mucinex. Started on Mucomyst. Hopefully, it should improve the atelectatic changes. Job ID: [id number]
[2020-06-23 15:20] LABS: BUN (Urea Nitrogen) 21 mg/dL (9.8-20.1); Calc. Creatinine Clearance 103 mL/min (70-130); Calcium 8.3 mg/dL (7.8-10.44); Glucose 141 mg/dL (83-110)
[2020-06-23 15:29] LABS: Anion Gap 14 mmol/L (10-20); Chloride 91 mmol/L (98-107); Potassium 3.5 mmol/L (3.5-5.1); Sodium 142 mmol/L (136-145)
[2020-06-23] MEDS: guaiFENesin ER 600 MG TAB PO SCH (15:40)
[2020-06-23 15:41] LABS: Carbon Dioxide 41 mmol/L (23-31)
[2020-06-23] MEDS: Atorvastatin Calcium 20 MG TAB PO SCH (21:16)
[2020-06-23] MEDS: Amlodipine 5 MG TAB PO SCH (21:16)
[2020-06-23] MEDS: metFORMIN 500 MG TAB PO SCH (21:16)
[2020-06-24] MEDS: guaiFENesin ER 600 MG TAB PO SCH ×2 (01:38→14:18)
[2020-06-24] MEDS: Acetylcysteine 10% 100 MG/ML 30 ml Vial NEB SCH ×6 (01:56→23:49)
[2020-06-24] MEDS: Albuterol Sulfate 2.5 mg/3 ml Neb IPPB SCH ×6 (01:56→23:47)
[2020-06-24 04:00] LABS: #Lymphocytes 0.7 thou/uL (1.20-3.40); #Monocytes 0.3 thou/uL (0.11-0.59); #Neutrophils 13.4 thou/uL (1.40-6.50); %Lymphocytes 4.9 % (21.0-51.0); Hemoglobin 11.8 g/dL (12.0-16.0); Mean Corpuscular HGB CONC 31.5 g/dL (32.0-36.0); Mean Corpuscular Hemoglobin 29.7 pg (27.0-31.0); Mean Corpuscular Volume 94.2 fL (78.0-98.0); Mean Platelet Volume 8.4 fL (7.4-10.4); Platelet Count 288 thou/uL (130-400); RBC Distribution Width 13.2 % (11.5-14.5); Red Blood Cell (RBC) Count 3.98 mill/uL (4.20-5.40); White Blood Cell (WBC) Count 14.4 thou/uL (4.8-10.8)
--- NOTE | 2020-06-24 07:35 | PDOC.FM ---
- Subjective Subjective: No acute overnight events. Does not feel well, about the same as yesterday. Her SOB is not worsened today. Feeling down, misses her family. Also have difficulty with loss of taste. Grapes have been one of the few foods she has been able to enjoy. Would like to try some sherbert today. Would like to try sitting in the chair today. - Objective Vital Signs & Weight: Vital Signs (12 hours) Temp Pulse Resp BP BP Pulse Ox 06/24/20 05:00 129/70 06/24/20 04:00 123/79 06/24/20 03:30 97.6 F 06/24/20 01:56 68 20 96 06/24/20 00:00 98.8 F 06/23/20 22:05 65 18 100 06/23/20 21:16 66 172/78 H 06/23/20 20:00 97.6 F 96 Weight Admit Weight 83.007 kg Weight 83.007 kg Most Recent Monitor Data Heart Rate from ECG 72 NIBP 129/71 NIBP BP-Mean 90 Respiration from ECG 20 SpO2 86 I&O: 06/23/20 06/24/20 06/25/20 06:59 06:59 06:59 Intake Total 492 310 Output Total 1325 950 Balance -833 -640 Result Diagrams: 06/24/20 03:17 06/24/20 08:03 Phys Exam - Physical Examination Constitutional: NAD HEENT: moist MMs Neck: supple Respiratory: no wheezing decreased breath sounds bilaterally, L worse than R Cardiovascular: RRR, no significant murmur Gastrointestinal: soft, non-tender Musculoskeletal: no edema, pulses present Neurological: non-focal, moves all 4 limbs Psychiatric: A&O x 3 Deviation from normal: sad affect Skin: no rash Dx/Plan - Plan Plan: This is a 75F who presented with SOB and was found to have COVID PNA. Acute hypoxic respiratory failure 2/2 COPD exacerbation 2/2 COVID PNA Initial sx 06/11, positive COVID screen 06/13 on admission. Initially admitted to medical where she was improving and preparing for discharge before being transferred to [facility] on 06/19 to receive BiPAP for decreased alertness and ABG with pH 7.2, pO2 58, pCO2 89. On 06/21 CXR with L sided opacification of entire lung with mediastinal deviation - suspected mucus plug. Follow up CXR on 06/22, 06/23, 06/24 have been relatively unchanged. - bipap with albuterol, mucomyst for mucus plugging causing lung collapse, alternating with HFNC - continue decadron, lovenox - monitor respiratory status closely. Goal SpO2 88-92% in setting of COPD. - Pulm consulted 06/20, appreciate recommendations Metabolic alkalosis Most likely post-hypercapnic etiology. Labs stable today and remains clincally stable as well. - continue to monitor daily BMP - consider acetazolamide if serum bicarb consistently >40 Delirium, improving Waxing and waning orientation, altered sleep/wake cycle. Likely due to prolonged hospitalization, infection. Monitor for changes in respiratory status as mental status changes may also be related to hypercapnea in setting of COPD. - reorientation measures SHIRA, resolved - monitor Cr COPD exacerbation - treatment as above Anxiety - Home Fluoxetine - Hydroxyzine prn HTN - Home meds - Monitor vitals Diabetes - Hypoglycemic protocol - ACHS checks - Home meds HLD - home meds PCP: Toño VTE: Lovenox CODE: FULL PT/OT, CM, Spiritual care consulted Dispo: Remains in IMCU Will continue to monitor respiratory status and level of sedation. Will eventually need SNF placement. Addendum - Attending - Attending Attestation Date/Time: 06/24/20 4250 I personally evaluated the patient and discussed the management with Dr. Shearer. I agree with the History, Examination, Assessment and Plan documented above with any addition or exceptions noted below. Patient status the same. Continues to have complete atelectasis of the L lung despite mucolytics. Pulm on board and managing. She has some worsening metabolic alkalosis this morning, suspect in compensation to her respiratory issues. Consider Diamox. Consider repeat ABG if mentation changes occurr. She continues at this time on HFNC.
[2020-06-24] MEDS: Dexamethasone 4 MG TAB PO SCH ×2 (08:36→19:38)
[2020-06-24] MEDS: Enoxaparin Sodium 40 MG/0.4 ML SYRINGE SC SCH (08:36)
[2020-06-24] MEDS: FLUoxetine HCl 20 MG CAP PO SCH (08:36)
[2020-06-24] MEDS: Potassium Chloride 10 MEQ TAB PO SCH (08:36)
[2020-06-24] MEDS: Carvedilol 25 MG TAB PO SCH ×2 (08:36→19:37)
[2020-06-24] MEDS: Lisinopril/Hydrochlorothiazide 20/25 mg Tablet PO SCH (08:36)
[2020-06-24 08:37] LABS: BUN (Urea Nitrogen) 21 mg/dL (9.8-20.1); Calc. Creatinine Clearance 108 mL/min (70-130); Calcium 8.6 mg/dL (7.8-10.44); Glucose 122 mg/dL (83-110)
[2020-06-24 08:47] LABS: Anion Gap 18 mmol/L (10-20); Carbon Dioxide 34 mmol/L (23-31); Chloride 90 mmol/L (98-107); Potassium 4.1 mmol/L (3.5-5.1); Sodium 138 mmol/L (136-145)
--- NOTE | 2020-06-24 08:50 | RAD ---
EXAM: Chest one view: HISTORY: Atelectasis follow-up COMPARISON: 06/23/2020 FINDINGS: Heart size: Within normal limits. Lungs: Stable total opacification left hemithorax with some volume loss. Stable right chest. IMPRESSION: Stable left lung total opacification and volume loss. Continued short-term follow-up.
[2020-06-24] MEDS: Mometasone 200 MCG/Formoterol 5 MCG 120 PUFF INHALER INH SCH ×2 (09:20→18:50)
--- NOTE | 2020-06-24 11:27 | EKG ---
Test Reason : Blood Pressure : / mmHG Vent. Rate : 083 BPM Atrial Rate : 083 BPM P-R Int : 148 ms QRS Dur : 094 ms QT Int : 394 ms P-R-T Axes : 064 -53 076 degrees QTc Int : 462 ms Normal sinus rhythm Left anterior fascicular block Abnormal ECG Confirmed by YAHAIRA GASPAR ([id number]), editor newspaper LYNN WILLS ([id number]) on 06/24/2020 11:27:27 AM Referred By: Confirmed By:YAHAIRA GASPAR
--- NOTE | 2020-06-24 12:55 | PRG ---
DATE OF SERVICE: 06/24/2020 SUBJECTIVE: Zelda Jensen remains in MICU on high-flow. OBJECTIVE: VITAL SIGNS: Temperature is 97, pulse 80, blood pressure 88/68, respirations 18. CHEST: Decreased breath sounds left lung. CARDIAC: Normal S1, S2. No gallops. ABDOMEN: No masses. ASSESSMENT: White count 28059, H and H 11 and 37, platelet count 288. Lytes are normal. X-ray shows persistent left lung atelectasis. Oquendo positive status. PLAN: She is already on Mucomyst as well as Mucinex as well as steroids in spite of these, her lung is still atelectatic. Continue present treatment. We will follow. Job ID: [id number]
[2020-06-24 17:50] LABS: Actual Bicarbonate (HCO3a) 33.3 mEq/L (22-28); Base Excess (BEa) 7.6 mEq/L (-2.0 to +3.0); CO2 Tension 52.7 mmHg (35.0-45.0); Calcium, Ionized (arterial) 1.09 mmol/L (1.12-1.30); Carboxyhemoglobin (COHb) 0.5 gm% (0.0-3.0); Hemoglobin (Hb) 10.1 g/dL (12.0-16.0); Potassium - ABG Lab 5.29 mmol/L (3.70-5.30); pH, Arterial 7.42 (7.35-7.45)
[2020-06-24 17:52] LABS: ALV-art Gradient 332.845 mmHg (0-20); O2 Tension (PaO2), arterial 57.6 mmHg (> 70.0); Puncture Site RRA
[2020-06-24 18:15] LABS: Hemoglobin 9.1 g/dL (12.0-16.0); Platelet Count 285 thou/uL (130-400)
[2020-06-24] MEDS ORDERED: Pantoprazole 40 MG VIAL IVP SCH ×2 (18:15→19:15)
[2020-06-24 18:22] LABS: INR-International Normal Ratio 1.2
[2020-06-24 18:34] LABS: Anion Gap 16 mmol/L (10-20); BUN (Urea Nitrogen) 46 mg/dL (9.8-20.1); Calc. Creatinine Clearance 74 mL/min (70-130); Calcium 7.7 mg/dL (7.8-10.44); Carbon Dioxide 33 mmol/L (23-31); Chloride 93 mmol/L (98-107); Glucose 239 mg/dL (83-110); Potassium 5.2 mmol/L (3.5-5.1); Sodium 137 mmol/L (136-145)
--- NOTE | 2020-06-24 18:36 | PDOC.EVN ---
Addendum - Attending - Attending Attestation Date/Time: 06/24/20 0285 I personally evaluated the patient and discussed the management with Dr. Shearer/. I agree with the History, Examination, Assessment and Plan documented in their event note with any addition or exceptions noted below. Patient admitted for COPD and Respiratory failure 2/2 COVID pneumonia. Over the last few days, has been stable with exception of respiratory status due to mucous plugging in L lung followed by Pulm, currently on HFNC. I was contacted at 1731 by resident team regarding patient with new onset hypotension, SBP 60s, and altered mentation. They were up to assess. Repeat contact at 1736 where they indicated to me that she was having melena along with the persistent hypotension and slight alteration in mentation. Order given by me for IV fluid bolus, as well as uncrossmatched blood x2 units. Orders for stat H/H, T&C, and CMP to be placed as well. I presented to bedside at 1749, joining resident physician and nursing team. Nursing has indicated that patient had no complaints earlier in the evening, but had no bowel movement over the last few days. Yesterday, she complained of dyspepsia that was relieved by Pepto-Bismol. This evening, nursing found her slumped in bed, drooling, with melanotic stool in the bed, along with hypotension which led to contact of resident physician team. During my exam, patient able to answer questions appropriately, SBP 70-->103 during my exam. Midline being placed by RN, and IV bolus of NS running through peripheral. Uncrossmatched blood at bedside. O2 sats in 90s on HFNC. Abdominal exam revealed diffuse mild tenderness to palpation, but some increased tenderness and voluntary guarding midepigastric. Extremities were cool, distal pulses thready. She was noted to have grossly melanotic stool upon external rectal exam. Patient with sensations of tenesmus and had melanotic stool x2 during my exam. She complained of only mild abdominal pain. During my exam, 1 unit PRBC started infusion, and order for Protonix bolus as well as drip ordered. Consult to GI made by Dr. Shearer. Discussed the need to transfer patient to CCU once nursing able. Patient has been on NIPPV as well as steroids and lovenox during admission. Lovenox and steroids increased over the last 2 days by Pulmonology for care of h er COVID pneumonia. On chart review, I do not note GI ppx. Suspect UGIB at this time. Will continue Protonix, PRBC infusion, and close monitoring of SBP, UOP, and clinical status. GI to evaluate. Transfuse as needed and care may be altered given clinical course of the coming hours. Critical care time provided in the discussion and stabilization of patient 60 minutes.
--- NOTE | 2020-06-24 18:49 | PDOC.EVN ---
Event Note - Event Note Event Note: Ms. Jensen is a 75 y/o F admitted for respiratory failure 2/2 COVID pneumonia and COPD. Over the past several days, has been alternated between BiPAP and HFNC with nebulized mucolytics for complete L lung atelectasis suspected due to mucus plugging, which has been followed by pulmonology. Contacted by nursing at 1729 that patient was lethargic, drooling, and had SBP 60s. Ordered 500 cc bolus. Called attending, Dr. Esquivel, at 1731 to inform and proceeded to bedside with Dr. Goldman. Called to request stat ABG while en route to bedside. Upon arrival, informed by nursing that she had a large, melanotic stool. Called Dr. Esquivel to inform, and he gave verbal order for 2 units uncrossmatched blood. Patient was alert, answering questions appropriately, with SBP in the 70s and HR 80s. O2 sat low 90s on HFNC. IV access had been lost, and nursing was attempting to place IVs in both arms. Blood products brought to bedside, although IV access was not yet obtained. A peripheral IV was obtained in the L upper arm and 500 cc fluid bolus was started. On my examination, heart is regular rate/rhythm without murmur, pulmonary exam with scattered coarse breath sounds on the R and very decreased breath sounds on the L which was unchanged from my exam earlier today. Extremities cool, with decreased pedal pulses which is new since this morning. Large amount of melena noted. Dr. Esquivel presented to bedside as well. Additional staff was called to place a midline, which was successfully placed in the R arm. Stat labs ordered: H/H, T&C, coags, and CMP. Blood products started as ordered by Dr. Esquivel. Called GI for consult, discussed case with Dr. Carrion; recommended protonix drip and will see patient. Protonix bolus and drip ordered. With administration of bolus, starting first unit PRBC her SBP improved to >100 and was maintained. Discussed transfer to CCU once nursing able with Dr. Esquivel. A/P: Suspected UGIB. Has been on NIPPV, steroids, and lovenox during this admission; steroids and lovenox recently increased to BID dosing by pulmonology for her COVID pneumonia. On chart review, GI ppx is not noted. Plan to continue protonix gtt. Discontinue lovenox. GI consulted, appreciate recommendations. Continue close monitoring of vitals, UOP, clinical status. Will transfuse as needed. Plan may change pending clinical course. Contacted daughter Regine to inform of event. Kathy Shearer DO, PGY-1
[2020-06-24] MEDS: Pantoprazole 80 MG in Sodium Chloride 0.9% 100 ML IVPB SCH (19:33)
[2020-06-24] MEDS: Amlodipine 5 MG TAB PO SCH (19:37)
[2020-06-24] MEDS: Atorvastatin Calcium 20 MG TAB PO SCH (19:38)
[2020-06-24] MEDS: metFORMIN 500 MG TAB PO SCH (19:38)
[2020-06-24] MEDS ORDERED: Enoxaparin Sodium 40 MG/0.4 ML SYRINGE SC SCH (21:00)
--- NOTE | 2020-06-24 22:51 | CON ---
DATE OF CONSULTATION: 06/24/2020 CHIEF COMPLAINT: Blood in the stool. HISTORY OF PRESENT ILLNESS: Ms. Jensen is a 75-year-old woman, who has been in the hospital since 06/13/2020 with COVID pneumonia. She has required high-flow oxygen and BiPAP intermittently. She has complete atelectasis of her left lung. This afternoon, she developed some cramping, lower abdominal pain followed by multiple black bloody stools. Her blood pressure dropped down to the 60s systolic and then she was received fluid and blood and her blood pressure improved. She has had no nausea or vomiting. No ongoing abdominal pain. She felt a little confused when she first started bleeding, but her mental status is improved. She has been on steroids for COVID. No recent NSAIDs. She has been on enoxaparin 40 mg daily. PAST MEDICAL HISTORY: COPD, pneumonia last August, hypertension, diabetes mellitus, hyperlipidemia, gastroesophageal reflux. She reports she had a colonoscopy a couple years ago. PAST SURGICAL HISTORY: and cataract. FAMILY HISTORY: Negative for GI malignancy. SOCIAL HISTORY: She quit smoking years ago. Occasional alcohol. No drugs. ALLERGIES: NO KNOWN DRUG ALLERGIES. MEDICATIONS: Include: 1. Enoxaparin 40 mg daily. Her last dose was this morning. 2. Mucomyst. 3. Albuterol. 4. Amlodipine. 5. Atorvastatin. 6. Carvedilol. 7. Fluoxetine. 8. Melatonin. 9. Metformin. 10. Lisinopril with hydrochlorothiazide. 11. She had been on Pepcid. 12. Polyethylene glycol. REVIEW OF SYSTEMS: Negative x10 systems reviewed except as stated in the history of present illness. PHYSICAL EXAMINATION: VITAL SIGNS: Temperature 97.6, blood pressure 96/42, pulse 84. GENERAL: She is pale, in no acute distress. Awake and alert. Appropriately responsive and oriented x3. HEENT: Eyes have no scleral icterus. Oropharynx has dry mucous membranes. She has a high-flow nasal cannula. No cervical or supraclavicular lymphadenopathy. LUNGS: Have decreased breath sounds. HEART: Regular rate and rhythm without murmur. ABDOMEN: Soft, nontender, and nondistended. Bowel sounds are present. EXTREMITIES: No lower extremity edema. LABORATORY DATA: White blood cell count 14.4, hemoglobin 11.8 at 3 o'clock this morning and has dropped down to 9.1 at 1800 today, platelets 285. INR 1.2. Creatinine 0.89. IMAGING: Chest x-ray today shows opacification and volume loss in the left lung, which has been stable. IMPRESSION: 1. Acute gastrointestinal bleed presenting with melena. She has been on steroids and is in critical illness and taking rest for stress ulceration. 2. Anemia of acute blood loss. 3. Hemorrhagic shock with a drop in her blood pressure down to the 60s systolic, but has improved with volume resuscitation. 4. Coronavirus disease with pneumonia and atelectasis. RECOMMENDATIONS: 1. She is starting pantoprazole IV push followed by drip. 2. Enoxaparin has been discontinued. 3. She is receiving blood transfusion. 4. We will try to avoid endoscopy at this point as she would require general anesthesia and given her current respiratory status with her COVID with pneumonia, this would be very high risk for her. She may stop bleeding spontaneously with initiation of proton pump inhibitors and cessation of enoxaparin. She can be transfused as needed in the meantime. Job ID: [id number]
[2020-06-25 00:07] LABS: Hemoglobin 12.8 g/dL (12.0-16.0); Platelet Count 252 thou/uL (130-400)
[2020-06-25] MEDS: guaiFENesin ER 600 MG TAB PO SCH ×2 (00:15→15:10)
[2020-06-25] MEDS: Albuterol Sulfate 2.5 mg/3 ml Neb IPPB SCH ×5 (01:23→20:21)
[2020-06-25] MEDS: Acetylcysteine 10% 100 MG/ML 30 ml Vial NEB SCH ×5 (01:23→20:21)
[2020-06-25] MEDS: Pantoprazole 80 MG in Sodium Chloride 0.9% 100 ML IVPB SCH ×2 (03:15→15:10)
[2020-06-25 04:48] LABS: Anion Gap 15 mmol/L (10-20); BUN (Urea Nitrogen) 68 mg/dL (9.8-20.1); Calc. Creatinine Clearance 82 mL/min (70-130); Calcium 8.2 mg/dL (7.8-10.44); Carbon Dioxide 33 mmol/L (23-31); Chloride 95 mmol/L (98-107); Glucose 117 mg/dL (83-110); Potassium 4.3 mmol/L (3.5-5.1); Sodium 139 mmol/L (136-145)
--- NOTE | 2020-06-25 05:32 | PDOC.FM ---
- Subjective Subjective: Early yesterday afternoon, developed symptoms consistent with UGIB; refer to event note for detail. This morning, she is feeling improved. She is less fatigued, does not have any abdominal pain. Had one additional dark BM last night after event. Feeling more gas than usual but otherwise comfortable. Continues to feel winded with trying to move around in the bed. Feeling very down yesterday, in better spirits this morning. Was able to facetime with her family before yesterday's events. - Objective Vital Signs & Weight: Vital Signs (12 hours) Temp Pulse Resp Pulse Ox 06/25/20 04:00 98.9 F 06/25/20 01:23 101 H 23 H 91 L 06/25/20 01:20 95 26 H 91 L 06/25/20 00:18 98 F 06/24/20 23:47 98 24 H 94 L 06/24/20 21:16 97.3 F L 06/24/20 20:00 97.2 F L 92 L 06/24/20 19:37 78 06/24/20 18:50 78 22 H 97 Weight Admit Weight 83.007 kg Weight 83.007 kg Most Recent Monitor Data Heart Rate from ECG 98 NIBP 128/59 NIBP BP-Mean 82 Respiration from ECG 24 SpO2 91 I&O: 06/23/20 06/24/20 06/25/20 06:59 06:59 06:59 Intake Total 910 343 3162 Output Total 1325 950 300 Balance -833 -115 1840 Result Diagrams: 06/25/20 03:28 06/25/20 03:28 Phys Exam - Physical Examination Constitutional: NAD HEENT: moist MMs poor dentition Neck: supple scattered coarse breath sounds on R, minimal/decreased sounds on L Cardiovascular: no significant murmur regular rhythm, borderline tachy in 90s Gastrointestinal: soft, no distention, positive bowel sounds very mild epigastric tenderness, no additional tenderness/guarding/rebound Musculoskeletal: no edema, pulses present Neurological: moves all 4 limbs Psychiatric: normal affect, A&O x 3 Skin: normal turgor, cap refill <2 seconds Dx/Plan - Plan Plan: This is a 75F who presented with SOB and was found to have COVID PNA. Acute hypoxic respiratory failure 2/2 COPD exacerbation 2/2 COVID PNA Initial sx 06/11, positive COVID screen 06/13 on admission. Initially admitted to medical where she was improving and preparing for discharge before being transferred to IMCU on 06/19 to receive BiPAP for decreased alertness and ABG with pH 7.2, pO2 58, pCO2 89. On 06/21 CXR with L sided opacification of entire lung with mediastinal deviation - suspected mucus plug. Follow up CXR on 06/22, 06/23, 06/24, 06/25 have been relatively unchanged. - bipap with albuterol, mucomyst for mucus plugging causing lung collapse, alternating with HFNC - continue decadron, lovenox - monitor respiratory status closely. Goal SpO2 88-92% in setting of COPD. - Pulm consulted 06/20, appreciate recommendations Upper GI bleed On 06/24 became lethargic, hypotensive, found to have large, black melanotic stool. Received 500cc bolus, 2u uncrossmatched blood, started on protonix gtt. Mildly tachycardic overnight in 90s and otherwise vitals have been stable. No additional transfusions or interventions required overnight. - continue protonix gtt - discontinued lovenox - NPO/meds w/sips - will start mIVF 100cc/h - monitor H/H q8hr today, transfuse as needed - GI following, appreciate recs Leukocytosis Increased 14 to 31 since yesterday. Consider stress response, increased steroids dosing vs infectious etiology. Procalcitonin added to AM labs, increased at 1.14. No overt signs of new infection on history/exam this morning. - CXR appears stable, respiratory status not worsening - will check UA - if develops fever or clinical worsening, low threshold for collecting blood cultures and starting abx Metabolic alkalosis Most likely post-hypercapnic etiology. Serum bicarbonate stable. - continue to monitor daily BMP - consider acetazolamide if serum bicarb consistently >40 Delirium, improving Waxing and waning orientation, altered sleep/wake cycle. Likely due to prolonged hospitalization, infection. Monitor for changes in respiratory status as mental status changes may also be related to hypercapnea in setting of COPD. - reorientation measures SHIRA, resolved - monitor Cr COPD exacerbation - treatment as above Anxiety - Home Fluoxetine - Hydroxyzine prn HTN - Home meds - Monitor vitals Diabetes - Hypoglycemic protocol - ACHS checks - Home meds HLD - home meds PCP: [facility]berg VTE: held GI: protonix gtt CODE: FULL PT/OT, CM, Spiritual care consulted Dispo: Remains in IMCU Will continue to monitor respiratory status and level of sedation. Will eventually need SNF placement. Addendum - Attending - Attending Attestation Date/Time: 06/25/20 0325 I personally evaluated the patient and discussed the management with Dr. Shearer. I agree with the History, Examination, Assessment and Plan documented above with any addition or exceptions noted below. Patient feeling improved this morning. No abdominal pain and less tender on my exam. See events notes from overnight. H/H stable, continues on Protonix drip. She continues on mucolytics per Pulm, but repeat CXR still does not show aeration of the L lung. Awaiting their further recs. She is otherwise doing fairly well from respiratory standpoint. Suspect that if her L lung begins to aerate that she should hopefully wean to NC. GI on board for UGIB. No need for more invasive interventions at this time.
[2020-06-25 05:35] LABS: Band 2 % (5-11); Hemoglobin 12.7 g/dL (12.0-16.0); Lymphocytes 3 % (21-51); MDiff Complete? YES; Mean Corpuscular HGB CONC 31.7 g/dL (32.0-36.0); Mean Corpuscular Hemoglobin 30.2 pg (27.0-31.0); Mean Corpuscular Volume 95.2 fL (78.0-98.0); Mean Platelet Volume 9.3 fL (7.4-10.4); Monocytes 4 % (0-10); Neutrophil 91 % (42-75); Platelet Count 262 thou/uL (130-400); RBC Distribution Width 13.4 % (11.5-14.5)
--- NOTE | 2020-06-25 07:55 | RAD ---
Chest one view HISTORY: Dyspnea. Atelectasis. Follow-up. COMPARISON: 06/24/2020. FINDINGS: Complete opacification left hemithorax with leftward shift the mediastinum again demonstrat ed. Compensatory hyperinflation of the right lung which is clear. No pneumothorax. IMPRESSION : Complete left lung collapse, stable.
[2020-06-25] MEDS: Potassium Chloride 10 MEQ TAB PO SCH (09:27)
[2020-06-25] MEDS: Lisinopril/Hydrochlorothiazide 20/25 mg Tablet PO SCH (09:27)
[2020-06-25] MEDS: Carvedilol 25 MG TAB PO SCH ×2 (09:27→20:53)
[2020-06-25] MEDS: FLUoxetine HCl 20 MG CAP PO SCH (09:27)
[2020-06-25] MEDS: Mometasone 200 MCG/Formoterol 5 MCG 120 PUFF INHALER INH SCH ×2 (09:48→20:22)
[2020-06-25] MEDS: Dexamethasone 4 MG TAB PO SCH ×2 (10:23→20:52)
[2020-06-25] MEDS: Lactated Ringer's 1,000 ML IV SCH ×2 (10:24→20:51)
--- NOTE | 2020-06-25 11:27 | PRG ---
DATE OF SERVICE: 06/25/2020 SUBJECTIVE: She remains in the MICU on high flow. OBJECTIVE: VITAL SIGNS: Temperature is 98, pulse 80, blood pressure 170/75, saturations are 93% to 94% high flow. CHEST: Decreased breath sounds left lung. CARDIAC: Normal S1, S2. ABDOMEN: No masses. LABORATORY DATA: White count 21,000, H and H of 10 and 40 with a left shift. X-ray shows persistent atelectatic changes in the left lung. ASSESSMENT: Oquendo-positive pneumonia, left lung atelectasis, azotemia. There may be very slight improvement in the x-ray. PLAN: Continue aggressive neb treatments, Mucomyst, antibiotics, steroids. She is eventually going to require a bronch. Job ID: [id number]
[2020-06-25 12:20] LABS: Hemoglobin 11.5 g/dL (12.0-16.0); Platelet Count 222 thou/uL (130-400)
--- NOTE | 2020-06-25 14:44 | PRG ---
DATE OF SERVICE: 06/25/2020 SUBJECTIVE: Ms. Jensen has had no further bowel movements since last night. No abdominal pain. No other acute complaints. PHYSICAL EXAMINATION: VITAL SIGNS: Temperature is 98.9, pulse 82, blood pressure 115/59. She is on high-flow oxygen. LABORATORY DATA: Her hemoglobin is 11.5 today, it is after 2 units of transfusion. IMPRESSION: Upper gastrointestinal bleed, presenting with melena yesterday. She appears to have stopped the acute bleeding as her hemoglobin responded appropriately to transfusion. She has had no further bowel movements. RECOMMENDATIONS: 1. She can likely change to proton pump inhibitor b.i.d. dosing tomorrow. 2. I would hold the enoxaparin for another 5 days. 3. We can restart with a clear liquid diet and advance as she tolerates it. 4. No plan for endoscopy as she is at high risk for anesthesia, and as long as she is not having ongoing active bleeding, then need for therapeutic intervention is not anticipated. We would avoid a diagnostic exam. 5. I will sign off for now. Please call if GI can be of assistance. Job ID: [id number]
[2020-06-25 19:34] LABS: Bacteria/HPF None Seen HPF (None Seen); Bilirubin Negative (Negative); Blood, Urine Negative (Negative); Clarity Clear (Clear); Glucose, Urine (Dipstick) Normal (Negative); Ketone, Urine Negative (Negative); Leukocyte Negative Leu/uL (Negative); Nitrite Negative (Negative); Protein, Urine (Dipstick) Negative (Neg-Trace); RBC/HPF 0-3 HPF (0-3); Specific Gravity, Urine 1.022 (1.002-1.036); Squamous Epithelial 0-3 HPF (0-3); Urobilinogen Normal mg/dL (Less than 2); WBC/HPF 0-3 HPF (0-3)
[2020-06-25 19:35] LABS: Urine Culture Reflex No No
[2020-06-25] MEDS: Amlodipine 5 MG TAB PO SCH (20:51)
[2020-06-25] MEDS: metFORMIN 500 MG TAB PO SCH (20:52)
[2020-06-25] MEDS: Atorvastatin Calcium 20 MG TAB PO SCH (20:52)
[2020-06-26] MEDS: Acetylcysteine 10% 100 MG/ML 30 ml Vial NEB SCH ×5 (00:03→15:08)
[2020-06-26] MEDS: Albuterol Sulfate 2.5 mg/3 ml Neb IPPB SCH ×5 (00:03→15:07)
[2020-06-26] MEDS: Pantoprazole 80 MG in Sodium Chloride 0.9% 100 ML IVPB SCH (00:11)
[2020-06-26] MEDS: guaiFENesin ER 600 MG TAB PO SCH ×2 (00:12→12:31)
[2020-06-26] MEDS: Lactated Ringer's 1,000 ML IV SCH (04:07)
[2020-06-26 04:31] LABS: Band 12 % (5-11); Lymphocytes 4 % (21-51); MDiff Complete? YES; Mean Corpuscular HGB CONC 31.8 g/dL (32.0-36.0); Mean Corpuscular Hemoglobin 30.7 pg (27.0-31.0); Mean Corpuscular Volume 96.6 fL (78.0-98.0); Mean Platelet Volume 9.1 fL (7.4-10.4); Monocytes 3 % (0-10); Neutrophil 81 % (42-75); Platelet Count 194 thou/uL (130-400); RBC Distribution Width 13.9 % (11.5-14.5); Red Blood Cell (RBC) Count 3.26 mill/uL (4.20-5.40); White Blood Cell (WBC) Count 23.2 thou/uL (4.8-10.8)
--- NOTE | 2020-06-26 07:51 | RAD ---
Chest one view HISTORY: Dyspnea. Chest pain. COMPARISON: 06/25/2020. FINDINGS: Prominent leftward shift of mediastinum with near complete loss in aeration of the left maria ines g is similar in appearance to the prior study. Minimal air within the left upper lobe. Compensatory hypertrophy of the right lung. No evidence of pneumothorax. IMPRESSION : Near complete atelectasis left lung and other findings are stable.
--- NOTE | 2020-06-26 08:15 | PDOC.FM ---
- Subjective Subjective: No acute overnight events. Slept well on bipap. No new complaints this AM. Denies abdominal pain, nausea. - Objective Vital Signs & Weight: Vital Signs (12 hours) Temp Pulse Resp BP Pulse Ox 06/26/20 07:43 94 L 06/26/20 03:35 97.8 F 06/26/20 03:07 66 16 93 L 06/26/20 03:06 66 16 93 L 06/26/20 00:34 97.3 F L 06/26/20 00:03 70 18 96 06/25/20 20:51 73 112/50 L 06/25/20 20:21 76 20 96 Weight Admit Weight 83.007 kg Weight 83.007 kg Most Recent Monitor Data Heart Rate from ECG 75 NIBP 116/62 NIBP BP-Mean 80 Respiration from ECG 20 SpO2 94 I&O: 06/25/20 06/26/20 06/27/20 06:59 06:59 06:59 Intake Total 2560 1620 Output Total 700 850 Balance 1860 770 Result Diagrams: 06/26/20 03:27 06/25/20 03:28 Phys Exam - Physical Examination Constitutional: NAD resting comfortably on bipap HEENT: sclera anicteric Neck: supple Respiratory: no wheezing decreased breath sounds on L, overall obscured by bipap Cardiovascular: RRR, no significant murmur Gastrointestinal: soft, non-tender, no distention, positive bowel sounds Musculoskeletal: no edema, pulses present Neurological: moves all 4 limbs Psychiatric: A&O x 3 Skin: cap refill <2 seconds Dx/Plan - Plan Plan: This is a 75F who presented with SOB and was found to have COVID PNA. Acute hypoxic respiratory failure 2/2 COPD exacerbation 2/2 COVID PNA Initial sx 06/11, positive COVID screen 06/13 on admission. Initially admitted to medical where she was improving and preparing for discharge before being transferred to IMCU on 06/19 to receive BiPAP for decreased alertness and ABG with pH 7.2, pO2 58, pCO2 89. On 06/21 CXR with L sided opacification of entire lung with mediastinal deviation - suspected mucus plug. Follow up CXR on 06/22, 06/23, 06/24, 06/25 have been relatively unchanged. - bipap with albuterol, mucomyst for mucus plugging causing lung collapse, alternating with HFNC - continue decadron, lovenox - monitor respiratory status closely. Goal SpO2 88-92% in setting of COPD. - Pulm consulted 06/20, appreciate recs; suggest she may need bronchoscopy Upper GI bleed On 06/24 became lethargic, hypotensive, found to have large, black melanotic stool. Received 500cc bolus, 2u uncrossmatched blood, started on protonix gtt. Mildly tachycardic overnight in 90s and otherwise vitals have been stable. No additional transfusions or interventions have been required. - discontinue protonix gtt and switch to BID PPI dosing; may change to PO PPI when tolerating PO intake - continue holding lovenox until 06/30 - advance to clear liquids and will DC mIVF - monitor H/H daily - GI signed off 06/25/20 Leukocytosis Increased after acute bleeding event, now trending back down. Consider stress response, increased steroids dosing vs infectious etiology. Procalcitonin increased at 1.14 but remains below sepsis threshold No overt signs of new infection on history/exam this morning. UA negative. - CXR appears stable, respiratory status not worsening - if develops fever or clinical worsening, low threshold for collecting blood cultures and starting abx - will recheck procalcitonin to ensure not continuing to rise Metabolic alkalosis Most likely post-hypercapnic etiology. Serum bicarbonate stable. - continue to monitor daily BMP - consider acetazolamide if serum bicarb consistently >40 Delirium, improving Waxing and waning orientation, altered sleep/wake cycle. Likely due to prolonged hospitalization, infection. Monitor for changes in respiratory status as mental status changes may also be related to hypercapnea in setting of COPD. - reorientation measures SHIRA, resolved - monitor Cr COPD exacerbation - treatment as above Anxiety - Home Fluoxetine - Hydroxyzine prn HTN - Home meds - Monitor vitals Diabetes - Hypoglycemic protocol - ACHS checks - Home meds HLD - home meds PCP: Toño VTE: held GI: protonix CODE: FULL PT/OT, CM, Spiritual care consulted Dispo: Remains in IMCU Will continue to monitor respiratory status and level of sedation. Will eventually need SNF placement. Addendum - Attending - Attending Attestation Date/Time: 06/26/20 5991 I personally evaluated the patient and discussed the management with Dr. Shearer I agree with the History, Examination, Assessment and Plan documented above with any addition or exceptions noted below. 75 yo female admitted for acute respiratory failure related to COVID with underlying COPD now with resolved UGIB Patient stable. Improving. Still on BiPAP. Pulm following. Still with obstructive bronch on left. Awaiting bronchoscopy. A-a gradient worsening. Remains afebrile. Procal increased. Repeat in AM. Continue antibx. Expected due to obstruction. GI bleeding resolved. Hold anticoag for 2 more days. D dimer stable at this time. Repeat in AM to make sure. s/p 2 units. PLT decreasing. Monitoring. Isidro
[2020-06-26] MEDS: Mometasone 200 MCG/Formoterol 5 MCG 120 PUFF INHALER INH SCH (09:07)
[2020-06-26] MEDS: Carvedilol 25 MG TAB PO SCH ×2 (09:18→21:25)
[2020-06-26] MEDS: Lisinopril/Hydrochlorothiazide 20/25 mg Tablet PO SCH (09:18)
[2020-06-26] MEDS: Dexamethasone 4 MG TAB PO SCH ×2 (09:19→20:09)
[2020-06-26] MEDS: Potassium Chloride 10 MEQ TAB PO SCH (09:20)
[2020-06-26] MEDS: FLUoxetine HCl 20 MG CAP PO SCH (09:20)
[2020-06-26] MEDS: Pantoprazole 40 MG VIAL IVP SCH ×2 (09:21→20:11)
[2020-06-26] MEDS: HumaLOG 300 UNITS/3 ML VIAL SC PRN ×2 (12:35→20:24)
[2020-06-26 15:02] LABS: Anion Gap 13 mmol/L (10-20); BUN (Urea Nitrogen) 39 mg/dL (9.8-20.1); Calc. Creatinine Clearance 85 mL/min (70-130); Carbon Dioxide 34 mmol/L (23-31); Chloride 96 mmol/L (98-107); Glucose 231 mg/dL (83-110); Potassium 4.4 mmol/L (3.5-5.1); Sodium 139 mmol/L (136-145)
--- NOTE | 2020-06-26 19:10 | PRG ---
DATE OF SERVICE: 06/26/2020 Ms. Jensen remains stable on high-flow oxygen. Her chest x-ray shows aeration of her apex on the left, which she did not show last week. Her lungs, heart, and abdomen are otherwise unchanged. We will continue with supportive care. We will continue to try to wean her FiO2, and hopefully, she will get more comfortable with high-flow. We will avoid bronchoscopy for now. Job ID: [id number]
[2020-06-26] MEDS: metFORMIN 500 MG TAB PO SCH (20:09)
[2020-06-26] MEDS: Atorvastatin Calcium 20 MG TAB PO SCH (20:10)
[2020-06-26] MEDS: Amlodipine 5 MG TAB PO SCH (21:25)
[2020-06-27] MEDS: guaiFENesin ER 600 MG TAB PO SCH ×2 (00:52→12:50)
[2020-06-27] MEDS: Acetylcysteine 10% 100 MG/ML 30 ml Vial NEB SCH ×8 (02:04→23:10)
[2020-06-27] MEDS: Albuterol Sulfate 2.5 mg/3 ml Neb IPPB SCH ×8 (02:04→23:10)
[2020-06-27] MEDS: Mometasone 200 MCG/Formoterol 5 MCG 120 PUFF INHALER INH SCH ×3 (02:05→20:47)
[2020-06-27 03:38] LABS: #Lymphocytes 0.6 thou/uL (1.20-3.40); #Monocytes 0.5 thou/uL (0.11-0.59); %Basophils 0.1 % (0.0-1.0); %Eosinophils 0.1 % (0.0-10.0); %Lymphocytes 3.6 % (21.0-51.0); %Monocytes 2.8 % (0.0-10.0); %Neutrophils 93.5 % (42.0-75.0); Hemoglobin 9.5 g/dL (12.0-16.0); Mean Corpuscular HGB CONC 31.6 g/dL (32.0-36.0); Mean Corpuscular Hemoglobin 30.8 pg (27.0-31.0); Mean Corpuscular Volume 97.5 fL (78.0-98.0); Platelet Count 213 thou/uL (130-400); Red Blood Cell (RBC) Count 3.09 mill/uL (4.20-5.40)
[2020-06-27 03:58] LABS: BUN (Urea Nitrogen) 30 mg/dL (9.8-20.1); Calc. Creatinine Clearance 103 mL/min (70-130); Glucose 138 mg/dL (83-110)
[2020-06-27 04:07] LABS: Anion Gap 13 mmol/L (10-20); Carbon Dioxide 35 mmol/L (23-31); Chloride 96 mmol/L (98-107); Potassium 4.4 mmol/L (3.5-5.1); Sodium 140 mmol/L (136-145)
--- NOTE | 2020-06-27 06:58 | PDOC.FM ---
- Subjective Subjective: No acute overnight events. Reports mild gas pains, otherwise no abdominal pain. No vomiting. Tolerating diet so far. Feels breathing is about the same. - Objective Vital Signs & Weight: Vital Signs (12 hours) Temp Pulse Resp Pulse Ox 06/27/20 04:00 97.4 F L 06/27/20 03:28 68 20 95 06/27/20 02:26 64 16 94 L 06/26/20 23:21 97.0 F L 06/26/20 21:25 64 06/26/20 20:00 97.3 F L 95 Weight Admit Weight 83.007 kg Weight 83.007 kg Most Recent Monitor Data Heart Rate from ECG 65 NIBP 121/48 NIBP BP-Mean 72 Respiration from ECG 16 SpO2 89 I&O: 06/25/20 06/26/20 06/27/20 06:59 06:59 06:59 Intake Total 2560 1620 800 Output Total 700 850 525 Balance 1860 770 275 Result Diagrams: 06/27/20 03:15 06/27/20 03:15 Phys Exam - Physical Examination Constitutional: NAD HEENT: moist MMs Neck: supple Respiratory: wheezing present upper airway sounds on R, decreased breath sounds on L with few wheezes JANAE Cardiovascular: RRR, no significant murmur Gastrointestinal: soft mild epigastric tenderness, no rebound/guarding Musculoskeletal: no edema, pulses present Neurological: non-focal, moves all 4 limbs Psychiatric: A&O x 3 Deviation from normal: depressed affect Skin: normal turgor, cap refill <2 seconds Dx/Plan - Plan Plan: This is a 75F who presented with SOB and was found to have COVID PNA. Acute hypoxic respiratory failure 2/2 COPD exacerbation 2/2 COVID PNA Initial sx 06/11, positive COVID screen 06/13 on admission. Initially admitted to medical where she was improving and preparing for discharge before being transferred to IMCU on 06/19 to receive BiPAP for decreased alertness and ABG with pH 7.2, pO2 58, pCO2 89. On 06/21 CXR with L sided opacification of entire lung with mediastinal deviation - suspected mucus plug. Follow up CXR on 06/22, 06/23, 06/24, 06/25 have been relatively unchanged. - bipap with albuterol, mucomyst for mucus plugging causing lung collapse, alternating with HFNC - continue decadron, lovenox - monitor respiratory status closely. Goal SpO2 88-92% in setting of COPD. - Pulm consulted 06/20, appreciate recs; favoring mucomyst/albuterol over bronchoscopy at this time Upper GI bleed, stable On 06/24 became lethargic, hypotensive, found to have large, black melanotic stool. Received 500cc bolus, 2u uncrossmatched blood, started on protonix gtt. Mildly tachycardic overnight in 90s and otherwise vitals have been stable. No additional transfusions or interventions have been required. - change to PO PPI - continue holding lovenox until 06/30 - advance to clear liquids and will DC mIVF - monitor H/H daily - GI signed off 06/25/20 Leukocytosis Increased after acute bleeding event, now trending back down. Consider stress response, increased steroids dosing vs less likely infectious etiology. Procalcitonin increased at 1.14 after UGIB event, now trending back down without abx. No overt signs of new infection on history/exam this morning. UA negative. - CXR appears stable, respiratory status not worsening - if develops fever or clinical worsening, low threshold for collecting blood cultures and starting abx Metabolic alkalosis Most likely post-hypercapnic etiology. Serum bicarbonate stable. - continue to monitor daily BMP - consider acetazolamide if serum bicarb consistently >40 Delirium, improving Waxing and waning orientation, altered sleep/wake cycle. Likely due to prolonged hospitalization, infection. Monitor for changes in respiratory status as mental status changes may also be related to hypercapnea in setting of COPD. - reorientation measures SHIRA, resolved - monitor Cr COPD exacerbation - treatment as above Anxiety - Home Fluoxetine - Hydroxyzine prn HTN - Home meds - Monitor vitals Diabetes - Hypoglycemic protocol - ACHS checks - Home meds HLD - home meds PCP: Toño VTE: held GI: protonix CODE: FULL PT/OT, CM, Spiritual care consulted Dispo: Remains in IMCU Will continue to monitor respiratory status and level of sedation. Will eventually need SNF placement. Addendum - Attending - Attending Attestation Date/Time: 06/27/20 3199 I personally evaluated the patient and discussed the management with Dr. Valerio I agree with the History, Examination, Assessment and Plan documented above with any addition or exceptions noted below. 75 yo female admitted for acute respiratory failure related to COVID with underlying COPD now with resolved UGIB Patient remains the same. Still requiring HFNC and BiPAP. Left lung still obstructive and not aerated. Ddimer improved to less than 1. Pulm following. Ok to stop daily labs. Ok to restart ppx anticoag tomorrow. ABrayMD
[2020-06-27] MEDS: Dexamethasone 4 MG TAB PO SCH ×2 (09:05→20:54)
[2020-06-27] MEDS: Lisinopril/Hydrochlorothiazide 20/25 mg Tablet PO SCH (09:05)
[2020-06-27] MEDS: Potassium Chloride 10 MEQ TAB PO SCH (09:05)
[2020-06-27] MEDS: FLUoxetine HCl 20 MG CAP PO SCH (09:05)
[2020-06-27] MEDS: Carvedilol 25 MG TAB PO SCH ×2 (09:05→20:55)
--- NOTE | 2020-06-27 09:44 | RAD ---
PORTABLE CHEST: HISTORY: Respiratory distress. FINDINGS: Volume loss changes of the left lung are again noted. The opacification of the left upper lobe appea rs slightly worsened as compared to the prior examination. The right lung remains clear. IMPRESSION: Slight worsening to the opacification of the left lung, specifically the changes in the left upper lo be are worse. POS: [facility]
--- NOTE | 2020-06-27 15:27 | PRG ---
DATE OF SERVICE: 06/27/2020 SUBJECTIVE: Ms. Jensen is feeling better. She actually recognized me today. I explained to her that she did not recognize Nuria all of last week. Nuria is one of our respiratory therapists who has known Ms. Jensen for many years. OBJECTIVE: LUNGS: Unchanged. HEART: Unchanged. ABDOMEN: Unchanged. LABORATORY DATA: White count 16, hemoglobin 9.5, platelets 213. Sodium 140, potassium 4.4, chloride 96, bicarb 35, BUN 30, creatinine 0.6. IMPRESSION: COVID pneumonia, making slow progress. She has more opacification of her left lung today, but still at this point in time because of COVID-19, I do not feel it is necessary to bronchoscope her. I would likely have to intubate her to bronchoscope her. I really would like to try to avoid this. We will continue to try to decrease FiO2. Job ID: [id number]
[2020-06-27] MEDS: metFORMIN 500 MG TAB PO SCH (20:55)
[2020-06-27] MEDS: Atorvastatin Calcium 20 MG TAB PO SCH (20:55)
[2020-06-28] MEDS: guaiFENesin ER 600 MG TAB PO SCH ×3 (01:01→23:52)
[2020-06-28] MEDS: Albuterol Sulfate 2.5 mg/3 ml Neb IPPB SCH ×6 (04:22→22:37)
[2020-06-28] MEDS: Acetylcysteine 10% 100 MG/ML 30 ml Vial NEB SCH ×6 (04:22→22:38)
[2020-06-28] MEDS: HumaLOG 300 UNITS/3 ML VIAL SC PRN (07:02)
[2020-06-28] MEDS: Dexamethasone 4 MG TAB PO SCH ×2 (08:09→20:11)
[2020-06-28] MEDS: Potassium Chloride 10 MEQ TAB PO SCH (08:10)
[2020-06-28] MEDS: FLUoxetine HCl 20 MG CAP PO SCH (08:10)
[2020-06-28] MEDS: Carvedilol 25 MG TAB PO SCH ×2 (08:10→20:12)
[2020-06-28] MEDS: Lisinopril/Hydrochlorothiazide 20/25 mg Tablet PO SCH (08:10)
[2020-06-28] MEDS ORDERED: Polyethylene Glycol 3350 17 GM Packet PO SCH (09:00)
--- NOTE | 2020-06-28 09:12 | PDOC.FM ---
- Subjective Subjective: No acute overnight events. Feeling a little better, in better spirits. Continues to have some gas pains. Has not had BM, mostly been eating liquid diet. Expresses fear of having BM due to recent UGIB. - Objective Vital Signs & Weight: Vital Signs (12 hours) Temp Pulse Resp Pulse Ox 06/28/20 08:10 70 06/28/20 07:20 96.3 F L 06/28/20 04:22 98 06/28/20 04:00 96.6 F L 06/28/20 00:00 97.4 F L 96 06/27/20 23:10 18 99 Weight Admit Weight 83.007 kg Weight 83.007 kg Most Recent Monitor Data Heart Rate from ECG 69 NIBP 143/74 NIBP BP-Mean 97 Respiration from ECG 16 SpO2 95 I&O: 06/27/20 06/28/20 06/29/20 06:59 06:59 06:59 Intake Total 1040 1470 Output Total 825 1200 Balance 215 270 Result Diagrams: 06/27/20 03:15 06/27/20 03:15 Phys Exam - Physical Examination Constitutional: NAD HEENT: sclera anicteric Neck: supple Respiratory: no rales few JANAE wheezes, otherwise decreased L; R upper airway sounds 2/2 bipap Cardiovascular: RRR, no significant murmur Gastrointestinal: soft, non-tender, no distention, positive bowel sounds Musculoskeletal: no edema, pulses present Neurological: moves all 4 limbs Psychiatric: normal affect, A&O x 3 Skin: normal turgor, cap refill <2 seconds Dx/Plan - Plan Plan: This is a 75F who presented with SOB and was found to have COVID PNA. Acute hypoxic respiratory failure 2/2 COPD exacerbation 2/2 COVID PNA Initial sx 06/11, positive COVID screen 06/13 on admission. Initially admitted to medical where she was improving and preparing for discharge before being transferred to IMCU on 06/19 to receive BiPAP for decreased alertness and ABG with pH 7.2, pO2 58, pCO2 89. On 06/21 CXR with L sided opacification of entire lung with mediastinal deviation - suspected mucus plug. Follow up CXR on 06/22, 06/23, 06/24, 06/25 have been relatively unchanged. CXR 06/28 with small improvement to L upper lung opacity. - bipap with albuterol, mucomyst for mucus plugging causing lung collapse, alternating with HFNC - continue decadron, lovenox - monitor respiratory status closely. Goal SpO2 88-92% in setting of COPD. - Pulm consulted 06/20, appreciate recs; favoring mucomyst/albuterol over bronchoscopy at this time Upper GI bleed, stable On 06/24 became lethargic, hypotensive, found to have large, black melanotic stool. Received 500cc bolus, 2u uncrossmatched blood, started on protonix gtt. Mildly tachycardic overnight in 90s and otherwise vitals have been stable. No additional transfusions or interventions have been required. - encouraged BM when she has urge - change to PO PPI - continue holding lovenox until 06/30 - advance to clear liquids and will DC mIVF - H/H has been stable, will decrease monitoring to q2 days - GI signed off 06/25/20 Leukocytosis Increased after acute bleeding event, now trending back down. Consider stress response, increased steroids dosing vs less likely infectious etiology. Procalcitonin increased at 1.14 after UGIB event, now trending back down without abx. No overt signs of new infection on history/exam this morning. UA negative. - CXR appears stable, respiratory status not worsening - if develops fever or clinical worsening, low threshold for collecting blood cultures and starting abx Metabolic alkalosis Most likely post-hypercapnic etiology. Serum bicarbonate stable. - continue to monitor daily BMP - consider acetazolamide if serum bicarb consistently >40 Delirium, improving Waxing and waning orientation, altered sleep/wake cycle. Likely due to prolonged hospitalization, infection. Monitor for changes in respiratory status as mental status changes may also be related to hypercapnea in setting of COPD. - reorientation measures SHIRA, resolved - monitor Cr COPD exacerbation - treatment as above Anxiety - Home Fluoxetine - Hydroxyzine prn HTN - Home meds - Monitor vitals Diabetes - Hypoglycemic protocol - ACHS checks - Home meds HLD - home meds PCP: Toño VTE: held GI: protonix CODE: FULL PT/OT, CM, Spiritual care consulted Dispo: Remains in IMCU Will continue to monitor respiratory status and level of sedation. Will eventually need SNF placement. Addendum - Attending - Attending Attestation Date/Time: 06/28/20 1028 I personally evaluated the patient and discussed the management with Dr. Shearer I agree with the History, Examination, Assessment and Plan documented above with any addition or exceptions noted below. 75 yo female admitted for acute respiratory failure related to COVID with underlying COPD now with resolved UGIB Patient reports some respiratory improvement today. Not as much dyspnea. Now on HFNC and FiO2 decreasing. Mild improvement in CXR on left today. Pulm following. No broch due to risk. Will start miralax daily instead of prn. No BM in 4 days. Ok to transfer to floor for need for bed in IMCU. Have discussed with pulm. Pulm feels patient will not need NiPPV with BiPAP. Continue to monitor closely. Would decrease steroid dosing to daily but will review with Pulm. Continue to trend glucose. Repeat other labs as needed. Isidro
--- NOTE | 2020-06-28 09:13 | RAD ---
EXAM: Portable chest PROVIDED CLINICAL HISTORY: Atelectasis COMPARISON: 06/27/2019 FINDINGS: Significant interval change with respect to the prior examination is not apparent. IMPRESSION: As above.
[2020-06-28] MEDS: Mometasone 200 MCG/Formoterol 5 MCG 120 PUFF INHALER INH SCH ×2 (10:56→18:28)
[2020-06-28] MEDS: Atorvastatin Calcium 20 MG TAB PO SCH (20:11)
[2020-06-28] MEDS: metFORMIN 500 MG TAB PO SCH (20:11)
--- NOTE | 2020-06-28 20:43 | PRG ---
DATE OF SERVICE: 06/28/2020 SUBJECTIVE: Ms. Jensen' radiograph was reviewed today. Finally we are starting to see some aeration of the left lung. OBJECTIVE: VITAL SIGNS: She is afebrile, heart rate 74, respiratory rate 16, oximetry is 94% to 99% on high-flow. Her FiO2 is down around on 40%. Blood pressure 135/70. LUNGS: Unchanged. HEART: Unchanged. ABDOMEN: Unchanged. LABORATORY DATA: White count is low at 16 yesterday, down from 23 the day before. There is no lab other than glucose. IMPRESSION: 1. COVID pneumonia. 2. Left lower lung atelectasis, most likely secondary to a mucus plug. Since she would have to be intubated with a bronchoscope, we will hold off, especially given the radiograph today is improved. We will continue supportive care. Job ID: [id number]
[2020-06-29] MEDS: Albuterol Sulfate 2.5 mg/3 ml Neb IPPB SCH ×6 (02:43→22:14)
[2020-06-29] MEDS: Acetylcysteine 10% 100 MG/ML 30 ml Vial NEB SCH ×6 (02:44→22:14)
[2020-06-29 06:08] LABS: BUN (Urea Nitrogen) 21 mg/dL (9.8-20.1); Calc. Creatinine Clearance 97 mL/min (70-130); Calcium 8.2 mg/dL (7.8-10.44); Glucose 128 mg/dL (83-110)
[2020-06-29 06:17] LABS: Anion Gap 16 mmol/L (10-20); Carbon Dioxide 35 mmol/L (23-31); Chloride 92 mmol/L (98-107); Potassium 4.6 mmol/L (3.5-5.1); Sodium 138 mmol/L (136-145)
--- NOTE | 2020-06-29 06:52 | PDOC.FM ---
- Subjective Subjective: Transferred to telemetry yesterday. Remains on bipap during albuterol/mucomyst treatments. Feeling better this AM. Has not had BM for several days, feels urge. SOB is improving. No new complaints. - Objective Vital Signs & Weight: Vital Signs (12 hours) Temp Pulse Resp BP BP Pulse Ox 06/29/20 04:00 97.6 F 63 18 144/73 H 100 06/29/20 02:43 82 17 99 06/29/20 02:42 81 17 99 06/29/20 00:00 97.2 F L 71 18 159/84 H 100 06/28/20 22:48 72 17 95 06/28/20 22:37 78 17 95 06/28/20 20:00 98.2 F 74 16 135/70 94 L Weight Admit Weight 83.007 kg Weight 37.376 kg Most Recent Monitor Data Heart Rate from ECG 73 NIBP 130/62 NIBP BP-Mean 84 Respiration from ECG 17 SpO2 98 I&O: 06/27/20 06/28/20 06/29/20 06:59 06:59 06:59 Intake Total 1040 1470 840 Output Total 825 1200 1350 Balance 215 270 -510 Result Diagrams: 06/27/20 03:15 06/29/20 04:58 Phys Exam - Physical Examination Constitutional: NAD HEENT: moist MMs Neck: supple Respiratory: wheezing present (JANAE wheezing, LLL decreased breath sounds with few rales) transmitted upper airway sounds on R Cardiovascular: RRR, no significant murmur Gastrointestinal: soft, non-tender, no distention, positive bowel sounds Neurological: moves all 4 limbs Psychiatric: normal affect, A&O x 3 Skin: cap refill <2 seconds Dx/Plan - Plan Plan: This is a 75F who presented with SOB and was found to have COVID PNA. Acute hypoxic respiratory failure 2/2 COPD exacerbation 2/2 COVID PNA Initial sx 06/11, positive COVID screen 06/13 on admission. Initially admitted to medical where she was improving and preparing for discharge before being transferred to [facility] on 06/19 to receive BiPAP for decreased alertness and ABG with pH 7.2, pO2 58, pCO2 89. On 06/21 CXR with L sided opacification of entire lung with mediastinal deviation - suspected mucus plug. Follow up CXR on 06/22, 06/23, 06/24, 06/25 have been relatively unchanged. CXR 06/28 with small improvement to L upper lung opacity. CXR 06/29 with marked improvement of L lung opacity. - HFNC 30L/60% this AM, wean FiO2 as tolerated. BiPAP for albuterol/mucomyst treatments. - continue decadron, lovenox - monitor respiratory status closely. Goal SpO2 88-92% in setting of COPD. - Pulm consulted 06/20, appreciate recs; continuing mucomyst/albuterol Upper GI bleed, resolved On 06/24 became lethargic, hypotensive, found to have large, black melanotic stool. Received 500cc bolus, 2u uncrossmatched blood, started on protonix gtt. Mildly tachycardic overnight in 90s and otherwise vitals have been stable. No additional transfusions or interventions have been required. - encouraged BM when she has urge - change to PO PPI - continue holding lovenox until 06/30 - advance diet as tolerated - H/H has been stable, will decrease monitoring to q2 days - GI signed off 06/25/20 Leukocytosis Increased after acute bleeding event, now trending back down. Consider stress response, increased steroids dosing vs less likely infectious etiology. Procalcitonin increased at 1.14 after UGIB event, now trending back down without abx. No overt signs of new infection on history/exam this morning. UA negative. - CXR appears stable, respiratory status not worsening - if develops fever or clinical worsening, low threshold for collecting blood cultures and starting abx Metabolic alkalosis Most likely post-hypercapnic etiology. Serum bicarbonate stable. - decrease labs to q2days - consider acetazolamide if serum bicarb consistently >40 Delirium, resolved Waxing and waning orientation, altered sleep/wake cycle earlier this admission. Likely due to prolonged hospitalization, infection. Monitor for changes in respiratory status as mental status changes may also be related to hypercapnea in setting of COPD. - reorientation measures as needed SHIRA, resolved - monitor Cr COPD exacerbation - treatment as above Anxiety - Home Fluoxetine - Hydroxyzine prn HTN - Home meds - Monitor vitals Diabetes - Hypoglycemic protocol - ACHS checks - Home meds HLD - home meds PCP: Toño VTE: held GI: protonix CODE: FULL PT/OT, CM, Spiritual care consulted Dispo: Remains in IMCU Will continue to monitor respiratory status and level of sedation. Will eventually need SNF placement. Addendum - Attending - Attending Attestation Date/Time: 06/29/20 [id number] I personally evaluated the patient and discussed the management with Dr. Valerio I agree with the History, Examination, Assessment and Plan documented above with any addition or exceptions noted below. 75 yo female admitted for acute hypoxic respiratory failure related to COVID with underlying COPD now with resolved UGIB Significant improvement in respiratory status. Requiring only supplemental O2 via NC. If remains stable will follow up with pulm to see ok to d/c to [facility] for rehab and O2 therapy. Will start to taper steroids. Restart ppx VTE tomorrow on 06/30/19 WillMD
[2020-06-29] MEDS: Mometasone 200 MCG/Formoterol 5 MCG 120 PUFF INHALER INH SCH ×2 (08:14→18:13)
--- NOTE | 2020-06-29 08:17 | RAD ---
Chest one view HISTORY: Atelectasis. Dyspnea. Follow-up. COMPARISON: 06/28/2020. FINDINGS: Cardiac silhouette remains shifted leftward. Left upper lobe is now much better visualized, with improved aeration. Left hemidiaphragm remains obscured with blunting of the left lateral costophrenic angle. Right lung remains hyperinflated. No evidence of pneumothorax. IMPRESSION : Significant improvement in aeration of the left upper lobe. Apparent decrease in amount of left pleur al fluid. (Interval thoracentesis?)
[2020-06-29] MEDS: Potassium Chloride 10 MEQ TAB PO SCH (09:59)
[2020-06-29] MEDS: Lisinopril/Hydrochlorothiazide 20/25 mg Tablet PO SCH (09:59)
[2020-06-29] MEDS: Carvedilol 25 MG TAB PO SCH ×2 (09:59→21:43)
[2020-06-29] MEDS: Dexamethasone 4 MG TAB PO SCH ×2 (09:59→21:42)
[2020-06-29] MEDS: FLUoxetine HCl 20 MG CAP PO SCH (09:59)
[2020-06-29] MEDS: Polyethylene Glycol 3350 17 GM Packet PO SCH (10:00)
[2020-06-29] MEDS: Acetaminophen 325 MG TAB PO PRN (10:00)
[2020-06-29] MEDS: guaiFENesin ER 600 MG TAB PO SCH (12:43)
[2020-06-29] MEDS: HumaLOG 300 UNITS/3 ML VIAL SC PRN (12:44)
--- NOTE | 2020-06-29 15:15 | PRG ---
DATE OF SERVICE: 06/29/2020 SUBJECTIVE: Ms. Jensen says she is feeling better. She is down to 2 L/minute O2. She has oxygen and nebulizer at home. Her left lung on chest x-ray continues to improve. OBJECTIVE: VITAL SIGNS: She is afebrile; heart rate 68; respiratory rate is 20; oximetry is 97% on 3 L, was 94% on 2 L; and blood pressure 135/68. LUNGS: Clear and free of wheezes. HEART: Regular rhythm. ABDOMEN: Soft. IMPRESSION: 1. COVID pneumonia. 2. Left lung atelectasis. 3. Chronic obstructive pulmonary disease, dramatically improved. PLAN: She is 16 days into her hospitalization 2 to 3 days prior, so her isolation can be discontinued. She can be discharged home. In my opinion, she has everything she needs at home. She needs a slow prednisone taper over the next 2 to 3 weeks. She can follow up with me in 3 to 4 weeks with a chest x-ray. Job ID: [id number]
[2020-06-29] MEDS: Atorvastatin Calcium 20 MG TAB PO SCH (21:42)
[2020-06-29] MEDS: metFORMIN 500 MG TAB PO SCH (21:43)
[2020-06-29] MEDS: Apixaban 2.5 MG TAB PO SCH (21:43)
[2020-06-30] MEDS: guaiFENesin ER 600 MG TAB PO SCH ×2 (01:56→13:34)
[2020-06-30] MEDS: Acetylcysteine 10% 100 MG/ML 30 ml Vial NEB SCH ×6 (02:18→22:22)
[2020-06-30] MEDS: Albuterol Sulfate 2.5 mg/3 ml Neb IPPB SCH ×6 (02:18→22:21)
--- NOTE | 2020-06-30 07:01 | PDOC.FM ---
- Subjective Subjective: No acute overnight events. Comfortable on NC. Denies SOB, chest pains. No new complaints this AM. - Objective Vital Signs & Weight: Vital Signs (12 hours) Temp Pulse Resp BP Pulse Ox 06/30/20 03:42 97.6 F 60 18 139/70 100 06/30/20 02:21 56 L 18 100 06/30/20 02:18 56 L 19 100 06/30/20 01:43 100 06/29/20 23:59 97 F L 61 20 132/65 100 06/29/20 22:16 55 L 18 100 06/29/20 22:14 55 L 18 100 06/29/20 19:36 97.0 F L 68 20 129/68 97 Weight Admit Weight 83.007 kg Weight 82.4 kg Most Recent Monitor Data Heart Rate from ECG 73 NIBP 130/62 NIBP BP-Mean 84 Respiration from ECG 17 SpO2 98 I&O: 06/29/20 06/30/20 07/01/20 06:59 06:59 06:59 Intake Total 840 900 Output Total 1350 675 Balance -510 225 Result Diagrams: 06/27/20 03:15 06/29/20 04:58 Phys Exam - Physical Examination Constitutional: NAD HEENT: moist MMs Neck: supple coarse breath sounds bilaterally Cardiovascular: RRR, no significant murmur Gastrointestinal: soft, non-tender, no distention Musculoskeletal: pulses present Neurological: moves all 4 limbs Psychiatric: normal affect, A&O x 3 Skin: cap refill <2 seconds Dx/Plan - Plan Plan: This is a 75F who presented with SOB and was found to have COVID PNA. Acute hypoxic respiratory failure 2/2 COPD exacerbation 2/2 COVID PNA, improved Initial sx 06/11, positive COVID screen 06/13 on admission. Initially admitted to medical where she was improving and preparing for discharge before being transferred to IMCU on 06/19 to receive BiPAP for decreased alertness and ABG with pH 7.2, pO2 58, pCO2 89. On 06/21 CXR with L sided opacification of entire lung with mediastinal deviation - suspected mucus plug. Follow up CXR on 06/22, 06/23, 06/24, 06/25 have been relatively unchanged. CXR 06/28 with small improvement to L upper lung opacity. CXR 06/29 with marked improvement of L lung opacity. - Transitioned to baseline NC on 06/29 - Goal SpO2 88-92% in setting of COPD. - Pulm consulted 06/20, appreciate recs: - discharge on NC - prolonged steroid taper Upper GI bleed, resolved On 06/24 became lethargic, hypotensive, found to have large, black melanotic stool. Received 500cc bolus, 2u uncrossmatched blood, started on protonix gtt. Mildly tachycardic overnight in 90s and otherwise vitals have been stable. No additional transfusions or interventions have been required. - encouraged BM when she has urge - PO PPI - resume DVT ppx today - advance diet as tolerated - H/H has been stable, will decrease monitoring to q2 days - GI signed off 06/25/20 Leukocytosis, resolved Increased after acute bleeding event, now trending back down. Consider stress response, increased steroids dosing vs less likely infectious etiology. Procalcitonin increased at 1.14 after UGIB event, now trending back down without abx. No overt signs of new infection on history/exam this morning. UA negative. - CXR appears stable, respiratory status not worsening - if develops fever or clinical worsening, low threshold for collecting blood cultures and starting abx Metabolic alkalosis, improved Most likely post-hypercapnic etiology. Serum bicarbonate stable. - decrease labs to q2days - consider acetazolamide if serum bicarb consistently >40 Delirium, resolved Waxing and waning orientation, altered sleep/wake cycle earlier this admission. Likely due to prolonged hospitalization, infection. Monitor for changes in respiratory status as mental status changes may also be related to hypercapnea in setting of COPD. - reorientation measures as needed SHIRA, resolved - monitor Cr COPD exacerbation, improved - treatment as above Anxiety - Home Fluoxetine - Hydroxyzine prn HTN - Home meds - Monitor vitals Diabetes - Hypoglycemic protocol - ACHS checks - Home meds HLD - home meds PCP: [facility] VTE: held GI: protonix CODE: FULL PT/OT, CM, Spiritual care consulted Dispo: Remains in IMCU Will continue to monitor respiratory status and level of sedation. Will eventually need SNF placement. Addendum - Attending - Attending Attestation Date/Time: 06/30/20 [id number] I personally evaluated the patient and discussed the management with Dr. Shearer I agree with the History, Examination, Assessment and Plan documented above with any addition or exceptions noted below. 75 yo female admitted for acute hypoxic respiratory failure related to COVID with underlying COPD now with resolved UGIB Improved. No concerns. Only requiring home O2 at this time. No respiratory distress. Ok to d/c to [facility]. Continue VTE ppx until d/c from [facility] or to PCP preference. Taper PO steroids over 12 days ABrayMD
[2020-06-30] MEDS: Mometasone 200 MCG/Formoterol 5 MCG 120 PUFF INHALER INH SCH ×2 (07:30→19:22)
--- NOTE | 2020-06-30 08:10 | RAD ---
Portable frontal chest radiograph: 06/30/2020 COMPARISON: 06/29/2020 HISTORY: Atelectasis FINDINGS: Stable prominence of the cardiac silhouette. The right lung appears hyperinflated, a simila r appearance when compared to the prior exam. There is increased density in the medial left lung base which may represent volume loss or infiltrate. Blunting of the left costophrenic angle suggests small volume left pleural effusion. Pleural and parenchymal opacity on the left has improved significantly when compared to the 06/28/2020 examination. IMPRESSION: Persistent pleural-parenchymal opacity in the left base, nonspecific and unchanged when c ompared to 06/29/2020.
[2020-06-30] MEDS ORDERED: Enoxaparin Sodium 40 MG/0.4 ML SYRINGE SC SCH (09:00)
[2020-06-30] MEDS: Dexamethasone 4 MG TAB PO SCH ×2 (09:44→22:05)
[2020-06-30] MEDS: FLUoxetine HCl 20 MG CAP PO SCH (09:44)
[2020-06-30] MEDS: Polyethylene Glycol 3350 17 GM Packet PO SCH (09:45)
[2020-06-30] MEDS: Potassium Chloride 10 MEQ TAB PO SCH (09:45)
[2020-06-30] MEDS: Apixaban 2.5 MG TAB PO SCH ×2 (09:45→22:08)
[2020-06-30] MEDS: Lisinopril/Hydrochlorothiazide 20/25 mg Tablet PO SCH (09:45)
[2020-06-30] MEDS: Carvedilol 25 MG TAB PO SCH ×2 (09:45→22:08)
[2020-06-30] MEDS: HumaLOG 300 UNITS/3 ML VIAL SC PRN (22:04)
[2020-06-30] MEDS: Atorvastatin Calcium 20 MG TAB PO SCH (22:07)
[2020-06-30] MEDS: metFORMIN 500 MG TAB PO SCH (22:08)
[2020-07-01] MEDS: guaiFENesin ER 600 MG TAB PO SCH ×2 (00:53→13:19)
[2020-07-01] MEDS: Acetylcysteine 10% 100 MG/ML 30 ml Vial NEB SCH ×6 (02:06→22:14)
[2020-07-01] MEDS: Albuterol Sulfate 2.5 mg/3 ml Neb IPPB SCH ×6 (02:06→22:14)
--- NOTE | 2020-07-01 05:57 | PDOC.FM ---
- Subjective Subjective: Patient doing well this morning. Sitting up in bed. Did not get much sleep last night, but is ready to go today. No acute events overnight. - Objective MAR Reviewed: Yes Vital Signs & Weight: Vital Signs (12 hours) Temp Pulse Resp BP BP Pulse Ox 07/01/20 03:37 97.7 F 81 20 109/50 L 94 L 07/01/20 02:06 84 18 96 07/01/20 00:30 96 07/01/20 00:05 98.5 F 84 20 131/59 L 98 06/30/20 22:22 88 18 96 06/30/20 22:21 88 18 92 L 06/30/20 19:37 97.6 F 80 20 134/61 100 06/30/20 19:23 83 16 100 Weight Admit Weight 83.007 kg Weight 81 kg Most Recent Monitor Data Heart Rate from ECG 73 NIBP 130/62 NIBP BP-Mean 84 Respiration from ECG 17 SpO2 98 I&O: 06/29/20 06/30/20 07/01/20 06:59 06:59 06:59 Intake Total 840 900 730 Output Total 6809 268 8396 Balance -510 225 -1270 Result Diagrams: 07/01/20 13:01 07/01/20 05:11 Phys Exam - Physical Examination Constitutional: NAD HEENT: moist MMs Neck: supple Respiratory: no wheezing, no rales, no rhonchi on home O2-2L Cardiovascular: RRR, no significant murmur Gastrointestinal: soft, non-tender Musculoskeletal: no edema, pulses present Neurological: moves all 4 limbs Psychiatric: normal affect, A&O x 3 Skin: no rash, normal turgor Dx/Plan - Plan Plan: This is a 75F who presented with SOB and was found to have COVID PNA. Acute hypoxic respiratory failure 2/2 COPD exacerbation 2/2 COVID PNA, improved Initial sx 06/11, positive COVID screen 06/13 on admission. Initially admitted to medical where she was improving and preparing for discharge before being transferred to [facility] on 06/19 to receive BiPAP for decreased alertness and ABG with pH 7.2, pO2 58, pCO2 89. On 06/21 CXR with L sided opacification of entire lung with mediastinal deviation - suspected mucus plug. Follow up CXR on 06/22, 06/23, 06/24, 06/25 have been relatively unchanged. CXR 06/28 with small improvement to L upper lung opacity. CXR 06/29 with marked improvement of L lung opacity. - Transitioned to baseline NC on 06/29 - Goal SpO2 88-92% in setting of COPD. - Pulm consulted 06/20, appreciate recs: - discharge on NC - prolonged steroid taper Upper GI bleed, resolved On 06/24 became lethargic, hypotensive, found to have large, black melanotic stool. Received 500cc bolus, 2u uncrossmatched blood, started on protonix gtt. Mildly tachycardic overnight in 90s and otherwise vitals have been stable. No additional transfusions or interventions have been required. - encouraged BM when she has urge - PO PPI - resume DVT ppx 06/30 as per GI recs - advance diet as tolerated - H/H has been stable, will decrease monitoring to q2 days - GI signed off 06/25/20 Leukocytosis, resolved Increased after acute bleeding event, now trending back down. Consider stress response, increased steroids dosing vs less likely infectious etiology. Procalcitonin increased at 1.14 after UGIB event, now trending back down without abx. No overt signs of new infection on history/exam this morning. UA negative. - CXR appears stable, respiratory status not worsening - if develops fever or clinical worsening, low threshold for collecting blood cultures and starting abx Metabolic alkalosis, improved Most likely post-hypercapnic etiology. Serum bicarbonate stable. - decrease labs to q2days - consider acetazolamide if serum bicarb consistently >40 Delirium, resolved Waxing and waning orientation, altered sleep/wake cycle earlier this admission. Likely due to prolonged hospitalization, infection. Monitor for changes in respiratory status as mental status changes may also be related to hypercapnea in setting of COPD. - reorientation measures as needed SHIRA, resolved - monitor Cr COPD exacerbation, improved - treatment as above Anxiety - Home Fluoxetine - Hydroxyzine prn HTN - Home meds - Monitor vitals Diabetes - Hypoglycemic protocol - ACHS checks - Home meds HLD - home meds PCP: [facility] VTE: held GI: protonix CODE: FULL PT/OT, CM, Spiritual care consulted Dispo: discharge today to [facility], Dr Lundberg has already accepted patient. Addendum - Attending - Attending Attestation Date/Time: 07/01/20 0838 I personally evaluated the patient and discussed the management with Dr. Ferreira I agree with the History, Examination, Assessment and Plan documented above with any addition or exceptions noted below. Remains at baseline. Ok for transfer. Isidro
[2020-07-01 06:00] LABS: Anion Gap 16 mmol/L (10-20); BUN (Urea Nitrogen) 64 mg/dL (9.8-20.1); Calc. Creatinine Clearance 88 mL/min (70-130); Carbon Dioxide 33 mmol/L (23-31); Chloride 92 mmol/L (98-107); Glucose 116 mg/dL (83-110); Potassium 4.6 mmol/L (3.5-5.1); Sodium 136 mmol/L (136-145)
[2020-07-01] MEDS: Mometasone 200 MCG/Formoterol 5 MCG 120 PUFF INHALER INH SCH ×2 (06:59→19:38)
--- NOTE | 2020-07-01 09:35 | RAD ---
Exam: Chest one view HISTORY:Atelectasis Comparison: 06/30/2020 FINDINGS: Cardiac silhouette: Normal Aorta: Stable atherosclerosis Pulmonary vessels: Normal Costophrenic angles: Clear LUNGS: Stable opacities in the lung bases. Pneumothorax: None Osseous abnormalities: None IMPRESSION: Stable bibasilar opacities.
[2020-07-01] MEDS: Dexamethasone 4 MG TAB PO SCH ×2 (10:00→20:25)
[2020-07-01] MEDS: Senokot S 8.6-50 MG TAB PO SCH ×2 (10:01→20:25)
[2020-07-01] MEDS: FLUoxetine HCl 20 MG CAP PO SCH (10:01)
[2020-07-01] MEDS: Polyethylene Glycol 3350 17 GM Packet PO SCH (10:02)
[2020-07-01] MEDS: Potassium Chloride 10 MEQ TAB PO SCH (10:02)
[2020-07-01] MEDS: Carvedilol 25 MG TAB PO SCH ×2 (10:04→20:26)
[2020-07-01] MEDS: Lisinopril/Hydrochlorothiazide 20/25 mg Tablet PO SCH (10:04)
[2020-07-01] MEDS: Apixaban 2.5 MG TAB PO SCH (10:04)
[2020-07-01] MEDS ORDERED: Lactated Ringer's 1,000 ML IV SCH (10:15)
[2020-07-01 13:08] LABS: Hemoglobin 6.2 g/dL (12.0-16.0); Platelet Count 241 thou/uL (130-400)
[2020-07-01] MEDS ORDERED: Pantoprazole 40 MG VIAL IVP SCH (13:45)
--- NOTE | 2020-07-01 13:58 | PDOC.BPN ---
<Yessenia Metz - Last Filed: 07/01/20 13:58> - Brief Progress Note Patient became hypotensive this morning and was given a 1L bolus. BP manual on recheck 100s/50s. Hgb recheck was 6.2, ordered 1u prbc to transfuse. Discontinued eliquis, ordered protonix IV. Likely another GI bleed due to eliquis being resumed 2 days ago. She had been continued on PO PPI throughout hospitalization. This will likely need to be discontinued permanently. GI manufacturing plant controller, Dr. Corado notified. NPO for now until evaluation. <Kiki Hassan - Last Filed: 07/01/20 14:56> - Brief Progress Note Hold transfer to [place]. Hold and do not restart eliquis. Patient not able to tolerate. GI updated. Made NPO. RBCs ordered. Continue IV PPI. Isidro
--- NOTE | 2020-07-01 15:18 | PRG ---
DATE OF SERVICE: 07/01/2020 SUBJECTIVE: This is my first time meeting the patient. GI is called back today due to concern for recurrent melena and blood loss anemia. I spoke with the patient, reviewed hospitalization notes. Dr. Carrion evaluated her about a week ago due to concern for melena and acute blood loss anemia. At that time, she was considered too high risk for any endoscopic investigation, still in the infectious phase of her COVID, and high risk for intubation, so was elected to treat medically. The patient did very well with IV PPI. Her melena resolved and hemoglobin stabilized. She has been on daily PPI since that time. Over the past week, she had improvement in her respiratory status, oxygen requirements decreased, now off isolation, no longer in the infectious phase, discharge was being contemplated. However, labs this morning demonstrated significant hemoglobin decline to 6.2 with hematocrit 18.9. This is a significant drop over the past 4 days from 9.5, was not checked in the interval. The patient was having a bit of hypotension as well earlier today, though no tachycardia. Blood pressure got down to 76/44, but with 1 unit of RBC transfusion and a liter of fluids, it is back up to 99/54. The patient has ongoing mild generalized abdominal pain, but no nausea or vomiting. There was no report of any overt bleeding; however, the nurse just told me that she did pass what appeared to be melenic stool today. Notably, the patient had been restarted on Eliquis a couple of days ago. She did receive her Eliquis this morning, but it is currently being held. PHYSICAL EXAMINATION: VITAL SIGNS: Temperature 97.8, pulse 90, blood pressure 99/54, and 95% oxygen saturation on 3 L nasal cannula. GENERAL: No acute distress. She is pale, lying in bed comfortably. HEART: Regular rate and rhythm. LUNGS: Bibasilar crackles. No respiratory distress. ABDOMEN: Nondistended, bowel sounds present, soft. Some tenderness to palpation throughout the abdomen, but no guarding or rebound tenderness. EXTREMITIES: No peripheral edema. LABORATORY STUDIES: Hemoglobin 6.2, hematocrit 18.9, platelets 241. Sodium 136, potassium 4.6, BUN elevated to 64, creatinine 0.73, glucose 158, calcium 8.0. ASSESSMENT AND PLAN: 1. Melena, high suspicion for upper gastrointestinal bleeding. 2. Acute blood loss anemia, recurrent. 3. Generalized abdominal pain, mild. 4. COVID pneumonia, recovering, no longer in the infectious phase. I have spoken with the primary service. Her Eliquis is being held again this afternoon, which is appropriate. She was started back on IV pantoprazole 40 mg q.12 hours. She is appropriately receiving another unit of RBCs. Please monitor hemoglobin and hematocrit closely, transfuse as needed. At this point, I think we do need to consider diagnostic EGD. She has had significant recovery from her COVID pneumonia, much better respiratory status now. I discussed this with the patient's daughter over the phone. There would still be some anesthesia risk, but on the balance, I think things favor proceeding with EGD. She is currently stable. We will plan for EGD tomorrow, after continuing to hold Eliquis tomorrow morning. Please call anytime with questions or concerns, or significant updates in her clinical status. Job ID: [id number]
--- NOTE | 2020-07-01 18:03 | PDOC.BPN ---
- Brief Progress Note Encounter Date: 06/30/20 Encounter Time: 17:30 Transition of Care Note Ms. Jensen is a very pleasant 75 y/o F with PMHx including COPD, HTN, HLD, and T2DM who initially presented on 06/13/20 with 2-3 days of worsening SOB, fatigue, and non-bloody diarrhea. She wears 2L NC at baseline for her COPD, and had increased O2 requirement of 4L NC on admission. Tested positive for COVID on 06/13/20. Rocephin and azithromycin were administered in the ED. Azithromycin continued on admission for COPD exacerbation, rocephin discontinued as symptoms were felt more likely due to COVID than a community acquired pneumonia. She received routine COVID treatment including: dexamethasone, remdesivir, convalescent plasma, lovenox. On 06/19, she was noted to be more sedated than usual. Her O2 saturations were in the high 90s, and it was suspected she became hypercarbic overnight due to decreased respiratory drive in the setting of high O2 in COPD. ABG revealed pCO2 of 89.2, pO2 of 58.1, pH 7.21. She was transferred to [facility] to be started on Bipap, and pulmonology was consulted. Chest XR was repeated on 06/21, revealed opacity of the entire L lung, consistent with L lung collapse due to mucus plugging of the L bronchus. Bipap was continued, with administration of albuterol and mucomyst nebulizers. From a respiratory standpoint, she remained stable alternating between bipap for treatments and HFNC to maintain appropriate oxygenation. On 06/24/20, resident team was paged due to an acute episode of lethargy, hypotension. Patient found to have large, melanotic stool. She was transfused 2u PRBC, 500 cc bolus. PPI gtt was started, GI consulted, patient made NPO, lovenox was held. Over the next several days, she remained hemodynamically stable. No endoscopic intervention was performed. Her diet was advanced as tolerated, and her DVT ppx was to be resumed on 06/30/20 per GI. On 06/28, she was transferred to [facility] to telemetry as she was no longer requiring bipap for oxygenation, only for administration of albuterol/mucomyst. Her L lung atelectasis began to greatly improve as evidenced on serial chest XRs. She was weaned successfully from HFNC back to her baseline 2L NC. On 06/29 and 06/30, she was ready for discharge to [facility], but remained at our facility due to difficulty coordinating transportation and obtaining a bed there. She was offered a referral to inpatient rehab, but declined as she favors going to [place] where she may be closer to her family. On 06/30/20 her COVID precautions were discontinued as she had been symptomatic 2-3 days before her positive test on 06/13/20. Kathy Shearer, DO, PGY-1
[2020-07-01] MEDS ORDERED: Ondansetron ODT 8 MG TAB SL PRN (18:41)
[2020-07-01] MEDS: Pantoprazole 40 MG VIAL IVP SCH (20:24)
[2020-07-01] MEDS: metFORMIN 500 MG TAB PO SCH (20:25)
[2020-07-01] MEDS: Atorvastatin Calcium 20 MG TAB PO SCH (20:25)
[2020-07-01] MEDS: Melatonin 3 MG TAB PO PRN (20:39)
[2020-07-01] MEDS ORDERED: Lactated Ringer's 500 ML IV SCH ×2 (21:00→23:30)
[2020-07-02] MEDS ORDERED: Lactated Ringer's 500 ML IV SCH (01:00)
[2020-07-02] MEDS: guaiFENesin ER 600 MG TAB PO SCH (01:01)
[2020-07-02 01:30] LABS: Hemoglobin 7.2 g/dL (12.0-16.0)
[2020-07-02 01:31] LABS: Mean Corpuscular HGB CONC 33.3 g/dL (32.0-36.0); Mean Corpuscular Hemoglobin 31.2 pg (27.0-31.0); Mean Corpuscular Volume 93.9 fL (78.0-98.0); Mean Platelet Volume 9.1 fL (7.4-10.4); Platelet Count 195 thou/uL (130-400); RBC Distribution Width 14.8 % (11.5-14.5); Red Blood Cell (RBC) Count 2.25 mill/uL (4.20-5.40); White Blood Cell (WBC) Count 24.9 thou/uL (4.8-10.8)
[2020-07-02 01:37] LABS: INR-International Normal Ratio 1.8; PTT 28.1 sec (22.9-36.1); Prothrombin Time 21.1 sec (12.0-14.7)
[2020-07-02 02:06] LABS: Magnesium 1.7 mg/dL (1.6-2.6); Phosphorus 5.3 mg/dL (2.3-4.7)
[2020-07-02] MEDS: Albuterol Sulfate 2.5 mg/3 ml Neb IPPB SCH ×6 (02:07→21:36)
--- NOTE | 2020-07-02 06:04 | PDOC.FM ---
- Subjective Subjective: Patient resting in bed. Patient states she is fatigued, SOB, and dizzy whenever she sits up. She endorses mild, diffuse abdominal pain, worse in the epigastric region. She is s/p 1U of blood yesterday. She is NPO for an EGD today. - Objective MAR Reviewed: Yes Vital Signs & Weight: Vital Signs (12 hours) Temp Pulse Resp BP Pulse Ox 07/02/20 04:00 97.5 F L 82 22 H 113/52 L 92 L 07/02/20 02:39 96/49 L 07/02/20 02:07 77 17 91 L 07/02/20 01:46 107/57 L 07/02/20 00:50 96 07/02/20 00:44 94/43 L 07/02/20 00:00 97.4 F L 72 16 95/55 L 96 07/01/20 23:15 89/49 L 07/01/20 22:14 69 19 07/01/20 20:44 80/45 L 07/01/20 20:00 97 F L 75 18 74/43 L 97 07/01/20 19:28 76 16 97 Weight Admit Weight 83.007 kg Weight 81 kg Most Recent Monitor Data Heart Rate from ECG 73 NIBP 130/62 NIBP BP-Mean 84 Respiration from ECG 17 SpO2 98 I&O: 06/30/20 07/01/20 07/02/20 06:59 06:59 06:59 Intake Total 624 464 6085 Output Total 675 2000 1250 Balance 225 -1270 1415 Result Diagrams: 07/02/20 05:13 07/01/20 05:11 Phys Exam - Physical Examination Constitutional: NAD looks tired Neck: no JVD, supple Respiratory: no wheezing, no rhonchi Cardiovascular: RRR, no significant murmur Gastrointestinal: soft, no distention, positive bowel sounds diffuse TTP, worse in epigastric region Musculoskeletal: no edema, pulses present Neurological: non-focal, normal sensation, moves all 4 limbs Psychiatric: normal affect, A&O x 3 Skin: no rash, cap refill <2 seconds Dx/Plan - Plan Plan: This is a 75F who presented with SOB and was found to have COVID PNA. Upper GI bleed, resolved On 06/24 became lethargic, hypotensive, found to have large, black melanotic stool. Received 500cc bolus, 2u uncrossmatched blood, started on protonix gtt. Mildly tachycardic overnight in 90s and otherwise vitals have been stable. No additional transfusions or interventions have been required. On 07/01 she became hypotensive, with black stools. Hgb found to be 6.2. Transf used 1u. Post transfusion H/H 7.2 - was on PO PPI, switched to IV 40mg Protonix BID (07/01) - GI rec was to resume DVT ppx 06/30, but stopped Eliquis on 07/01 given Hgb of 6.2 and hypotension - Continue to monitor daily hemmagram - GI consulted, Case, appreciate the recs - plan for EGD (07/02), will follow up findings - patient's Hgb is 7.0 (07/02) and she is symptomatic, will tranfuse 1 unit Acute hypoxic respiratory failure 2/2 COPD exacerbation 2/2 COVID PNA, improved Initial sx 06/11, positive COVID screen 06/13 on admission. Initially admitted to medical where she was improving and preparing for discharge before being transferred to [facility] on 06/19 to receive BiPAP for decreased alertness and ABG with pH 7.2, pO2 58, pCO2 89. On 06/21 CXR with L sided opacification of entire lung with mediastinal deviation - suspected mucus plug. Follow up CXR on 06/22, 06/23, 06/24, 06/25 have been relatively unchanged. CXR 06/28 with small improvement to L upper lung opacity. CXR 06/29 with marked improvement of L lung opacity. - Transitioned to baseline NC on 06/29 - Goal SpO2 88-92% in setting of COPD. - Pulm consulted 06/20, appreciate recs: - discharge on home NC - prolonged steroid taper. Will start taper while she is still hospitalized. Decadron 4mg daily for 3 days (07/02), then on 07/05 will do 2mg daily for 3 days Leukocytosis -Consider stress response, increased steroids dosing vs less likely infectious etiology. Procalcitonin increased at 1.14 after UGIB event, now trending back down without abx. No overt signs of new infection on history/exam this morning. UA negative. - CXR appears stable, respiratory status not worsening - if develops fever or clinical worsening, low threshold for collecting blood cultures and starting abx Metabolic alkalosis, improved Most likely post-hypercapnic etiology. Serum bicarbonate stable. - decrease labs to q2days - consider acetazolamide if serum bicarb consistently >40 Delirium, resolved Waxing and waning orientation, altered sleep/wake cycle earlier this admission. Likely due to prolonged hospitalization, infection. Monitor for changes in respiratory status as mental status changes may also be related to hypercapnea in setting of COPD. - reorientation measures as needed SHIRA, resolved - monitor Cr COPD exacerbation, improved - treatment as above Anxiety - Home Fluoxetine - Hydroxyzine prn HTN - Home meds - Monitor vitals Diabetes - Hypoglycemic protocol - ACHS checks - Home meds HLD - home meds PCP: [facility] VTE: held GI: protonix CODE: FULL PT/OT, CM, Spiritual care consulted Dispo: hold discharge to [facility]. Dispo pending Hgb and findings on EGD today with GI Addendum - Attending - Attending Attestation Date/Time: 07/02/20 [id number] I personally evaluated the patient and discussed the management with Dr. Ferreira I agree with the History, Examination, Assessment and Plan documented above with any addition or exceptions noted below. Sadly Mrs Jensen remains at . Now with acute GI bleeding 2/2 to [facility]. Has been indefinitely held. Wean steroids. Continue PPI. Required 2 units. Needed BiPAP yesterday due to poor oxygen carrying capacity and ES COPD. GI to scope today. Will continue to monitor here at [facility] able to be transferred to swing bed at [facility]. Monitor potassium. Patient is on daily replacement and not sure why. Isirdo
[2020-07-02 06:12] LABS: Lymphocytes 4 % (21-51); MDiff Complete? YES; Mean Corpuscular HGB CONC 33.7 g/dL (32.0-36.0); Mean Corpuscular Hemoglobin 31.5 pg (27.0-31.0); Mean Corpuscular Volume 93.5 fL (78.0-98.0); Mean Platelet Volume 9.2 fL (7.4-10.4); Monocytes 2 % (0-10); Neutrophil 94 % (42-75); Platelet Count 208 thou/uL (130-400); Platelet Morphology Comment Appears Adequate; RBC Distribution Width 14.8 % (11.5-14.5); RBC Morphology Normal; Red Blood Cell (RBC) Count 2.24 mill/uL (4.20-5.40); White Blood Cell (WBC) Count 22.6 thou/uL (4.8-10.8)
--- NOTE | 2020-07-02 06:29 | PDOC.BPN ---
- Brief Progress Note Encounter Date: 07/01/20 Encounter Time: 23:00 The residents were asked to evaluate Mrs. Jensen shortly after completion of her transfusion of pRBCs due to continued low BPs and a brief moment where she reportedly stopped breathing and was responsive only to pain. When the residents arrived, she was comfortably on BiPAP with SpO2 in the upper 80s and was fully responsive. Her SBP was in the upper 70s and low 80s with MAPs of ~50 despite the transfusion and a 500mL bolus. Her HR was stable in the 70s-80s and she had no external signs of bleeding. Dr. Corado was contacted and felt the hypotension was likely not related to hemorrhage given the stable HR. Regardless, he said it would be too soon to intervene given the length of time off Eliquis. As such, his recommendation was to aggressively fluid resuscitate. Ultimately, she received 2L of LR in addition to the 1u pRBCs prior to having a MAP >65. Her 4hr post-transfusion Hgb was 7.2.
[2020-07-02] MEDS: Acetylcysteine 10% 100 MG/ML 30 ml Vial NEB SCH ×2 (07:14→07:36)
[2020-07-02] MEDS: Mometasone 200 MCG/Formoterol 5 MCG 120 PUFF INHALER INH SCH ×2 (07:50→18:56)
[2020-07-02] MEDS: Pantoprazole 40 MG VIAL IVP SCH ×2 (08:32→21:28)
[2020-07-02] MEDS: Polyethylene Glycol 3350 17 GM Packet PO SCH (08:32)
[2020-07-02] MEDS: Senokot S 8.6-50 MG TAB PO SCH (08:33)
[2020-07-02] MEDS: Lisinopril/Hydrochlorothiazide 20/25 mg Tablet PO SCH (08:33)
[2020-07-02] MEDS ORDERED: Polyethylene Glycol 3350 17 GM Packet PO PRN (08:58)
[2020-07-02] MEDS ORDERED: Senokot S 8.6-50 MG TAB PO PRN (08:58)
[2020-07-02] MEDS ORDERED: guaiFENesin ER 600 MG TAB PO PRN (08:59)
[2020-07-02] MEDS ORDERED: Sodium Chloride 0.9% 10 ML ONE (09:07)
[2020-07-02] MEDS ORDERED: Midazolam HCl 2 mg/2 ml Vial ONE (09:56)
[2020-07-02] MEDS ORDERED: Ketamine 50 MG/ML (10ML VIAL) ONE (09:56)
--- NOTE | 2020-07-02 11:22 | OP ---
DATE OF PROCEDURE: 07/02/2020 ASSISTANCE SURGEON: None. PROCEDURE PERFORMED: Esophagogastroduodenoscopy, diagnostic. INDICATIONS: 1. Recurrent melena. 2. Recurrent acute blood loss anemia. 3. Generalized abdominal pain. 4. COVID pneumonia, recovering, no longer in the infectious phase. FINDINGS: After discussion of the risks, benefits, and alternatives of the procedure, informed consent was obtained and witnessed. Pre-endoscopic cardiopulmonary examination was satisfactory. Time-out was performed before sedation was achieved. Sedation was achieved with Anesthesia assistance in the endoscopy unit. A Pentax adult upper endoscope was placed into the oropharynx and passed through the cricopharyngeus under direct visualization. The esophageal mucosa appeared normal throughout. The endoscope was advanced into the stomach. Forward and retroflexed views of the entire gastric mucosa were obtained. The patient has a 5-cm hiatal hernia. There was erosive gastritis within this hiatal hernia, though it does not really have the appearance of Jonatan erosions. There were no deep ulcerations, no active bleeding at this time. The remainder of the gastric mucosa actually appears normal. The endoscope was passed through the pylorus and into the first and second portions of the duodenum. In the duodenal bulb and second portion of the duodenum, there are multiple small arteriovenous malformations. None of these are bleeding at this time. There is also moderate edema, erythema, and friability diffusely throughout the second portion of the duodenum. There are no erosions or ulcerations in this area, but there is very mild diffuse oozing. There is no significant bleeding found on this examination. The upper endoscope was completely withdrawn, and the patient allowed to recover. The patient tolerated the procedure well. There were no immediate postprocedure complications. IMPRESSION: 1. 5-cm hiatal hernia. 2. Erosive gastritis within the hiatal hernia, no active bleeding at this time. 3. Duodenitis with diffuse friability. 4. Few small duodenal arteriovenous malformations, nonbleeding. RECOMMENDATIONS: 1. Continue proton pump inhibitor at twice daily dosing. 2. I would recommend holding all anticoagulation going forward if possible. 3. Advance diet. 4. Continue to monitor H and H, transfuse as needed. 5. No plan for any colonoscopy at this time. I think this would be likely a low yield endeavor, and high risk for the patient. GI can continue to follow. Please call anytime with questions or concerns. Job ID: [id number] MTDD
[2020-07-02] MEDS ORDERED: PROPOFOL 200 MG/20 ML VIAL ONE (12:01)
[2020-07-02] MEDS: Dexamethasone 4 MG TAB PO SCH (14:03)
[2020-07-02] MEDS: Carvedilol 25 MG TAB PO SCH ×2 (14:04→21:28)
[2020-07-02] MEDS: FLUoxetine HCl 20 MG CAP PO SCH (14:04)
[2020-07-02] MEDS: Potassium Chloride 10 MEQ TAB PO SCH (14:04)
[2020-07-02 16:07] LABS: Hemoglobin 8.8 g/dL (12.0-16.0)
[2020-07-02] MEDS: metFORMIN 500 MG TAB PO SCH (21:28)
[2020-07-02] MEDS: Atorvastatin Calcium 20 MG TAB PO SCH (21:28)
[2020-07-02] MEDS: Melatonin 3 MG TAB PO PRN (21:28)
[2020-07-03] MEDS: Albuterol Sulfate 2.5 mg/3 ml Neb IPPB SCH ×6 (02:27→22:26)
[2020-07-03 05:34] LABS: Hemoglobin 7.4 g/dL (12.0-16.0); Mean Corpuscular HGB CONC 33.6 g/dL (32.0-36.0); Mean Corpuscular Hemoglobin 30.6 pg (27.0-31.0); Mean Corpuscular Volume 90.9 fL (78.0-98.0); Mean Platelet Volume 8.7 fL (7.4-10.4); Platelet Count 191 thou/uL (130-400); RBC Distribution Width 16.4 % (11.5-14.5); Red Blood Cell (RBC) Count 2.43 mill/uL (4.20-5.40); White Blood Cell (WBC) Count 14.1 thou/uL (4.8-10.8)
[2020-07-03 05:45] LABS: Phosphorus 4.5 mg/dL (2.3-4.7)
[2020-07-03 05:48] LABS: Anion Gap 11 mmol/L (10-20); BUN (Urea Nitrogen) 91 mg/dL (9.8-20.1); Calc. Creatinine Clearance 67 mL/min (70-130); Calcium 7.4 mg/dL (7.8-10.44); Carbon Dioxide 33 mmol/L (23-31); Chloride 98 mmol/L (98-107); Glucose 126 mg/dL (83-110); Magnesium 1.9 mg/dL (1.6-2.6); Potassium 4.4 mmol/L (3.5-5.1); Sodium 138 mmol/L (136-145)
--- NOTE | 2020-07-03 06:19 | PDOC.FM ---
- Subjective Subjective: Patient resting comfortably in bed receiving a breathing treatment. Says overall she feels better, but feels so fatigued and weak. Has been working with PT. Has been eating without difficulty. Denies dark stools. - Objective MAR Reviewed: Yes Vital Signs & Weight: Vital Signs (12 hours) Temp Pulse Resp BP Pulse Ox 07/03/20 03:47 97.4 F L 58 L 20 127/54 L 95 07/03/20 02:27 58 L 20 97 07/02/20 23:37 98.1 F 79 14 109/55 L 92 L 07/02/20 21:36 16 07/02/20 20:00 97.9 F 74 18 131/63 96 07/02/20 18:54 89 16 90 L Weight Admit Weight 83.007 kg Weight 83.461 kg Most Recent Monitor Data Heart Rate from ECG 73 NIBP 130/62 NIBP BP-Mean 84 Respiration from ECG 17 SpO2 98 I&O: 07/01/20 07/02/20 07/03/20 06:59 06:59 06:59 Intake Total 730 4665 1360 Output Total 1999 1550 950 Balance -1270 3115 410 Result Diagrams: 07/03/20 05:06 07/03/20 05:06 Phys Exam - Physical Examination Constitutional: NAD Neck: supple Respiratory: no wheezing, no rales Cardiovascular: RRR, no significant murmur Gastrointestinal: soft, non-tender, positive bowel sounds Musculoskeletal: no edema, pulses present Neurological: normal sensation, moves all 4 limbs Psychiatric: normal affect, A&O x 3 Skin: normal turgor Dx/Plan - Plan Plan: This is a 75F who presented with SOB and was found to have COVID PNA. Upper GI bleed, resolved On 06/24 became lethargic, hypotensive, found to have large, black melanotic stool. Received 500cc bolus, 2u uncrossmatched blood, started on protonix gtt. Mildly tachycardic overnight in 90s and otherwise vitals have been stable. No additional transfusions or interventions have been required. On 07/01 she became hypotensive, with black stools. Hgb found to be 6.2. Transfused 1u. Post transfusion H/H 7.2 - was on PO PPI, switched to IV 40mg Protonix BID (07/01) - GI rec was to resume DVT ppx 06/30, but stopped Eliquis on 07/01 given Hgb of 6.2 and hypotension - Continue to monitor daily hemmagram - GI consulted, Case, appreciate the recs - plan for EGD (07/02): erosive gastritis, 5cm hiatial hernia, duodenitis, duodenal AV malformations that are non bleeding, no colonoscopy at this time - patient's Hgb is 7.0 (07/02) and she is symptomatic, will tranfuse 1 unit - patient's Hgb is 7.4 (07/03) and is symptomatic, will transfuse 1 unit Acute hypoxic respiratory failure 2/2 COPD exacerbation 2/2 COVID PNA, improved Initial sx 06/11, positive COVID screen 06/13 on admission. Initially admitted to [facility] where she was improving and preparing for discharge before being transferred to [facility] on 06/19 to receive BiPAP for decreased alertness and ABG with pH 7.2, pO2 58, pCO2 89. On 06/21 CXR with L sided opacification of entire lung with mediastinal deviation - suspected mucus plug. Follow up CXR on 06/22, 06/23, 06/24, 06/25 have been relatively unchanged. CXR 06/28 with small improvement to L upper lung opacity. CXR 06/29 with marked improvement of L lung opacity. - Transitioned to baseline NC on 06/29 - Goal SpO2 88-92% in setting of COPD. - Pulm consulted 06/20, appreciate recs: - discharge on home NC - prolonged steroid taper. Will start taper while she is still hospitalized. Decadron 4mg daily for 3 days (07/02), then on 07/05 will do 2mg daily for 3 days Leukocytosis -Consider stress response, increased steroids dosing vs less likely infectious etiology. Procalcitonin increased at 1.14 after UGIB event, now trending back down without abx. No overt signs of new infection on history/exam this morning. UA negative. - CXR appears stable, respiratory status not worsening - if develops fever or clinical worsening, low threshold for collecting blood cultures and starting abx Metabolic alkalosis, improved Most likely post-hypercapnic etiology. Serum bicarbonate stable. - decrease labs to q2days - consider acetazolamide if serum bicarb consistently >40 Delirium, resolved Waxing and waning orientation, altered sleep/wake cycle earlier this admission. Likely due to prolonged hospitalization, infection. Monitor for changes in respiratory status as mental status changes may also be related to hypercapnea in setting of COPD. - reorientation measures as needed SHIRA, resolved - monitor Cr COPD exacerbation, improved - treatment as above Anxiety - Home Fluoxetine - Hydroxyzine prn HTN - Home meds - Monitor vitals Diabetes - Hypoglycemic protocol - ACHS checks - Home meds HLD - home meds PCP: Toño VTE: held GI: protonix BID CODE: FULL PT/OT, CM, Spiritual care consulted Dispo: hold discharge to [facility]. Dispo pending Hgb and GI recs Addendum - Attending - Attending Attestation Date/Time: 07/03/20 1026 I personally evaluated the patient and discussed the management with Dr. Ferreira. I agree with the History, Examination, Assessment and Plan documented above with any addition or exceptions noted below. Patient overall stable. Continues to feel week and deconditioned. Accepted for placement once she is stable. She is on baseline O2 requirement at this time, off COVID precautions. L lung aerated well. Her H/H has continued to downtrend and will get GI input on the need for further scope. Transfuse 1u today.
[2020-07-03] MEDS: Mometasone 200 MCG/Formoterol 5 MCG 120 PUFF INHALER INH SCH ×2 (07:31→19:50)
[2020-07-03] MEDS: FLUoxetine HCl 20 MG CAP PO SCH (10:33)
[2020-07-03] MEDS: Dexamethasone 4 MG TAB PO SCH (10:33)
[2020-07-03] MEDS: Pantoprazole 40 MG VIAL IVP SCH ×2 (10:33→20:09)
[2020-07-03] MEDS: Carvedilol 25 MG TAB PO SCH ×3 (10:37→20:14)
[2020-07-03] MEDS: Lisinopril/Hydrochlorothiazide 20/25 mg Tablet PO SCH (10:37)
--- NOTE | 2020-07-03 10:55 | PRG ---
DATE OF SERVICE: 07/03/2020 SUBJECTIVE: Ms. Jensen continues to feel quite weak, but she does not have any shortness of breath or cough. No chest pain or abdominal pain. She is tolerating her diet and there has been no melena since yesterday morning reported by either the patient or nursing staff. Hemoglobin continues to drift, 7.4 this morning, getting another unit of blood, but she has remained more hemodynamically stable, blood pressure is stabilized. OBJECTIVE: VITAL SIGNS: Temperature 97.7, pulse 68, blood pressure 113/47, 96% oxygen saturation on 4 L nasal cannula. GENERAL: Frail, but lying in bed comfortably, in no distress. She is pale. HEART: Regular rate and rhythm. LUNGS: Clear to auscultation bilaterally. ABDOMEN: Soft, nontender to palpation. EXTREMITIES: No peripheral edema. LABORATORY STUDIES: Hemoglobin 7.4, WBC down to 14.1, platelets 191. INR yesterday was 1.8. Sodium 138, potassium 4.4. BUN increased to 91, creatinine 0.99, glucose 126, phosphorus 4.5, magnesium 1.9. ASSESSMENT AND PLAN: 1. Acute recurrent upper gastrointestinal bleeding. 2. Acute blood loss anemia, recurrent. 3. Erosive gastritis in the gastric fundus, in the area of a hiatal hernia. 4. Duodenitis. 5. Duodenal arteriovenous malformations. 6. Anticoagulation with Eliquis, now held for the past 2 days. There is some discordance really between her laboratory trends and her clinical status. Clinically, she has improved, with no reported melena over the past 24 hours, stabilization of her blood pressure and hemodynamics status, and upper endoscopy yesterday showing erosive gastritis and duodenitis with duodenal AVMs, but no active hemorrhage at that time. On the other hand, her BUN is more elevated today, and hemoglobin continues to drift down to 7.4 this morning, getting another unit of RBC transfusion. My suspicion is the labs are reflecting sequela of her acute bleeding from a couple of days ago. Recommend continuing to hold the Eliquis, continuing aggressive acid suppression. Continue on her diet. But if the patient begins to pass melena again, or there is suspicion for significant rebleeding, then I would recommend getting a tagged RBC scan for attempt at localization. At this point, I do not think it would be worthwhile to try to put her through a bowel preparation and colonoscopy. 7. GI will continue to follow along. Please call back anytime with questions or concerns. Job ID: [id number]
[2020-07-03 18:44] LABS: Hemoglobin 8.8 g/dL (12.0-16.0); Mean Corpuscular HGB CONC 33.7 g/dL (32.0-36.0); Mean Corpuscular Hemoglobin 30.9 pg (27.0-31.0); Mean Corpuscular Volume 91.6 fL (78.0-98.0); Mean Platelet Volume 8.3 fL (7.4-10.4); Platelet Count 197 thou/uL (130-400); RBC Distribution Width 15.8 % (11.5-14.5); Red Blood Cell (RBC) Count 2.84 mill/uL (4.20-5.40); White Blood Cell (WBC) Count 15.9 thou/uL (4.8-10.8)
[2020-07-03] MEDS: metFORMIN 500 MG TAB PO SCH (20:08)
[2020-07-03] MEDS: Melatonin 3 MG TAB PO PRN (20:08)
[2020-07-03] MEDS: Atorvastatin Calcium 20 MG TAB PO SCH (20:08)
[2020-07-04] MEDS: Acetaminophen 325 MG TAB PO PRN (01:31)
[2020-07-04] MEDS: Albuterol Sulfate 2.5 mg/3 ml Neb IPPB SCH ×5 (03:55→19:15)
[2020-07-04 05:13] LABS: Hemoglobin 8.3 g/dL (12.0-16.0); Mean Corpuscular HGB CONC 33.8 g/dL (32.0-36.0); Mean Corpuscular Hemoglobin 31.3 pg (27.0-31.0); Mean Corpuscular Volume 92.7 fL (78.0-98.0); Mean Platelet Volume 8.1 fL (7.4-10.4); Platelet Count 190 thou/uL (130-400); RBC Distribution Width 15.8 % (11.5-14.5); Red Blood Cell (RBC) Count 2.64 mill/uL (4.20-5.40); White Blood Cell (WBC) Count 13.7 thou/uL (4.8-10.8)
[2020-07-04 05:35] LABS: Anion Gap 13 mmol/L (10-20); BUN (Urea Nitrogen) 48 mg/dL (9.8-20.1); Calc. Creatinine Clearance 93 mL/min (70-130); Calcium 7.5 mg/dL (7.8-10.44); Carbon Dioxide 31 mmol/L (23-31); Chloride 100 mmol/L (98-107); Glucose 119 mg/dL (83-110); Potassium 4.5 mmol/L (3.5-5.1); Sodium 139 mmol/L (136-145)
--- NOTE | 2020-07-04 06:09 | PDOC.FM ---
- Subjective Subjective: Patient resting comfortably in bed. Denies dark stools. Improved fatigue and weakness. Tolerating PO and working well with PT. On home O2: 2L - Objective MAR Reviewed: Yes Vital Signs & Weight: Vital Signs (12 hours) Temp Pulse Resp BP Pulse Ox 07/04/20 04:00 98.2 F 69 18 124/86 97 07/04/20 03:55 96 07/04/20 00:00 98.2 F 69 18 133/66 95 07/03/20 22:26 96 07/03/20 19:53 94 L 07/03/20 19:51 97.9 F 72 16 111/56 L 96 07/03/20 19:50 96 Weight Admit Weight 83.007 kg Weight 83.552 kg Most Recent Monitor Data Heart Rate from ECG 73 NIBP 130/62 NIBP BP-Mean 84 Respiration from ECG 17 SpO2 98 I&O: 07/02/20 07/03/20 07/04/20 06:59 06:59 06:59 Intake Total 4665 1360 870 Output Total 1550 950 600 Balance 3115 410 270 Result Diagrams: 07/04/20 04:58 07/04/20 04:58 Phys Exam - Physical Examination Constitutional: NAD on home O2 HEENT: moist MMs Neck: no nodes Respiratory: no wheezing, no rales Cardiovascular: RRR, no significant murmur Gastrointestinal: soft, non-tender, positive bowel sounds Musculoskeletal: no edema, pulses present Neurological: moves all 4 limbs Psychiatric: normal affect, A&O x 3 Skin: normal turgor Dx/Plan - Plan Plan: This is a 75F who presented with SOB and was found to have COVID PNA. Upper GI bleed, resolved On 06/24 became lethargic, hypotensive, found to have large, black melanotic stool. Received 500cc bolus, 2u uncrossmatched blood, started on protonix gtt. Mildly tachycardic overnight in 90s and otherwise vitals have been stable. No additional transfusions or interventions have been required. On 07/01 she became hypotensive, with black stools. Hgb found to be 6.2. Transfused 1u. 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 Will check PM H/H. If stable and no symptoms, anticipate discharge. Will follow with GI Acute hypoxic respiratory failure 2/2 COPD exacerbation 2/2 COVID PNA, improved Initial sx 06/11, positive COVID screen 06/13 on admission. Initially admitted to medical where she was improving and preparing for discharge before being transferred to IM on 06/19 to receive BiPAP for decreased alertness and ABG with pH 7.2, pO2 58, pCO2 89. On 06/21 CXR with L sided opacification of entire lung with mediastinal deviation - suspected mucus plug. Follow up CXR on 06/22, 06/23, 06/24, 06/25 have been relatively unchanged. CXR 06/28 with small improvement to L upper lung opacity. CXR 06/29 with marked improvement of L lung opacity. - Transitioned to baseline NC on 06/29 - Goal SpO2 88-92% in setting of COPD. - Pulm consulted 06/20, appreciate recs: - discharge on home NC - prolonged steroid taper. Will start taper while she is still hospitalized. Decadron 4mg daily for 3 days (07/02), then on 07/05 will do 2mg daily for 3 days Leukocytosis -Consider stress response, increased steroids dosing vs less likely infectious etiology. Procalcitonin increased at 1.14 after UGIB event, now trending back down without abx. No overt signs of new infection on history/exam this morning. UA negative. - CXR appears stable, respiratory status not worsening - if develops fever or clinical worsening, low threshold for collecting blood cultures and starting abx Metabolic alkalosis, improved Most likely post-hypercapnic etiology. Serum bicarbonate stable. - decrease labs to q2days - consider acetazolamide if serum bicarb consistently >40 Delirium, resolved Waxing and waning orientation, altered sleep/wake cycle earlier this admission. Likely due to prolonged hospitalization, infection. Monitor for changes in respiratory status as mental status changes may also be related to hypercapnea in setting of COPD. - reorientation measures as needed SHIRA, resolved - monitor Cr COPD exacerbation, improved - treatment as above Anxiety - Home Fluoxetine - Hydroxyzine prn HTN - Home meds - Monitor vitals Diabetes - Hypoglycemic protocol - ACHS checks - Home meds HLD - home meds PCP: Toño VTE: held GI: protonix BID CODE: FULL PT/OT, CM, Spiritual care consulted Dispo: hold discharge to [facility]. Dispo pending GI recs Addendum - Attending - Attending Attestation Date/Time: 07/04/20 1102 I personally evaluated the patient and discussed the management with Dr. Ferreira. I agree with the History, Examination, Assessment and Plan documented above with any addition or exceptions noted below. Patient overall very stable from respiratory standpoint. Her H/H has continued to downtrend, but no evidence of bleeding and BUN has downtrended. Suspect some of this may be dilutional and also re-distribution from her previous bleed. Continue to trend. GI on board, awaiting their re-eval. Hoping if she remains stable that we can move to d/c very soon.
[2020-07-04] MEDS: Mometasone 200 MCG/Formoterol 5 MCG 120 PUFF INHALER INH SCH ×2 (07:49→19:11)
[2020-07-04] MEDS: Carvedilol 25 MG TAB PO SCH ×2 (08:35→08:37)
[2020-07-04] MEDS: FLUoxetine HCl 20 MG CAP PO SCH (08:35)
[2020-07-04] MEDS: Pantoprazole 40 MG VIAL IVP SCH (08:35)
[2020-07-04] MEDS: Dexamethasone 4 MG TAB PO SCH (08:36)
[2020-07-04] MEDS: Lisinopril/Hydrochlorothiazide 20/25 mg Tablet PO SCH (08:36)
[2020-07-04] MEDS ORDERED: Carvedilol 6.25 MG TAB PO SCH ×2 (11:00→21:00)
[2020-07-04 13:20] LABS: Hemoglobin 8.8 g/dL (12.0-16.0); Mean Corpuscular HGB CONC 32.7 g/dL (32.0-36.0); Mean Corpuscular Hemoglobin 30.7 pg (27.0-31.0); Mean Corpuscular Volume 94.1 fL (78.0-98.0); Platelet Count 188 thou/uL (130-400); RBC Distribution Width 15.6 % (11.5-14.5); Red Blood Cell (RBC) Count 2.86 mill/uL (4.20-5.40); White Blood Cell (WBC) Count 15.9 thou/uL (4.8-10.8)
[2020-07-04 15:14] VITALS: BMI 33.7
[2020-07-04 15:15] VITALS: BP 135/69; TEMP 97.9
--- NOTE | 2020-07-04 17:00 | PRG ---
DATE OF SERVICE: SUBJECTIVE: Ms. Jensen has had no further melena or overt GI bleeding. She has no abdominal pain or acute complaints. She is wanting to go home. OBJECTIVE: VITAL SIGNS: Temperature 97.9, pulse 70, blood pressure 135/69. GENERAL: She is in no acute distress. Alert and oriented. LUNGS: Clear to auscultation bilaterally. HEART: Regular rate and rhythm without murmur. ABDOMEN: Soft, nontender, and nondistended. Bowel sounds are present. EXTREMITIES: No lower extremity edema. LABORATORY DATA: White blood cell count 15.9, hemoglobin 8.8, platelets 188. Creatinine 0.79. IMPRESSION: 1. Upper gastrointestinal bleed. 2. Anemia of acute blood loss. 3. 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 These were not bleeding and were not intervened on. Bleeding appears to have stopped after withholding anticoagulation. 4. COVID pneumonia, improved. RECOMMENDATIONS: 1. Continue proton pump inhibitor. 2. Anticoagulation has been held. 3. I will sign off. Please call if GI can be of assistance. She should be ready to discharge from a GI standpoint. Job ID: [id number]
--- NOTE | 2020-07-04 21:40 | DIS ---
DATE OF ADMISSION: 06/13/2020 DATE OF DISCHARGE: 07/04/2020 RESIDENT: Maryjane Ferreira MD, PGY-1. ADMITTING ATTENDING: Toby Coronel MD. DISCHARGE ATTENDING: Jaron Meadows MD CONSULTS: 1. Dr. Carrion, Gastroenterology. 2. Dr. Cordero, Pulmonology. 3. Case Management. 4. PT, OT. 5. Spiritual Care. 6. Case Management. PROCEDURES: Please see Dr. Shearer's transition of care on 06/30 addressing the patient's hospital stay up to this point. The patient received convalescent plasma and 5 units of RBCs during her stay. PRIMARY DIAGNOSES: 1. Symptomatic anemia secondary to upper gastrointestinal bleed. 2. Acute hypoxic respiratory failure secondary to chronic obstructive pulmonary disease exacerbation secondary to COVID pneumonia. SECONDARY DIAGNOSES: 3. Leukocytosis. 4. Metabolic alkalosis. 5. Delirium. 6. Acute kidney injury. 7. Chronic obstructive pulmonary disease exacerbation. 8. Anxiety. 9. Hypertension. 10. Diabetes. 11. Hyperlipidemia. DISCHARGE MEDICATIONS: 1. Dulera 2 puff inhalation b.i.d. 2. Humalog 1 unit mild sliding scale p.r.n. 3. 1 unit subcutaneous bedtime sliding scale as needed. 4. MiraLAX 17 g daily. 5. Mucinex 1200 mg oral b.i.d. 6. Protonix 40 mg b.i.d. 7. Acetaminophen 650 mg p.o. q.4 hours as needed. 8. Coreg 12.5 mg p.o. b.i.d. 9. Decadron 2 mg p.o. for 3 days starting on 07/05/2020. 10. Metformin 500 mg p.o. at bedtime. 11. Lipitor 20 mg p.o. at bedtime. 12. Prozac 20 mg p.o. daily. 13. Lisinopril/hydrochlorothiazide 20/25 mg 1 tab p.o. daily. 14. Norvasc 5 mg p.o. at bedtime. 15. DuoNeb p.r.n. 16. Potassium chloride 10 mEq p.o. daily. Discontinued medications: 1. Carvedilol 25 mg p.o. b.i.d. 2. Eliquis 5 mg p.o. b.i.d. HISTORY OF PRESENT ILLNESS/HOSPITAL COURSE: Please see Dr. Shearer's transition of care note on 06/30/2020 to see the patient's hospital course and HPI leading up to 06/30/2020. The patient was expected to go to [facility]. However, the patient became hypotensive with black stools. Hemoglobin was found to be 6.2, patient was transfused 1 unit and posttransfusion H and H was 7.2. The patient was on a p.o. PPI that was switched to 40 of Protonix b.i.d. IV in the setting of GI bleed. Previous to this event, GI gave the okay to resume DVT prophylaxis on 06/30, and the patient did receive her Eliquis. However, this anticoagulation was stopped in the setting of her hypotension and 6.2 hemoglobin. The patient was monitored with routine hemogram and GI was consulted. 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 The recommendations are that if the patient continues to have melena, to do a tagged RBC scan for localization. On 07/02, the patient's hemoglobin was 7 and symptomatic, so 1 unit was transfused. On 07/03, her hemoglobin was 7.4 and symptomatic, so she was transfused an additional unit. On day of discharge, 07/04, the patient's hemoglobin was 8.3. She was stable and not symptomatic. An afternoon recheck of her hemogram was 8.8, and patient denied any symptoms. GI signed off on the patient. The patient continued to work with PT and OT with improvement of her weakness. DISPOSITION: Stable. DISCHARGE INSTRUCTIONS: 1. Location: [facility]. 2. Diet: Heart healthy diet. 3. Activity: As tolerated. 4. Followup: Follow up with Dr. Lundberg, primary care provider, within the week and Dr. Cordero in 3 to 4 weeks. The patient will be at [facility], so she will have close followup. Job ID: [id number] [facility]
[2020-07-05] MEDS ORDERED: Dexamethasone 1 MG TAB PO SCH (09:00)
== END 2020-07-04 21:03 | disposition swing bed (61) | DRG 177 ==
LOC: ERS 14:44 → T4-B 17:05 → CCU 06-19 19:10 → IMCU/EMU 06-20 18:14 → 2SE 06-28 10:45
PROVIDERS: ADMIT Emergency Medicine; ATTEND Emergency Medicine
PROC: XW043E5 Introduction of Remdesivir Anti-infective into Central Vein, Percutaneous Approach, New Technology Group 5 (ICD-10-PCS; 2020-06-13)
PROC: 5A09457 Assistance with Respiratory Ventilation, 24-96 Consecutive Hours, Continuous Positive Airway Pressure (ICD-10-PCS; 2020-06-13)
PROC: XW14325 Transfusion of Convalescent Plasma (Nonautologous) into Central Vein, Percutaneous Approach, New Technology Group 5 (ICD-10-PCS; 2020-06-14)
PROC: 8E0ZXY6 Isolation (ICD-10-PCS; principal; 2020-06-24)
PROC: 30233N1 Transfusion of Nonautologous Red Blood Cells into Peripheral Vein, Percutaneous Approach (ICD-10-PCS; 2020-06-24)
PROC: 0DJ08ZZ Inspection of Upper Intestinal Tract, Via Natural or Artificial Opening Endoscopic (ICD-10-PCS; 2020-06-24)
DX: U07.1 COVID-19 (principal); J12.82 Pneumonia due to coronavirus disease 2019; J96.21 Acute and chronic respiratory failure with hypoxia; J96.22 Acute and chronic respiratory failure with hypercapnia; R57.8 Other shock; J44.1 Chronic obstructive pulmonary disease with (acute) exacerbation; J44.0 Chronic obstructive pulmonary disease with (acute) lower respiratory infection; I42.9 Cardiomyopathy, unspecified; E87.3 Alkalosis; N17.9 Acute kidney failure, unspecified; T17.590A Other foreign object in bronchus causing asphyxiation, initial encounter; J98.19 Other pulmonary collapse; J98.11 Atelectasis; F05 Delirium due to known physiological condition; D62 Acute posthemorrhagic anemia; K92.1 Melena; G93.40 Encephalopathy, unspecified; F41.9 Anxiety disorder, unspecified; F32.9 Major depressive disorder, single episode, unspecified; E78.5 Hyperlipidemia, unspecified; I11.0 Hypertensive heart disease with heart failure; I50.9 Heart failure, unspecified; X58.XXXA Exposure to other specified factors, initial encounter; D72.829 Elevated white blood cell count, unspecified; T38.0X5A Adverse effect of glucocorticoids and synthetic analogues, initial encounter; K29.00 Acute gastritis without bleeding; K44.9 Diaphragmatic hernia without obstruction or gangrene; K31.819 Angiodysplasia of stomach and duodenum without bleeding; K29.80 Duodenitis without bleeding; Z79.84 Long term (current) use of oral hypoglycemic drugs; Z79.899 Other long term (current) drug therapy; Z99.81 Dependence on supplemental oxygen; Z79.51 Long term (current) use of inhaled steroids; Z87.891 Personal history of nicotine dependence
CPT/HCPCS: 0240U; 36415; 36416; 36430; 36600; 71045; 80048; 80053; 80076; 81001; 82728; 82805; 83615; 83735; 83880; 84100; 84145; 84484; 85014; 85018; 85025; 85027; 85049; 85379; 85610; 85730; 86140; 86850; 86900; 86901; 93005; 94640; 94660; 96365; 96367; C9113; J0696; J1100; J1650; J2250; J2704; J3475; J3490; J7050; J7608; J7611; J8540; P9016; P9017

== ENCOUNTER 2022-08-06 13:13 | Inpatient (IN) | payer MEDICARE ==
[2022-08-06 14:02] LABS: Base Excess 16.7 mEq/L (-2.0 to +3.0); Calcium, Ionized (venous) 0.99 mmol/L (1.16-1.32); Chloride (VBG) 88 mmol/L (98-106); Potassium (VBG) 4.27 mmol/L (3.70-5.30); Sodium 134.2 mmol/L (133-146); pH (venous) 7.54 (7.32-7.43)
[2022-08-06 14:04] LABS: Actual Bicarbonate (HCO3v) 42 mEq/L (22-28)
[2022-08-06 14:08] LABS: #Basophils 0.2 thou/uL (0.0-0.2); #Lymphocytes 0.4 thou/uL (1.20-3.40); #Monocytes 0.4 thou/uL (0.11-0.59); #Neutrophils 9.1 thou/uL (1.40-6.50); %Basophils 1.5 % (0.0-1.0); %Eosinophils 0.3 % (0.0-10.0); %Lymphocytes 3.8 % (21.0-51.0); %Monocytes 3.9 % (0.0-10.0); %Neutrophils 90.5 % (42.0-75.0); Hemoglobin 10.7 g/dL (12.0-16.0); Mean Corpuscular HGB CONC 29.9 g/dL (32.0-36.0); Mean Corpuscular Hemoglobin 28.3 pg (27.0-31.0); Mean Platelet Volume 6.8 fL (7.4-10.4); Platelet Count 372 10x3/uL (130-400); RBC Distribution Width 13.2 % (11.5-14.5); Red Blood Cell (RBC) Count 3.77 mill/uL (4.20-5.40); White Blood Cell (WBC) Count 10.1 10x3/uL (4.8-10.8)
[2022-08-06 14:32] LABS: ALT (SGPT) 15 U/L (8-55); AST (SGOT) 16 U/L (5-34); Albumin 3.7 g/dL (3.4-4.8); Alkaline Phosphatase 96 U/L (40-110); BUN (Urea Nitrogen) 24 mg/dL (9.8-20.1); Bilirubin, Total 0.4 mg/dL (0.2-1.2); Calc. Creatinine Clearance 0 mL/min (70-130); Calcium 10.1 mg/dL (7.8-10.44); Estimated GFR 79; Globulin 3.6 g/dL (2.4-3.5); Glucose 151 mg/dL (83-110); Protein, Total 7.3 g/dL (5.8-8.1)
[2022-08-06 14:43] LABS: Anion Gap 16 mmol/L (10-20); Carbon Dioxide 41 mmol/L (23-31); Chloride 86 mmol/L (98-107); Potassium 4.1 mmol/L (3.5-5.1); Sodium 139 mmol/L (136-145)
[2022-08-06 14:51] LABS: Hypochromia SLIGHT = 6-15 cells (100X) (0-5/hpf); MDiff Complete? YES; Platelet Morphology Comment Appears Adequate; Polychromasia SLIGHT = 2-3 cells (100X) (0-2/hpf)
[2022-08-06] MEDS ORDERED: Magnesium 2 GM/50 ML BAG (IN WATER) ONE (15:01)
[2022-08-06] MEDS ORDERED: cefTRIAXone\\ROCEPHIN 2 GM VIAL ONE (15:01)
[2022-08-06] MEDS ORDERED: Ipratropium/Albuterol 3 ML NEB ONE (15:21)
[2022-08-06 16:31] LABS: SARS-CoV-2 NAA Rapid Test Not Detected (NotDetected)
[2022-08-06] MEDS ORDERED: HYDROcodone/Acetaminophen 5/325 mg Tablet PO PRN (16:32)
[2022-08-06] MEDS ORDERED: Acetaminophen 325 MG TAB PO PRN (16:32)
[2022-08-06] MEDS ORDERED: Senokot S 8.6-50 MG TAB PO PRN (16:38)
[2022-08-06] MEDS ORDERED: Ipratropium/Albuterol 3 ML NEB NEB PRN (16:40)
[2022-08-06] MEDS ORDERED: Dextrose 5% in Water 1,000 ML IV PRN (16:43)
[2022-08-06] MEDS ORDERED: HumaLOG 300 UNITS/3 ML VIAL SC PRN (16:43)
[2022-08-06] MEDS ORDERED: Dextrose 50% Abboject 50 ML SYRINGE SLOW IVP PRN (16:43)
[2022-08-06] MEDS ORDERED: Azithromycin 500 MG VIAL ONE (16:51)
[2022-08-06] MEDS ORDERED: ALPRAZolam 0.25 MG TAB PO PRN (17:01)
[2022-08-06] MEDS: Ipratropium/Albuterol 3 ML NEB NEB SCH (19:06)
[2022-08-06] MEDS: Mometasone/Formoterol 200/5 60 PUFF INH SCH (19:07)
[2022-08-06] MEDS: methylPREDNISolone Sod Succ 40 MG VIAL IVP SCH (20:01)
[2022-08-06] MEDS: guaiFENesin ER 600 MG TAB PO SCH (20:02)
[2022-08-06] MEDS: Insulin Glargine 30 UNITS/0.3 ML VIAL SC SCH (20:02)
[2022-08-06] MEDS: Doxycycline 100 MG CAP PO SCH (20:02)
[2022-08-06] MEDS: Famotidine/PF 20 mg/2ml Vial SLOW IVP SCH (20:03)
[2022-08-07] MEDS: methylPREDNISolone Sod Succ 40 MG VIAL IVP SCH ×5 (00:20→23:48)
[2022-08-07] MEDS: Ipratropium/Albuterol 3 ML NEB NEB SCH ×6 (00:55→22:41)
[2022-08-07 04:19] LABS: #Lymphocytes 0.6 thou/uL (1.20-3.40); #Monocytes 0.2 thou/uL (0.11-0.59); #Neutrophils 7.2 thou/uL (1.40-6.50); %Basophils 0.2 % (0.0-1.0); %Eosinophils 0.3 % (0.0-10.0); %Lymphocytes 7.4 % (21.0-51.0); %Monocytes 2.4 % (0.0-10.0); %Neutrophils 89.6 % (42.0-75.0); Hemoglobin 11.2 g/dL (12.0-16.0); Mean Corpuscular HGB CONC 31.8 g/dL (32.0-36.0); Mean Corpuscular Hemoglobin 29.5 pg (27.0-31.0); Mean Corpuscular Volume 92.8 fl (78.0-98.0); Mean Platelet Volume 7.2 fL (7.4-10.4); Platelet Count 349 10x3/uL (130-400); RBC Distribution Width 13.3 % (11.5-14.5); White Blood Cell (WBC) Count 8.1 10x3/uL (4.8-10.8)
[2022-08-07 04:44] LABS: BUN (Urea Nitrogen) 18 mg/dL (9.8-20.1); Calc. Creatinine Clearance 85 mL/min (70-130); Calcium 10.3 mg/dL (7.8-10.44); Estimated GFR 91; Glucose 149 mg/dL (83-110)
[2022-08-07 04:53] LABS: Anion Gap 18 mmol/L (10-20); Carbon Dioxide 41 mmol/L (23-31); Chloride 84 mmol/L (98-107); Potassium 3.9 mmol/L (3.5-5.1); Sodium 139 mmol/L (136-145)
[2022-08-07] MEDS: Mometasone/Formoterol 200/5 60 PUFF INH SCH (07:23)
[2022-08-07] MEDS: guaiFENesin ER 600 MG TAB PO SCH ×2 (08:05→20:29)
[2022-08-07] MEDS: Doxycycline 100 MG CAP PO SCH ×2 (08:06→20:29)
[2022-08-07] MEDS: Famotidine/PF 20 mg/2ml Vial SLOW IVP SCH (08:06)
[2022-08-07] MEDS ORDERED: Carvedilol 6.25 MG TAB PO SCH (09:00)
[2022-08-07] MEDS ORDERED: Non-Formulary Item 1 EACH (Omeprazole [Omeprazole] 20 MG Tab.Rap.Dr) PO SCH (09:00)
[2022-08-07] MEDS: Furosemide 20 MG TAB PO SCH (09:01)
[2022-08-07] MEDS: Carvedilol 25 MG TAB PO SCH ×2 (09:01→20:29)
[2022-08-07] MEDS: FLUoxetine HCl 20 MG CAP PO SCH (09:01)
[2022-08-07] MEDS: Lisinopril/Hydrochlorothiazide 20/25 mg Tablet PO SCH (09:02)
[2022-08-07] MEDS: cefTRIAXone\\ROCEPHIN 1 GM in Sodium Chloride 0.9% 100 ML IVPB SCH (18:10)
[2022-08-07] MEDS: Mometasone 200 MCG/Formoterol 5 MCG 120 PUFF INHALER INH SCH (19:35)
[2022-08-07] MEDS: Insulin Glargine 30 UNITS/0.3 ML VIAL SC SCH (20:28)
[2022-08-07] MEDS: Atorvastatin Calcium 20 MG TAB PO SCH (20:29)
[2022-08-07] MEDS: Amlodipine 5 MG TAB PO SCH (20:29)
[2022-08-08] MEDS: Ipratropium/Albuterol 3 ML NEB NEB SCH ×6 (02:58→21:54)
[2022-08-08 04:01] LABS: #Lymphocytes 0.8 thou/uL (1.20-3.40); #Monocytes 0.5 thou/uL (0.11-0.59); #Neutrophils 10.8 thou/uL (1.40-6.50); %Eosinophils 0.2 % (0.0-10.0); %Lymphocytes 6.3 % (21.0-51.0); %Monocytes 3.8 % (0.0-10.0); %Neutrophils 89.8 % (42.0-75.0); Mean Corpuscular HGB CONC 31.6 g/dL (32.0-36.0); Mean Platelet Volume 6.9 fL (7.4-10.4); Platelet Count 338 10x3/uL (130-400); RBC Distribution Width 13.4 % (11.5-14.5); Red Blood Cell (RBC) Count 3.44 mill/uL (4.20-5.40); White Blood Cell (WBC) Count 12.1 10x3/uL (4.8-10.8)
[2022-08-08 04:19] LABS: BUN (Urea Nitrogen) 30 mg/dL (9.8-20.1); Calc. Creatinine Clearance 73 mL/min (70-130); Calcium 9.7 mg/dL (7.8-10.44); Estimated GFR 79; Glucose 135 mg/dL (83-110); Magnesium 2.1 mg/dL (1.6-2.6)
[2022-08-08 04:30] LABS: Anion Gap 20 mmol/L (10-20); Carbon Dioxide 37 mmol/L (23-31); Chloride 86 mmol/L (98-107); Potassium 3.8 mmol/L (3.5-5.1); Sodium 139 mmol/L (136-145)
[2022-08-08] MEDS: methylPREDNISolone Sod Succ 40 MG VIAL IVP SCH ×4 (06:00→23:08)
[2022-08-08] MEDS: Mometasone 200 MCG/Formoterol 5 MCG 120 PUFF INHALER INH SCH ×2 (07:51→18:39)
[2022-08-08] MEDS: Carvedilol 25 MG TAB PO SCH ×2 (08:09→20:55)
[2022-08-08] MEDS: guaiFENesin ER 600 MG TAB PO SCH ×2 (08:09→20:55)
[2022-08-08] MEDS: Doxycycline 100 MG CAP PO SCH ×2 (08:09→20:54)
[2022-08-08] MEDS: Lisinopril/Hydrochlorothiazide 20/25 mg Tablet PO SCH (08:09)
[2022-08-08] MEDS: Furosemide 20 MG TAB PO SCH (08:10)
[2022-08-08] MEDS: FLUoxetine HCl 20 MG CAP PO SCH (08:10)
[2022-08-08] MEDS: cefTRIAXone\\ROCEPHIN 1 GM in Sodium Chloride 0.9% 100 ML IVPB SCH (15:44)
[2022-08-08] MEDS: Atorvastatin Calcium 20 MG TAB PO SCH (20:54)
[2022-08-08] MEDS: Amlodipine 5 MG TAB PO SCH (20:54)
[2022-08-08] MEDS: Insulin Glargine 30 UNITS/0.3 ML VIAL SC SCH (20:55)
[2022-08-08] MEDS: Melatonin 3 MG TAB PO PRN (23:07)
[2022-08-09] MEDS: Ipratropium/Albuterol 3 ML NEB NEB SCH ×6 (02:33→23:56)
[2022-08-09] MEDS: methylPREDNISolone Sod Succ 40 MG VIAL IVP SCH ×4 (06:10→23:30)
[2022-08-09] MEDS: Mometasone 200 MCG/Formoterol 5 MCG 120 PUFF INHALER INH SCH ×2 (07:18→19:09)
[2022-08-09 07:31] LABS: #Lymphocytes 0.9 thou/uL (1.20-3.40); #Monocytes 0.6 thou/uL (0.11-0.59); #Neutrophils 9.1 thou/uL (1.40-6.50); %Eosinophils 0.2 % (0.0-10.0); %Lymphocytes 8.5 % (21.0-51.0); %Monocytes 5.7 % (0.0-10.0); %Neutrophils 85.6 % (42.0-75.0); Mean Corpuscular HGB CONC 31.8 g/dL (32.0-36.0); Mean Corpuscular Hemoglobin 29.5 pg (27.0-31.0); Mean Corpuscular Volume 92.6 fl (78.0-98.0); Mean Platelet Volume 6.6 fL (7.4-10.4); Platelet Count 363 10x3/uL (130-400); RBC Distribution Width 13.4 % (11.5-14.5); Red Blood Cell (RBC) Count 3.72 mill/uL (4.20-5.40); White Blood Cell (WBC) Count 10.6 10x3/uL (4.8-10.8)
[2022-08-09 08:12] LABS: Anion Gap 20 mmol/L (10-20); Carbon Dioxide 37 mmol/L (23-31); Chloride 84 mmol/L (98-107); Potassium 3.7 mmol/L (3.5-5.1); Sodium 137 mmol/L (136-145)
[2022-08-09] MEDS: Doxycycline 100 MG CAP PO SCH ×2 (08:24→20:19)
[2022-08-09] MEDS: guaiFENesin ER 600 MG TAB PO SCH ×2 (08:24→20:19)
[2022-08-09] MEDS: FLUoxetine HCl 20 MG CAP PO SCH (08:25)
[2022-08-09] MEDS: Carvedilol 25 MG TAB PO SCH ×2 (08:25→20:19)
[2022-08-09 09:02] LABS: BUN (Urea Nitrogen) 38 mg/dL (9.8-20.1); Calc. Creatinine Clearance 69 mL/min (70-130); Calcium 9.7 mg/dL (7.8-10.44); Estimated GFR 75; Glucose 128 mg/dL (83-110); Magnesium 2.1 mg/dL (1.6-2.6)
[2022-08-09] MEDS: cefTRIAXone\\ROCEPHIN 1 GM in Sodium Chloride 0.9% 100 ML IVPB SCH (15:05)
[2022-08-09] MEDS: Insulin Glargine 30 UNITS/0.3 ML VIAL SC SCH (20:19)
[2022-08-09] MEDS: Amlodipine 5 MG TAB PO SCH (20:19)
[2022-08-09] MEDS: Atorvastatin Calcium 20 MG TAB PO SCH (20:19)
[2022-08-09] MEDS: Melatonin 3 MG TAB PO PRN (21:59)
[2022-08-10] MEDS: Ipratropium/Albuterol 3 ML NEB NEB SCH ×6 (03:09→23:05)
[2022-08-10 04:40] VITALS: BMI 38.7
[2022-08-10] MEDS: methylPREDNISolone Sod Succ 40 MG VIAL IVP SCH ×2 (05:12→11:26)
[2022-08-10 07:40] LABS: BUN (Urea Nitrogen) 37 mg/dL (9.8-20.1); Calc. Creatinine Clearance 87 mL/min (70-130); Calcium 9.4 mg/dL (7.8-10.44); Estimated GFR 78; Glucose 134 mg/dL (83-110); Magnesium 2.2 mg/dL (1.6-2.6)
[2022-08-10 07:49] LABS: Anion Gap 18 mmol/L (10-20); Carbon Dioxide 39 mmol/L (23-31); Chloride 85 mmol/L (98-107); Potassium 3.5 mmol/L (3.5-5.1); Sodium 138 mmol/L (136-145)
[2022-08-10] MEDS: guaiFENesin ER 600 MG TAB PO SCH ×2 (08:23→20:38)
[2022-08-10] MEDS: Carvedilol 25 MG TAB PO SCH ×2 (08:23→20:37)
[2022-08-10] MEDS: Doxycycline 100 MG CAP PO SCH ×2 (08:23→20:36)
[2022-08-10] MEDS: FLUoxetine HCl 20 MG CAP PO SCH (08:23)
[2022-08-10] MEDS: Lisinopril/Hydrochlorothiazide 20/25 mg Tablet PO SCH (10:05)
[2022-08-10] MEDS: Furosemide 20 MG TAB PO SCH (10:05)
[2022-08-10] MEDS: Mometasone 200 MCG/Formoterol 5 MCG 120 PUFF INHALER INH SCH ×2 (11:34→19:03)
[2022-08-10] MEDS ORDERED: Potassium Chloride 20 MEQ TAB PO SCH (13:00)
[2022-08-10] MEDS: cefTRIAXone\\ROCEPHIN 1 GM in Sodium Chloride 0.9% 100 ML IVPB SCH (14:14)
[2022-08-10] MEDS: Amlodipine 5 MG TAB PO SCH (20:37)
[2022-08-10] MEDS: Atorvastatin Calcium 20 MG TAB PO SCH (20:37)
[2022-08-10] MEDS: Melatonin 3 MG TAB PO PRN (20:37)
[2022-08-10] MEDS: Insulin Glargine 30 UNITS/0.3 ML VIAL SC SCH (20:38)
[2022-08-10] MEDS ORDERED: methylPREDNISolone Sod Succ 40 MG VIAL IVP SCH (21:00)
[2022-08-11] MEDS: Ipratropium/Albuterol 3 ML NEB NEB SCH ×6 (03:06→23:39)
[2022-08-11] MEDS: Mometasone 200 MCG/Formoterol 5 MCG 120 PUFF INHALER INH SCH ×2 (07:14→19:06)
[2022-08-11] MEDS: Furosemide 20 MG TAB PO SCH (08:34)
[2022-08-11] MEDS: Carvedilol 25 MG TAB PO SCH ×2 (08:35→19:56)
[2022-08-11] MEDS: guaiFENesin ER 600 MG TAB PO SCH ×2 (08:35→19:56)
[2022-08-11] MEDS: predniSONE 20 MG TAB PO SCH (08:35)
[2022-08-11] MEDS: Doxycycline 100 MG CAP PO SCH ×2 (08:35→19:56)
[2022-08-11] MEDS: Lisinopril/Hydrochlorothiazide 20/25 mg Tablet PO SCH (08:35)
[2022-08-11] MEDS: FLUoxetine HCl 20 MG CAP PO SCH (08:35)
[2022-08-11 08:41] LABS: Anion Gap 15 mmol/L (10-20); Carbon Dioxide 39 mmol/L (23-31); Chloride 86 mmol/L (98-107); Potassium 3.9 mmol/L (3.5-5.1); Sodium 136 mmol/L (136-145)
[2022-08-11 08:46] LABS: BUN (Urea Nitrogen) 40 mg/dL (9.8-20.1); Calc. Creatinine Clearance 91 mL/min (70-130); Calcium 9.4 mg/dL (7.8-10.44); Estimated GFR 82; Glucose 116 mg/dL (83-110); Magnesium 2.2 mg/dL (1.6-2.6)
[2022-08-11] MEDS: cefTRIAXone\\ROCEPHIN 1 GM in Sodium Chloride 0.9% 100 ML IVPB SCH (14:34)
[2022-08-11] MEDS: Amlodipine 5 MG TAB PO SCH (19:56)
[2022-08-11] MEDS: Atorvastatin Calcium 20 MG TAB PO SCH (19:56)
[2022-08-11] MEDS: Insulin Glargine 30 UNITS/0.3 ML VIAL SC SCH (20:07)
[2022-08-11] MEDS: Melatonin 3 MG TAB PO PRN (22:55)
[2022-08-12] MEDS: Ipratropium/Albuterol 3 ML NEB NEB SCH ×4 (03:08→15:03)
[2022-08-12] MEDS: Mometasone 200 MCG/Formoterol 5 MCG 120 PUFF INHALER INH SCH (06:55)
[2022-08-12 07:02] LABS: BUN (Urea Nitrogen) 38 mg/dL (9.8-20.1); Calc. Creatinine Clearance 88 mL/min (70-130); Calcium 9.1 mg/dL (7.8-10.44); Estimated GFR 79; Glucose 90 mg/dL (83-110); Magnesium 2.1 mg/dL (1.6-2.6); Potassium 3.3 mmol/L (3.5-5.1); Sodium 134 mmol/L (136-145)
[2022-08-12 07:10] LABS: Carbon Dioxide 34 mmol/L (23-31)
[2022-08-12 07:15] LABS: Chloride 87 mmol/L (98-107)
[2022-08-12 08:06] LABS: Anion Gap 16 mmol/L (10-20)
[2022-08-12] MEDS: predniSONE 20 MG TAB PO SCH (09:10)
[2022-08-12] MEDS: Furosemide 20 MG TAB PO SCH (09:11)
[2022-08-12] MEDS: Carvedilol 25 MG TAB PO SCH (09:11)
[2022-08-12] MEDS: FLUoxetine HCl 20 MG CAP PO SCH (09:11)
[2022-08-12] MEDS: guaiFENesin ER 600 MG TAB PO SCH (09:11)
[2022-08-12] MEDS: Doxycycline 100 MG CAP PO SCH (09:11)
[2022-08-12] MEDS: Lisinopril/Hydrochlorothiazide 20/25 mg Tablet PO SCH (09:11)
[2022-08-12 12:00] VITALS: BP 102/66; TEMP 97.9
[2022-08-12] MEDS ORDERED: Potassium Chloride 20 MEQ TAB PO SCH (12:00)
== END 2022-08-12 16:40 | disposition swing bed (61) | DRG 193 ==
LOC: ERS 13:13 → IMCU/EMU 16:27 → T4-B 08-08 12:34
PROVIDERS: ADMIT Family Medicine; ATTEND Internal Medicine
PROC: 5A09357 Assistance with Respiratory Ventilation, Less than 24 Consecutive Hours, Continuous Positive Airway Pressure (ICD-10-PCS; principal; 2022-08-07)
DX: J18.9 Pneumonia, unspecified organism (principal); J96.21 Acute and chronic respiratory failure with hypoxia; J44.1 Chronic obstructive pulmonary disease with (acute) exacerbation; J44.0 Chronic obstructive pulmonary disease with (acute) lower respiratory infection; I50.22 Chronic systolic (congestive) heart failure; E11.9 Type 2 diabetes mellitus without complications; F41.9 Anxiety disorder, unspecified; Z20.822 Contact with and (suspected) exposure to COVID-19; I11.0 Hypertensive heart disease with heart failure; Z98.42 Cataract extraction status, left eye; Z98.41 Cataract extraction status, right eye; Z87.891 Personal history of nicotine dependence; Z79.4 Long term (current) use of insulin; Z79.899 Other long term (current) drug therapy; Z79.84 Long term (current) use of oral hypoglycemic drugs; Z98.890 Other specified postprocedural states
CPT/HCPCS: 36415; 36416; 71045; 80048; 80053; 82805; 83735; 83880; 84484; 85025; 87086; 93005; 94640; 94660; 96374; 96375; J0456; J0696; J1650; J1815; J2920; J3475; J3490; J7512; J7620; S0028

== ENCOUNTER 2023-08-21 | Inpatient (IN) | payer MEDICARE | END 2023-09-06 12:03 | disposition swing bed (61) | DRG 871 | PROVIDERS: ADMIT Family Medicine | PROC: 3E03329 Introduction of Other Anti-infective into Peripheral Vein, Percutaneous Approach (ICD-10-PCS; 2023-08-21) | PROC: 06HY33Z Insertion of Infusion Device into Lower Vein, Percutaneous Approach (ICD-10-PCS; principal; 2023-08-22) | PROC: 5A1935Z Respiratory Ventilation, Less than 24 Consecutive Hours (ICD-10-PCS; 2023-08-22) | PROC: 3E043XZ Introduction of Vasopressor into Central Vein, Percutaneous Approach (ICD-10-PCS; 2023-08-22) | PROC: XW043E5 Introduction of Remdesivir Anti-infective into Central Vein, Percutaneous Approach, New Technology Group 5 (ICD-10-PCS; 2023-08-22) | PROC: 5A0955A Assistance with Respiratory Ventilation, Greater than 96 Consecutive Hours, High Flow/Velocity Cannula (ICD-10-PCS; 2023-08-22) | DX: A41.9 Sepsis, unspecified organism (principal); I21.A1 Myocardial infarction type 2; U07.1 COVID-19; J12.82 Pneumonia due to coronavirus disease 2019; R65.21 Severe sepsis with septic shock; J96.21 Acute and chronic respiratory failure with hypoxia; J44.1 Chronic obstructive pulmonary disease with (acute) exacerbation; N39.0 Urinary tract infection, site not specified; E87.4 Mixed disorder of acid-base balance; I50.32 Chronic diastolic (congestive) heart failure; Z51.5 Encounter for palliative care; I95.9 Hypotension, unspecified; E11.9 Type 2 diabetes mellitus without complications; I11.0 Hypertensive heart disease with heart failure; Z98.890 Other specified postprocedural states; Z98.41 Cataract extraction status, right eye; Z98.42 Cataract extraction status, left eye; Z87.891 Personal history of nicotine dependence; Z79.899 Other long term (current) drug therapy; F41.9 Anxiety disorder, unspecified; D64.9 Anemia, unspecified ==